=== PATIENT | male | born 1970 | race Caucasian/White ===

== ENCOUNTER 2021-02-24 13:05 | Outpatient (REF) | payer MEDICARE, MEDICAID, SELFPAY ==
[2021-02-24 13:28] LABS: COVID-19 Test Negative (Negative)
== END 2021-02-24 13:06 | disposition home or self-care (01) ==
LOC: HO.LAB 13:05
PROVIDERS: Visit Provider Internal Medicine
DX: Z20.822 Contact with and (suspected) exposure to COVID-19 (principal)
CPT/HCPCS: 87635; C9803

== ENCOUNTER 2021-07-05 03:03 | Emergency (ER) | payer MEDICARE, MEDICAID, SELFPAY ==
[2021-07-05 03:10] VITALS: BP 140/70; BP 151/71; PULSE 70; RESP 18; TEMP 36.4; O2SAT 99; BMI 52.5
[2021-07-05 03:14] LABS: Glucose, Whole Blood 72 mg/dL (60-115)
[2021-07-05 03:27] LABS: Basophils Percent Auto 0.4 % (0-2); Eosinophils Absolute Auto 0.1 X10*3/uL (0.0-0.4); Eosinophils Percent Auto 1.3 % (0-4); Hematocrit 52.2 % (42.0-52.0); Hemoglobin 15.7 g/dl (14.0-18.0); Imm Gran Abs Auto 0.03 X10*3/uL (0.00-0.03); Imm Gran Pct Auto 0.3 % (0.0-0.4); Lymphocytes Percent Auto 17.8 % (20-40); MANUAL DIFF FLAG NO; Mean Corpuscular HGB Conc 30.1 g/dl (31.0-36.0); Mean Corpuscular Hemoglobin 25.1 pg (27.0-33.0); Mean Corpuscular Volume 83.5 fL (80.0-98.0); Monocytes Absolute Auto 0.8 X10*3/uL (0.1-1.2); Neutrophils Absolute Auto 8.2 x10*3/uL (2.0-8.3); Neutrophils Percent Auto 73.2 % (45-73); Platelet Count 313 X10*3/uL (160-400); Red Blood Count 6.25 X10*6/uL (4.60-5.80); Red Cell Distribution Width 15.6 % (11.0-16.0); White Blood Count 11.2 X10*3/uL (4.8-10.8)
[2021-07-05 03:46] LABS: Anion Gap 16 (12-20); Blood Urea Nitrogen 34 mg/dL (9-16); Calcium 10.3 mg/dL (8.4-10.2); Carbon Dioxide 29 mmol/L (22-29); Chloride 102 mmol/L (96-108); Creatinine Clr Calc Pharmacy 67.4; Estimated Glomerular Filt Rate 38; Glucose Random 52 mg/dL (60-115); Potassium 4.7 mmol/L (3.3-5.1); Sodium 142 mmol/L (135-145)
--- NOTE | 2021-07-05 03:57 | ED.GENADULT ---
HPI - General Adult General Chief complaint: General Medical Stated complaint: Hypoglycemia Time Seen by Provider: 07/05/21 03:38 Source: patient and EMS Mode of arrival: EMS History of Present Illness HPI narrative: 50-year-old male with known history of diabetes and uses an insulin pump is brought in by EMS when his brother, who lives with him, called them because he noted that patient was unresponsive and very diaphoretic. Patient states that this is the 1st time that this has happened, he is usually ?very on top of his diabetes? but states lately he has had a change in his appetite so he does not eat is often. Patient feels he may have accidentally entered in the wrong amount for his insulin pump and otherwise feels much better at this time. On initial arrival EMT ease noted that point of care was 25. Related Data Allergies Allergy/AdvReac Type Severity Reaction Status Date / Time No Known Allergies Allergy Unverified 03/05/21 13:28 Review of Systems Review of Systems: Pertinent positives and negatives as stated in HPI 10 point review systems is otherwise negative. PMFSH Past Medical History Source: nursing notes reviewed Social History Social History Advance Directives: No Physical Exam ED Vital Signs: Vital Signs - 24 hr 07/05/21 03:10 07/05/21 04:25 Temperature 97.6 F Pulse Rate 70 65 Respiratory Rate 18 22 H Blood Pressure 151/71 H 113/56 L Pulse Oximetry 99 99 BMI result Body Mass Index 52.5 VITAL SIGNS: Reviewed. GENERAL: Well developed, well nourished, in no acute distress. HEAD: Normocephalic/atraumatic EYES: PERRLA, EOMI EARS: Ext canals without abnormality OROPHARYNX: no oral lesions noted, posterior pharynx clear LUNGS: Normal breath sounds. No adventitious sounds or accessory muscle use. SpO2<99> CARDIOVASCULAR: Regular rate and rhythm without noted murmurs, no JVD or lower extremity edema. ABDOMEN: Soft, non-tender, non-distended with bowel sounds. MUSCULOSKELETAL: No tenderness, deformities, or effusions noted on gross inspection. EXTREMITIES: No cyanosis, clubbing or edema. SKIN: Inspection of the skin reveals no rashes, mildly diaphoretic NEUROLOGIC: Alert and oriented x 4. Strength and sensation to light touch were grossly intact x 4, mouth movements consistent with use of antipsychotic medications Course Course Course Narrative: 50-year-old male with history and clinical presentation consistent with accidental overdose of insulin, on review of all investigations mild leukocytosis is likely reactive and followed blood sugars Q 30 minutes and they have remained stable. Patient was counseled regarding caution with eating and a minimum at the time that he administers his insulin. He acknowledges understanding and states that he is going to discuss it further with his primary care provider at the end of the month. Medical Decision Making Lab Data Result diagrams: 07/05/21 03:22 07/05/21 03:22 Labs: Lab Results 07/05/21 07/05/21 07/05/21 Range/Units 03:07 03:22 03:22 WBC 11.2 H (4.8-10.8) X10*3/uL RBC 6.25 H (4.60-5.80) X10*6/uL Hgb 15.7 (14.0-18.0) g/dl Hct 52.2 H (42.0-52.0) % MCV 83.5 (80.0-98.0) fL MCH 25.1 L (27.0-33.0) pg MCHC 30.1 L (31.0-36.0) g/dl RDW 15.6 (11.0-16.0) % Plt Count 313 (160-400) X10*3/uL MPV 11.0 (9.4-12.4) fL Immature Gran % (Auto) 0.3 (0.0-0.4) % Neut % (Auto) 73.2 H (45-73) % Lymph % (Auto) 17.8 L (20-40) % [place] % (Auto) 7.0 (2-11) % Eos % (Auto) 1.3 (0-4) % Baso % (Auto) 0.4 (0-2) % Lymph # (Auto) 2.0 (1.2-4.9) X10*3/uL [place] # (Auto) 0.8 (0.1-1.2) X10*3/uL Eos # (Auto) 0.1 (0.0-0.4) X10*3/uL Baso # (Auto) 0.0 (0.0-0.2) X10*3/uL Abs Immat Gran (auto) 0.03 (0.00-0.03) X10*3/uL Absolute Neuts (auto) 8.2 (2.0-8.3) x10*3/uL Absolute Nucleated RBC 0.000 (0.0-0.012) X10*3/uL Nucleated RBC % (auto) 0.0 (0.0-0.2) /100WBC Sodium 142 (135-145) mmol/L Potassium 4.7 (3.3-5.1) mmol/L Chloride 102 (96-108) mmol/L Carbon Dioxide 29 (22-29) mmol/L Anion Gap 16 (12-20) BUN 34 H (9-16) mg/dL Creatinine 1.90 H (0.5-1.4) mg/dL Estim Creat Clear Calc 67.4 Estimated GFR 38 POC Glucose 72 (60-115) mg/dL Random Glucose 52 L* (60-115) mg/dL Calcium 10.3 H (8.4-10.2) mg/dL Urine Color Urine Appearance Urine pH (5.0-8.0) Ur Specific [place] (1.005-1.025) Urine Protein (NEG-TRACE) MG/DL Urine Glucose (UA) (NEG) MG/DL Urine Ketones (NEG) MG/DL Urine Blood (NEG) Urine Nitrite (NEG) Ur Leukocyte Esterase (NEG) Ethyl Alcohol mg/dL COVID-19 (EFRA) (Negative) COVID-19 Clin Com 07/05/21 07/05/21 07/05/21 Range/Units 03:22 03:25 03:52 WBC (4.8-10.8) X10*3/uL RBC (4.60-5.80) X10*6/uL Hgb (14.0-18.0) g/dl Hct (42.0-52.0) % MCV (80.0-98.0) fL MCH (27.0-33.0) pg MCHC (31.0-36.0) g/dl RDW (11.0-16.0) % Plt Count (160-400) X10*3/uL MPV (9.4-12.4) fL Immature Gran % (Auto) (0.0-0.4) % Neut % (Auto) (45-73) % Lymph % (Auto) (20-40) % [place] % (Auto) (2-11) % Eos % (Auto) (0-4) % Baso % (Auto) (0-2) % Lymph # (Auto) (1.2-4.9) X10*3/uL [place] # (Auto) (0.1-1.2) X10*3/uL Eos # (Auto) (0.0-0.4) X10*3/uL Baso # (Auto) (0.0-0.2) X10*3/uL Abs Immat Gran (auto) (0.00-0.03) X10*3/uL Absolute Neuts (auto) (2.0-8.3) x10*3/uL Absolute Nucleated RBC (0.0-0.012) X10*3/uL Nucleated RBC % (auto) (0.0-0.2) /100WBC Sodium (135-145) mmol/L Potassium (3.3-5.1) mmol/L Chloride (96-108) mmol/L Carbon Dioxide (22-29) mmol/L Anion Gap (12-20) BUN (9-16) mg/dL Creatinine (0.5-1.4) mg/dL Estim Creat Clear Calc Estimated GFR POC Glucose 95 108 (60-115) mg/dL Random Glucose (60-115) mg/dL Calcium (8.4-10.2) mg/dL Urine Color Urine Appearance Urine pH (5.0-8.0) Ur Specific [place] (1.005-1.025) Urine Protein (NEG-TRACE) MG/DL Urine Glucose (UA) (NEG) MG/DL Urine Ketones (NEG) MG/DL Urine Blood (NEG) Urine Nitrite (NEG) Ur Leukocyte Esterase (NEG) Ethyl Alcohol < 10 mg/dL COVID-19 (EFRA) (Negative) COVID-19 Clin Com 07/05/21 07/05/21 07/05/21 Range/Units 04:25 04:34 05:10 WBC (4.8-10.8) X10*3/uL RBC (4.60-5.80) X10*6/uL Hgb (14.0-18.0) g/dl Hct (42.0-52.0) % MCV (80.0-98.0) fL MCH (27.0-33.0) pg MCHC (31.0-36.0) g/dl RDW (11.0-16.0) % Plt Count (160-400) X10*3/uL MPV (9.4-12.4) fL Immature Gran % (Auto) (0.0-0.4) % Neut % (Auto) (45-73) % Lymph % (Auto) (20-40) % [place] % (Auto) (2-11) % Eos % (Auto) (0-4) % Baso % (Auto) (0-2) % Lymph # (Auto) (1.2-4.9) X10*3/uL [place] # (Auto) (0.1-1.2) X10*3/uL Eos # (Auto) (0.0-0.4) X10*3/uL Baso # (Auto) (0.0-0.2) X10*3/uL Abs Immat Gran (auto) (0.00-0.03) X10*3/uL Absolute Neuts (auto) (2.0-8.3) x10*3/uL Absolute Nucleated RBC (0.0-0.012) X10*3/uL Nucleated RBC % (auto) (0.0-0.2) /100WBC Sodium (135-145) mmol/L Potassium (3.3-5.1) mmol/L Chloride (96-108) mmol/L Carbon Dioxide (22-29) mmol/L Anion Gap (12-20) BUN (9-16) mg/dL Creatinine (0.5-1.4) mg/dL Estim Creat Clear Calc Estimated GFR POC Glucose 120 H 149 H (60-115) mg/dL Random Glucose (60-115) mg/dL Calcium (8.4-10.2) mg/dL Urine Color Urine Appearance Urine pH (5.0-8.0) Ur Specific [place] (1.005-1.025) Urine Protein (NEG-TRACE) MG/DL Urine Glucose (UA) (NEG) MG/DL Urine Ketones (NEG) MG/DL Urine Blood (NEG) Urine Nitrite (NEG) Ur Leukocyte Esterase (NEG) Ethyl Alcohol mg/dL COVID-19 (EFRA) Negative (Negative) COVID-19 Clin Com See Note 07/05/21 07/05/21 07/05/21 Range/Units 05:36 05:42 06:07 WBC (4.8-10.8) X10*3/uL RBC (4.60-5.80) X10*6/uL Hgb (14.0-18.0) g/dl Hct (42.0-52.0) % MCV (80.0-98.0) fL MCH (27.0-33.0) pg MCHC (31.0-36.0) g/dl RDW (11.0-16.0) % Plt Count (160-400) X10*3/uL MPV (9.4-12.4) fL Immature Gran % (Auto) (0.0-0.4) % Neut % (Auto) (45-73) % Lymph % (Auto) (20-40) % [place] % (Auto) (2-11) % Eos % (Auto) (0-4) % Baso % (Auto) (0-2) % Lymph # (Auto) (1.2-4.9) X10*3/uL [place] # (Auto) (0.1-1.2) X10*3/uL Eos # (Auto) (0.0-0.4) X10*3/uL Baso # (Auto) (0.0-0.2) X10*3/uL Abs Immat Gran (auto) (0.00-0.03) X10*3/uL Absolute Neuts (auto) (2.0-8.3) x10*3/uL Absolute Nucleated RBC (0.0-0.012) X10*3/uL Nucleated RBC % (auto) (0.0-0.2) /100WBC Sodium (135-145) mmol/L Potassium (3.3-5.1) mmol/L Chloride (96-108) mmol/L Carbon Dioxide (22-29) mmol/L Anion Gap (12-20) BUN (9-16) mg/dL Creatinine (0.5-1.4) mg/dL Estim Creat Clear Calc Estimated GFR POC Glucose 101 166 H (60-115) mg/dL Random Glucose (60-115) mg/dL Calcium (8.4-10.2) mg/dL Urine Color YELLOW Urine Appearance CLEAR Urine pH 5.5 (5.0-8.0) Ur Specific [place] 1.020 (1.005-1.025) Urine Protein TRACE (NEG-TRACE) MG/DL Urine Glucose (UA) NEG (NEG) MG/DL Urine Ketones NEG (NEG) MG/DL Urine Blood NEG (NEG) Urine Nitrite NEG (NEG) Ur Leukocyte Esterase NEG (NEG) Ethyl Alcohol mg/dL COVID-19 (EFRA) (Negative) COVID-19 Clin Com Discharge Plan Discharge Clinical Impression: Hypoglycemia, Diabetes Patient Disposition: Home, Self-Care Instructions: Hypoglycemia in a Person with Diabetes (ED), Diabetes and Nutrition (ED) Additional Instructions: 1. Resume all home medications as prescribed. 2. Exercise extreme caution with administration of your insulin and keep your scheduled appointment with your primary care provider. Do not hesitate to return to the emergency room for any acute worsening of symptoms. Referrals: Damian Lai III, MD [Primary Care Provider] -
[2021-07-05 04:00] LABS: Ethanol < 10 mg/dL
[2021-07-05] MEDS: 0.9 % Sodium Chloride 1,000 ML 999 ML IV (04:02)
[2021-07-05 04:25] VITALS: BP 113/56; PULSE 65; RESP 22; O2SAT 99
[2021-07-05 04:46] LABS: COVID-19 Test Negative (Negative)
[2021-07-05 05:43] LABS: Appearance Urine CLEAR; Color Urine YELLOW; Glucose Urine UA NEG (NEG); Leukocyte Esterase Urine NEG (NEG); Nitrite Urine NEG (NEG); PH 5.5 (5.0-8.0); Urine Blood NEG (NEG); Urine Ketones NEG (NEG); Urine Protein TRACE MG/DL (NEG-TRACE)
[2021-07-05 05:48] LABS: Glucose, Whole Blood 95 mg/dL (60-115)
[2021-07-05 05:48] LABS: Glucose, Whole Blood 108 mg/dL (60-115)
[2021-07-05 05:48] LABS: Glucose, Whole Blood 101 mg/dL (60-115)
[2021-07-05 05:48] LABS: Glucose, Whole Blood 149 mg/dL (60-115)
[2021-07-05 05:48] LABS: Glucose, Whole Blood 120 mg/dL (60-115)
[2021-07-05 06:13] LABS: Glucose, Whole Blood 166 mg/dL (60-115)
[2021-07-05 06:35] LABS: Glucose, Whole Blood 159 mg/dL (60-115)
== END 2021-07-05 07:08 | disposition home or self-care (01) ==
PROVIDERS: Emergency Provider Student in an Organized Health Care Education/Training Program; PCP Internal Medicine
DX: E11.649 Type 2 diabetes mellitus with hypoglycemia without coma (principal); Z20.822 Contact with and (suspected) exposure to COVID-19; Z79.899 Other long term (current) drug therapy
CPT/HCPCS: 36415; 80048; 81003; 82077; 82947; 85025; 87635; 96360; 99284

== ENCOUNTER 2023-01-18 15:37 | Outpatient (AMB) | payer MEDICARE, MEDICAID, SELFPAY ==
--- NOTE | 2023-01-18 15:46 | HO.NEPHOV_ITS ---
HPI HPI Comments History of Present Illness Details I had the privilege of seeing Zac in follow-up of his chronic kidney disease on a backdrop of obesity, hypertension and uncontrolled diabetes. He has been having bi pedal edema. He has not come for follow-up for a long time. He bought a diuretics from the pharmacy without prescription and took it for a month with some improvement. His last serum creatinine had gone up about his baseline. His blood sugar control remains suboptimal. He has gained quite a bit of weight. He denies chest pain, shortness of breath, nausea, vomiting, diarrhea, urinary symptoms, orthostasis. He avoids nonsteroidal inflammatory medications. He claims to be compliant with his medications but is not as active as he should be. He is on angiotensin receptor nickolas. [facility] Medical History (Updated 01/19/23 @ 22:15 by Ruddy Mcconnell MD) Chronic kidney disease (CKD) Hypertension Diabetes Family History (Updated 01/18/23 @ 15:53 by Evelina Siegel MA) Mother Diabetes Father Diabetes Hypertension Social History (Updated 01/18/23 @ 15:53 by Evelina Siegel MA) Alcohol intake: never Patient Tobacco Use Status: Never used Tobacco Vital Signs 01/18/23 15:47 Height 5 ft 8 in Weight 328 lb 4 oz BMI 49.9 BP 164/80 H Blood Pressure Location Lt brachial Position Sitting Pulse 70 Pulse Source Pulse Oximeter Pulse Oximetry (%) 96 Oxygen Delivery Method Room Air Physical Exam Vital Signs: Last Vital Signs Pulse 70 01/18/23 15:47 BP 164/80 H 01/18/23 15:47 Pulse Ox 96 01/18/23 15:47 Oxygen Delivery Method Room Air 01/18/23 15:47 BMI result Body Mass Index 49.9 Const General: comfortable and no acute distress Orientation/consciousness: patient oriented x3 HEENT Head: Yes normocephalic Mouth: Normal oral and palatal mucosa present Eyes EOM: EOMs intact bilaterally Neck Neck: Yes supple Resp Auscultation: clear to auscultation bilaterally Cardio Jugular venous distension: no JVD Rate: regular rate GI Palpation (GI): Soft to palpation Auscultation: normal bowel sounds General: Yes no CVA tenderness Back/Spine/Pelvis Back: no CVA tenderness Skin General skin exam: no rashes or lesions noted Neuro General: patient oriented x3 and moves all extremities Extrem General: Yes edema Assessment & Plan Assessment & Plan (1) CKD stage 3 due to type 2 diabetes mellitus: Code(s): E11.22 - Type 2 diabetes mellitus with diabetic chronic kidney disease; N18.30 - Chronic kidney disease, stage 3 unspecified (2) Hypertension: Code(s): I10 - Essential (primary) hypertension Qualifiers: Hypertension type: primary hypertension Qualified Code(s): I10 - Essential (primary) hypertension Plan Zac has 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 He is on angiotensin receptor nickolas along with multiple antihypertensives to keep his blood pressure at goal. He should be on a low-sodium diet. He should maintain good hydration. I restarted him on thiazides. I ordered follow-up blood work and urine studies. I plan to start him on Jardiance or Farxiga at the next visit. He should not take any nonsteroidal anti-inflammatory medications. He needs to lose weight. If he is unsuccessful in losing weight he should be seen in weight management plays in [facility]. All his questions were answered. Time spent retrieving data, patient encounter and documentation 36 minutes. Follow-up given. Orders: Orders Electrolytes 01/18/23. - Type 2 diabetes mellitus with diabetic chronic kidney disease, I10 - Essential (primary) hypertension, N18.30 - Chronic kidney disease, stage 3 unspecified Blood Urea Nitrogen 01/18/23. - Type 2 diabetes mellitus with diabetic chronic kidney disease, I10 - Essential (primary) hypertension, N18.30 - Chronic kidney disease, stage 3 unspecified Creatinine 01/18/23. - Type 2 diabetes mellitus with diabetic chronic kidney disease, I10 - Essential (primary) hypertension, N18.30 - Chronic kidney disease, stage 3 unspecified Phosphorus 01/18/23. - Type 2 diabetes mellitus with diabetic chronic kidney disease, I10 - Essential (primary) hypertension, N18.30 - Chronic kidney disease, stage 3 unspecified Calcium 01/18/23. - Type 2 diabetes mellitus with diabetic chronic kidney disease, I10 - Essential (primary) hypertension, N18.30 - Chronic kidney disease, stage 3 unspecified Complete Blood Count Auto Diff 01/18/23. - Type 2 diabetes mellitus with diabetic chronic kidney disease, I10 - Essential (primary) hypertension, N18.30 - Chronic kidney disease, stage 3 unspecified Vitamin D 25-OH Total 01/18/23 E11.22 - Type 2 diabetes mellitus with diabetic chronic kidney disease, I10 - Essential (primary) hypertension, N18.30 - Chronic kidney disease, stage 3 unspecified Parathyroid Hormone Intact 01/18/23 E11. - Type 2 diabetes mellitus with diabetic chronic kidney disease, I10 - Essential (primary) hypertension, N18.30 - Chronic kidney disease, stage 3 unspecified Protein Creatinine Ratio, Ur 01/18/23 E11. - Type 2 diabetes mellitus with diabetic chronic kidney disease, I10 - Essential (primary) hypertension, N18.30 - Chronic kidney disease, stage 3 unspecified Medications: New bumetanide 1 mg PO BID 180 tabs 3RF 90 days Coding Level of Care Code Est Pt Level 4 (53416) Diagnoses CKD stage 3 due to type 2 diabetes mellitus ; N18.30 Primary hypertension I10 Hypertension type: primary hypertension Results Reviewed Nephrology Results: Hgb 15.7 g/dl (14.0-18.0) 07/05/21 WBC 11.2 X10*3/uL (4.8-10.8) H 07/05/21 Plt Count 313 X10*3/uL (160-400) 07/05/21 Sodium 142 mmol/L (135-145) 07/05/21 Potassium 4.7 mmol/L (3.3-5.1) 07/05/21 Chloride 102 mmol/L (96-108) 07/05/21 Carbon Dioxide 29 mmol/L (22-29) 07/05/21 BUN 34 mg/dL (9-16) H 07/05/21 Creatinine 1.90 mg/dL (0.5-1.4) H 07/05/21 Calcium 10.3 mg/dL (8.4-10.2) H 07/05/21 Urine Protein TRACE MG/DL (NEG-TRACE) 07/05/21
[2023-01-18 15:47] VITALS: BP 164/80; PULSE 70; O2SAT 96; BMI 49.9
== END 2023-01-18 16:14 | disposition home or self-care (01) ==
PROVIDERS: PCP Internal Medicine; Visit Provider Internal Medicine Nephrology
DX: E11.22 Type 2 diabetes mellitus with diabetic chronic kidney disease (principal); N18.30 Chronic kidney disease, stage 3 unspecified; I10 Essential (primary) hypertension
CPT/HCPCS: 99214

== ENCOUNTER → 2023-01-18 15:37 | Outpatient (BNVA) | payer MEDICARE, MEDICAID, SELFPAY | PROVIDERS: PCP Internal Medicine; Visit Provider Internal Medicine Nephrology | DX: E11.22 Type 2 diabetes mellitus with diabetic chronic kidney disease (principal); I12.9 Hypertensive chronic kidney disease with stage 1 through stage 4 chronic kidney disease, or unspecified chronic kidney disease; N18.30 Chronic kidney disease, stage 3 unspecified | CPT/HCPCS: 99212 ==

== ENCOUNTER 2023-03-06 15:17 | Outpatient (REF) | payer MEDICARE, MEDICAID, SELFPAY ==
[2023-03-06 15:31] LABS: MANUAL DIFF FLAG NO
[2023-03-06 16:13] LABS: Basophils Absolute Auto 0.1 X10*3/uL (0.0-0.2); Basophils Percent Auto 0.7 % (0-2); Eosinophils Absolute Auto 0.2 X10*3/uL (0.0-0.4); Eosinophils Percent Auto 2.3 % (0-4); Hematocrit 45.5 % (42.0-52.0); Hemoglobin 14.5 g/dl (14.0-18.0); Imm Gran Abs Auto 0.01 X10*3/uL (0.00-0.03); Imm Gran Pct Auto 0.1 % (0.0-0.4); Lymphocytes Absolute Auto 2.3 X10*3/uL (1.2-4.9); Lymphocytes Percent Auto 32.8 % (20-40); Mean Corpuscular HGB Conc 31.9 g/dl (31.0-36.0); Mean Corpuscular Hemoglobin 26.5 pg (27.0-33.0); Mean Platelet Volume 11.8 fL (9.4-12.4); Monocytes Absolute Auto 0.5 X10*3/uL (0.1-1.2); Monocytes Percent Auto 7.6 % (2-11); Neutrophils Absolute Auto 3.9 x10*3/uL (2.0-8.3); Neutrophils Percent Auto 56.5 % (45-73); Platelet Count 271 X10*3/uL (160-400); Red Blood Count 5.48 X10*6/uL (4.60-5.80); Red Cell Distribution Width 13.3 % (11.0-16.0); White Blood Count 6.9 X10*3/uL (4.8-10.8)
[2023-03-06 16:45] LABS: Anion Gap 12 (12-20); Blood Urea Nitrogen 18 mg/dL (9-16); Calcium 9.7 mg/dL (8.4-10.2); Carbon Dioxide 31 mmol/L (22-29); Chloride 104 mmol/L (96-108); Estimated Glomerular Filt Rate 57; Parathyroid Hormone Intact 121.8 pg/mL (8.7-77.1); Phosphorus 3.2 mg/dL (2.7-4.5); Sodium 143 mmol/L (135-145)
[2023-03-06 17:04] LABS: Vitamin D 25-OH Total 29.1 ng/mL (>30)
[2023-03-06 17:34] LABS: Creatinine Urine 101.06 mg/dL; Protein/Creatinine Ratio, Ur 1.96 (<0.2); Total Protein Urine Random 198 mg/dL (<12)
== END 2023-03-06 15:18 | disposition home or self-care (01) ==
LOC: HO.LAB 15:17
PROVIDERS: Visit Provider Internal Medicine Nephrology
DX: E11.22 Type 2 diabetes mellitus with diabetic chronic kidney disease (principal); I12.9 Hypertensive chronic kidney disease with stage 1 through stage 4 chronic kidney disease, or unspecified chronic kidney disease; N18.30 Chronic kidney disease, stage 3 unspecified
CPT/HCPCS: 36415; 80051; 82306; 82310; 82565; 82570; 83970; 84100; 84156; 84520; 85025

== ENCOUNTER 2023-03-08 15:04 | Outpatient (AMB) | payer MEDICARE, MEDICAID, SELFPAY ==
--- NOTE | 2023-03-08 15:06 | HO.NEPHOV_ITS ---
HPI HPI Comments History of Present Illness Details I had the privilege of seeing Zac in follow-up of his chronic kidney disease on a backdrop of obesity, hypertension and uncontrolled diabetes. He has no pedal edema. His last serum creatinine has improved compared to last visit. His blood sugar control remains suboptimal. He has gained quite a bit of weight. He denies chest pain, shortness of breath, nausea, vomiting, diarrhea, urinary symptoms, orthostasis. He avoids nonsteroidal inflammatory medications. He claims to be compliant with his medications but is not as active as he should be. He is on angiotensin receptor nickolas [facility] Medical History (Updated 03/08/23 @ 15:48 by Ruddy Mcconnell MD) Chronic kidney disease (CKD) Hypertension Diabetes Family History Mother Diabetes Father Diabetes Hypertension Social History Alcohol intake: never Patient Tobacco Use Status: Never used Tobacco Vital Signs 03/08/23 15:08 Height 5 ft 8 in Weight 315 lb 8 oz BMI 48.0 BP 130/70 Blood Pressure Location Lt brachial Position Sitting Pulse 67 Pulse Source Pulse Oximeter Pulse Oximetry (%) 97 Oxygen Delivery Method Room Air Physical Exam Vital Signs: Last Vital Signs Pulse 67 03/08/23 15:08 BP 130/70 03/08/23 15:08 Pulse Ox 97 03/08/23 15:08 Oxygen Delivery Method Room Air 03/08/23 15:08 BMI result Body Mass Index 48.0 Const General: comfortable and no acute distress Orientation/consciousness: patient oriented x3 HEENT Head: Yes normocephalic Mouth: Normal oral and palatal mucosa present Eyes EOM: EOMs intact bilaterally Neck Neck: Yes supple Resp Auscultation: clear to auscultation bilaterally Cardio Jugular venous distension: no JVD Rate: regular rate GI Palpation (GI): Soft to palpation Auscultation: normal bowel sounds General: Yes no CVA tenderness Back/Spine/Pelvis Back: no CVA tenderness Skin General skin exam: no rashes or lesions noted Neuro General: patient oriented x3 and moves all extremities Extrem General: Yes no pedal edema Assessment & Plan Assessment & Plan (1) Hypertension: Code(s): I10 - Essential (primary) hypertension Qualifiers: Hypertension type: primary hypertension Qualified Code(s): I10 - Essential (primary) hypertension (2) CKD stage 3 due to type 2 diabetes mellitus: Code(s): E11.22 - Type 2 diabetes mellitus with diabetic chronic kidney disease; N18.30 - Chronic kidney disease, stage 3 unspecified (3) Diabetic nephropathy: Code(s): E11.21 - Type 2 diabetes mellitus with diabetic nephropathy Qualifiers: Diabetes mellitus type: type 2 Qualified Code(s): E11.21 - Type 2 diabetes mellitus with diabetic nephropathy Meghann Frank has 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 He is on angiotensin receptor nickolas along with multiple antihypertensives to keep his blood pressure at goal. He should be on a low-sodium diet. He should maintain good hydration. His serum creatinine has improved compared to last visit. I ordered follow-up blood work . I discussed with him about starting him on J ardiance or Farxiga today but he wants to wait until next visit. He was worried about it lowering his blood sugar too much. He should not take any nonsteroidal anti-inflammatory medications. He needs to lose weight. If he is unsuccessful in losing weight he should be seen in weight management . All his questions were answered. Follow-up given Orders: Orders Blood Urea Nitrogen Today E11.22 - Type 2 diabetes mellitus with diabetic chronic kidney disease, I10 - Essential (primary) hypertension, N18.30 - Chronic kidney disease, stage 3 unspecified Calcium Today E11.22 - Type 2 diabetes mellitus with diabetic chronic kidney disease, I10 - Essential (primary) hypertension, N18.30 - Chronic kidney disease, stage 3 unspecified Creatinine Today E11.22 - Type 2 diabetes mellitus with diabetic chronic kidney disease, I10 - Essential (primary) hypertension, N18.30 - Chronic kidney disease, stage 3 unspecified Electrolytes Today E11.22 - Type 2 diabetes mellitus with diabetic chronic kidney disease, I10 - Essential (primary) hypertension, N18.30 - Chronic kidney disease, stage 3 unspecified Coding Level of Care Code Est Pt Level 4 (31335) Diagnoses Primary hypertension I10 Hypertension type: primary hypertension CKD stage 3 due to type 2 diabetes mellitus E11.22; N18.30 Diabetic nephropathy associated with type 2 diabetes mellitus E11.21 Diabetes mellitus type: type 2 Results Reviewed Nephrology Results: Hgb 14.5 g/dl (14.0-18.0) 03/06/23 WBC 6.9 X10*3/uL (4.8-10.8) 03/06/23 Plt Count 271 X10*3/uL (160-400) 03/06/23 Sodium 143 mmol/L (135-145) 03/06/23 Potassium 4.0 mmol/L (3.3-5.1) 03/06/23 Chloride 104 mmol/L (96-108) 03/06/23 Carbon Dioxide 31 mmol/L (22-29) H 03/06/23 BUN 18 mg/dL (9-16) H 03/06/23 Creatinine 1.31 mg/dL (0.5-1.4) 03/06/23 Calcium 9.7 mg/dL (8.4-10.2) 03/06/23 Phosphorus 3.2 mg/dL (2.7-4.5) 03/06/23 PTH Intact 121.8 pg/mL (8.7-77.1) H 03/06/23 Urine Protein TRACE MG/DL (NEG-TRACE) 07/05/21 Urine Creatinine 101.06 mg/dL 03/06/23 Protein/Creatinin Ratio 1.96 (<0.2) H 03/06/23
[2023-03-08 15:08] VITALS: BP 130/70; PULSE 67; O2SAT 97; BMI 48.0
== END 2023-03-08 15:38 | disposition home or self-care (01) ==
PROVIDERS: PCP Internal Medicine; Visit Provider Internal Medicine Nephrology
DX: I10 Essential (primary) hypertension (principal); E11.22 Type 2 diabetes mellitus with diabetic chronic kidney disease; N18.30 Chronic kidney disease, stage 3 unspecified; E11.21 Type 2 diabetes mellitus with diabetic nephropathy
CPT/HCPCS: 99214

== ENCOUNTER → 2023-03-08 15:04 | Outpatient (BNVA) | payer MEDICARE, MEDICAID, SELFPAY | PROVIDERS: PCP Internal Medicine; Visit Provider Internal Medicine Nephrology | DX: E11.22 Type 2 diabetes mellitus with diabetic chronic kidney disease (principal); I12.9 Hypertensive chronic kidney disease with stage 1 through stage 4 chronic kidney disease, or unspecified chronic kidney disease; N18.30 Chronic kidney disease, stage 3 unspecified; E11.21 Type 2 diabetes mellitus with diabetic nephropathy | CPT/HCPCS: 99212 ==

== ENCOUNTER 2023-06-03 07:10 | Outpatient (REF) | payer MEDICARE, MEDICAID, SELFPAY ==
[2023-06-03 12:18] LABS: Anion Gap 12 (12-20); Blood Urea Nitrogen 29 mg/dL (9-16); Calcium 9.4 mg/dL (8.4-10.2); Carbon Dioxide 29 mmol/L (22-29); Chloride 105 mmol/L (96-108); Estimated Glomerular Filt Rate 49; Potassium 4.1 mmol/L (3.3-5.1); Sodium 142 mmol/L (135-145)
== END 2023-06-03 07:11 | disposition home or self-care (01) ==
LOC: HO.HMGCLDS 07:10
PROVIDERS: PCP Internal Medicine; Visit Provider Internal Medicine Nephrology
DX: I12.9 Hypertensive chronic kidney disease with stage 1 through stage 4 chronic kidney disease, or unspecified chronic kidney disease (principal); E11.22 Type 2 diabetes mellitus with diabetic chronic kidney disease; N18.30 Chronic kidney disease, stage 3 unspecified
CPT/HCPCS: 36415; 80051; 82310; 82565; 84520

== ENCOUNTER 2023-06-07 15:38 | Outpatient (AMB) | payer MEDICARE, MEDICAID, SELFPAY ==
--- NOTE | 2023-06-07 15:46 | HO.NEPHOV ---
Vital Signs 06/07/23 15:48 Height 5 ft 8 in Weight 305 lb 8 oz BMI 46.4 BP 138/72 Blood Pressure Location Lt brachial Position Sitting Pulse 81 Pulse Source Pulse Oximeter Pulse Oximetry (%) 97 Oxygen Delivery Method Room Air Intake Visit Reasons: CKD 3 mo fu w/ labs/ Confirmed Plant Control Operator Required: No Accompanied by: Significant Other Allergies No Known Allergies Allergy (Verified 06/07/23 15:49) HPI Comments Details: I had the privilege of seeing Zac in follow-up of his chronic kidney disease on a backdrop of obesity, hypertension and uncontrolled diabetes. He has no pedal edema. His last serum creatinine has been close to baseline. His blood sugar control remains suboptimal. He has gained quite a bit of weight. He denies chest pain, shortness of breath, nausea, vomiting, diarrhea, urinary symptoms, orthostasis. He avoids nonsteroidal inflammatory medications. He claims to be compliant with his medications but is not as active as he should be. He is on angiotensin receptor nickolas [facility] Medical History (Updated 03/08/23 @ 15:48 by Ruddy Mcconnell MD) Chronic kidney disease (CKD) Hypertension Diabetes Family History Mother Diabetes Father Diabetes Hypertension Social History Alcohol intake: never Patient Tobacco Use Status: Never used Tobacco Physical Exam Vital Signs: Last Vital Signs Pulse 81 06/07/23 15:48 BP 138/72 06/07/23 15:48 Pulse Ox 97 06/07/23 15:48 Oxygen Delivery Method Room Air 06/07/23 15:48 BMI result Body Mass Index 46.4 Const General: comfortable and no acute distress Orientation/consciousness: patient oriented x3 HEENT Head: Yes normocephalic Mouth: Normal oral and palatal mucosa present Eyes EOM: EOMs intact bilaterally Neck Neck: Yes supple Resp Auscultation: clear to auscultation bilaterally Cardio Jugular venous distension: no JVD Rate: regular rate GI Palpation (GI): Soft to palpation Auscultation: normal bowel sounds General: Yes no CVA tenderness Back/Spine/Pelvis Back: no CVA tenderness Skin General skin exam: no rashes or lesions noted Neuro General: patient oriented x3 and moves all extremities Extrem General: Yes no pedal edema Results Reviewed Nephrology Results: Hgb 14.5 g/dl (14.0-18.0) 03/06/23 WBC 6.9 X10*3/uL (4.8-10.8) 03/06/23 Plt Count 271 X10*3/uL (160-400) 03/06/23 Sodium 142 mmol/L (135-145) 06/03/23 Potassium 4.1 mmol/L (3.3-5.1) 06/03/23 Chloride 105 mmol/L (96-108) 06/03/23 Carbon Dioxide 29 mmol/L (22-29) 06/03/23 BUN 29 mg/dL (9-16) H 06/03/23 Creatinine 1.49 mg/dL (0.5-1.4) H 06/03/23 Calcium 9.4 mg/dL (8.4-10.2) 06/03/23 Phosphorus 3.2 mg/dL (2.7-4.5) 03/06/23 PTH Intact 121.8 pg/mL (8.7-77.1) H 03/06/23 Urine Protein TRACE MG/DL (NEG-TRACE) 07/05/21 Urine Creatinine 101.06 mg/dL 03/06/23 Protein/Creatinin Ratio 1.96 (<0.2) H 03/06/23 Assessment & Plan Assessment & Plan (1) Hypertension: Code(s): I10 - Essential (primary) hypertension Category: Medical Qualifiers: Hypertension type: primary hypertension Qualified Code(s): I10 - Essential (primary) hypertension (2) CKD stage 3 due to type 2 diabetes mellitus: Code(s): E11.22 - Type 2 diabetes mellitus with diabetic chronic kidney disease; N18.30 - Chronic kidney disease, stage 3 unspecified Category: Medical (3) Diabetic nephropathy: Code(s): E11.21 - Type 2 diabetes mellitus with diabetic nephropathy Category: Medical Qualifiers: Diabetes mellitus type: type 2 Qualified Code(s): E11.21 - Type 2 diabetes mellitus with diabetic nephropathy Plan Zac has 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 He is on angiotensin receptor nickolas along with multiple antihypertensives to keep his blood pressure at goal. He should be on a low-sodium diet. He should maintain good hydration. His serum creatinine has improved compared to last visit. I ordered follow-up blood work . I discussed with him about starting him on Jardiance or Farxiga but unfortunately his insurance is not covering it. He should not take any nonsteroidal anti-inflammatory medications. I did not make any medication changes today. He needs to lose weight. If he is unsuccessful in losing weight he should be seen in weight management . All his questions were answered Orders: Orders Blood Urea Nitrogen Today E11.21 - Type 2 diabetes mellitus with diabetic nephropathy, E11.22 - Type 2 diabetes mellitus with diabetic chronic kidney disease, I10 - Essential (primary) hypertension, N18.30 - Chronic kidney disease, stage 3 unspecified Creatinine Today E11.21 - Type 2 diabetes mellitus with diabetic nephropathy, E11.22 - Type 2 diabetes mellitus with diabetic chronic kidney disease, I10 - Essential (primary) hypertension, N18.30 - Chronic kidney disease, stage 3 unspecified Electrolytes Today E11.21 - Type 2 diabetes mellitus with diabetic nephropathy, E11.22 - Type 2 diabetes mellitus with diabetic chronic kidney disease, I10 - Essential (primary) hypertension, N18.30 - Chronic kidney disease, stage 3 unspecified Coding Level of Care Code Est Pt Level 4 (66138) Diagnoses Primary hypertension I10 Hypertension type: primary hypertension CKD stage 3 due to type 2 diabetes mellitus E11.22; N18.30 Diabetic nephropathy associated with type 2 diabetes mellitus E11.21 Diabetes mellitus type: type 2
[2023-06-07 15:48] VITALS: BP 138/72; PULSE 81; O2SAT 97; BMI 46.4
== END 2023-06-07 16:02 | disposition home or self-care (01) ==
PROVIDERS: PCP Internal Medicine; Visit Provider Internal Medicine Nephrology
DX: I10 Essential (primary) hypertension (principal); E11.22 Type 2 diabetes mellitus with diabetic chronic kidney disease; N18.30 Chronic kidney disease, stage 3 unspecified; E11.21 Type 2 diabetes mellitus with diabetic nephropathy
CPT/HCPCS: 99214

== ENCOUNTER → 2023-06-07 15:38 | Outpatient (BNVA) | payer MEDICARE, MEDICAID, SELFPAY | PROVIDERS: PCP Internal Medicine; Visit Provider Internal Medicine Nephrology | DX: E11.22 Type 2 diabetes mellitus with diabetic chronic kidney disease (principal); E11.21 Type 2 diabetes mellitus with diabetic nephropathy; I12.9 Hypertensive chronic kidney disease with stage 1 through stage 4 chronic kidney disease, or unspecified chronic kidney disease; N18.30 Chronic kidney disease, stage 3 unspecified | CPT/HCPCS: 99212 ==

== ENCOUNTER 2023-09-02 08:18 | Outpatient (REF) | payer MEDICARE, MEDICAID, SELFPAY ==
[2023-09-02 11:37] LABS: Anion Gap 15 (12-20); Blood Urea Nitrogen 34 mg/dL (9-16); Carbon Dioxide 26 mmol/L (22-29); Chloride 104 mmol/L (96-108); Estimated Glomerular Filt Rate 40; Potassium 4.4 mmol/L (3.3-5.1); Sodium 141 mmol/L (135-145)
== END 2023-09-02 08:19 | disposition home or self-care (01) ==
LOC: HO.HMGCLDS 08:18
PROVIDERS: PCP Internal Medicine; Visit Provider Internal Medicine Nephrology
DX: E11.21 Type 2 diabetes mellitus with diabetic nephropathy (principal); I10 Essential (primary) hypertension; E11.22 Type 2 diabetes mellitus with diabetic chronic kidney disease; N18.30 Chronic kidney disease, stage 3 unspecified
CPT/HCPCS: 36415; 80051; 82565; 84520

== ENCOUNTER 2023-09-08 13:56 | Outpatient (AMB) | payer MEDICARE, MEDICAID, SELFPAY ==
[2023-09-08 13:58] VITALS: BP 116/66; PULSE 64; O2SAT 95; BMI 46.8
--- NOTE | 2023-09-08 13:58 | HO.NEPHOV ---
Vital Signs 09/08/23 13:58 Height 5 ft 8 in Weight 308 lb BMI 46.8 BP 116/66 Blood Pressure Location Lt brachial Position Sitting Pulse 64 Pulse Source Pulse Oximeter Pulse Oximetry (%) 95 Oxygen Delivery Method Room Air Intake Visit Reasons: CKD/ 3 MO FU Marketing Ambassador Required: No Accompanied by: Significant Other Allergies No Known Allergies Allergy (Verified 09/08/23 14:00) HPI Comments Details: I had the privilege of seeing Zac in follow-up of his chronic kidney disease on a backdrop of obesity, hypertension and uncontrolled diabetes. He has no pedal edema. His blood sugar control remains suboptimal. He has gained some weight. He denies chest pain, shortness of breath, nausea, vomiting, diarrhea, urinary symptoms, orthostasis. He avoids nonsteroidal inflammatory medications. He claims to be compliant with his medications but is not as active as he should be. He is on angiotensin receptor nickolas [facility] Medical History (Updated 03/08/23 @ 15:48 by Ruddy Mcconnell MD) Chronic kidney disease (CKD) Hypertension Diabetes Family History Mother Diabetes Father Diabetes Hypertension Social History Alcohol intake: never Patient Tobacco Use Status: Never used Tobacco Physical Exam Vital Signs: Last Vital Signs Pulse 64 09/08/23 13:58 BP 116/66 09/08/23 13:58 Pulse Ox 95 09/08/23 13:58 Oxygen Delivery Method Room Air 09/08/23 13:58 BMI result Body Mass Index 46.8 Const General: comfortable and no acute distress Orientation/consciousness: patient oriented x3 HEENT Head: Yes normocephalic Mouth: Normal oral and palatal mucosa present Eyes EOM: EOMs intact bilaterally Neck Neck: Yes supple Resp Auscultation: clear to auscultation bilaterally Cardio Jugular venous distension: no JVD Rate: regular rate GI Palpation (GI): Soft to palpation Auscultation: normal bowel sounds General: Yes no CVA tenderness Back/Spine/Pelvis Back: no CVA tenderness Skin General skin exam: no rashes or lesions noted Neuro General: patient oriented x3 and moves all extremities Extrem General: Yes no pedal edema Results Reviewed Nephrology Results: Hgb 14.5 g/dl (14.0-18.0) 01/29/24 WBC 6.9 X10*3/uL (4.8-10.8) 03/06/23 Plt Count 271 X10*3/uL (160-400) 03/06/23 Sodium 141 mmol/L (135-145) 09/02/23 Potassium 4.4 mmol/L (3.3-5.1) 09/02/23 Chloride 104 mmol/L (96-108) 09/02/23 Carbon Dioxide 26 mmol/L (22-29) 09/02/23 BUN 34 mg/dL (9-16) H 09/02/23 Creatinine 1.79 mg/dL (0.5-1.4) H 09/02/23 Calcium 9.4 mg/dL (8.4-10.2) 06/03/23 Phosphorus 3.2 mg/dL (2.7-4.5) 03/06/23 PTH Intact 121.8 pg/mL (8.7-77.1) H 03/06/23 Urine Protein TRACE MG/DL (NEG-TRACE) 07/05/21 Urine Creatinine 101.06 mg/dL 03/06/23 Protein/Creatinin Ratio 1.96 (<0.2) H 03/06/23 Assessment & Plan Assessment & Plan (1) Diabetic nephropathy: Code(s): E11.21 - Type 2 diabetes mellitus with diabetic nephropathy Category: Medical Qualifiers: Diabetes mellitus type: type 2 Qualified Code(s): E11.21 - Type 2 diabetes mellitus with diabetic nephropathy (2) Hypertension: Code(s): I10 - Essential (primary) hypertension Category: Medical Qualifiers: Hypertension type: primary hypertension Qualified Code(s): I10 - Essential (primary) hypertension (3) CKD stage 3 due to type 2 diabetes mellitus: Code(s): E11.22 - Type 2 diabetes mellitus with diabetic chronic kidney disease; N18.30 - Chronic kidney disease, stage 3 unspecified Category: Medical Plan Zac has 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 He is on angiotensin receptor nickolas along with multiple antihypertensives to keep his blood pressure at goal. He should be on a low-sodium diet. He should maintain good hydration. I reduced his Bumex to 2mg daily alternating with 1 mg every other day. ( He also had COVID recently). I ordered follow-up blood work . I discussed with him about starting him on Jardiance or Farxiga but unfortunately his insurance is not covering it. He should not take any nonsteroidal anti-inflammatory medications. I did not make any other medication changes today. He needs to lose weight. If he is unsuccessful in losing weight he should be seen in weight management . All his questions were answered Orders: Orders Creatinine Today E11.21 - Type 2 diabetes mellitus with diabetic nephropathy, E11.22 - Type 2 diabetes mellitus with diabetic chronic kidney disease, I10 - Essential (primary) hypertension, N18.30 - Chronic kidney disease, stage 3 unspecified Blood Urea Nitrogen Today E11.21 - Type 2 diabetes mellitus with diabetic nephropathy, E11.22 - Type 2 diabetes mellitus with diabetic chronic kidney disease, I10 - Essential (primary) hypertension, N18.30 - Chronic kidney disease, stage 3 unspecified Electrolytes Today E11.21 - Type 2 diabetes mellitus with diabetic nephropathy, E11.22 - Type 2 diabetes mellitus with diabetic chronic kidney disease, I10 - Essential (primary) hypertension, N18.30 - Chronic kidney disease, stage 3 unspecified Coding Level of Care Code Est Pt Level 4 (37881) Diagnoses Diabetic nephropathy associated with type 2 diabetes mellitus E11.21 Diabetes mellitus type: type 2 Primary hypertension I10 Hypertension type: primary hypertension CKD stage 3 due to type 2 diabetes mellitus E11.22; N18.30
== END 2023-09-08 14:16 | disposition home or self-care (01) ==
PROVIDERS: PCP Internal Medicine; Visit Provider Internal Medicine Nephrology
DX: E11.21 Type 2 diabetes mellitus with diabetic nephropathy (principal); I10 Essential (primary) hypertension; E11.22 Type 2 diabetes mellitus with diabetic chronic kidney disease; N18.30 Chronic kidney disease, stage 3 unspecified
CPT/HCPCS: 99214

== ENCOUNTER → 2023-09-08 13:56 | Outpatient (BNVA) | payer MEDICARE, MEDICAID, SELFPAY | PROVIDERS: PCP Internal Medicine; Visit Provider Internal Medicine Nephrology | DX: E11.22 Type 2 diabetes mellitus with diabetic chronic kidney disease (principal); I12.9 Hypertensive chronic kidney disease with stage 1 through stage 4 chronic kidney disease, or unspecified chronic kidney disease; E11.21 Type 2 diabetes mellitus with diabetic nephropathy; N18.30 Chronic kidney disease, stage 3 unspecified; E66.9 Obesity, unspecified; Z68.42 Body mass index [BMI] 45.0-49.9, adult; Z79.899 Other long term (current) drug therapy | CPT/HCPCS: 99212 ==

== ENCOUNTER 2023-11-18 08:38 | Outpatient (REF) | payer MEDICARE, MEDICAID, SELFPAY ==
[2023-11-18 11:29] LABS: Anion Gap 12 (12-20); Blood Urea Nitrogen 26 mg/dL (9-16); Carbon Dioxide 30 mmol/L (22-29); Chloride 102 mmol/L (96-108); Estimated Glomerular Filt Rate 43; Potassium 4.2 mmol/L (3.3-5.1); Sodium 140 mmol/L (135-145)
== END 2023-11-18 08:39 | disposition home or self-care (01) ==
LOC: HO.HMGCLDS 08:38
PROVIDERS: PCP Internal Medicine; Visit Provider Internal Medicine Nephrology
DX: E11.22 Type 2 diabetes mellitus with diabetic chronic kidney disease (principal); E11.21 Type 2 diabetes mellitus with diabetic nephropathy; I10 Essential (primary) hypertension; N18.30 Chronic kidney disease, stage 3 unspecified
CPT/HCPCS: 36415; 80051; 82565; 84520

== ENCOUNTER 2023-11-24 15:31 | Outpatient (AMB) | payer MEDICARE, MEDICAID, SELFPAY ==
--- NOTE | 2023-11-24 15:33 | HO.NEPHOV_ITS ---
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 He has no pedal edema. His blood sugar control remains sub optimal. He has gained some weight. He denies chest pain, shortness of breath, nausea, vomiting, diarrhea, urinary symptoms, orthostasis. He avoids nonsteroidal inflammatory medications. He claims to be compliant with his medications but is not as active as he should be. He is on angiotensin receptor nickolas. He has not started taking Jardiance yet. [facility] Medical History (Updated 03/08/23 @ 15:48 by Ruddy Mcconnell MD) Chronic kidney disease (CKD) Hypertension Diabetes Family History Mother Diabetes Father Diabetes Hypertension Social History Alcohol intake: never Patient Tobacco Use Status: Never used Tobacco Review of Systems Const All systems reviewed & are unremarkable except as noted in HPI and below Physical Exam Const General: comfortable and no acute distress Orientation/consciousness: patient oriented x3 HEENT Head: Yes normocephalic Mouth: Normal oral and palatal mucosa present Eyes EOM: EOMs intact bilaterally Neck Neck: Yes supple Resp Auscultation: clear to auscultation bilaterally Cardio Jugular venous distension: no JVD Rate: regular rate GI Palpation (GI): Soft to palpation Auscultation: normal bowel sounds General: Yes no CVA tenderness Back/Spine/Pelvis Back: no CVA tenderness Skin General skin exam: no rashes or lesions noted Neuro General: patient oriented x3 and moves all extremities Extrem General: Yes no pedal edema Results Reviewed Nephrology Results: Hgb 14.5 g/dl (14.0-18.0) 03/06/23 WBC 6.9 X10*3/uL (4.8-10.8) 03/06/23 Plt Count 271 X10*3/uL (160-400) 03/06/23 Sodium 140 mmol/L (135-145) 11/18/23 Potassium 4.2 mmol/L (3.3-5.1) 11/18/23 Chloride 102 mmol/L (96-108) 11/18/23 Carbon Dioxide 30 mmol/L (22-29) H 11/18/23 BUN 26 mg/dL (9-16) H 11/18/23 Creatinine 1.68 mg/dL (0.5-1.4) H 11/18/23 Calcium 9.4 mg/dL (8.4-10.2) 06/03/23 Phosphorus 3.2 mg/dL (2.7-4.5) 03/06/23 PTH Intact 121.8 pg/mL (8.7-77.1) H 03/06/23 Urine Protein TRACE MG/DL (NEG-TRACE) 07/05/21 Urine Creatinine 101.06 mg/dL 03/06/23 Protein/Creatinin Ratio 1.96 (<0.2) H 03/06/23 Assessment & Plan Assessment & Plan (1) CKD stage 3 due to type 2 diabetes mellitus: Code(s): E11.22 - Type 2 diabetes mellitus with diabetic chronic kidney disease; N18.30 - Chronic kidney disease, stage 3 unspecified Category: Medical (2) Hypertension: Code(s): I10 - Essential (primary) hypertension Category: Medical Qualifiers: Hypertension type: primary hypertension Qualified Code(s): I10 - Essential (primary) hypertension (3) Diabetic nephropathy: Code(s): E11.21 - Type 2 diabetes mellitus with diabetic nephropathy Category: Medical Qualifiers: Diabetes mellitus type: type 2 Qualified Code(s): E11.21 - Type 2 diabetes mellitus with diabetic nephropathy Plan Zac has 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 He is on angiotensin receptor nickolas along with multiple antihypertensives to keep his blood pressure at goal. He should be on a low-sodium diet. He should maintain good hydration. He can continue Bumex 2mg daily alternating with 1 mg every other day. He should take Jardiance 10 mg daily which I plan to increase to 25 mg daily with time. He should not take any nonsteroidal anti-inflammatory medications. I did not make any other medication changes today. He needs to lose weight. If he is unsuccessful in losing weight he should be seen in weight management . All his questions were answered Orders: Orders Creatinine 3 Months E11.21 - Type 2 diabetes mellitus with diabetic nephropathy, E11.22 - Type 2 diabetes mellitus with diabetic chronic kidney disease, I10 - Essential (primary) hypertension, N18.30 - Chronic kidney disease, stage 3 unspecified Blood Urea Nitrogen 3 Months E11.21 - Type 2 diabetes mellitus with diabetic nephropathy, E11.22 - Type 2 diabetes mellitus with diabetic chronic kidney disease, I10 - Essential (primary) hypertension, N18.30 - Chronic kidney disease, stage 3 unspecified Electrolytes 3 Months E11.21 - Type 2 diabetes mellitus with diabetic nephropathy, E11.22 - Type 2 diabetes mellitus with diabetic chronic kidney disease, I10 - Essential (primary) hypertension, N18.30 - Chronic kidney disease, stage 3 unspecified Coding Level of Care Code Est Pt Level 4 (51837) Diagnoses CKD stage 3 due to type 2 diabetes mellitus E11.22; N18.30 Primary hypertension I10 Hypertension type: primary hypertension Diabetic nephropathy associated with type 2 diabetes mellitus E11.21 Diabetes mellitus type: type 2
[2023-11-24 15:34] VITALS: BP 100/50; PULSE 69; O2SAT 97; BMI 46.6
== END 2023-11-24 15:59 | disposition home or self-care (01) ==
PROVIDERS: PCP Internal Medicine; Visit Provider Internal Medicine Nephrology
DX: I12.9 Hypertensive chronic kidney disease with stage 1 through stage 4 chronic kidney disease, or unspecified chronic kidney disease (principal); E11.22 Type 2 diabetes mellitus with diabetic chronic kidney disease; N18.30 Chronic kidney disease, stage 3 unspecified; E11.21 Type 2 diabetes mellitus with diabetic nephropathy
CPT/HCPCS: 99214

== ENCOUNTER → 2023-11-24 15:31 | Outpatient (BNVA) | payer MEDICARE, MEDICAID, SELFPAY | PROVIDERS: PCP Internal Medicine; Visit Provider Internal Medicine Nephrology | DX: E11.22 Type 2 diabetes mellitus with diabetic chronic kidney disease (principal); I12.9 Hypertensive chronic kidney disease with stage 1 through stage 4 chronic kidney disease, or unspecified chronic kidney disease; N18.30 Chronic kidney disease, stage 3 unspecified; E11.21 Type 2 diabetes mellitus with diabetic nephropathy | CPT/HCPCS: 99212 ==

== ENCOUNTER 2024-03-09 10:47 | Outpatient (REF) | payer MEDICARE, MEDICAID, SELFPAY ==
--- OUTSIDE RECORDS SUMMARY | 2024-03-09 10:50 | XMS_ITS | Encounter Summary ---
Author Organization [employer] Address [address] [place] [address] Care Team Providers Care It Sales Consultant Name Role Phone Damian Lai MD Primary Care Provider [phone] Encounter Details Date Type Department Care Team (Late st Contact Info) Description 02/08/2024 Telephone Orthopedics - [place] [address] [place] [address] Tayo Holloway PA [address] [place] [address] Social History Tobacco Use Types Packs/Day Years Used Date Smoking Tobacco: Former Cigarettes Q uit: 05/12/2020 Smokeless Tobacco: Current Alcohol Use Standard Drinks/Week Comments Yes 0 (1 standard drink = 0.6 oz pur e alcohol) Sex and Gender Information Value Date Recorded Sex Assigned at Not on file Gender Identity Not on file Sexual Orientation Not on file Job Start Date Occupation Industry Not on file Not on file Not on file documented as of this encounter Progress Notes * Talita Ryan MA - 02/13/2024 3:54 PM EST Patient scheduled for F/up. vf * SUMANTH Lara - 02/08/2024 12:53 PM EST Please schedule follow-up for MRI results documented in this encounter Plan of Treatment Upcoming Encounters Date Type Department Care Team (Late st Contact Info) Description 04/23/2024 9:40 AM EDT Office Visit [address] [phone] Lindy Gutierrez PA [address] [place] [address] 06/04/2024 1:00 PM EDT Office Visit Adult Medicine [address] [phone] Damian Lai MD [address] [place] [address] documented as of this encounter Visit Diagnoses Not on filedocumented in this encounter Care Teams It Sales Consultant Relationship Specialty Start Date End Date Damian Lai MD [address] [place] [address] PCP - General Internal Medicine 01/16/24 documented as of this encounter
--- OUTSIDE RECORDS SUMMARY | 2024-03-09 10:50 | XMS_ITS | Encounter Summary ---
Author Organization [email or web address] Address [address] [place] [address] Care Team Providers Care Human Resources File Clerk Name Role Phone Damian Lai MD Primary Care Provider [phone] Reason for Visit * Reason Onset Date Comments request for office notes 02/05/2024 Billy perez Encounter Details Date Type Department Care Team ([facility] st Contact Info) Description 02/05/2024 Telephone [facility] [address] [place] [address] Lindy Gutierrez PA [address] [place] [address] request for office notes (Ihsan) Social History Tobacco Use Types Packs/Day Years [...] as of this encounter Progress Notes * Tiera Gaviria RN - 02/09/2024 9:21 AM EST Notes faxed to Serena to number below * Carri Horowitz - 02/05/2024 1:43 PM EST Ihsan is requesting most recent office notes for patient to get CGM and supplies. Fax to [phone] documented in this encounter Plan of Treatment Upcoming Encounters Date Type Department Care Team (Late st Contact Info) Description 04/23/2024 9:40 AM EDT Office Visit Endocrinology - [address] [phone] Lindy Gutierrez PA [address] [place] [address] 06/04/2024 1:00 PM EDT Office Visit Adult Medicine [place] - [address] [phone] Damian Lai MD [address] [place] [address] documented as of this encounter Visit Diagnoses Not on filedocumented in this encounter Care Teams Human Resources File Clerk Relationship Specialty Start Date End Date Damian Lai MD [address] [place] [address] PCP - General Internal Medicine 01/16/24 documented as of this encounter
--- OUTSIDE RECORDS SUMMARY | 2024-03-09 10:50 | XMS_ITS | Clinical Summary ---
Author Organization [facility] Address [address] [place] [address] Phone Care Team Providers Care Erp Analyst Name Role Phone Damian Lai MD Primary Care Provider [phone] Allergies No known active allergies Medications Multiple Vitamin (MULTIVITAMIN ADULT PO) Take 1 capsule by mouth 1 (one) time each day Active allopurinol (ZYLOPRIM) 100 MG tablet Take 1 tablet by mouth 1 (one) time each day Active amLODIPine (NORVASC) 10 MG tablet Take 1 tablet by mouth 1 (one) time each day Active ARIPiprazole (Abilify) 15 MG tablet Take 1 tablet by mouth 1 (one) time each day Active ascorbic acid (VITAMIN C) 1000 MG tablet Take 1 tablet by mouth 1 (one) time each day Active aspirin (ST JERE) 81 MG EC tablet Take 1 tablet by mouth 1 (one) time each day Active carvedilol (COREG) 25 MG tablet Take 1 tablet by mouth 2 (two) times a day 9 Active cholecalciferol (VITAMIN D-3) 25 MCG (1000 UT) capsule Take 1 capsule by mouth 1 (one) time each day Active cyanocobalamin (VITAMIN B-12) 1000 MCG tablet Take 1 tablet by mouth 1 (one) time each day Active Dulaglutide (Trulicity) 0.75 MG/0.5ML solution pen-injector Inject 1 pre-filled pen syringe under the skin 1 (one) time per week Active DULoxetine (Cymbalta) [address] capsule Take 2 capsules by mouth 1 (one) time each day Active hydrOXYzine (ATARAX) 50 MG tablet Take 2 tablets by mouth 1 (one) time each day Active insulin regular (HumuLIN R) 500 UNIT/ML CONCENTRATED injection Inject under the skin Active losartan (COZAAR) 100 MG tablet Take 1 tablet by mouth 1 (one) time each day 0 Active melatonin 3 MG tablet Take 1 tablet by mouth at bed time Active metFORMIN (FORTAMET) 500 MG 24 hr tablet Take 1 tablet by mouth 2 (two) times a day Active omeprazole OTC (PriLOSEC OTC) 20 MG EC tablet Take 1 tablet by mouth 1 (one) time each day Active simvastatin (ZOCOR) 40 MG tablet Take 1 tablet by mouth 1 (one) time each day Active bumetanide (BUMEX) 1 MG tablet TAKE 1 TABLET BY MOUTH TWICE DAILY 180 tablet 3 2 Active Active Problems Problem Noted Date Diagnosed Date Acute nontraumatic kidney injury 06/22/2020 Hypertensive renal disease 06/22/2020 Proteinuria 06/22/2020 Hypertension 07/16/2019 Stage 3a chronic kidney disease 07/24/2014 Resolved Problems Problem Noted Date Diagnosed Date Resolved Date Arthritis 06/22/2020 06/22/2020 Overview (11/07/2023): Replacing diagnoses that were inactivated after the 11/07/23 Regulatory Import Depressive disorder 06/22/2020 06/23/19 21 Gout 06/22/2020 06/22/2020 Adhesive capsulitis of right shoulder 10/17/2019 06/22/2020 Capsulitis 10/17/2019 06/22/2020 Osteoarthritis of right acro mioclavicular joint 10/17/2019 06/22/2020 Other shoulder lesion of right shoulder 10/17/2019 06/22/2020 Allergic conjunctivitis of bilateral eyes 07/31/2019 06/22/2020 Moderate alcohol dependence 07/16/2019 06/22/2020 Neuropathy 07/16/2019 06/22/2020 Severe recurrent major depre ssion without psychotic features 07/16/2019 06/22/2020 Type 2 diabetes mellitus 07/16/2019 Chronic rhinitis 07/27/2017 06/22/2020 Recurrent sinusitis 07/27/2017 06/23/19 H/O: fracture 02/25/2017 06/22/2020 Overview (06/22/2020): Jan 2017 s/p fall Gastroesophageal reflux disease 07/03/2015 06/22/2020 Body mass index 40+ - severely obese 07/24/2014 06/22/2020 Hyperlipidemia 07/24/2014 06/22/2020 Disorder of nervous system d ue to type 2 diabetes mellitus 07/24/2014 06/22/2020 Obstructive sleep apnea syndrome 07/24/2014 06/22/2020 Overview (06/22/2020): [facility] Polysomnogram: Date 03/19/2013; BMI 53; AHI 31, REM AHI 64, Central apneas 2; Obstructive apneas 35; hypopneas 18; average oxygen saturation 93% (lowest 44%); PLMs 0. CPAP trialed and lowest AHI on therapy of 6 was 9.3. [facility] Polysomnogram: Date 03/19/2013; BMI 53; AHI 31, REM AHI 64, Central apneas 2; Obstructive apneas 35; hypopneas 18; average oxygen saturation 93% (lowest 44%); PLMs 0. CPAP trialed and lowest AHI on therapy of 6 was 9.3. Immunizations Name Administration Dates Next Due Influenza, MDCK, PF, Quadrivalent 01/10/2020 Influenza, MDCK, Quadrivalent, with preservative 10/21/2016 Influenza, Unspecified 12/17/2018 Pneumococcal Conjugate 13-Valent 09/16/2016 Tdap 09/16/2016 Family History Medical History Relation Comments Diabetes Father Hypertension Father Stroke Father Diabetes Mother Relation Status Comments Father Mother Social History Tobacco Use Types Packs/Day Years Used Date Smoking Tobacco: Never Smokeless Tobacco: Never Alcohol Use Standard Drinks/Week Comments Yes 0 (1 standard drink = 0.6 oz pure alcohol) Alcoholic Drinks/day: Occasional social drink Sex and Gender Information Value Date Recorded Sex Assigned at Not on file Legal Sex Male 5:01 PM EST Gender Identity Not on file Sexual Orientation Not on file Last Filed Vital Signs Vital Sign Reading Time Taken Comments Blood Pressure 130/70 06/23/2020 2:48 PM EDT Pulse 70 06/23/2020 2:48 PM EDT Temperature - - Respiratory Rate - - Oxygen Saturation 97% 06/23/2020 2:48 PM EDT Inhaled Oxygen Concentration - - Weight 155 kg (341 lb 12.8 oz) 06/23/2020 2:48 P M EDT Height 180.3 cm (5' 11 ) 07/23/2019 12:00 PM EDT Body Mass Index 47.67 07/23/2019 12:00 PM EDT Plan of Treatment Health Maintenance Due Date Last Done Comments Hepatitis B Vaccine (1 of 3 - 19+ 3-dose series) 1988 Pneumococcal Vaccine: Pediat rics (0 to 5 Years) and At-Risk Patients (6 to 64 Years) (2 of 2 - PPSV23 or PCV20) 11/11/2016 09/16/2016 Colorectal Cancer Screening: Annual FOBT 2018 Colorectal Cancer Screening: Colonoscopy 2018 Colorectal Cancer Screening: Sigmoidoscopy 2018 Diabetes: Ophthalmology Exam 03/06/2020 Diabetes: Pedal Pulse Checked 03/06/2020 Diabetes: Sensory Foot Exam 03/06/2020 Diabetes: Visual Foot Exam 03/06/2020 Diabetes: Hemoglobin A1C 04/09/2020 020, 07/30/2019, 07/18/2019 Influenza Vaccine (#1) 2023 0, 01/10/2020, 12/17/2018, Additional history exists Procedures Procedure Name Priority Date/Time Associated Diagnosis Comments BLOOD PANEL (HC) Routine 07/30/2019 12:0 0 AM EDT from Last 3 Months or Most Recently Relevant to Health Maintenance Results * (ABNORMAL) Blood Panel (07/30/2019 12:00 AM EDT) Hemoglobin A1C 10.6(H) <5 % PVNMA 07/30/2019 us Rtama Conversion LAB [id number] LICITED RESULTS Final Result PVNMA from Last 3 Months or Most Recently Relevant to Health Maintenance Insurance [place]IC[place] Care Teams Erp Analyst Relationship Specialty Start Date End Date Damian Lai MD PCP - General 02/17/20
--- OUTSIDE RECORDS SUMMARY | 2024-03-09 10:50 | XMS_ITS | Data Portability ---
Author Organization SUMANTH JeanExprudi s, [address] Address [address] [place] [address] Assessment No assessment recorded. Plan of Treatment Reminders Order Date Submit Date Provider Last Modified By Organization Details Last Modified Time Details Appointments None recorded. Lab rapid strep group A, throat 2023 024 [email or web address] [facility] [address], [address] [place], [address], 4 11:07:23 SARS CoV 2 (COVID-19) Ag, QL, IA, upper respiratory specimen 2023 024 [email or web address] [facility] [address] [place], [address], 4 11:07:24 rapid flu (A+B) 2023 024 [email or web address] [facility] [address] [place], [address], 4 11:07:25 SARS CoV 2 (COVID-19) Ag, QL, IA, upper respiratory specimen 2023 024 [email or web address] [facility] [address] [place], [address], 4 15:09:10 Referral None recorded. Procedures None recorded. Surgeries None recorded. Imaging None recorded. Medication Orders Paxlovid 300 mg (150 mg x 2)-100 mg tablets in a dose pack 2023 024 [id number], [address] [place], [place], [phone], 14:44:08 acetaminoph en 325 mg tablet 2023 024 [email or web address] Not available 11:19:32 benzonatate 200 mg capsule 2023 024 [id number], [address] [place], [place], [phone], 15:09:17 Patient TargetsNo targets recorded. Patient Instructions Encounter Date Encounter Id Patient Instructions Last Modified By Organization Details Last Modified Time 08/12/2023 [id number] cough: care instructions [email or web address] Not available 08/12/2023 15:09:09 Reason for Referral None Reported. Results Created Date Observation Date Name Description Value Unit Range Abnormal Flag Note LastModifiedBy Organization Detail LastModifiedTime 08/01/1908/01/2023 SARS CoV 2 (COVI D-19) Ag, QL, IA, upper respi rator y speci men Unknown Analyte positi ve Not Available [address] [place], [address], 08/01/2023 10:32:04 08/01/19 24 08/01/2023 SARS CoV 2 (COVI D-19) Ag, QL, IA, upper respi rator y speci men Unknown Analyte yes Not Available [address] [place], [address], 08/01/2023 10:32:04 08/01/19 24 08/01/2023 rapid flu (A+B) Unknown Analyte negati ve Not Available [address] [place], [address], 08/01/2023 10:32:17 08/01/19 24 08/01/2023 rapid flu (A+B) Unknown Analyte negati ve Not Available [address] [place], [address], 08/01/2023 10:32:17 08/01/19 24 08/01/2023 rapid flu (A+B) Unknown Analyte yes Not Available [id number] [place] [address] [address] [place], [address], 08/01/2023 10:32:17 08/01/19 24 08/01/2023 rapid strep group A, throa t Unknown Analyte negati ve Not Available [address] [place] [address], [phone], 08/01/2023 10:31:57 08/01/19 24 08/01/2023 rapid strep group A, throa t Unknown Analyte yes Not Available [address] [place] [address] [address] [place], [address], 08/01/2023 10:31:57 08/12/19 24 08/12/2023 SARS CoV 2 (COVI D-19) Ag, QL, IA, upper respi rator y speci men Unknown Analyte negati ve Not Available [address] [place] [address], [phone], 08/12/2023 14:52:00 08/12/19 24 08/12/2023 SARS CoV 2 (COVI D-19) Ag, QL, IA, upper respi rator y speci men Unknown Analyte yes Not Available [address] [place] [address] [address] [place], [address], 08/12/2023 14:52:00 Result Notes None recorded. Problems Name Problem SNOMED Code Status Onset Date Resolution Date Notes Provider Name and Address Organization Details Recorded Time Diabetes mellitus 00784892 Active SUMANTH Nelson - [facility] 4 10:24:58 Hypertensive disorder 77465576 Active Agustina SUMANTH Wood [facility] 4 10:25:06 Hypercholestero lemia 88147328 Active Agustina SUMANTH Wood [facility] 4 10:25:15 Problem Notes None recorded. Medical Equipment None Reported. Allergies No known drug allergies Medications Name Sig Start Date Stop Date Status Note LastModified by Organization Details LastModified Time atorvastati n 40 mg tablet Take 1 tablet every day by oral route. active Not Available Not Available No t Available carvedilol 25 mg tablet TAKE 1 TABLET BY MOUTH TWICE DAILY WITH MEALS active Not Available Not Available No t Available acetaminoph en 325 mg tablet 3 tablets at once in clinic 2023 active Not Available Not Available Not Avai lable ammonium lactate 12 % lotion APPLY TO SOLES OF FEET DAILY. AT NIGHT WEAR SOCKS TO BEDTIME active Not Available Not Available No t Available benzonatate 200 mg capsule TAKE 1 CAPSULE BY MOUTH THREE TIMES DAILY FOR 5 DAYS active Not Available Not Available No t Available hydroxyzine HCl 50 mg tablet TAKE 1 TABLET BY MOUTH TWICE DAILY active Not Available Not Available No t Available amlodipine 5 mg tablet TAKE 1 TABLET BY MOUTH DAILY active Not Available Not Available No t Available allopurinol 100 mg tablet TAKE 1 TABLET BY MOUTH DAILY active Not Available Not Available No t Available trazodone 150 mg tablet TAKE 1 TABLET BY MOUTH AT BEDTIME active Not Available Not Available No t Available omeprazole 20 mg capsule,del ayed release TAKE 1 CAPSULE BY MOUTH DAILY active Not Available Not Available No t Available bumetanide 1 mg tablet TAKE 1 TABLET BY MOUTH TWICE DAILY active Not Available Not Available No t Available losartan 100 mg tablet TAKE 1 TABLET BY MOUTH AT BEDTIME active Not Available Not Available No t Available metformin ER 500 mg tablet,exte nded release 24 hr TAKE 1 TABLET BY MOUTH TWICE DAILY active Not Available Not Available No t Available Ventolin HFA 90 mcg/actuati on aerosol inhaler INHALE 2 PUFFS INTO THE LUNGS EVERY 4 HOURS NEEDED FOR COUGH OR WHEEZING active Not Available Not Available No t Available aripiprazol e 20 mg tablet TAKE 1 TABLET BY MOUTH DAILY active Not Available Not Available No t Available duloxetine 60 mg capsule,del ayed release TAKE 2 CAPSULES BY MOUTH DAILY active Not Available Not Available No t Available BD Ultra-Fine Short Pen Needle 31 gauge x 5/16 USE WITH INSULIN PEN 4 TIMES A DAY active Not Available Not Available No t Available Lantus Solostar U-100 Insulin 100 unit/mL (3 mL) subcutaneou s pen active Not Available Not Available Not Available Humalog KwikPen (U-100) Insulin 100 unit/mL subcutaneou s USE UP TO 3 TIMES PER DAY PRIOR TO EACH MEAL PER SLIDING SCALE active Not Available Not Available No t Available diclofenac 1 % topical gel APPLY 4 GRAMS TOPICALLY TO THE AFFECTED AREA TWICE DAILY active Not Available Not Available No t Available melatonin 5 mg tablet TAKE 1 TABLET BY MOUTH AT BEDTIME active Not Available Not Available No t Available cholecalcif julianna (vitamin D3) 50 mcg (2,000 unit) capsule TAKE 1 CAPSULE BY MOUTH EVERY DAY active Not Available Not Available No t Available Contour Next Test Strips USE TO CHECK BLOOD SUGAR THREE TIMES DAILY active Not Available Not Available No t Available Trulicity 3 mg/0.5 mL subcutaneou s pen injector ADMINISTE R 3 MG UNDER THE SKIN 1 TIME A WEEK active Not Available Not Available No t Available Paxlovid 300 mg (150 mg x 2)-100 mg tablets in a dose pack TAKE 3 TABLETS BY MOUTH TWICE A DAY 08/11 completed Not Available Not Available Not Available Vitals Date Recorded Body height Provider Name an d Address Organization Details Last Updated DateTime 08/01/2023 170.18 cm Agustina Davis [facility] 08/01/2023 10:24:34 Date Recorded Body mass index (BMI) Body weight Provider Name and Address Organization Details Last Updated DateTime 08/01/2023 36 kg/m2 110823.25 g Agustina Davis [facility] 08/01/2023 10:24:40 Date Recorded Oxygen saturation Oxygen saturation in Arterial blood by Pulse oximetry Provider Name and Address Organization Details Last Updated DateTime 08/01/2023 98 % 98 % Agustina Davis [facility] 08/01/2023 10:31:02 Date Recorded Heart rate Provider Name an d Address Organization Details Last Updated DateTime 08/01/2023 68 /min Agustina Romano PA [facility] 08/01/2023 10:31:06 Date Recorded Respiratory rate Provider Name a nd Address Organization Details Last Updated DateTime 08/01/2023 18 /min Agustina Romano PA - [facility] 08/01/2023 10:31:07 Date Recorded Body temperature Provider Name a nd Address Organization Details Last Updated DateTime 08/01/2023 98.9 [degF] Agustina Romano PA - [facility] 08/01/2023 10:31:43 Date Recorded Body height Provider Name an d Address Organization Details Last Updated DateTime 08/12/2023 170.18 cm Johana Yorkana PA - [facility] 0 08/12/2023 14:43:04 Date Recorded Body mass index (BMI) Body weight Provider Name and Address Organization Details Last Updated DateTime 08/12/2023 36 kg/m2 502605.25 g Johana Yorkana PA - [facility] 08/12/2023 14:43:11 Date Recorded Body temperature Provider Name a nd Address Organization Details Last Updated DateTime 08/12/2023 98.1 [degF] Johana Yorkana PA - [facility] 08/12/2023 14:45:33 Date Recorded Oxygen saturation Oxygen saturation in Arterial blood by Pulse oximetry Provider Name and Address Organization Details Last Updated DateTime 08/12/2023 98 % 98 % Johana Yorkana PA - [facility] 08/12/2023 14:45:35 Date Recorded Heart rate Provider Name an d Address Organization Details Last Updated DateTime 08/12/2023 68 /min Johana Yorkana PA - [facility] 0 08/12/2023 14:45:38 Date Recorded Respiratory rate Provider Name a nd Address Organization Details Last Updated DateTime 08/12/2023 16 /min Johana Yorkana PA - [facility] 0 08/12/2023 14:45:45 Date Recorded Systolic blood pressure Diastolic blood pressure Provider Name and Address Organization Details Last Updated DateTime 08/01/2023 134 mm[Hg] 69 mm[Hg] Agustina Romano PA - [facility] 08/01/2023 10:30:41 Date Recorded Systolic blood pressure Diastolic blood pressure Provider Name and Address Organization Details Last Updated DateTime 08/12/2023 122 mm[Hg] 71 mm[Hg] Johana Yorkana PA - [facility] 08/12/2023 14:45:11 Social History Question Answer Notes LastModified by Organizat ion Details LastModified Time Tobacco Smoking Status Never Smoker Agustina Juan Antonio dale PA - [facility] 08/01/2023 10:28:53 What Is Your Level Of Alcohol Consumption? None [email or web address] Information not available 08/01/2023 Have You Had A Flu Shot This Season? Yes [email or web address] Information not available 08/01/2023 Have You Had Direct Contact, Or Contact During Intimacy, With Monkeypox Rash, Scabs, Or Body Fluids From A Person With Monkeypox? No [email or web address] Information not available 08/01/2023 What Was The Date Of Your Most Recent Tobacco Screening? 08/01/2023 [email or web address] Information not available 08/01/2023 Do You Use Any Illicit Or Recreational Drugs? No [email or web address] Information not available 08/01/2023 Have You Recently Traveled Abroad? No [email or web address] Information not available 08/01/2023 Do You Or Have You Ever Used Any Other Forms Of Tobacco Or Nicotine? No [email or web address] Information not available 08/01/2023 Sex: Unknown Functional Status None recorded. Mental Status None recorded. Family History Nothing Reported. Medical History No medical history recorded. Past Encounters Encounter ID Performer Location Encounter Start Date Encounter Closed Date Diagnosis/Indication Diagnosis SNOMED-CT Code Diagnosis ICD10 Code Diagnosis Note [id number] [address] [place] [address] 01/07/2018 10:55:38 01/07/2018 11:36:11 [id number] [address] [place] [address] 08/10/2019 16:47:36 08/10/2019 17:47:05 [id number] [address] [place] [address] 02/18/2019 17:09:35 02/18/2019 19:11:01 [id number] [address] [place] [address] 11/28/2018 14:20:44 11/28/2018 15:39:06 [id number] SUMANTH Brewer [address] [facility] [address] [facility] [place] [address] 08/01/2023 10:21:19 08/01/2023 11:00:52 COVID-19 [id number] U07.1 You have been Diagnosed with COVID - your Rapid COVID test was positive. I recommend the following to help with your symptoms of this viral infection: 1. Take Ibuprofen or Tylenol if you do not have any allergies to these medication s. If you take a blood thinner you should not take NSAIDS like Ibuprofen. These medication will help with the inflammati on in your respirator y tract which should help the cough.2. I suggest taking a Antihistam ine (loratadin e or cetirizine or Latanya or benadryl) - to help with the congestion . I would advise this over a decongesta nt.3. Saline Nasal Spray4. Salt Water Gargles. I would be seen again immediatel y in the Emergency Room if you develop:1. Shortness of Breath2. Chest Pain3. Fever > 101.04. Lethargy or Confusion. You should notify you PCP that you have been diagnosed with this infection. Below is the current CDC guidelines . Updated CDC Guidelines for Quarantine and Testing- 02/13/2021 If You Test Positive for COVID-19 (Isolate)E veryone, regardless of vaccinatio n status. 1. Stay home for 5 days.2. If you have no symptoms or your symptoms are resolving after 5 days, you can leave your house.3. Continue to wear a mask around others for 5 additional days. If you have a fever or feel worse, continue to stay home until your fever resolves._ If You Were Exposed to Someone with COVID-19 (Quarantin e)If you:Have been boosted ORComplete d the primary series of Pfizer or Moderna vaccine within the last 6 months.ORC ompleted the primary series of J&J vaccine within the last 2 months 1. Wear a mask around others for 10 days.2. Test on day 5, if possible.3 . If you develop symptoms get a test and stay home. If you: Completed the primary series of Pfizer or Moderna vaccine over 6 months ago and are not boostedORC ompleted the primary series of J&J over 2 months ago and are not boostedORA re un-vaccina ju 1. Stay home for 5 days. After that continue to wear a mask around others for 5 additional days.2. Test on day 5, if possible. If you develop symptoms get a test and stay home Quarantine Calculatio n:Day 0: is the first day of symptoms or a positive viral test.Day 1: is the first full day after your symptoms developed or when your test specimen was collected. Exposure:D ay 1: is the first full day after your last known contact with a person that tested positive for COVID 19. [facility] Thank you for visiting [facility] today, please feel free to call our office you have any questions or concerns. [id number] SUMANTH Brewer [address] [facility] [address] [place] [address] 08/12/2023 14:20:09 08/12/2023 15:09:56 Cough 66999668 R05.9 You are being treated for a cough that is most like related to a viral infection. Currently your exam does not suggest anything worrisome like pneumonia or a bacterial infection. The following are my recommenda tions to help you with your symptoms and recovery.1 . Take Ibuprofen or Tylenol if you do not have any allergies to these medication s. If you take a blood thinner you should not take NSAIDS like Ibuprofen. These medication will help with the inflammati on in your respirator y tract which should help the cough.2. Do not take any decongesta nts at this time because this will dry out that tract too much. If you have a lot of nasal congestion you can try nasal decongesta nts, but I would not take them more than 5 days.3. Use a humidifier or add a cup of water by your bed. Sometimes if our sleeping environmen t is too dry this can lead to cough4. Salt Water Gargles5. Saline nasal spray is helpful. I would be seen again if you develop any of the following. 1. Cough last longer than 3 weeks - and has not worsened2. You develop a thick productive cough3. Develop shortness of breath or wheezing4. Develop achy feel or discomfort in a specific chest location5. Fever > 100.5 I would go immediatel y to the Emergency Room if you develop:1. Chest Pain2. Severe Shortness of breath3. Coughing up Blood. Most coughs will resolve on their own without any interventi on in 3 weeks. If they last longer we need to evaluate and rule out some other condition like Acid Reflux, or lung pathology. Thank you for using [facility] today - please don't hesitate to contact up or return to see if you have any questions or concerns. Health Concerns Section Related Observation LastModified by Organization Detai ls LastModified Time None Recorded Concern Status LastModified by Organization Details LastModified Time None Recorded Advance Directives Directive None Recorded Payers Encounter Date Sequence Insurance Name Policy Number Policy Araiza Covered Member ID Araiza Member ID Guarantor Name 11/28/2018 1 [place] [employer] Zac E Ahmadi [id number] Zac E Ahmadi 11/28/2018 2 [place] Zac E Ahmadi [id number] Zac E Ahmadi 02/18/2019 1 [place] Zac E Ahmadi [id number] Zac E Ahmadi 02/18/2019 2 [place] Zac E Ahmadi [id number] Zac E Ahmadi 08/10/2019 1 [place] Zac E Ahmadi [id number] Zac E Ahmadi 08/10/2019 2 [place] Zac E Ahmadi [id number] Zac E Ahmadi 08/01/2023 1 [place] Zac E Ahmadi [id number] Zac E Ahmadi 08/01/2023 2 [place] Zac E Ahmadi [id number] Zac E Ahmadi 08/12/2023 1 [place] Zac E Ahmadi [id number] Zac E Ahmadi 08/12/2023 2 [place] Zac E Ahmadi [id number] Zac E Ahmadi Notes Date Note Type Note Provider Name and Address Organization Details Recorded Time 08/01/2023 text/html 53 y/o male with 3 days of fever, cough, sore throat [place], [address], PA - [facility] 08/01/2023 11:14:08 08/12/2023 text/html 53 y/o male diagnosed with COVID 11 days ago here for retest. Still coughing a lot, finished full course of Paxlovid. [place], [address], PA - [facility] 08/12/2023 15:09:27
--- OUTSIDE RECORDS SUMMARY | 2024-03-09 10:50 | XMS_ITS | Encounter Summary ---
Author Organization [facility] Address [address] [place] [address] Care Team Providers Care [employer] Machine Operator Name Role Phone Damian Lai MD Primary Care Provider [phone] Reason for Referral * Consultation (Routine) - Authorized Specialty Diagnoses / Procedures Referred By Nigel bennett Referred To Contact Orthopaedics Diagnoses Exostosis of left tibia Tayo Holloway PA [address] [place] [address] Referral ID Status Reason Start Date Expiration Date Visits Requested Visits Authorized [id number] Authorized Specialty Services Required 02/22/2024 02/21/2025 1 1 Reason for Visit * Reason Comments Pain MRI Results Follow-up MRI Results Encounter Details Date Type Department Care Team ([facility] Contact Info) Description 02/22/2024 2:30 PM EST Office Visit Orthopedics - [address] [address] Tayo Holloway PA [address] [place] [id number] Exostosis of left tibia (Primary Dx) Social History Tobacco Use Types Packs/Day Years Used Date Smoking Tobacco: Former Cigarettes Q uit: 05/12/2020 Smokeless Tobacco: Current Tobacco Cessation:Ready to Q uit: Not Asked; Counseling Given: Not Answered Alcohol Use Standard Drinks/Week Comments Yes 0 (1 standard drink = 0.6 oz pur e alcohol) Sex and Gender Information Value Date Recorded Sex Assigned at Not on file Gender Identity Not on file Sexual Orientation Not on file Job Start Date Occupation Industry Not on file Not on file Not on file documented as of this encounter Last Filed Vital Signs Vital Sign Reading Time Taken Comments Blood Pressure - - Pulse - - Temperature - - Respiratory Rate 16 02/22/2024 2:02 PM EST Oxygen Saturation - - Inhaled Oxygen Concentration - - Weight 131 kg (288 lb) 02/22/2024 2:02 PM EST Height 170.2 cm (5' 7 ) 02/22/2024 2:02 PM EST Body Mass Index 45.11 02/22/2024 2:02 PM EST documented in this encounter Plan of Treatment Upcoming Encounters Date Type Department Care Team (Late st Contact Info) Description 04/23/2024 9:40 AM EDT Office Visit [address] [phone] Lindy Gutierrez PA [address] [place] [address] 06/04/2024 1:00 PM EDT Office Visit Adult Medicine [address] [phone] Damian Lai MD [address] [place] [phone] Scheduled Referrals Name Type Priority Associated Diagnoses Order Schedule Ambulatory referral to Orthopedic Surgery Outpatient Referral Routine Exostosis of left tibia 1 Occurrences starting 02/22/2024 until 02/21/2025 documented as of this encounter Visit Diagnoses Diagnosis Exostosis of left tibia- Primary documented in this encounter Historical Medications * This list may reflect changes made after this encounter. Medication Sig Dispensed Refills Start Date End Date busPIRone (BUSPAR) 5 mg tablet Take 1 tablet (5 mg total) by mouth 2 (two) times a day if needed. 02/12/2024 added in this encounter Care Teams [employer] Machine Operator Relationship Specialty Start Date End Date Damian Lai MD [address] [place] [address] PCP - General Internal Medicine 01/16/24 documented as of this encounter
--- OUTSIDE RECORDS SUMMARY | 2024-03-09 10:50 | XMS_ITS | Clinical Summary ---
Author Organization Patient Business Ser [facility] Address [address] [place] [address] Care Team Providers Care Strategic Sourcing Manager Name Role Phone Damian Lai MD Primary Care Provider [phone] Allergies No known active allergies Medications Medication Sig Dispensed Refills Start Date End Date Status losartan (COZAAR) 100 mg tablet TAKE 1 TABLET BY MOUTH AT BEDTIME 90 tablet 1 12/13/19 24 Active losartan (COZAAR) 100 mg tablet Take 1 tablet (100 mg total) by mouth at bedtime. at bedtime. Active ASPIRIN ORAL Take 81 mg by mouth 1 (one) time each day. Active blood-glucose meter,continuous (Dexcom G6 Transcriptionist) [facility] [place] 05/27/19 23 Active blood-glucose sensor (DEXCOM G7 SENSOR [facility] [place]) 1 Each by Does not apply route See Admin Instructions. USE 1 SENSOR EVERY 10 DAYS. 06/09/19 23 Active blood-glucose transmitter (DEXCOM G6 TRANSMITTER [facility] [place]) To use with Dexcom sensor, 1 transmitter every 90 days 05/27/19 23 Active syr,ndl,ins,safe 0.5mL,disp un (INSULIN SYRINGE-NEEDLE,DIS POS. MISC) To use with insulin pen 4 times a day 06/09/19 23 Active melatonin 5 mg tablet Take 1 tablet (5 mg total) by mouth at bedtime. 05/16/19 22 Active albuterol HFA (Ventolin HFA) 90 mcg/actuation inhaler Inhale 2 puffs by mouth every 4 (four) hours if needed (Cough or Wheezing). 08/14/19 24 Active amLODIPine (NORVASC) 5 mg tablet Take 1 tablet (5 mg total) by mouth 1 (one) time each day. 07/11/19 24 Active ammonium lactate (LAC-HYDRIN) 12 % lotion Apply to soles of feet daily. At night wear socks to bed 01/06/20 23 Active ARIPiprazole (ABILIFY) 20 mg tablet Take 1 tablet (20 mg total) by mouth 1 (one) time each day. 08/08/19 22 Active atorvastatin (LIPITOR) 40 mg tablet Take 1 tablet (40 mg total) by mouth 1 (one) time each day. 07/17/19 24 Active bumetanide (BUMEX) 1 mg tablet Take 1 tablet (1 mg total) by mouth 1 (one) time each day. 08/15/19 19 Active diclofenac (VOLTAREN) 1 % topical gel Apply 4 g topically 2 (two) times a day. 01/06/20 23 Active DULoxetine (CYMBALTA) [address] capsule Take 1 capsule (60 mg total) by mouth 1 (one) time each day. Active hydrOXYzine HCL (ATARAX) 50 mg tablet Take 1 tablet (50 mg total) by mouth 2 (two) times a day. 05/18/19 24 Active omeprazole (PriLOSEC) [address] capsule Take 1 capsule (20 mg total) by mouth 1 (one) time each day. 11/17/19 24 Active traZODone (DESYREL) 150 mg tablet Take 1 tablet (150 mg total) by mouth at bedtime. 06/16/19 22 Active allopurinoL (ZYLOPRIM) 100 mg tablet TAKE 1 TABLET BY MOUTH DAILY 90 tablet 1 01/10/20 24 Active cholecalciferol (VITAMIN D-3) 50 mcg (2,000 unit) capsule TAKE 1 CAPSULE BY MOUTH EVERY DAY 90 capsule 1 01/18/20 24 Active blood sugar diagnostic (Contour Next Test Strips) test strip Use as instructedTo check sugars 4 times a day 300 each 3 01/18/20 24 Active dulaglutide (Trulicity) 3 mg/0.5 mL pen injector injectionIndicatio ns:Diabetes mellitus type 2 with neurological manifestations (CMS/HCC) Use 3mg once weekly 2 mL 3 01/18/20 24 Active insulin lispro (HumaLOG KwikPen Insulin) 100 unit/mL injection pen Use before each meal, up to 3 times a day, sliding scale 100-149: 6 units 150-199: 8 units 200-249: 12 units 250-299: 16 units 300-349: 20 units 350-400:24 units Greater than 400, call me. 45 mL 2 01/18/20 24 Active insulin glargine (Lantus Solostar U-100 Insulin) 100 unit/mL (3 mL) injection pen Inject 56-60 Units under the skin at bedtime. 60 mL 2 01/18/20 24 Active metFORMIN XR (GLUCOPHAGE-XR) 500 mg 24 hr tablet Take 1 tablet (500 mg total) by mouth 2 (two) times a day. 180 tablet 2 01/18/20 24 Active busPIRone (BUSPAR) 5 mg tablet Take 1 tablet (5 mg total) by mouth 2 (two) times a day if needed. 02/11/19 25 Active empagliflozin (Jardiance) 10 mg tablet Take 1 tablet (10 mg total) by mouth 1 (one) time each day. 90 tablet 1 02/21/19 25 Active carvediloL (COREG) 25 mg tablet TAKE 1 TABLET BY MOUTH TWICE DAILY WITH MEALS 180 tablet 1 03/04/19 25 Active carvediloL (COREG) 25 mg tablet Take 1 tablet (25 mg total) by mouth 2 (two) times a day with meals. 08/22/19 24 025 Discontinued empagliflozin (Jardiance) 10 mg tablet Take 1 tablet (10 mg total) by mouth 1 (one) time each day. 10/12/19 24 025 Discontinued(Re order) Active Problems Problem Noted Date Diagnosed Date Condition not found 12/14/2023 Overview (12/14/2023): DM (diabetes mellitus), type 2, uncontrolled, with renal complications (HCC) Depression 12/14/2023 Gout 12/14/2023 Hypertension 12/14/2023 Neuropathy 12/14/2023 Overview (12/14/2023): Follows neurology. Shoulder arthritis 12/14/2023 Morbid obesity with BMI of 45.0-49.9, adult 08/2023 COVID-19 12/03/2021 Adhesive capsulitis of ankle, right 10/17/2019 Adhesive capsulitis of right shoulder 10/17/2019 Osteoarthritis of right AC (acromioclavicular) j oint 10/17/2019 Tendinitis of right rotator cuff 10/17/2019 Allergic conjunctivitis of both eyes 07/31/2019 MDD (major depressive disord er), recurrent severe, without psychosis 07/16/2019 Chronic rhinitis 07/27/2017 Recurrent sinus infections 07/27/2017 GERD (gastroesophageal reflux disease) 6 CKD (chronic kidney disease) stage 3, GFR 30-59 ml/min 07/24/2014 Diabetes mellitus type 2 with neurological manif estations 07/24/2014 Hyperlipidemia 07/24/2014 ARUNA (obstructive sleep apnea) 07/24/2014 [place] (12/14/2023[place] [facility] [place] [facility] [place] Polysomnogram: Date 03/19/2013; BMI 53; AHI 31, REM AHI 64, Central apneas 2; Obstructive apneas 35; hypopneas 18; average oxygen saturation 93% (lowest 44%); PLMs 0. CPAP trialed and lowest AHI on therapy of 6 was 9.3. Encounters Date Type Department Care Team Description 02/22/2024 2:30 PM EST Office Visit Orthopedics - [address] [phone] Tayo Holloway PA Exostosis of left tibia (Primary Dx) 02/08/2024 Telephone Orthopedics - [address] [phone] Tayo Holloway PA 02/05/2024 Telephone Endocrinology - [address] [phone] Lindy Gutierrez PA request for office notes ([facility]) 02/02/2024 2:51 PM EST - 02/02/2024 11:59 PM EST Hospital Encounter Radiology Department - [address] [phone] Bone lesion Discharge Disposition: Home or Self Care 01/25/2024 10:00 AM EST Consult Orthopedics - [address] [phone] Tayo Holloway PA Primary osteoarthritis of left knee (Primary Dx); Bone lesion 01/18/2024 9:40 AM EST [place] [facility] [place] [address] [place] [phone] Lindy Gutierrez PA Diabetes mellitus type 2 with neurological manifestations ([facility]) (Primary Dx); Morbid obesity with BMI of 45.0-49.9, adult ([facility]); Stage 3b chronic kidney disease ([facility]); Primary hypertension; Hyperlipidemia, unspecified hyperlipidemia type from Last 3 Months Immunizations Name Administration Dates Next Due Influenza Quadravalent, MDCK , 0.5ml, preservative free (Flucelvax) 6mo and older 01/10/2020 Influenza Quadravalent, MDCK , 0.5ml, with preservative (Flucelvax) 6mo and older 10/21/2016 Influenza, Unspecified 12/17/2018 Pneumococcal conjugate 13 va lent (Prevnar 13, PCV13) 2mo and older 09/16/2016 Tdap Tetanus diptheria acell ular pertussis (Boostrix; Adacel) 7yo and older 09/16/2016 Surgical History Surgery Date Site/Laterality Comments ESOPHAGOGASTRODUODENOSCOPY 07/24/15 PROCEDURE: GA EGD TRANSORAL BIOPSY SINGLE/MULTIPLE; COMMENT: normal; normal gastric biopsies without H. pylori Medical History Medical History Date Comments Type II or unspecified type diabetes mellitus without mention of complication, uncontrolled DX:Type II or unspecified t ype diabetes mellitus without mention of complication, uncontrolled Shoulder arthritis DX:Shoulder a rthritis Gout DX:Gout Depression DX:Depression Hypertension DX:Hypertension Neuropathy DX:Neuropathy Morbid obesity ([facility]) 07/24/2014 DX:Morb id obesity ([facility]) ARUNA (obstructive sleep apnea) 07/24/2014 DX :ARUNA (obstructive sleep apnea); COMMENT: severe CKD (chronic kidney disease) stage 3, GFR 30-59 ml/min ([facility]) 07/24/2014 DX:CKD (chronic kidney dise ase) stage 3, GFR 30-59 ml/min ([facility]) Hyperlipidemia 07/24/2014 DX:Hyperlipidemi a Family History Medical History Relation Name Comments Allergies Neg Hx Asthma Neg Hx Social History Tobacco Use Types Packs/Day Years [...] file Not on file Not on file Obstetrics History Last Filed Vital Signs Vital Sign Reading Time Taken Comments Blood Pressure 96/54 01/18/2024 9:25 AM EST Pulse 68 01/18/2024 9:25 AM EST Temperature 36.4 ??C (97.5 ??F) 01/18/2024 9:25 AM ES T Respiratory Rate 16 02/22/2024 2:02 PM EST Oxygen Saturation - - Inhaled Oxygen Concentration - - Weight 131 kg (288 lb) 02/22/2024 2:02 PM EST Height 170.2 cm (5' 7 ) 02/22/2024 2:02 PM EST Body Mass Index 45.11 02/22/2024 2:02 PM EST Plan of Treatment Upcoming Encounters Date Type Department Care Team (Late st Contact Info) Description 04/23/2024 9:40 AM EDT Office Visit [address] [phone] Lindy Gutierrez PA [address] [place] [address] 06/04/2024 1:00 PM EDT Office Visit Adult Medicine [address] [phone] Damian Lai MD [address] [place] [id number] Health Maintenance Due Date Last Done Comments COVID-19 Vaccine (#1) 1974 Diabetes: Annual Foot Exam 07/20/1979 Diabetes: Annual Retina Eye Exam 07/20/1979 Hepatitis B Vaccines (1 of 3 - 19+ 3-dose series) 1988 Pneumococcal Vaccine: Pediatrics (0 to 5 Years) and At-Risk Patients (6 to 64 Years) (2 of 2 - PPSV23 or PCV20) 11/11/2016 09/16/2016 Zoster Vaccines (1 of 2) 07/20/2019 Depression Screening 08/19/2019 HIV Screening 08/19/2019 Medicare Annual Wellness Visit 08/19/2019 Social Influencers of Health Screening 08/19/2019 Influenza Vaccine (#1) 2023 , 12/17/2018, 10/21/2016 Diabetes: Blood Sugar Control Test (HGBA1C) 07/11/2024 01/11/2024, 10/11/2023, 10/11/2023, Additional history exists Diabetes: Annual Urine Albumin-Creatinine Ratio (uACR) 01/10/2025 01/11/2024, 05/04/2023 Diabetes: Annual GFR (Glomerular Filtration Rate) 01/10/2025 01/11/2024, 10/11/2023, 10/11/2023, Additional history exists Hypertension/CHF/CAD Annual BMP Blood Test 01/10/2025 01/11/2024, 10/11/2023, 10/11/2023, Additional history exists DTaP,Tdap,and Td Vaccines (2 - Td or Tdap) 09/16/2026 09/16/2016 Cholesterol Screening (Lipid Panel) 01/10/2029 01/11/2024, 05/04/2023, 07/18/2019, Additional history exists Colorectal Cancer Screening: Colonoscopy 01/21/2030 01/22/2020 Hepatitis C Screening Completed 07/29/2022 HIB Vaccines Aged Out No longer eligi ble based on patient's age to complete this topic HPV Vaccines Aged Out No longer eligi ble based on patient's age to complete this topic Hepatitis A Vaccines Aged Out No long er eligible based on patient's age to complete this topic IPV Vaccines Aged Out No longer eligi ble based on patient's age to complete this topic MMR Vaccines Aged Out No longer eligi ble based on patient's age to complete this topic Meningococcal ACWY Vaccine Aged Out N o longer eligible based on patient's age to complete this topic RSV Immunization Patients Under 20 months Aged Out No longer eligible based on patient's age to complete this topic Varicella Vaccines Aged Out No longer eligible based on patient's age to complete this topic Procedures Procedure Name Priority Date/Time Associated Diagnosis Comments MR KNEE WO AND W CONTRAST LEFT Routine 02/02/2024 3:43 PM EST Bone lesion LARGE JOINT ARTHROCENTESIS Routine 01/25/2024 10:00 AM EST Primary osteoarthritis of left knee LIPID PANEL WITH REFLEX TO DIRECT LDL Routine 01/11/2024 9:16 AM EST CKD (chronic kidney disease) stage 3, GFR 30-59 ml/min (CMS/HCC) Diabetes mellitus type 2 with neurological manifestations (CMS/HCC) Morbid obesity with BMI of 45.0-49.9, adult (CMS/HCC) HEMOGLOBIN A1C Routine 01/11/2024 9:16 AM EST CKD (chronic kidney disease) stage 3, GFR 30-59 ml/min (CMS/HCC) Diabetes mellitus type 2 with neurological manifestations (CMS/HCC) Morbid obesity with BMI of 45.0-49.9, adult (CMS/HCC) MICROALBUMIN CREATININE URINE RATIO Routine 01/11/2024 9:16 AM EST CKD (chronic kidney disease) stage 3, GFR 30-59 ml/min (CMS/HCC) Diabetes mellitus type 2 with neurological manifestations (CMS/HCC) Morbid obesity with BMI of 45.0-49.9, adult (CMS/HCC) COMPREHENSIVE METABOLIC PANEL Routine 01/11/2024 9:16 AM EST CKD (chronic kidney disease) stage 3, GFR 30-59 ml/min (CMS/HCC) Diabetes mellitus type 2 with neurological manifestations (CMS/HCC) Morbid obesity with BMI of 45.0-49.9, adult (CMS/HCC) HEPATITIS C SCREENING Routine 07/29/2022 COLONOSCOPY Routine 01/22/2020 from Last 3 Months or Most Recently Relevant to Health Maintenance Results * MR Knee wo and w Contrast Left (02/02/2024 3:43 PM EST) Anatomical Region Laterality Modality Lower Extremities, Knee Left Magnetic Resonance 02/02/2024 3:46 PM EST Impressions 02/02/2024 4:09 PM EST Small medial distal femoral exostosis. ??Degenerative changes most advanced in the patellofemoral compartment. ??Joint effusion. -------- FINAL REPORT -------- Dictated By: Richmond Glasgow Dictated Date: 02/02/2024 15:46 ET Assigned Physician: Richmond Glasgow Reviewed and Electronically Signed By: Richmond Glasgow Signed Date: 02/02/2024 16:09 ET Workstation ID: [id number] Transcribed By: Self Edit Transcribed Date: 02/02/2024 15:46 ET Narrative 02/02/2024 4:09 PM EST History: Prominent bony lesion on physical examination and x-ray. MRI of the knee without and with gadolinium enhancement: A departmental standard pre and postcontrast gadolinium-enhanced extremity protocol was used. ??20 mL of Dotarem were given for IV contrast. FINDINGS: There is a small exostosis arising from the posterior aspect of the medial femoral condyle. ??It measures 14 x 13 mm at the base and extends 11 mm posterior laterally as measured on the axial view. ??There is probably a subtle minimally enhancing fibrous capsule. ??There is no evidence of cartilaginous cap or malignant degeneration. ??There is a focus of high T1 signal intensity on precontrast T1 fat saturation images at the posterior medial aspect of the proximal tibia. ??The signal characteristics would be most compatible with blood vessels. ??There is no identifiable exostosis of the tibia if more sensitive evaluation of the cortex of the tibia specifically is needed for clinical management CT could be of value. There is a moderately large joint effusion. ??There is evidence of synovial proliferation. ??There are moderate degenerative change at the central aspect of the patellofemoral compartment. ??There is mild medial compartment degeneration. ??The lateral compartment is intact. The menisci, anterior cruciate ligament, posterior cruciate ligament and collateral ligaments are intact. Procedure Note Richmond Glasgow MD - 02/02/2024 History: Prominent bony lesion on physical examination and x-ray. MRI of the knee without and with gadolinium enhancement: A departmentalstandard pre and postcontrast gadolinium-enhanced extremity protocol wasused. 20 mL of Dotarem were given for IV contrast. FINDINGS: There is a small exostosis arising from the posterior aspect ofthe medial femoral condyle. It measures 14 x 13 mm at the base andextends 11 mm posterior laterally as measured on the axial view. There isprobably a subtle minimally enhancing fibrous capsule. There is noevidence of cartilaginous cap or malignant degeneration. There is a focusof high T1 signal intensity on precontrast T1 fat saturation images at theposterior medial aspect of the proximal tibia. The signal characteristicswould be most compatible with blood vessels. There is no identifiableexostosis of the tibia if more sensitive evaluation of the cortex of thetibia specifically is needed for clinical management CT could be ofvalue. There is a moderately large joint effusion. There is evidence of synovialproliferation. There are moderate degenerative change at the centralaspect of the patellofemoral compartment. There is mild medialcompartment degeneration. The lateral compartment is intact. The menisci, anterior cruciate ligament, posterior cruciate ligament andcollateral ligaments are intact. IMPRESSION: Small medial distal femoral exostosis. Degenerative changes most advancedin the patellofemoral compartment. Joint effusion. -------- FINAL REPORT -------- Dictated By: Richmond Glasgow Dictated Date: 02/02/2024 15:46 ET Assigned Physician: Richmond Glasgow Reviewed and Electronically Signed By: Richmond Glasgow Signed Date: 02/02/2024 16:09 ET Workstation ID: [id number] Transcribed By: Self Edit Transcribed Date: 02/02/2024 15:46 ET [place] [facility] [place] * (ABNORMAL) Lipid panel with reflex to direct LDL (01/11/2024 9:16 AM EST) Cholesterol 170 0 - 200 mg/dL LAB CHEMISTRY METHOD 01/11/2024 12:16 PM EST [facility] Triglycerides 416(H) 0 - 150 mg/dL LAB CHEMISTRY METHOD 01/11/2024 12:16 PM EST [facility] Comment:Results verified by repeat testing HDL 34(L) >=40 mg/dL LAB CHEMISTRY METHOD 01/11/2024 12:16 PM [facility] LDL Calculated 53 0 - 100 mg/dL LAB CHEMISTRY METHOD 01/11/2024 12:16 PM [facility] Comment:Unable to calculate when triglycerides >400 mg/dL. VLDL Cholesterol Marc 83.2 mg/dL LAB CHEMISTRY METHOD 01/11/2024 12:16 PM [facility] Comment:Unable to calculate when triglycerides >400 mg/dL. Non HDL Chol. (LDL+VLDL) 136 <145 mg/dL LAB CHEMISTRY METHOD 01/11/2024 12:16 PM [facility] Comment:Unable to calculate when triglycerides >400 mg/dL. Chol/HDL Ratio 5.0(H) 0.0 - 4.4 LAB CHEMISTRY METHOD 01/11/2024 12:16 PM [facility] Blood Venous blood specimen / Unknown Venipuncture / Unknown 01/11/2024 9:16 AM EST 01/11/2024 9:16 AM EST Damian Lai MD LAB BLOOD ORDERABLES [facility] [address] [place] [address], * (ABNORMAL) Microalbumin creatinine urine ratio (01/11/2024 9:16 AM EST) Creatinine, Urine 83.0 mg/dL LAB CHEMISTRY METHOD 01/11/2024 10:30 AM [facility] Microalb, Ur 84.6(H) 0.0 - 29.0 mg/L LAB CHEMISTRY METHOD 01/11/2024 10:30 AM [facility] Microalb/Crea t Ratio 102(H) <30 mg/g creat LAB CHEMISTRY METHOD 01/11/2024 10:30 AM [facility] Urine Urine specimen obtained by clean catch procedure / Unknown Non-blood Collection / Unknown 01/11/2024 9:16 AM EST 01/11/2024 9:16 AM EST Damian Lai MD LAB URINE ORDERABLES [facility] [address] [place] [address], [place] [phone] * (ABNORMAL) Hemoglobin A1c (01/11/2024 9:16 AM EST) Pathologist [facility] [place] Hemoglobin A1C 7.6(H) <6.5 % LAB CHEMISTRY METHOD 01/11/2024 11:40 AM EST [facility] Mean Bld Glu Estim. 171 mg/dL LAB CHEMISTRY METHOD 01/11/2024 11:40 AM [facility] Blood Venous blood specimen / Unknown Venipuncture / Unknown 01/11/2024 9:16 AM EST 01/11/2024 9:16 AM EST Lindy JULIO LAB BLOOD ORDERABLES [facility] [address] [place] [address], [place] [phone] * (ABNORMAL) Comprehensive metabolic panel (01/11/2024 9:16 AM EST) Pathologist [facility] [place] Sodium 138 133 - 145 mmol/L LAB CHEMISTRY METHOD 01/11/2024 12:02 PM [facility] Potassium 4.1 3.5 - 5.5 mmol/L LAB CHEMISTRY METHOD 01/11/2024 12:02 PM [facility] Chloride 103 96 - 110 mmol/L LAB CHEMISTRY METHOD 01/11/2024 12:02 PM [facility] CO2 28 21 - 32 mmol/L LAB CHEMISTRY METHOD 01/11/2024 12:02 PM [facility] Anion Gap 7 3 - 11 LAB CHEMISTRY METHOD 01/11/2024 12:02 PM [facility] Glucose 114(H) 70 - 100 mg/dL LAB CHEMISTRY METHOD 01/11/2024 12:02 PM [facility] BUN 30(H) 5 - 25 mg/dL LAB CHEMISTRY METHOD 01/11/2024 12:02 PM [facility] Creatinine 1.85(H) 0.70 - 1.30 mg/dL LAB CHEMISTRY METHOD 01/11/2024 12:02 PM [facility] eGFR 43(L) >=60 mL/min/1. 73m2 LAB CHEMISTRY METHOD 01/11/2024 12:02 PM [facility] Comment:Calculation based on the??Chronic Kidney Disease Epidemiology Collaboration (CKD-EPI) equation refit??without adjustment for race. BUN/Creatinine Ratio 16.2 LAB CHEMISTRY METHOD 01/11/2024 12:02 PM [facility] Calcium 9.7 8.5 - 10.5 mg/dL LAB CHEMISTRY METHOD 01/11/2024 12:02 PM [facility] AST (SGOT) 21 10 - 42 unit/L LAB CHEMISTRY METHOD 01/11/2024 12:02 PM [facility] ALT (SGPT) 53 10 - 60 unit/L LAB CHEMISTRY METHOD 01/11/2024 12:02 PM [facility] Alkaline Phosphatase 158(H) 42 - 121 unit/L LAB CHEMISTRY METHOD 01/11/2024 12:02 PM [facility] Total Protein 7.4 6.0 - 8.0 g/dL LAB CHEMISTRY METHOD 01/11/2024 12:02 PM [facility] Albumin 3.6 3.2 - 5.0 g/dL LAB CHEMISTRY METHOD 01/11/2024 12:02 PM [facility] Total Bilirubin 0.7 0.0 - 1.4 mg/dL LAB CHEMISTRY METHOD 01/11/2024 12:02 PM [facility] Blood Venous blood specimen / Unknown Venipuncture / Unknown 01/11/2024 9:16 AM EST 01/11/2024 9:16 AM EST Damian Lai MD LAB BLOOD ORDERABLES [facility] [address] [place] [address], * Hepatitis C Screening (07/29/2022) Hepatitis C Screening Abstracted Historical Provider MD BLANCHARD MAINRADHA E * Colonoscopy (01/22/2020) Colonoscopy No interpretatio n, abstraced Anatomical Region Laterality Modality Other Historical Provider MD BLANCHARD MAINRADHA Callejas from Last 3 Months or Most Recently Relevant to Health Maintenance Advance Directives Documents on File Type Date Recorded Patient Ob Gyn Expl anation Health Care Decision (hx) 07/30/2018 AD SAMUELS DIRECTIVE Health Care Decision (hx) 07/30/2018 AD SAMUELS DIRECTIVE Health Care Decision (hx) 07/30/2018 AD SAMUELS DIRECTIVE Health Care Decision (hx) 07/30/2018 AD SAMUELS DIRECTIVE Health Care Decision (hx) 07/30/2018 AD SAMUELS DIRECTIVE Health Care Decision (hx) 07/30/2018 AD SAMUELS DIRECTIVE Health Care Decision (hx) 07/30/2018 AD SAMUELS DIRECTIVE Health Care Decision (hx) 07/30/2018 AD SAMUELS DIRECTIVE Health Care Decision (hx) 07/30/2018 AD SAMUELS DIRECTIVE Care Teams Strategic Sourcing Manager Relationship Specialty Start Date End Date Damian Lai MD [address] [place] [address] PCP - General Internal Medicine 01/16/24
[2024-03-09 13:12] LABS: Anion Gap 18 (12-20); Blood Urea Nitrogen 26 mg/dL (9-16); Carbon Dioxide 24 mmol/L (22-29); Chloride 101 mmol/L (96-108); Estimated Glomerular Filt Rate 40; Potassium 4.4 mmol/L (3.3-5.1); Sodium 139 mmol/L (135-145)
== END 2024-03-09 10:48 | disposition home or self-care (01) ==
LOC: HO.HMGCLDS 10:47
PROVIDERS: PCP Internal Medicine; Visit Provider Internal Medicine Nephrology
DX: E11.21 Type 2 diabetes mellitus with diabetic nephropathy (principal); E11.22 Type 2 diabetes mellitus with diabetic chronic kidney disease; N18.30 Chronic kidney disease, stage 3 unspecified; I10 Essential (primary) hypertension
CPT/HCPCS: 36415; 80051; 82565; 84520

== ENCOUNTER 2024-03-13 15:42 | Outpatient (AMB) | payer MEDICARE, MEDICAID, SELFPAY ==
--- NOTE | 2024-03-13 15:49 | HO.NEPHOV_ITS ---
Vital Signs 03/13/24 15:54 Height 5 ft 8 in Weight 299 lb BMI 45.5 BP 120/70 Blood Pressure Location Rt brachial Position Sitting Pulse 88 Pulse Source Pulse Oximeter Pulse Oximetry (%) 98 Oxygen Delivery Method Room Air Intake Visit Reasons: 3mon follow up-[facility] Head Charger Required: No Accompanied by: Life Partner Allergies No Known Allergies Allergy (Verified 03/13/24 15:50) HPI Comments Details: Zac was seen in follow-up of his chronic kidney disease on a backdrop of obesity, hypertension and uncontrolled diabetes. He has no pedal edema. His blood sugar control remains sub optimal. He denies chest pain, shortness of breath, nausea, vomiting, diarrhea, urinary symptoms, orthostasis. He avoids nonsteroidal inflammatory medications. He claims to be compliant with his medications but is not as active as he should be. He is on angiotensin receptor nickolas. [facility] Medical History (Updated 03/08/23 @ 15:48 by Ruddy Mcconnell MD) Chronic kidney disease (CKD) Hypertension Diabetes Family History Mother Diabetes Father Diabetes Hypertension Social History Alcohol intake: never Patient Tobacco Use Status: Never used Tobacco Review of Systems Const All systems reviewed & are unremarkable except as noted in HPI and below Physical Exam Const General: comfortable and no acute distress Orientation/consciousness: patient oriented x3 HEENT Head: Yes normocephalic Mouth: Normal oral and palatal mucosa present Eyes EOM: EOMs intact bilaterally Neck Neck: Yes supple Resp Auscultation: clear to auscultation bilaterally Cardio Jugular venous distension: no JVD Rate: regular rate GI Palpation (GI): Soft to palpation Auscultation: normal bowel sounds General: Yes no CVA tenderness Back/Spine/Pelvis Back: no CVA tenderness Skin General skin exam: no rashes or lesions noted Neuro General: patient oriented x3 and moves all extremities Extrem General: Yes no pedal edema Results Reviewed Nephrology Results: Hgb 14.5 g/dl (14.0-18.0) 03/06/23 WBC 6.9 X10*3/uL (4.8-10.8) 03/06/23 Plt Count 271 X10*3/uL (160-400) 03/06/23 Sodium 139 mmol/L (135-145) 03/09/24 Potassium 4.4 mmol/L (3.3-5.1) 03/09/24 Chloride 101 mmol/L (96-108) 03/09/24 Carbon Dioxide 24 mmol/L (22-29) 03/09/24 BUN 26 mg/dL (9-16) H 03/09/24 Creatinine 1.79 mg/dL (0.5-1.4) H 03/09/24 Assessment & Plan Assessment & Plan (1) CKD stage 3 due to type 2 diabetes mellitus: Code(s): E11.22 - Type 2 diabetes mellitus with diabetic chronic kidney disease; N18.30 - Chronic kidney disease, stage 3 unspecified Category: Medical (2) Hypertension: Code(s): I10 - Essential (primary) hypertension Category: Medical Qualifiers: Hypertension type: primary hypertension Qualified Code(s): I10 - Essential (primary) hypertension (3) Diabetic nephropathy: Code(s): E11.21 - Type 2 diabetes mellitus with diabetic nephropathy Category: Medical Qualifiers: Diabetes mellitus type: type 2 Qualified Code(s): E11.21 - Type 2 diabetes mellitus with diabetic nephropathy Plan Zac has 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 He is on angiotensin receptor nickolas along with multiple antihypertensives to keep his blood pressure at goal. He should be on a low-sodium diet. He should maintain good hydration. He can continue Bumex 2mg daily alternating with 1 mg every other day. He should take Jardiance 10 mg daily which I plan to increase to 25 mg daily with time. He should not take any nonsteroidal anti-inflammatory medications. I did not make any other medication changes today. He needs to lose weight. If he is unsuccessful in losing weight he should be seen in weight management . All his questions were answered Orders: Orders Protein Creatinine Ratio, Ur 3 Months E11.21 - Type 2 diabetes mellitus with diabetic nephropathy, E11.22 - Type 2 diabetes mellitus with diabetic chronic kidney disease, I10 - Essential (primary) hypertension, N18.30 - Chronic kidney disease, stage 3 unspecified Blood Urea Nitrogen 3 Months E11.21 - Type 2 diabetes mellitus with diabetic nephropathy, E11.22 - Type 2 diabetes mellitus with diabetic chronic kidney disease, I10 - Essential (primary) hypertension, N18.30 - Chronic kidney disease, stage 3 unspecified Creatinine 3 Months E11.21 - Type 2 diabetes mellitus with diabetic nephropathy, E11.22 - Type 2 diabetes mellitus with diabetic chronic kidney disease, I10 - Essential (primary) hypertension, N18.30 - Chronic kidney disease, stage 3 unspecified Electrolytes 3 Months E11.21 - Type 2 diabetes mellitus with diabetic nephropathy, E11.22 - Type 2 diabetes mellitus with diabetic chronic kidney disease, I10 - Essential (primary) hypertension, N18.30 - Chronic kidney disease, stage 3 unspecified Coding Level of Care Code Est Pt Level 4 (04327) Diagnoses CKD stage 3 due to type 2 diabetes mellitus E11.22; N18.30 Primary hypertension I10 Hypertension type: primary hypertension Diabetic nephropathy associated with type 2 diabetes mellitus E11. Diabetes mellitus type: type 2
[2024-03-13 15:54] VITALS: BP 120/70; PULSE 88; O2SAT 98; BMI 45.5
--- OUTSIDE RECORDS SUMMARY | 2024-03-13 16:25 | XMS_ITS | Clinical Summary ---
Author Organization [facility] Address [address] [facility] [address] [place] [address] Phone Care Team Providers Care Hairspring Fabrication Supervisor Name Role Phone Damian Lai MD Primary Care Provider [phone] Allergies No known active allergies Medications Multiple [...] sleep apnea syndrome 07/24/2014 06/22/2020 Overview (06/22/2020): [facility] Polysomnogram: Date 03/19/2013; BMI 53; AHI 31, REM AHI 64, Central apneas 2; Obstructive apneas 35; hypopneas 18; average oxygen saturation 93% (lowest 44%); PLMs 0. CPAP trialed and lowest AHI on therapy of 6 was 9.3. [facility] Polysomnogram: Date [...] % PVNMA 07/30/2019 us [facility] [id number] LICITED RESULTS Final Result PVNMA from Last 3 Months or Most Recently Relevant to Health Maintenance Insurance [place] Care Teams Hairspring Fabrication Supervisor Relationship Specialty Start Date End Date Damian Lai MD PCP - General 02/17/20
--- OUTSIDE RECORDS SUMMARY | 2024-03-13 16:25 | XMS_ITS | Encounter Summary ---
Author Organization [employer] Address [address] [place] [address] Care Team Providers Care Toe Trimmer Name Role Phone Damian Lai MD Primary Care Provider [phone] Encounter Details Date Type Department Care Team (Late st Contact Info) Description 02/08/2024 Telephone Orthopedics - [place] [address] [place] [address] Tayo Holloway PA [address] [place] [address] Social History Tobacco Use Types Packs/Day Years [...] Description 04/23/2024 9:40 AM EDT Office Visit [address] [phone] Lindy Gutierrez PA [address] [place] [address] 06/04/2024 1:00 PM EDT Office Visit Adult Medicine [address] [phone] Damian Lai MD [address] [place] [address] documented as of this encounter Visit Diagnoses Not on filedocumented in this encounter Care Teams Toe Trimmer Relationship Specialty Start Date End Date Damian Lai MD [address] [place] [address] PCP - General Internal Medicine 01/16/24 documented as of this encounter
--- OUTSIDE RECORDS SUMMARY | 2024-03-13 16:25 | XMS_ITS | Clinical Summary ---
Author Organization [facility] Address [address] [place] [address] Care Team Providers Care Cook Frozen Dessert Name Role Phone Damian Lai MD Primary Care Provider [phone] Allergies No known active allergies Medications Medication [...] each day. Active blood-glucose meter,continuous (Dexcom G6 Roller Skate Repairer) [facility] [place] 05/27/19 23 Active blood-glucose sensor (DEXCOM G7 SENSOR [facility] 1 Each by Does not apply route See Admin Instructions. USE 1 SENSOR EVERY 10 DAYS. 06/09/19 23 Active blood-glucose transmitter (DEXCOM G6 TRANSMITTER [facility]) To use with Dexcom sensor, 1 transmitter [...] 2 (two) times a day with meals. 180 tablet 1 03/12/19 25 Active carvediloL (COREG) 25 mg tablet Take 1 tablet (25 mg total) by mouth 2 (two) times a day with meals. 08/22/19 24 025 Discontinued empagliflozin (Jardiance) 10 mg tablet Take 1 tablet (10 mg total) by mouth 1 (one) time each day. 10/12/19 24 025 Discontinued(Re order) carvediloL (COREG) 25 mg tablet TAKE 1 TABLET BY MOUTH TWICE DAILY WITH MEALS 180 tablet 1 03/04/19 25 025 Discontinued(Re order) Active Problems Problem Noted Date Diagnosed Date Condition not found 12/14/2023 Overview (12/14/2023): DM (diabetes mellitus), type 2, uncontrolled, with renal complications (HCC) Depression 12/14/2023 Gout 12/14/2023 Hypertension 12/14/2023 Neuropathy 12/14/2023 Overview (12/14/2023): Follows neurology. Shoulder arthritis 12/14/2023 Morbid obesity with BMI of 45.0-49.9, adult 11/0 08/2023 COVID-19 12/03/2021 Adhesive capsulitis of ankle, [...] ARUNA (obstructive sleep apnea) 07/24/2014 Overview (12/14/2023): [facility] Diagnostic and Treatment Polysomnogram: Date 03/19/2013; BMI 53; AHI 31, REM AHI 64, Central apneas 2; Obstructive apneas 35; hypopneas 18; average oxygen saturation 93% (lowest 44%); PLMs 0. CPAP trialed and lowest AHI on therapy of 6 was 9.3. Encounters Date Type Department Care Team Description 02/22/2024 2:30 PM EST Office Visit Orthopedics - [address] [phone] Tayo Holloway PA Exostosis of left tibia (Primary Dx) 02/08/2024 Telephone Orthopedics - [address] [phone] Tayo Holloway PA 02/05/2024 Telephone Endocrinology - [address] [phone] Lindy Gutierrez PA request for office notes ([place]) 02/02/2024 2:51 PM EST - 02/02/2024 11:59 PM EST Hospital Encounter Radiology Department - [address] [phone] Bone lesion Discharge Disposition: Home or Self Care 01/25/2024 10:00 AM EST Consult Orthopedics - [address] [phone] Tayo Holloway PA Primary osteoarthritis of left knee (Primary Dx); Bone lesion 01/18/2024 9:40 AM EST Office Visit Endocrinology - [address] [phone] Lindy Gutierrez PA Diabetes mellitus type 2 with neurological manifestations ([facility]) (Primary Dx); Morbid obesity with BMI of 45.0-49.9, adult ([facility]); Stage 3b chronic kidney disease ([facility]); Primary hypertension; Hyperlipidemia, unspecified hyperlipidemia type from [...] Surgery Date Site/Laterality Comments ESOPHAGOGASTRODUODENOSCOPY 07/24/15 PROCEDURE: [place] EGD TRANSORAL BIOPSY SINGLE/MULTIPLE; COMMENT: normal; normal gastric biopsies without H. pylori Medical History Medical History Date Comments Type II or unspecified type diabetes mellitus without mention of complication, uncontrolled DX:Type II or unspecified t ype diabetes mellitus without mention of complication, uncontrolled Shoulder arthritis DX:Shoulder a rthritis Gout DX:Gout Depression DX:Depression Hypertension DX:Hypertension Neuropathy DX:Neuropathy Morbid obesity ([facility]) 07/24/2014 DX:Morb id obesity ([facility]) ARUNA (obstructive sleep apnea) 07/24/2014 DX :ARUNA (obstructive sleep apnea); COMMENT: severe CKD (chronic kidney disease) stage 3, GFR 30-59 ml/min ([facility]) 07/24/2014 DX:CKD (chronic kidney dise ase) stage 3, GFR 30-59 ml/min ([facility]) Hyperlipidemia 07/24/2014 DX:Hyperlipidemi a Family History Medical [...] Description 04/23/2024 9:40 AM EDT Office Visit [address] [phone] Lindy Gutierrez PA [address] [place] [address] 06/04/2024 1:00 PM EDT Office Visit Adult Medicine [address] [phone] Damian Lai MD [address] [place] [address] Health Maintenance Due Date Last Done Comments [...] Signed Date: 02/02/2024 16:09 ET Workstation ID: [id number] Transcribed By: Self Edit Transcribed Date: 02/02/2024 [...] Signed Date: 02/02/2024 16:09 ET Workstation ID: [id number] Transcribed By: Self Edit Transcribed Date: 02/02/2024 15:46 ET Tayo JULIO [facility] [place] PROCEDURES * (ABNORMAL) Lipid panel with reflex to direct LDL (01/11/2024 9:16 AM EST) Cholesterol 170 0 - 200 mg/dL LAB CHEMISTRY METHOD 01/11/2024 12:[address] [facility] Triglycerides 416(H) 0 - 150 mg/dL LAB CHEMISTRY METHOD 01/11/2024 12:16 PM [facility] Comment:Results verified by repeat testing HDL 34(L) >=40 mg/dL LAB CHEMISTRY METHOD 01/11/2024 12:16 PM [facility] LDL Calculated 53 0 - 100 mg/dL LAB CHEMISTRY METHOD 01/11/2024 12:16 PM [facility] Comment:Unable to calculate when triglycerides >400 mg/dL. VLDL Cholesterol Marc 83.2 mg/dL LAB CHEMISTRY METHOD 01/11/2024 12:16 PM [facility] Comment:Unable to calculate when triglycerides >400 mg/dL. Non HDL Chol. (LDL+VLDL) 136 <145 mg/dL LAB CHEMISTRY METHOD 01/11/2024 12:16 PM [facility] Comment:Unable to calculate when triglycerides >400 mg/dL. Chol/HDL Ratio 5.0(H) 0.0 - 4.4 LAB CHEMISTRY METHOD 01/11/2024 12:16 PM [facility] Blood Venous blood specimen / Unknown Venipuncture / Unknown 01/11/2024 9:16 AM EST 01/11/2024 9:16 AM EST Damian Lai MD LAB BLOOD ORDERABLES [facility] [address] [place] [address], * (ABNORMAL) Microalbumin creatinine urine ratio (01/11/2024 9:16 AM EST) Creatinine, Urine 83.0 mg/dL LAB CHEMISTRY METHOD 01/11/2024 10:30 AM [facility] Microalb, Ur 84.6(H) 0.0 - 29.0 mg/L LAB CHEMISTRY METHOD 01/11/2024 10:30 AM [facility] Microalb/Crea t Ratio 102(H) <30 mg/g creat LAB CHEMISTRY METHOD 01/11/2024 10:[address] [facility] Urine Urine specimen obtained by clean catch procedure / Unknown Non-blood Collection / Unknown 01/11/2024 9:16 AM EST 01/11/2024 9:16 AM EST Damian Lai MD LAB URINE ORDERABLES Performing Organization Address City/[facility]/ZIP Co de Phone Number [facility] [address] [place] [address], [place] [phone] * (ABNORMAL) Hemoglobin A1c (01/11/2024 9:16 AM EST) Hemoglobin A1C 7.6(H) <6.5 % LAB CHEMISTRY METHOD 01/11/2024 11:[address] [facility] Mean Bld Glu Estim. 171 mg/dL LAB CHEMISTRY METHOD 01/11/2024 11:40 AM [facility] Blood Venous blood specimen / Unknown Venipuncture / Unknown 01/11/2024 9:16 AM EST 01/11/2024 9:16 AM EST Lindy JULIO LAB BLOOD ORDERABLES Performing Organization Address [facility]/ZIP Co de Phone Number [facility] [address] [place] [address], [place] [phone] * (ABNORMAL) Comprehensive metabolic panel (01/11/2024 9:16 AM EST) Sodium 138 133 - 145 mmol/L LAB CHEMISTRY METHOD 01/11/2024 12:02 PM [facility] Potassium 4.1 3.5 - 5.5 mmol/L LAB CHEMISTRY METHOD 01/11/2024 12:02 PM [facility] Chloride 103 96 - 110 mmol/L LAB CHEMISTRY METHOD 01/11/2024 12:02 PM [facility] CO2 28 21 - 32 mmol/L LAB CHEMISTRY METHOD 01/11/2024 12:02 PM [facility] Anion Gap 7 3 - 11 LAB CHEMISTRY METHOD 01/11/2024 12:02 PM [facility] Glucose 114(H) 70 - 100 mg/dL LAB CHEMISTRY METHOD 01/11/2024 12:02 PM [facility] BUN 30(H) 5 - 25 mg/dL LAB CHEMISTRY METHOD 01/11/2024 12:02 PM [facility] Creatinine 1.85(H) 0.70 - 1.30 mg/dL LAB CHEMISTRY METHOD 01/11/2024 12:02 PM [facility] eGFR 43(L) >=60 mL/min/1. 73m2 LAB CHEMISTRY METHOD 01/11/2024 12:02 PM [facility] Comment:Calculation based on the??Chronic Kidney Disease Epidemiology Collaboration (CKD-EPI) equation refit??without adjustment for race. BUN/Creatinine Ratio 16.2 LAB CHEMISTRY METHOD 01/11/2024 12:02 PM [facility] Calcium 9.7 8.5 - 10.5 mg/dL LAB CHEMISTRY METHOD 01/11/2024 12:02 [facility] AST (SGOT) 21 10 - 42 unit/L LAB CHEMISTRY METHOD 01/11/2024 12:02 [facility] ALT (SGPT) 53 10 - 60 unit/L LAB CHEMISTRY METHOD 01/11/2024 12:02 PM [facility] Alkaline Phosphatase 158(H) 42 - 121 unit/L LAB CHEMISTRY METHOD 01/11/2024 12:02 PM [facility] Total Protein 7.4 6.0 - 8.0 g/dL LAB CHEMISTRY METHOD 01/11/2024 12:02 PM [facility] Albumin 3.6 3.2 - 5.0 g/dL LAB CHEMISTRY METHOD 01/11/2024 12:02 PM EST [facility] Total Bilirubin 0.7 0.0 - 1.4 mg/dL LAB CHEMISTRY METHOD 01/11/2024 12:[address] [facility] Blood Venous blood specimen / Unknown Venipuncture / Unknown 01/11/2024 9:16 AM EST 01/11/2024 9:16 AM EST Damian Lai MD LAB BLOOD ORDERABLES [facility] [address] [place] [address], * Hepatitis C Screening (07/29/2022) Hepatitis C Screening Abstracted Historical Provider MD LO Callejas * Colonoscopy (01/22/2020) Colonoscopy No interpretatio n, abstraced Anatomical Region Laterality Modality Other Historical Provider MD LO Callejas from Last 3 Months or Most Recently Relevant to Health Maintenance Advance Directives Documents on File Type Date Recorded Patient Energy Project Manager Expl anation Health Care Decision (hx) 07/30/2018 [...] (hx) 07/30/2018 AD SAMUELS DIRECTIVE Care Teams Cook Frozen Dessert Relationship Specialty Start Date End Date Damian Lai MD [address] [place] [address] PCP - General Internal Medicine 01/16/24
--- OUTSIDE RECORDS SUMMARY | 2024-03-13 16:25 | XMS_ITS | Encounter Summary ---
Author Organization [employer] Address [address] [place] [address] Care Team Providers Care Log Check Scaler Name Role Phone Damian Lai MD Primary Care Provider [phone] Reason for Referral * Consultation (Routine) - Authorized Specialty Diagnoses / Procedures Referred By Nigel bennett Referred To Contact Orthopaedics Diagnoses Exostosis of left tibia Tayo Holloway PA [address] [place], [place] Referral ID Status Reason Start Date Expiration Date Visits Requested Visits Authorized [id number] Authorized Specialty Services Required 02/22/2024 02/21/2025 1 1 Reason for Visit * Reason Comments Pain MRI Results Follow-up MRI Results Encounter Details Date Type Department Care Team ([facility] Contact Info) Description 02/22/2024 2:30 PM EST Office Visit Orthopedics - [address] [phone] Tayo Holloway PA [address] [place] [address] Exostosis of left tibia (Primary Dx) Social [...] 04/23/2024 9:40 AM EDT Office Visit [address] [phone] Lindy Gutierrez PA [address] [place] [address] 06/04/2024 1:00 PM EDT Office Visit Adult Medicine [address] [phone] Damina Lai MD [address] [place] [address] Scheduled Referrals Name Type Priority Associated Diagnoses [...] 02/12/2024 added in this encounter Care Teams Log Check Scaler Relationship Specialty Start Date End Date Damian Lai MD [address] [place] [address] PCP - General Internal Medicine 01/16/24 documented as of this encounter
--- OUTSIDE RECORDS SUMMARY | 2024-03-13 16:25 | XMS_ITS | Encounter Summary ---
Author Organization [employer] Address [address] [place] [address] Care Team Providers Care Typing Checker Name Role Phone Damian Lai MD Primary Care Provider [phone] Reason for Visit * Reason Onset Date Comments request for office notes 02/05/2024 Billy perez Encounter Details Date Type Department Care Team ([facility] st Contact Info) Description 02/05/2024 Telephone [facility] [address] [place] [address] Lindy Gutierrez PA [address] [place] [address] request for office notes (Ihsan) Social History [...] to get CGM and supplies. Fax to [phone] documented in this encounter Plan of Treatment Upcoming Encounters Date Type Department Care Team (Late st Contact Info) Description 04/23/2024 9:40 AM EDT Office Visit Endocrinology - [address] [phone] Lindy Gutierrez PA [address] [place] [address] 06/04/2024 1:00 PM EDT Office Visit Adult Medicine South - [address] [phone] Damian Lai MD [address] [place] [address] documented as of this encounter Visit Diagnoses Not on filedocumented in this encounter Care Teams Typing Checker Relationship Specialty Start Date End Date Damian Lai MD [address] [place] [address] PCP - General Internal Medicine 01/16/24 documented as of this encounter
== END 2024-03-13 16:12 | disposition home or self-care (01) ==
PROVIDERS: PCP Internal Medicine; Visit Provider Internal Medicine Nephrology
DX: E11.22 Type 2 diabetes mellitus with diabetic chronic kidney disease (principal); N18.30 Chronic kidney disease, stage 3 unspecified; I10 Essential (primary) hypertension; E11.21 Type 2 diabetes mellitus with diabetic nephropathy
CPT/HCPCS: 99214

== ENCOUNTER → 2024-03-13 15:42 | Outpatient (BNVA) | payer MEDICARE, MEDICAID, SELFPAY | PROVIDERS: PCP Internal Medicine; Visit Provider Internal Medicine Nephrology | DX: I12.9 Hypertensive chronic kidney disease with stage 1 through stage 4 chronic kidney disease, or unspecified chronic kidney disease (principal); E11.22 Type 2 diabetes mellitus with diabetic chronic kidney disease; E11.21 Type 2 diabetes mellitus with diabetic nephropathy; N18.30 Chronic kidney disease, stage 3 unspecified; E66.9 Obesity, unspecified; Z68.42 Body mass index [BMI] 45.0-49.9, adult; Z79.899 Other long term (current) drug therapy | CPT/HCPCS: 99212 ==

== ENCOUNTER 2024-06-22 08:00 | Outpatient (REF) | payer MEDICARE, MEDICAID, SELFPAY ==
--- OUTSIDE RECORDS SUMMARY | 2024-06-22 08:02 | XMS_ITS | Encounter Summary ---
Author Organization [facility] Address [address] [place] [address] Care Team Providers Care Technical Document Writer Name Role Phone Damian Lai MD Primary Care Provider [phone] Encounter Details Date Type Department Care Team Description 08/02/2018 Information Services Manager Report Medical Records [address] [place] [address] Ruddy Mcconnell MD Social History Tobacco Use Types Packs/Day Years Used Date Smoking Tobacco: Never Smokeless Tobacco: Never Alcohol Use Standard Drinks/Week Comments Yes 0 (1 standard drink = 0.6 oz pur e alcohol) less then 5 per year Sex Assigned at Date Recorded Male 03/01/2021 4:[address] Job Start Date Occupation Industry Not on file Not on file Not on file documented as of this encounter Plan of Treatment Not on file documented as of this encounter Visit Diagnoses Not on filedocumented in this encounter Care Teams Technical Document Writer Relationship Specialty Start Date End Date Damian Lai MD [address] [place], [place] [id number] PCP - General Internal Medicine 04/01/14 documented as of this encounter
--- OUTSIDE RECORDS SUMMARY | 2024-06-22 08:02 | XMS_ITS | Encounter Summary ---
Author Organization [facility] Address [address] [place] [address] Care Team Providers Care Placement Manager Name Role Phone Damian Lai MD Primary Care Provider [phone] Reason for Visit * Reason Comments E-prescribe Rx Request Encounter Details Date Type Department Care Team Description 11/21/2023 Refill Endocrinology - [place] [address] [place] [id number] Lindy Gutierrez PA-C [address] [place] [address] [phone] E-prescribe Rx Request Social History Tobacco Use Types Packs/Day Years Used Date Smoking Tobacco: Former Vapor Q uit: 05/12/2020 Passive Smoke Exposure: Never Smokeless Tobacco: Current Alcohol Use Standard Drinks/Week [...] as of this encounter Visit Diagnoses Diagnosis Type II or unspecified type diabetes mellitus with renal manifestations, uncontrolled(250.42) (HCC) Type II or unspecified type diabetes mellitus with renal manifestations, uncontrolled documented in this encounter Care Teams Placement Manager Relationship Specialty Start Date End Date Damian Lai MD [address] [place] [id number] PCP - General Internal Medicine 04/01/14 documented as of this encounter
--- OUTSIDE RECORDS SUMMARY | 2024-06-22 08:02 | XMS_ITS | Encounter Summary ---
Author Organization [facility] Address [address] [place] [address] Care Team Providers Care Hot Roll Inspector Name Role Phone Damian Lai MD Primary Care Provider [phone] Encounter Details Date Type Department Care Team Description 10/23/2016 Deputy Sheriff/Investigator Report Medical Records [address] [place] [address] Abstract, Provider Social History Tobacco Use Types Packs/Day Years [...] on filedocumented in this encounter Care Teams Hot Roll Inspector Relationship Specialty Start Date End Date Damian Lai MD [address] [place], [place] [phone] PCP - General Internal Medicine 04/01/14 documented as of this encounter
--- OUTSIDE RECORDS SUMMARY | 2024-06-22 08:02 | XMS_ITS | Encounter Summary ---
Author Organization [facility] Address [address] [place] [address] Care Team Providers Care Mohs Surgeon/General Dermatologist Name Role Phone Damian Lai MD Primary Care Provider [phone] Encounter Details Date Type Department Care Team Description 10/16/2023 Refill Endocrinology - [place] [address] [place] [address] Lindy Gutierrez PA-C [address] [place] [address] Social History Tobacco Use Types Packs/Day Years [...] on file documented as of this encounter Miscellaneous Notes * Telephone Encounter - Halie Alexander M.A. - 10/17/2023 9:40 AM EDT Steven 10/12/23 Nov,no upcoming appointment scheduled L[facility] 05/09/23 Lab Results Component Value Date HGBA1C 8.8 10/11/2023 MALBUR 530.0 05/04/2023 MALBCR 530.0 05/04/2023 CHOL 202 05/04/2023 LDL 97 05/04/2023 HDL 39 05/04/2023 TRIG 331 05/04/2023 GLU 254 10/11/2023 CREAT 1.73 10/11/2023 Please review, thanks documented in this encounter Plan of Treatment Not on file documented as of this encounter Visit Diagnoses Not on filedocumented in this encounter Care Teams Mohs Surgeon/General Dermatologist Relationship Specialty Start Date End Date Damian Lai MD [address] [place] [address] PCP - General Internal Medicine 04/01/14 documented as of this encounter
--- OUTSIDE RECORDS SUMMARY | 2024-06-22 08:02 | XMS_ITS | Encounter Summary ---
Author Organization [facility] Address [address] [place] [address] Care Team Providers Care Business Risk Consultant Name Role Phone Damian Lai MD Primary Care Provider [phone] Encounter Details Date Type Department Care Team Description 08/15/2018 Pelota Maker Report Medical Records [address] [place] [address] Daniel Mckeon Social History Tobacco Use Types Packs/Day Years [...] on filedocumented in this encounter Care Teams Business Risk Consultant Relationship Specialty Start Date End Date Damian Lai MD [address] [place], [place] [phone] PCP - General Internal Medicine 04/01/14 documented as of this encounter
--- OUTSIDE RECORDS SUMMARY | 2024-06-22 08:02 | XMS_ITS | Encounter Summary ---
Author Organization [facility] Address [address] [place] [address] Care Team Providers Care Checker In Name Role Phone Damian Lai MD Primary Care Provider [phone] Encounter Details Date Type Department Care Team Description 11/06/2019 Commercial Correspondent Report Medical Records [address] [place] [address] Rehab., F[facility] Social History Tobacco Use Types Packs/Day Years Used Date Smoking Tobacco: Some Days Vapor Smokeless Tobacco: Current Alcohol Use Standard Drinks/Week Comments Yes 0 (1 standard drink = 0.6 oz pur e alcohol) less then 5 per year Sex Assigned at Date Recorded Male 03/01/2021 4:[address] Job Start Date Occupation Industry Not on file Not on file Not on file COVID-19 Exposure Response Date Recorded In the last month, have you been in contact with someone who was confirmed or suspected to have Coronavirus / COVID-19? No / Unsure 11/06/2019 1:48 PM EDT documented as of this encounter Plan of Treatment Not on file documented as of this encounter Visit Diagnoses Not on filedocumented in this encounter Care Teams Checker In Relationship Specialty Start Date End Date Damian Lai MD [address] [place] [address] [phone] PCP - General Internal Medicine 04/01/14 documented as of this encounter
--- OUTSIDE RECORDS SUMMARY | 2024-06-22 08:02 | XMS_ITS | Encounter Summary ---
Author Organization [facility] Address [address] [place] [address] Care Team Providers Care Advisor Consultant Name Role Phone Damian Lai MD Primary Care Provider [phone] Encounter Details Date Type Department Care Team Description 07/28/2018 Hospital Medical Records [address] [place] [address] Vita Matias MD [address] [facility] [address] [place] [address] Social History Tobacco Use Types Packs/Day Years [...] on filedocumented in this encounter Care Teams Advisor Consultant Relationship Specialty Start Date End Date Damian Lai MD [address] [place] [address] PCP - General Internal Medicine 04/01/14 documented as of this encounter
--- OUTSIDE RECORDS SUMMARY | 2024-06-22 08:02 | XMS_ITS | Encounter Summary ---
Author Organization [facility] Address [address] [place] [address] Care Team Providers Care Director Maternal Child Name Role Phone Damian Lai MD Primary Care Provider [phone] Encounter Details Date Type Department Care Team Description 09/25/2019 Business Doc Medical Records [address] [place] [address] Abstract, Provider Social History Tobacco Use Types [...] on filedocumented in this encounter Care Teams Director Maternal Child Relationship Specialty Start Date End Date Damian Lai MD [address] [place] [address] [phone] PCP - General Internal Medicine 04/01/14 documented as of this encounter
--- OUTSIDE RECORDS SUMMARY | 2024-06-22 08:02 | XMS_ITS | Encounter Summary ---
Author Organization [facility] Address [address] [place] [address] Care Team Providers Care Post Graduate Intern Name Role Phone Damian Lai MD Primary Care Provider [phone] Encounter Details Date Type Department Care Team Description 08/02/2018 Milk House Worker Report Medical Records 4 [place] [address] Elsa Jackson II Social History Tobacco Use Types Packs/Day Years [...] on filedocumented in this encounter Care Teams Post Graduate Intern Relationship Specialty Start Date End Date Damian Lai MD [address] [place], [place] [phone] PCP - General Internal Medicine 04/01/14 documented as of this encounter
--- OUTSIDE RECORDS SUMMARY | 2024-06-22 08:02 | XMS_ITS | Encounter Summary ---
Author Organization [facility] Address [address] [place] [address] Care Team Providers Care Cad Engineer Name Role Phone Damian Lai MD Primary Care Provider Encounter Details Date Type Department Care Team Description 03/01/2018 Imaging Science Professor Report Medical Records [address] [place] [address] [address] [place] [address] Social History Tobacco Use Types Packs/Day Years [...] on filedocumented in this encounter Care Teams Cad Engineer Relationship Specialty Start Date End Date Damian Lai MD [address] [place] [address] PCP - General Internal Medicine 04/01/14 documented as of this encounter
--- OUTSIDE RECORDS SUMMARY | 2024-06-22 08:02 | XMS_ITS | Encounter Summary ---
Author Organization [facility] Address [address] [place] [address] Care Team Providers Care Dandy Operator Name Role Phone Damian Lai MD Primary Care Provider Encounter Details Date Type Department Care Team Description 03/17/2018 Hog Scalder Report Medical Records 4 [place] [address] Gerson Betts Social History Tobacco Use Types Packs/Day Years [...] on filedocumented in this encounter Care Teams Dandy Operator Relationship Specialty Start Date End Date Damian Lai MD [address] [place] [address] PCP - General Internal Medicine 04/01/14 documented as of this encounter
--- OUTSIDE RECORDS SUMMARY | 2024-06-22 08:02 | XMS_ITS | Encounter Summary ---
Author Organization [facility] Address [address] [place] [address] Care Team Providers Care Economics Teacher Name Role Phone Damian Lai MD Primary Care Provider [phone] Encounter Details Date Type Department Care Team Description 01/24/2020 Orders Only Medical Records [address] [place] [address] Yady Low MD [address] [place] [address] Social History Tobacco Use Types Packs/Day Years [...] have Coronavirus / COVID-19? No / Unsure 01/10/2020 12:29 PM EST documented as of this encounter Progress Notes * Javed Low MD - 01/31/2020 2:35 PM EST Dear Mr. Ahmadi, The polyp(s) that were removed during your colonoscopy were precancerous, but benign. Fortunately, we removed them and therefore, they will not cause any more problems in the future. Based on the number, the size, and the features of the polyp(s) removed, I recommend a follow-up colonoscopy in 3 years. Before, the 3 years are due, we will send you a reminder in the mail asking you to contact our office to have the colonoscopy scheduled. The random biopsies of the colon are within normal limits. Please follow up in order to discuss these findings with the referring physician at [facility] gastroenterology clinic. I would like to personally thank you for allowing us to take care of you. Please don't hesitate to call us for any questions or concerns. Regards, Ben Low MD Board Certified Gastroenterology and Internal Medicine Transplant Hepatology [facility] documented in this encounter Plan of Treatment Not on file documented as of this encounter Procedures Procedure Name Priority Date/Time Associated Diagnosis Comments OUTSIDE PATHOLOGY Routine 01/22/2020 documented in this encounter Results * OUTSIDE PATHOLOGY (01/22/2020) Yady Low MD OUTSIDE LAB documented in this encounter Visit Diagnoses Not on filedocumented in this encounter Care Teams Economics Teacher Relationship Specialty Start Date End Date Damian Lai MD [address] [place] [address] PCP - General Internal Medicine 04/01/14 documented as of this encounter
--- OUTSIDE RECORDS SUMMARY | 2024-06-22 08:02 | XMS_ITS | Encounter Summary ---
Author Organization [facility] Address [address] [place] [address] Care Team Providers Care Waistline Joiner Lockstitch Name Role Phone Damian Lai MD Primary Care Provider [phone] Encounter Details Date Type Department Care Team Description 02/06/2022 Refill Adult Medicine [facility] [address] [place], [place] [phone] Damian Lai MD [address] [place] [address] [phone] Social History Tobacco Use Types Packs/Day Years Used Date Smoking Tobacco: Former Vapor Q uit: 05/12/2020 Smokeless Tobacco: Current Alcohol Use Standard Drinks/Week Comments Yes 0 (1 standard drink = 0.6 oz pur e alcohol) less then 5 per year Sex Assigned at Date Recorded Male 03/01/2021 4:[address] Job Start Date Occupation Industry Not on file Not on file Not on file documented as of this encounter Miscellaneous Notes * Telephone Encounter - Nina Rosario - 02/08/2022 8:51 AM EST Lab Results Component Value Date NA 142 06/10/2021 K 4.2 06/10/2021 CO2 32 06/10/2021 CL 104 06/10/2021 BUN 18 06/10/2021 CREAT 1.37 06/10/2021 GLU 145 06/10/2021 CA 9.5 06/10/2021 GFR 55 06/10/2021 documented in this encounter Plan of Treatment Not on file documented as of this encounter Visit Diagnoses Not on filedocumented in this encounter Care Teams Waistline Joiner Lockstitch Relationship Specialty Start Date End Date Damian Lai MD [address] [place] [address] PCP - General Internal Medicine 04/01/14 documented as of this encounter
--- OUTSIDE RECORDS SUMMARY | 2024-06-22 08:02 | XMS_ITS | Encounter Summary ---
Author Organization [facility] Address [address] [place] [address] Care Team Providers Care Carpet Yarn Winder Operator Name Role Phone Damian Lai MD Primary Care Provider [phone] Encounter Details Date Type Department Care Team Description 03/03/2022 Pt. Non Urgent Medical Question Adult Medicine [facility] [address] [place] [address] [phone] Damian Lai MD [address] [place] [address] Social History Tobacco Use Types Packs/Day Years [...] * Telephone Encounter - Nina Rosario - 03/03/2022 12:53 PM ESTFrom: Zac Ahmadi To: Mauri Lai Sent: 03/03/2022 11:55 AM EST Subject: PT1 form Good Morning Dr. Lai. My is Zac Ahmadi. I have a appointment on March 30, at 9: 45. I need you to fill out a PT1 form so I can Transportation to the appointment. documented in this encounter Plan of Treatment Not on file documented as of this encounter Visit Diagnoses Not on filedocumented in this encounter Care Teams Carpet Yarn Winder Operator Relationship Specialty Start Date End Date Damian Lai MD [address] [place] [address] PCP - General Internal Medicine 04/01/14 documented as of this encounter
--- OUTSIDE RECORDS SUMMARY | 2024-06-22 08:02 | XMS_ITS | Encounter Summary ---
Author Organization [facility] Address [address] [place] [address] Care Team Providers Care Merchandising Specialist Name Role Phone Damian Lai MD Primary Care Provider [phone] Encounter Details Date Type Department Care Team Description 10/07/2016 Stamping Mill Tender Report Medical Records 4 [place] [address] Dixon Boone MD Social History Tobacco Use Types Packs/Day [...] on filedocumented in this encounter Care Teams Merchandising Specialist Relationship Specialty Start Date End Date Damian Lai MD [address] [place] [address] PCP - General Internal Medicine 04/01/14 documented as of this encounter
--- OUTSIDE RECORDS SUMMARY | 2024-06-22 08:02 | XMS_ITS | Encounter Summary ---
Author Organization [facility] Address [address] [place] [address] Care Team Providers Care Pick Up Man Name Role Phone Damian Lai MD Primary Care Provider [phone] Encounter Details Date Type Department Care Team Description 04/18/2018 Smart Energy Specialist Report Medical Records [address] [place] [address] Jason Chang Social History Tobacco Use Types Packs/Day Years [...] on filedocumented in this encounter Care Teams Pick Up Man Relationship Specialty Start Date End Date Damian Lai MD [address] [place] [address] PCP - General Internal Medicine 04/01/14 documented as of this encounter
--- OUTSIDE RECORDS SUMMARY | 2024-06-22 08:02 | XMS_ITS | Encounter Summary ---
Author Organization [facility] Address [address] [place] [address] Care Team Providers Care Music Cataloguer Name Role Phone Damian Lai MD Primary Care Provider Reason for Visit * Reason Comments E-prescribe Rx Request Encounter Details Date Type Department Care Team Description 08/26/2021 Refill Adult Medicine [address] [address] Priya Walker PA E-prescribe Rx Request Social History Tobacco Use [...] encounter Miscellaneous Notes * Telephone Encounter - Meg Moeller M.A. - 08/27/2021 3:45 PM EDT Lab Results Component Value Date NA 142 06/10/2021 K 4.2 06/10/2021 CO2 32 06/10/2021 CL 104 06/10/2021 BUN 18 06/10/2021 CREAT 1.37 06/10/2021 GLU 145 06/10/2021 CA 9.5 06/10/2021 GFR 55 06/10/2021 JULIO C 03/29/2021 w/Priya BUNCH w/PCP 01/2020 Next OV 09/17/2021 w/Aliya Robertson * Telephone Encounter - Alexa Daniel - 08/27/2021 8:53 AM EDT Patient would like script to be: E-PRESCRIBED/FAXED TO PHARMACY WHEN WAS THE PATIENT'S LAST APPOINTMENT IN ADULT MEDICINE? 03/29/21 WHEN WAS THE LAST TIME THE PATIENT SAW THEIR PCP? 01/09/21 Does patient have an upcoming appointment? Yes 09/17/21 (THE MEDICATION REQUESTED IS ON THE MED LIST ABOVE) All of the medications requested were on the CURRENT MEDS list Did you check the Pharmacy information above?: YES Patient wants: 90 -day supply Is this a mail order prescription request ? NO If the refill is from a FAXED refill request what is the RX # listed on the fax? N/A Patients current insurance carrier is: [place] / [place] / Product Type: MEDICARE [id number] documented in this encounter Plan of Treatment Not on file documented as of this encounter Visit Diagnoses Not on filedocumented in this encounter Care Teams Music Cataloguer Relationship Specialty Start Date End Date Damian Lai MD [address] [place] [address] PCP - General Internal Medicine 04/01/14 documented as of this encounter
--- OUTSIDE RECORDS SUMMARY | 2024-06-22 08:02 | XMS_ITS | Encounter Summary ---
Author Organization [facility] Address [address] [place] [address] Care Team Providers Care Laundry Housekeeping Aide Name Role Phone Damian Lai MD Primary Care Provider [phone] Encounter Details Date Type Department Care Team Description 04/06/2020 Pt. Non Urgent Medical Question General Surgery - [place] [facility] [address] [place] [phone] Martell Mckee DPM [address] [facility] [address] [place] [address] Social History Tobacco Use Types Packs/Day Years [...] on filedocumented in this encounter Care Teams Laundry Housekeeping Aide Relationship Specialty Start Date End Date Damian Lai MD [address] [place] [address] [phone] PCP - General Internal Medicine 04/01/14 documented as of this encounter
--- OUTSIDE RECORDS SUMMARY | 2024-06-22 08:02 | XMS_ITS | Encounter Summary ---
Author Organization [facility] Address [address] [place] [address] Care Team Providers Care Area Captain Name Role Phone Damian Lai MD Primary Care Provider [phone] Encounter Details Date Type Department Care Team Description 08/08/2018 Industrial Psychology Professor Report Medical Records 4 [place] [address] Daniel Mckeon Social History Tobacco Use Types [...] on filedocumented in this encounter Care Teams Area Captain Relationship Specialty Start Date End Date Damian Lai MD [address] [place], [place] [phone] PCP - General Internal Medicine 04/01/14 documented as of this encounter
--- OUTSIDE RECORDS SUMMARY | 2024-06-22 08:02 | XMS_ITS | Encounter Summary ---
Author Organization [facility] Address [address] [place] [address] Care Team Providers Care Screedman Name Role Phone Damian Lai MD Primary Care Provider [phone] Encounter Details Date Type Department Care Team Description 07/31/2018 Auto Air Conditioning Mechanic Report Medical Records [address] [place] [address] Daniel Mckeon Social History Tobacco Use Types [...] on filedocumented in this encounter Care Teams Screedman Relationship Specialty Start Date End Date Damian Lai MD [address] [place], [place] [phone] PCP - General Internal Medicine 04/01/14 documented as of this encounter
--- OUTSIDE RECORDS SUMMARY | 2024-06-22 08:02 | XMS_ITS | Encounter Summary ---
Author Organization [facility] Address [address] [place] [address] Care Team Providers Care Test Man Name Role Phone Damian Lai MD Primary Care Provider [phone] Encounter Details Date Type Department Care Team Description 07/31/2018 Banjo Repairer Report Medical Records [address] [place] [address] Daniel Mckeon Social History Tobacco Use Types [...] on filedocumented in this encounter Care Teams Test Man Relationship Specialty Start Date End Date Damian Lai MD [address] [place], [place] [phone] PCP - General Internal Medicine 04/01/14 documented as of this encounter
--- OUTSIDE RECORDS SUMMARY | 2024-06-22 08:02 | XMS_ITS | Encounter Summary ---
Author Organization [facility] Address [address] [place] [address] Care Team Providers Care Real Estate Internship Name Role Phone Damian Lai MD Primary Care Provider [phone] Encounter Details Date Type Department Care Team Description 01/13/2020 Refill Gastroenterology - [address] [place] [phone] Yady Low MD [address] [place] [address] Social History Tobacco Use Types Packs/Day Years [...] PM EST documented as of this encounter Plan of Treatment Not on file documented as of this encounter Visit Diagnoses Not on filedocumented in this encounter Care Teams Real Estate Internship Relationship Specialty Start Date End Date Damian Lai MD [address] [place] [address] PCP - General Internal Medicine 04/01/14 documented as of this encounter
--- OUTSIDE RECORDS SUMMARY | 2024-06-22 08:02 | XMS_ITS | Encounter Summary ---
Author Organization [facility] Address [address] [place] [address] Care Team Providers Care Freight Breaker Name Role Phone Damian Lai MD Primary Care Provider [phone] Encounter Details Date Type Department Care Team Description 04/14/2020 Animal Control Officer Report Medical Records [address] [place] [address] Emily Arriaga MD Social History Tobacco Use Types Packs/Day [...] on filedocumented in this encounter Care Teams Freight Breaker Relationship Specialty Start Date End Date Damian Lai MD [address] [place], [place] [phone] PCP - General Internal Medicine 04/01/14 documented as of this encounter
--- OUTSIDE RECORDS SUMMARY | 2024-06-22 08:02 | XMS_ITS | Encounter Summary ---
Author Organization [facility] Address [address] [place] [address] Care Team Providers Care Welding Systems And Equipment Repairer Name Role Phone Damian Lai MD Primary Care Provider [phone] Encounter Details Date Type Department Care Team Description 11/24/2023 Vascular Nurse Report Medical Records [address] [place] [address] Ruddy Mcconnell MD Social History Tobacco Use [...] on filedocumented in this encounter Care Teams Welding Systems And Equipment Repairer Relationship Specialty Start Date End Date Damian Lai MD [address] [place] [address] PCP - General Internal Medicine 04/01/14 documented as of this encounter
--- OUTSIDE RECORDS SUMMARY | 2024-06-22 08:02 | XMS_ITS | Encounter Summary ---
Author Organization [facility] Address [address] [place] [address] Care Team Providers Care Auto Air Conditioning Apprentice Name Role Phone Damian Lai MD Primary Care Provider [phone] Encounter Details Date Type Department Care Team Description 04/05/2018 Hospital Medical Records [address] [place] [address] [address] [place] [address] Social History Tobacco Use Types Packs/Day Years [...] on filedocumented in this encounter Care Teams Auto Air Conditioning Apprentice Relationship Specialty Start Date End Date Damian Lai MD [address] [place] [address] [id number] PCP - General Internal Medicine 04/01/14 documented as of this encounter
--- OUTSIDE RECORDS SUMMARY | 2024-06-22 08:03 | XMS_ITS | Encounter Summary ---
Author Organization [facility] Address [address] [place] [address] Care Team Providers Care Commercial Insurance Underwriter Name Role Phone Damian Lai MD Primary Care Provider [phone] Encounter Details Date Type Department Care Team Description 12/06/2018 Diamond Wheel Molder Report Medical Records [address] [place] [address] Abstract, Provider Social History Tobacco Use Types [...] on filedocumented in this encounter Care Teams Commercial Insurance Underwriter Relationship Specialty Start Date End Date Damian Lai MD [address] [place], [place] [phone] PCP - General Internal Medicine 04/01/14 documented as of this encounter
--- OUTSIDE RECORDS SUMMARY | 2024-06-22 08:03 | XMS_ITS | Encounter Summary ---
Author Organization [facility] Address [address] [place] [address] Care Team Providers Care Application Analyst Name Role Phone Damian Lai MD Primary Care Provider [phone] Encounter Details Date Type Department Care Team Description 09/24/2018 Benzene Still Utility Operator Report Medical Records [address] [place] [address] Ruddy Mcconnell MD Social History Tobacco Use [...] on filedocumented in this encounter Care Teams Application Analyst Relationship Specialty Start Date End Date Damian Lai MD [address] [place], [place] [phone] PCP - General Internal Medicine 04/01/14 documented as of this encounter
--- OUTSIDE RECORDS SUMMARY | 2024-06-22 08:03 | XMS_ITS | Encounter Summary ---
Author Organization [facility] Address [address] [place] [address] Care Team Providers Care Shake Packer Name Role Phone Damian Lai MD Primary Care Provider [phone] Reason for Visit * Reason Onset Date Comments Transitional Care Management (Tcm) 11/15/2017 TCM post d/c [facility] 11/13/17 Encounter Details Date Type Department Care Team Description 11/15/2017 Telephone Adult Medicine [facility] [address] [place], [place] [phone] Damian Lai MD [address] [place] [address] [phone] Transitional Care Management (Tcm) (TCM post d/c [facility] 11/13/17) Social History Tobacco Use Types Packs/Day Years [...] encounter Miscellaneous Notes * Telephone Encounter - Jackelyn Perkins R.N. - 11/15/2017 11:46 AM EDT Patient with Pmhx that includes: T2DM ( on insulin pump), HTN, HLD, CKD stage 3, hx daibetic foot ulcer was admitted to [facility] on 11/09/17 with right diabetic foot infection and abcess near right first MTP joint and likely involving the MTP joint On 10/18/17 patient underwent debridement and wound swab grew E faecalis and MSSA. Treatment was for2 weeks of Naficillin, Patient reported continuation of pain and erythema. He denied fever, chills or rigors. F/U with PCP and Podiatry and patient referred to [facility] for eval and IV antibiodic therapy. On admission MRI showed abnormal persistentright great toe infectious inflammatory process and soft tissue ulceration without interval developing enhancing bone marrow edema by contrast MRI when compared to 10/18/17 ID consulted and ultimately patient placed on po Augmentin prior to discharge. Patient discharged to home on 11/13/17 with [facility]na services ordered Quality Outreach: Hospital Discharge Admission Date: 11/09/17 Discharge Date: 11/13/17 Hospital: [facility] Problem or condition that sent patient to the hospital: See above Discharge Diagnosis: See above Patient statement of condition at time of outreach (how are they feeling)? I'm feeling pretty good. Pain is much less and I'm getting back to normal Medications: Were prescriptions issued at time of discharge? Yes, new prescriptions were issued. Augmentin 875 mg tab, three times daily x 2 weeks Were prescriptions filled at pharmacy? Yes, prescriptions were filled at the pharmacy. Medication reconciliation: Medication reconcilliation completed. Assessment of patients understanding of new medication: The patient understands how to take new medications. Is the patient on Warfarin? NO If yes, Anticoagulation Clinic notified of hospitalization. Follow-up test or procedures: Other diagnostic/tests or procedures ordered post discharge: no Post discharge appointment scheduled: Date of appointment: 11/24/17 @ 1:30 pm Is the patient able to keep that appointment? Yes Does the patient have transportation to the appointment? Yes Home Care Services: Have home care services been requested? Yes, home care services have been ordered. Agency: [facility] Changes in condition since discharge: Patients statement of any changes in condition since discharge? none Assistance at home: Is there anyone at home to assist the patient? Yes , family Any issues that need to be addressed prior to follow-up appointment? none Patient reminders: Patient reminded of follow-up appointment date and time: yes Patient reminded to bring discharge instructions and medication list to follow- up appointment. Patient reminded of [facility] office telephone numbers. Instructed to call office or return to ER if symptoms return or worsen. Plan for care management: No care management needed at this time. documented in this encounter Plan of Treatment Not on file documented as of this encounter Visit Diagnoses Not on filedocumented in this encounter Care Teams Shake Packer Relationship Specialty Start Date End Date Damian Lai MD [address] [place] [phone] PCP - General Internal Medicine 04/01/14 documented as of this encounter
--- OUTSIDE RECORDS SUMMARY | 2024-06-22 08:03 | XMS_ITS | Encounter Summary ---
Author Organization [facility] Address [address] [place] [address] Care Team Providers Care Take Down Inspector Name Role Phone Damian Lai MD Primary Care Provider Encounter Details Date Type Department Care Team Description 10/14/2014 Attendant Honor Bar Report Medical Records [address] [place] [address] Ruddy Mcconnell MD Social History Tobacco Use Types Packs/Day Years Used Date Smoking Tobacco: Never Alcohol Use Standard Drinks/Week Comments Not Asked 0 (1 standard drink = 0.6 oz pur e alcohol) Sex Assigned at Date Recorded Male 03/01/2021 4:[address] Job Start Date Occupation Industry Not on file Not on file Not on file documented as of this encounter Plan of Treatment Not on file documented as of this encounter Visit Diagnoses Not on filedocumented in this encounter Care Teams Take Down Inspector Relationship Specialty Start Date End Date Damian Lai MD [address] [place], [place] [phone] PCP - General Internal Medicine 04/01/14 documented as of this encounter
--- OUTSIDE RECORDS SUMMARY | 2024-06-22 08:03 | XMS_ITS | Encounter Summary ---
Author Organization [facility] Address [address] [place] [address] Care Team Providers Care Line Assembler Aircraft Name Role Phone Damian Lai MD Primary Care Provider [phone] Encounter Details Date Type Department Care Team Description 12/16/2022 Pt. Non Urgent Medical Question Endocrinology - [address] [address] Lindy Gutierrez PA-C [address] [place] [address] Type II or unspecified type diabetes mellitus with renal manifestations, uncontrolled(250.42 ) ([facility]) Social History Tobacco Use Types Packs/Day Years [...] encounter Miscellaneous Notes * Telephone Encounter - Cheko Vasques M.A. - 12/16/2022 11:34 AM ESTFrom: Zac Ahmadi To: Gume Gutierrez Sent: 12/16/2022 11:20 AM EST Subject: Humalog I need my Humalog Kwikpen refilled at [facility] in [place]. I am almost out of insulin in my last pen. This is Zac Galdino call me if you need any information. Thank you. documented in this encounter Plan of Treatment Not on file documented as of this encounter Visit Diagnoses Diagnosis Type II or unspecified type diabetes mellitus with renal manifestations, uncontrolled(250.42) (HCC) Type II or unspecified type diabetes mellitus with renal manifestations, uncontrolled documented in this encounter Care Teams Line Assembler Aircraft Relationship Specialty Start Date End Date Damian Lai MD [address] [place] [phone] PCP - General Internal Medicine 04/01/14 documented as of this encounter
--- OUTSIDE RECORDS SUMMARY | 2024-06-22 08:03 | XMS_ITS | Encounter Summary ---
Author Organization [facility] Address [address] [place] [address] Care Team Providers Care Food Mobile Driver Name Role Phone Damian Lai MD Primary Care Provider [phone] Encounter Details Date Type Department Care Team Description 11/29/2018 Night Triage Doc Medical Records [address] [place] [address] Abstract, Provider Social History Tobacco Use Types [...] on filedocumented in this encounter Care Teams Food Mobile Driver Relationship Specialty Start Date End Date Damian Lai MD [address] [place], [place] [phone] PCP - General Internal Medicine 04/01/14 documented as of this encounter
--- OUTSIDE RECORDS SUMMARY | 2024-06-22 08:03 | XMS_ITS | Clinical Summary ---
Author Organization [facility] Address [address] [place] [address] Care Team Providers Care Psychology Lecturer Name Role Phone Damian Lai MD Primary Care Provider [phone] Allergies No known active allergies Medications losartan (COZAAR) 100 mg tablet Take 1 tablet (100 mg total) by mouth at bedtime. at bedtime. Active ASPIRIN ORAL Take 81 mg by mouth 1 (one) time each day. Active blood-glucose meter,continuous (Dexcom G6 Motor Equipment Lieutenant) [facility] [place] continuous glucose monitoring 05/27/19 23 Active blood-glucose sensor (DEXCOM G7 SENSOR [facility] 1 Each by Does not apply route See Admin Instructions. USE 1 SENSOR EVERY 10 DAYS. 06/09/19 23 Active blood-glucose transmitter (DEXCOM G6 TRANSMITTER [facility] To use with Dexcom sensor, 1 transmitter [...] needed (Cough or Wheezing). 08/14/19 24 Active ammonium lactate (LAC-HYDRIN) 12 % lotion Apply to soles of feet daily. At night wear socks to bed 01/06/20 23 Active ARIPiprazole (ABILIFY) 20 mg tablet Take 1 tablet (20 mg total) by mouth 1 (one) time each day. 08/08/19 22 Active bumetanide (BUMEX) 1 mg tablet Take 1 tablet (1 mg total) by mouth 1 (one) time each day. 08/15/19 19 Active DULoxetine (CYMBALTA) [address] capsule [...] DAY 90 capsule 1 01/18/20 24 Active dulaglutide (Trulicity) 3 mg/0.5 mL pen injector injectionIndicatio ns:Diabetes mellitus type 2 with neurological manifestations ([facility] V24, [facility] V28) Use 3mg once weekly 2 mL 3 [...] meals. 180 tablet 1 03/12/19 25 Active diclofenac (VOLTAREN) 1 % topical gel Apply 4 g topically 2 (two) times a day. 200 g 2 03/22/19 25 Active blood sugar diagnostic (Contour Next Test Strips) test stripIndications:D iabetes mellitus type 2 with neurological manifestations (CMS/HCC V24, CMS/HCC V28) Use to check sugars 4 times a day 300 each 3 04/24/19 25 Active atorvastatin (LIPITOR) 40 mg tablet Take 1 tablet (40 mg total) by mouth 1 (one) time each day. 90 each 1 05/03/19 25 Active amLODIPine (NORVASC) 5 mg tablet Take 1 tablet (5 mg total) by mouth 1 (one) time each day. 90 tablet 2 06/05/19 25 Active losartan (COZAAR) 100 mg tablet Take 1 tablet (100 mg total) by mouth at bedtime. 90 tablet 1 06/13/19 25 Active losartan (COZAAR) 100 mg tablet TAKE 1 TABLET BY MOUTH AT BEDTIME 90 tablet 1 12/13/19 24 025 Discontin ued(Reord er) amLODIPine (NORVASC) 5 mg tablet Take 1 tablet (5 mg total) by mouth 1 (one) time each day. 07/11/19 24 025 Discontin ued(Reord er) Active Problems Problem Noted Date Diagnosed Date Condition not found 12/14/2023 Overview (12/14/2023): DM (diabetes mellitus), type 2, uncontrolled, with renal complications (HCC) Depression 12/14/2023 Gout 12/14/2023 Hypertension 12/14/2023 Neuropathy 12/14/2023 Overview (12/14/2023): Follows neurology. 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 10/17/2019 Tendinitis of right rotator cuff 10/17/2019 Allergic conjunctivitis of both eyes 07/31/2019 MDD (major depressive disord er), recurrent severe, without psychosis ([facility] V24, [facility] V28) 07/16/2019 Chronic rhinitis 07/27/2017 Recurrent sinus infections 07/27/2017 GERD (gastroesophageal reflux disease) 6 CKD (chronic kidney disease) stage 3, GFR 30-59 ml/min ([facility] V24, [facility] V28) 07/24/2014 Diabetes mellitus type 2 wit h neurological manifestations ([facility] V24, [facility] V28) 07/24/2014 Hyperlipidemia 07/24/2014 ARUNA (obstructive sleep apnea) 07/24/2014 Overview (12/14/2023): [facility] Split Night Diagnostic and Treatment Polysomnogram: Date 03/19/2013; BMI 53; AHI 31, REM AHI 64, Central apneas 2; Obstructive apneas 35; hypopneas 18; average oxygen saturation 93% (lowest 44%); PLMs 0. CPAP trialed and lowest AHI on therapy of 6 was 9.3. Encounters Date Type Department Care Team Description 06/04/2024 1:00 PM EDT Office Visit Adult Medicine [address] [phone] Damian Lai MD Diabetes mellitus due to underlying condition with stage 2 chronic kidney disease, with long-term current use of insulin ([facility] V24, [facility] V28) (Primary Dx); Pure hypercholesterolemia; Encounter for long-term (current) use of medications; Stage 3a chronic kidney disease ([facility] V24, [facility] V28); Primary hypertension; Microalbuminuria 04/23/2024 9:40 AM EDT Office Visit Endocrinology [address] [phone] Lindy Gutierrez PA Diabetes mellitus type 2 with neurological manifestations ([facility] V24, [facility] V28) (Primary Dx); Morbid obesity with BMI of 45.0-49.9, adult ([facility] V24, [facility] V28); Stage 3b chronic kidney disease ([facility] V24, [facility] V28) from Last 3 Months Immunizations Name Administration [...] Surgery Date Site/Laterality Comments ESOPHAGOGASTRODUODENOSCOPY 07/24/15 PROCEDURE: VT EGD TRANSORAL BIOPSY SINGLE/MULTIPLE; COMMENT: normal; normal gastric biopsies without H. pylori Medical History Medical History Date Comments Type II or unspecified type diabetes mellitus without mention of complication, uncontrolled DX:Type II or unspecified t ype diabetes mellitus without mention of complication, uncontrolled Shoulder arthritis DX:Shoulder a rthritis Gout DX:Gout Depression DX:Depression Hypertension DX:Hypertension Neuropathy DX:Neuropathy Morbid obesity ([facility] V24, [facility] V28) 07/24/2014 DX:Morbid obesity ([facility]) ARUNA (obstructive sleep apnea) 07/24/2014 DX :ARUNA (obstructive sleep apnea); COMMENT: severe CKD (chronic kidney disease) stage 3, GFR 30-59 ml/min ([facility] V24, [facility] V28) 07/24/2014 DX:CKD (chronic kidney disea se) stage 3, GFR 30-59 ml/min ([facility]) Hyperlipidemia 07/24/2014 DX:Hyperlipidemi a Family History [...] at Not on file Legal Sex Male 4:43 PM EDT Gender Identity Not on file Sexual Orientation Not on file Obstetrics History Last Filed Vital Signs Vital Sign Reading Time Taken Comments Blood Pressure 100/64 06/04/2024 1:13 PM EDT Pulse 67 06/04/2024 1:13 PM EDT Temperature 35.9 ??C (96.6 ??F) 06/04/2024 1:13 PM ED T Respiratory Rate 15 06/04/2024 1:13 PM EDT Oxygen Saturation 98% 06/04/2024 1:13 PM EDT Inhaled Oxygen Concentration - - Weight 136 kg (300 lb) 06/04/2024 1:13 PM EDT Height 170.2 cm (5' 7.01 ) 06/04/2024 1:13 PM ED T Body Mass Index 46.98 06/04/2024 1:13 PM EDT Plan of Treatment Upcoming Encounters Date Type Department Care Team (Late st Contact Info) Description 11/28/2024 9:40 AM EDT Office Visit [address] [phone] Lindy Gutierrez PA [address] [place] [address] 12/17/2024 1:00 PM EST Office Visit Adult Medicine [address] [phone] Damian Lai MD [address] [place] [address] Health Maintenance Due Date Last Done Comments COVID-19 Vaccine (#1) 1974 Diabetes: Annual Foot Exam 07/20/1979 Diabetes: Annual Retina Eye Exam 07/20/1979 Hepatitis A Vaccines (1 of 2 - Risk 2-dose series) 1988 Hepatitis B Vaccines (1 of 3 - 19+ 3-dose series) 1988 Pneumococcal Vaccine: 50+ Years (2 of 2 - PPSV23) 11/11/2016 09/16/2016 Pneumococcal Vaccine: Pediatrics (0 to 5 Years) and At-Risk Patients (6 to 64 Years) (2 of 2 - PPSV23) 11/11/2016 09/16/2016 Zoster Vaccines (1 of 2) 07/20/2019 Depression Screening 08/19/2019 HIV Screening 08/19/2019 Medicare Annual Wellness Visit 08/19/2019 Social Influencers of Health Screening 08/19/2019 Influenza Vaccine (Season Ended) 2024 01/10/2020, 12/17/2018, 10/21/2016 Diabetes: Blood Sugar Control Test (HGBA1C) 10/24/2024 04/23/2024, 01/11/2024, 10/11/2023, Additional history exists Diabetes: Annual Urine Albumin-Creatinine Ratio (uACR) 01/10/2025 01/11/2024, 05/04/2023 Diabetes: Annual GFR (Glomerular Filtration Rate) 01/10/2025 01/11/2024, 10/11/2023, 10/11/2023, Additional history exists Hypertension/CHF/CAD Annual BMP Blood Test 01/10/2025 01/11/2024, 10/11/2023, 10/11/2023, Additional history exists DTaP,Tdap,and Td Vaccines (2 - Td or Tdap) 09/16/2026 09/16/2016 Cholesterol Screening (Lipid Panel) 01/10/2029 01/11/2024, 05/04/2023, 07/18/2019 Colorectal Cancer Screening: Colonoscopy 01/21/2030 01/22/2020 Hepatitis [...] patient's age to complete this topic Meningococcal B Vaccine Aged Out No l onger eligible based on patient's age to complete this topic RSV Immunization Patients Under 20 months Aged Out No longer eligible based on patient's age to complete this topic Varicella Vaccines Aged Out No longer eligible based on patient's age to complete this topic Procedures Procedure Name Priority Date/Time Associated Diagnosis Comments HEMOGLOBIN A1C Routine 04/23/2024 9:28 AM EDT Diabetes mellitus type 2 with neurological manifestations ([facility]/HCC V24, CMS/HCC V28) MICROALBUMIN CREATININE URINE RATIO Routine 01/11/2024 9:16 AM EST CKD (chronic kidney disease) stage 3, GFR 30-59 ml/min (CMS/HCC V24, CMS/HCC V28) Diabetes mellitus type 2 with neurological manifestations (CMS/HCC V24, CMS/HCC V28) Morbid obesity with BMI of 45.0-49.9, adult (CMS/HCC V24, CMS/HCC V28) COMPREHENSIVE METABOLIC PANEL Routine 01/11/2024 9:16 AM EST CKD (chronic kidney disease) stage 3, GFR 30-59 ml/min (CMS/HCC V24, CMS/HCC V28) Diabetes mellitus type 2 with neurological manifestations (CMS/HCC V24, CMS/HCC V28) Morbid obesity with BMI of 45.0-49.9, adult (CMS/HCC V24, CMS/HCC V28) LIPID PANEL WITH REFLEX TO DIRECT LDL Routine 01/11/2024 9:16 AM EST CKD (chronic kidney disease) stage 3, GFR 30-59 ml/min (CMS/HCC V24, CMS/HCC V28) Diabetes mellitus type 2 with neurological manifestations (CMS/HCC V24, CMS/HCC V28) Morbid obesity with BMI of 45.0-49.9, adult (CMS/HCC V24, CMS/HCC V28) HEPATITIS C SCREENING Routine 07/29/2022 COLONOSCOPY Routine 01/22/2020 from Last 3 Months or Most Recently Relevant to Health Maintenance Results * (ABNORMAL) Hemoglobin A1c (04/23/2024 9:28 AM EDT) Hemoglobin A1C 8.3(H) <6.5 % LAB CHEMISTRY METHOD 04/23/2024 11:31 AM EDT [facility] Mean Bld Glu Estim. 192 mg/dL LAB CHEMISTRY METHOD 04/23/2024 11:31 AM EDT [facility] Blood Venous blood specimen / Unknown Venipuncture / Unknown 04/23/2024 9:28 AM EDT 04/23/2024 9:28 AM EDT us Lindy JULIO LAB BLOOD ORDERABLES Final Resul t [facility] [address] [place] [address], [place] [phone] * (ABNORMAL) Lipid panel with reflex to direct LDL (01/11/2024 9:16 AM EST) Cholesterol 170 0 - 200 mg/dL LAB CHEMISTRY METHOD 01/11/2024 12:16 PM EST [facility] Triglycerides 416(H) 0 - 150 mg/dL LAB CHEMISTRY METHOD 01/11/2024 12:16 PM [facility] Comment:Results verified by repeat testing HDL 34(L) >=40 mg/dL LAB CHEMISTRY METHOD 01/11/2024 12:16 PM EST [facility] LDL Calculated 53 0 - 100 mg/dL LAB CHEMISTRY METHOD 01/11/2024 12:16 PM EST [facility] Comment:Unable to calculate when triglycerides >400 mg/dL. VLDL Cholesterol Marc 83.2 mg/dL LAB CHEMISTRY METHOD 01/11/2024 12:16 PM EST [facility] Comment:Unable to calculate when triglycerides >400 mg/dL. Non HDL Chol. (LDL+VLDL) 136 <145 mg/dL LAB CHEMISTRY METHOD 01/11/2024 12:16 PM EST [facility] Comment:Unable to calculate when triglycerides >400 mg/dL. Chol/HDL Ratio 5.0(H) 0.0 - 4.4 LAB CHEMISTRY METHOD 01/11/2024 12:16 PM EST [facility] Blood Venous blood specimen / Unknown Venipuncture / Unknown 01/11/2024 9:16 AM EST 01/11/2024 9:16 AM EST us Damian Lai MD LAB BLOOD ORDERABLES Final Resu lt Performing Organization Address City/[facility]/ZIP Co de Phone Number [facility] [address] [place] [address], [place] [phone] * (ABNORMAL) Microalbumin creatinine urine ratio (01/11/2024 9:16 AM EST) Creatinine, Urine 83.0 mg/dL LAB CHEMISTRY METHOD 01/11/2024 10:30 AM EST [facility] Microalb, Ur 84.6(H) 0.0 - 29.0 mg/L LAB CHEMISTRY METHOD 01/11/2024 10:30 AM [facility] Microalb/Crea t Ratio 102(H) <30 mg/g creat LAB CHEMISTRY METHOD 01/11/2024 10:30 AM [facility] Urine Urine specimen obtained by clean catch procedure / Unknown Non-blood Collection / Unknown 01/11/2024 9:16 AM EST 01/11/2024 9:16 AM EST us Damian Lai MD LAB URINE ORDERABLES Final Resu lt [facility] [address] [place] [address], [place] [phone] * (ABNORMAL) Comprehensive metabolic panel (01/11/2024 9:16 AM EST) Sodium 138 133 - 145 mmol/L LAB CHEMISTRY METHOD 01/11/2024 12:02 PM [facility] Potassium 4.1 3.5 - 5.5 mmol/L LAB CHEMISTRY METHOD 01/11/2024 12:02 PM [facility] Chloride 103 96 - 110 mmol/L LAB CHEMISTRY METHOD 01/11/2024 12:02 PM [facility] CO2 28 21 - 32 mmol/L LAB CHEMISTRY METHOD 01/11/2024 12:02 PM [facility] Anion Gap 7 3 - 11 LAB CHEMISTRY METHOD 01/11/2024 12:02 PM [facility] Glucose 114(H) 70 - 100 mg/dL LAB CHEMISTRY METHOD 01/11/2024 12:02 PM [facility] BUN 30(H) 5 - 25 mg/dL LAB CHEMISTRY METHOD 01/11/2024 12:02 PM [facility] Creatinine 1.85(H) 0.70 - 1.30 mg/dL LAB CHEMISTRY METHOD 01/11/2024 12:02 PM [facility] eGFR 43(L) >=60 mL/min/1. 73m2 LAB CHEMISTRY METHOD 01/11/2024 12:02 PM [facility] Comment:Calculation based on the??Chronic Kidney Disease Epidemiology Collaboration (CKD-EPI) equation refit??without adjustment for race. BUN/Creatinine Ratio 16.2 LAB CHEMISTRY METHOD 01/11/2024 12:02 PM [facility] Calcium 9.7 8.5 - 10.5 mg/dL LAB CHEMISTRY METHOD 01/11/2024 12:02 PM [facility] AST (SGOT) 21 10 - 42 unit/L LAB CHEMISTRY METHOD 01/11/2024 12:02 PM [facility] ALT (SGPT) 53 10 - 60 unit/L LAB CHEMISTRY METHOD 01/11/2024 12:02 PM [facility] Alkaline Phosphatase 158(H) 42 - 121 unit/L LAB CHEMISTRY METHOD 01/11/2024 12:02 PM EST [facility] Total Protein 7.4 6.0 - 8.0 g/dL LAB CHEMISTRY METHOD 01/11/2024 12:02 PM EST [facility] Albumin 3.6 3.2 - 5.0 g/dL LAB CHEMISTRY METHOD 01/11/2024 12:02 PM [facility] Total Bilirubin 0.7 0.0 - 1.4 mg/dL LAB CHEMISTRY METHOD 01/11/2024 12:02 PM EST [facility] Blood Venous blood specimen / Unknown Venipuncture / Unknown 01/11/2024 9:16 AM EST 01/11/2024 9:16 AM EST Damian Lai MD LAB BLOOD ORDERABLES Final Resu lt [facility] [address] [place] [address], * Hepatitis C Screening (07/29/2022) Hepatitis C Screening Abstracted Historical Provider HEALTH MAINTENANCE Final Result * Colonoscopy (01/22/2020) Colonoscopy No interpretatio n, abstraced Anatomical Region Laterality Modality Other Historical Richelle RODRIGUEZ HEALTH MAINTENANCE Final Result from Last 3 Months or Most Recently Relevant to Health Maintenance Insurance [place]ICARE [place]ID [place] Advance Directives Documents on File Type Date Recorded Patient Scroll Machine Operator Expl anation Health Care Decision (hx) 07/30/2018 [...] (hx) 07/30/2018 AD SAMUELS DIRECTIVE Care Teams Psychology Lecturer Relationship Specialty Start Date End Date Damian Lai MD [address] [place] [phone] PCP - General Internal Medicine 01/16/24
--- OUTSIDE RECORDS SUMMARY | 2024-06-22 08:03 | XMS_ITS | Encounter Summary ---
Author Organization [facility] Address [address] [place] [address] Care Team Providers Care Reference Archivist Name Role Phone Damian Lai MD Primary Care Provider [phone] Reason for Visit * Reason Onset Date Comments PT-1 02/22/2018 Encounter Details Date Type Department Care Team Description 02/22/2018 Telephone Adult Medicine [facility] [address] [place], [place] [phone] Damian Lai MD [address] [place] [address] PT-1 Social History Tobacco Use Types Packs/Day Years [...] encounter Miscellaneous Notes * Telephone Encounter - Lonnie Medina M.A. - 03/03/2018 12:55 PM EST Tracking #[id number] * Telephone Encounter - Abby Zarate - 02/22/2018 2:45 PM EST 06/13/17 [facility] patients will now be included in this workflow: Verify and document patients [place] Health insurance ID # (NOT [facility] ID): [id number] [place] / [place] / Product Type: MEDICARE [id number] Patient mailing address: [address] [place] [address] Pt. demographics verified? YES If not accurate, update registration. Is this a NEW request or a RENEWAL? NEW Name of treating facility: [facility] Name (first & last) of treating provider? required : Dr. To Evans What is the medical reason why the patient is seeing the above provider? Foot injury, diabetic ulcer Address/Zip code for treating provider: [address] [place] [address] Phone # for treating provider: [phone] Is the provider in the [facility] network (do they accept [place] Health insurance)? YES What specialty is this provider? Wound care When is the visit scheduled for? 03/01/18 How often you will be seeing this particular provider? 2-4 times a week, for the next 12 months Do you have friends or family who can transport you to this visit? NO If yes, do not complete request. Is there anything stopping you from using public transportation? If yes, explain. : YES Is there a medical reason (diagnosis) why you are unable to use public transportation? If yes, explain: yes - no family at the moment in the area, also he has a foot injury and can't walk. Cellulitisof the foot. Do you need a wheelchair van? NO Do you need an escort to accompany you? If yes, explain why. NO Will you have an alternative pick-up address? YES, [address] [place] [address] Do you have a service animal? NO PT DOES NOT NEED RELEASE OF INFORMATION SIGNED documented in this encounter Plan of Treatment Not on file documented as of this encounter Visit Diagnoses Not on filedocumented in this encounter Care Teams Reference Archivist Relationship Specialty Start Date End Date Damian Lai MD [address] [place] [address] PCP - General Internal Medicine 04/01/14 documented as of this encounter
--- OUTSIDE RECORDS SUMMARY | 2024-06-22 08:03 | XMS_ITS | Encounter Summary ---
Author Organization [facility] Address [address] [place] [address] Care Team Providers Care Tie Tape Machine Operator Name Role Phone Damian Lai MD Primary Care Provider [phone] Encounter Details Date Type Department Care Team Description 12/06/2019 Refill Adult Medicine [facility] [address] [place] [address] [phone] Damian Lai MD [address] [place] [address] [phone] Social History Tobacco Use Types Packs/Day Years [...] on filedocumented in this encounter Care Teams Tie Tape Machine Operator Relationship Specialty Start Date End Date Damian Lai MD [address] [place] [address] PCP - General Internal Medicine 04/01/14 documented as of this encounter
--- OUTSIDE RECORDS SUMMARY | 2024-06-22 08:03 | XMS_ITS | Encounter Summary ---
Author Organization [facility] Address [address] [place] [address] Care Team Providers Care Lighting Equipment Operator Name Role Phone Damian Lai MD Primary Care Provider [phone] Reason for Visit * Reason Onset Date Comments Advice 10/01/2020 Encounter Details Date Type Department Care Team Description 10/01/2020 Telephone General Surgery - [address] [place] [address] Yamile Norton, ,NIKI,LDN Advice Social History Tobacco Use Types Packs/Day Years [...] have Coronavirus / COVID-19? No / Unsure 09/10/2020 9:04 AM EDT documented as of this encounter Miscellaneous Notes * Telephone Encounter - Yamile Norton MS, RDN,EMMIEN - 10/01/2020 3:21 PM EDT I called patient back and answered his question regarding support group credit. * Telephone Encounter - Dayanna Tobin - 10/01/2020 12:03 PM EDT Pt would like to speak with Yamile and did not go into detail. documented in this encounter Plan of Treatment Not on file documented as of this encounter Visit Diagnoses Not on filedocumented in this encounter Care Teams Lighting Equipment Operator Relationship Specialty Start Date End Date Damian Lai MD [address] [place] [address] PCP - General Internal Medicine 04/01/14 documented as of this encounter
--- OUTSIDE RECORDS SUMMARY | 2024-06-22 08:03 | XMS_ITS | Encounter Summary ---
Author Organization [facility] Address [address] [place] [address] Care Team Providers Care Emblem Drawer In Name Role Phone Damian Lai MD Primary Care Provider [phone] Encounter Details Date Type Department Care Team Description 09/08/2023 Tire Fabric Impregnating Range Tender Report Medical Records [address] [place] [address] Ruddy Mcconnell MD Social History Tobacco Use [...] on filedocumented in this encounter Care Teams Emblem Drawer In Relationship Specialty Start Date End Date Damian Lai MD [address] [place] [address] PCP - General Internal Medicine 04/01/14 documented as of this encounter
--- OUTSIDE RECORDS SUMMARY | 2024-06-22 08:03 | XMS_ITS | Encounter Summary ---
Author Organization [facility] Address [address] [place] [address] Care Team Providers Care Microsoft Net Developer Name Role Phone Damian Lai MD Primary Care Provider [phone] Encounter Details Date Type Department Care Team Description 12/07/2018 Telephone Adult Medicine [facility] [address] [place] [address] [phone] Damian Lai MD [address] [place] [address] [phone] Social History Tobacco Use Types Packs/Day Years [...] on filedocumented in this encounter Care Teams Microsoft Net Developer Relationship Specialty Start Date End Date Damian Lai MD [address] [place] [address] PCP - General Internal Medicine 04/01/14 documented as of this encounter
--- OUTSIDE RECORDS SUMMARY | 2024-06-22 08:03 | XMS_ITS | Encounter Summary ---
Author Organization [facility] Address [address] [place] [address] Care Team Providers Care General Office Clerk Name Role Phone Damian Lai MD Primary Care Provider [phone] Encounter Details Date Type Department Care Team Description 01/26/2017 Orders Only Adult Medicine [facility] [address] [place] [address] Aliya Robertson PA-C [address] [place], [place] [phone] Social History Tobacco Use Types Packs/Day Years [...] on filedocumented in this encounter Care Teams General Office Clerk Relationship Specialty Start Date End Date Damian Lai MD [address] [place] [address] [phone] PCP - General Internal Medicine 04/01/14 documented as of this encounter
--- OUTSIDE RECORDS SUMMARY | 2024-06-22 08:03 | XMS_ITS | Encounter Summary ---
Author Organization [facility] Address [address] [place] [address] Care Team Providers Care Litharge Mill Operator Name Role Phone Damian Lai MD Primary Care Provider Encounter Details Date Type Department Care Team Description 10/16/2014 Issuing Operator Report Medical Records [address] [place] [address] Angela Dumont Social History Tobacco Use Types Packs/Day Years [...] on filedocumented in this encounter Care Teams Litharge Mill Operator Relationship Specialty Start Date End Date Damian Lai MD [address] [place], [place] [phone] PCP - General Internal Medicine 04/01/14 documented as of this encounter
--- OUTSIDE RECORDS SUMMARY | 2024-06-22 08:03 | XMS_ITS | Encounter Summary ---
Author Organization [facility] Address [address] [place] [address] Care Team Providers Care Property Adjuster Name Role Phone Damian Lai MD Primary Care Provider [phone] Encounter Details Date Type Department Care Team Description 11/04/2020 Tv News Director Report Medical Records [address] [place] [address] Emily Arriaga MD Social History Tobacco Use [...] or suspected to have Coronavirus / COVID-19? Unable to assess 10/13/2020 7:52 AM EDT documented as of this encounter Plan of Treatment Not on file documented as of this encounter Visit Diagnoses Not on filedocumented in this encounter Care Teams Property Adjuster Relationship Specialty Start Date End Date Damian Lai MD [address] [place] [address] PCP - General Internal Medicine 04/01/14 documented as of this encounter
--- OUTSIDE RECORDS SUMMARY | 2024-06-22 08:03 | XMS_ITS | Encounter Summary ---
Author Organization [facility] Address [address] [place] [address] Care Team Providers Care Health Sciences Program Coordinator Name Role Phone Damian Lai MD Primary Care Provider [phone] Encounter Details Date Type Department Care Team Description 12/08/2014 Pt. Non Urgent Medical Question Adult Medicine [facility] [address] [place] [address] [phone] Damian Lai MD [address] [place] [address] Social History Tobacco Use Types Packs/Day Years Used Date Smoking Tobacco: Never Alcohol Use Standard Drinks/Week Comments Not Asked 0 (1 standard drink = 0.6 oz pur e alcohol) Sex Assigned at Date Recorded Male 03/01/2021 4:[address] Job Start Date Occupation Industry Not on file Not on file Not on file documented as of this encounter Progress Notes * Sylvia Ramesh M.A. - 12/09/2014 8:43 AM ESTFrom: Zac Ahmadi To: Damian Lai MD Sent: 12/08/2014 5:59 PM EST Subject: Need Medication I need my Amlodipine 10mg tablet refilled at [facility] [place]. I take one tablet by mouth daily. Thank you. documented in this encounter Plan of Treatment Not on file documented as of this encounter Visit Diagnoses Not on filedocumented in this encounter Care Teams Health Sciences Program Coordinator Relationship Specialty Start Date End Date Damian Lai MD [address] [place] [address] [phone] PCP - General Internal Medicine 04/01/14 documented as of this encounter
--- OUTSIDE RECORDS SUMMARY | 2024-06-22 08:03 | XMS_ITS | Encounter Summary ---
Author Organization [facility] Address [address] [place] [address] Care Team Providers Care Division Sales Manager Name Role Phone Damian Lai MD Primary Care Provider [phone] Encounter Details Date Type Department Care Team Description 12/28/2016 Application Development Director Report Medical Records [address] [place] [address] Emily Arriaga MD Social History Tobacco Use [...] on filedocumented in this encounter Care Teams Division Sales Manager Relationship Specialty Start Date End Date Damian Lai MD [address] [place], [place] [phone] PCP - General Internal Medicine 04/01/14 documented as of this encounter
--- OUTSIDE RECORDS SUMMARY | 2024-06-22 08:03 | XMS_ITS | Encounter Summary ---
Author Organization [facility] Address [address] [place] [address] Care Team Providers Care Bearing Press Machine Operator Name Role Phone Damian Lai MD Primary Care Provider [phone] Encounter Details Date Type Department Care Team Description 02/17/2015 Wellness Visit Medical Records [address] [place] [address] Damian Lai MD [address] [place] [address] Social History Tobacco Use Types Packs/Day [...] on filedocumented in this encounter Care Teams Bearing Press Machine Operator Relationship Specialty Start Date End Date Damian Lai MD [address] [place] [address] PCP - General Internal Medicine 04/01/14 documented as of this encounter
--- OUTSIDE RECORDS SUMMARY | 2024-06-22 08:03 | XMS_ITS | Encounter Summary ---
Author Organization [facility] Address [address] [place] [address] Care Team Providers Care Analytical Manager Name Role Phone Damian Lai MD Primary Care Provider Encounter Details Date Type Department Care Team Description 07/11/2014 Release of Information Medical Records [address] [place] [address] Abstract, Provider Social History Tobacco Use Types [...] on filedocumented in this encounter Care Teams Analytical Manager Relationship Specialty Start Date End Date Damian Lai MD [address] [place] [address] [phone] PCP - General Internal Medicine 04/01/14 documented as of this encounter
--- OUTSIDE RECORDS SUMMARY | 2024-06-22 08:03 | XMS_ITS | Encounter Summary ---
Author Organization [facility] Address [address] [place] [address] Care Team Providers Care Auricular Therapist Name Role Phone Damian Lai MD Primary Care Provider [phone] Encounter Details Date Type Department Care Team Description 07/24/2015 Hospital Medical Records [address] [place] [address] Elio Sanford MD Social History Tobacco Use Types Packs/Day [...] on filedocumented in this encounter Care Teams Auricular Therapist Relationship Specialty Start Date End Date Damian Lai MD [address] [place], [place] [phone] PCP - General Internal Medicine 04/01/14 documented as of this encounter
--- OUTSIDE RECORDS SUMMARY | 2024-06-22 08:03 | XMS_ITS | Encounter Summary ---
Author Organization [facility] Address [address] [place] [address] Care Team Providers Care Import Export Manager Name Role Phone Damian Lai MD Primary Care Provider [phone] Encounter Details Date Type Department Care Team Description 01/24/2018 Orders Only Medical Records [address] [place] [address] Abstract, Provider Social History Tobacco Use Types [...] Name Priority Date/Time Associated Diagnosis Comments OUTSIDE PLAIN FILM Routine 01/23/2018 documented in this encounter Results * OUTSIDE PLAIN FILM (01/23/2018) Provider Abstract RADIOLOGY documented in this encounter Visit Diagnoses Not on filedocumented in this encounter Care Teams Import Export Manager Relationship Specialty Start Date End Date Damian Lai MD [address] [place] [address] PCP - General Internal Medicine 04/01/14 documented as of this encounter
--- OUTSIDE RECORDS SUMMARY | 2024-06-22 08:03 | XMS_ITS | Encounter Summary ---
Author Organization [facility] Address [address] [place] [address] Care Team Providers Care Churn Operator Margarine Name Role Phone Damian Lai MD Primary Care Provider [phone] Encounter Details Date Type Department Care Team Description 05/05/2021 Orders Only Adult Medicine [address] [phone] Damian Lai MD [address] [place] [address] Social History Tobacco Use Types Packs/Day [...] on filedocumented in this encounter Care Teams Churn Operator Margarine Relationship Specialty Start Date End Date Damian Lai MD [address] [place] [address] PCP - General Internal Medicine 04/01/14 documented as of this encounter
--- OUTSIDE RECORDS SUMMARY | 2024-06-22 08:03 | XMS_ITS | Encounter Summary ---
Author Organization [facility] Address [address] [place] [address] Care Team Providers Care Oil House Attendant Name Role Phone Damian Lai MD Primary Care Provider [phone] Reason for Visit * Reason Comments E-prescribe Rx Request Encounter Details Date Type Department Care Team Description 01/11/2023 Refill Endocrinology - [address] [address] Lindy Gutierrez PA-C [address] [place] [address] E-prescribe Rx Request Social History Tobacco Use [...] encounter Miscellaneous Notes * Telephone Encounter - Katharine Guillory - 01/11/2023 12:46 PM EST Steven 11/02/22 Ov 02/01/23 Lab Results Component Value Date HGBA1C 8.1 11/02/2022 MALBUR 187.0 03/30/2022 MALBCR 434.8 03/30/2022 CHOL 196 03/30/2022 LDL TNP 03/30/2022 HDL 31 03/30/2022 TRIG 594 03/30/2022 GLU 149 11/02/2022 CREAT 1.53 11/02/2022 documented in this encounter Plan of Treatment Not on file documented as of this encounter Visit Diagnoses Diagnosis Type II or unspecified type diabetes mellitus with renal manifestations, 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
--- OUTSIDE RECORDS SUMMARY | 2024-06-22 08:03 | XMS_ITS | Clinical Summary ---
Author Organization [facility] Address [address] [facility] [address] [place] [address] Phone Care Team Providers Care Digital Engineer Name Role Phone Damian Lai MD Primary Care Provider [phone] Allergies No known active allergies Medications Multiple [...] sleep apnea syndrome 07/24/2014 06/22/2020 Overview (06/22/2020): [facility] Night Diagnostic and Treatment Polysomnogram: Date 03/19/2013; BMI 53; AHI 31, REM AHI 64, Central apneas 2; Obstructive apneas 35; hypopneas 18; average oxygen saturation 93% (lowest 44%); PLMs 0. CPAP trialed and lowest AHI on therapy of 6 was 9.3. [facility] Split Night Diagnostic and Treatment Polysomnogram: Date 03/19/2013; BMI 53; AHI 31, REM AHI 64, Central apneas 2; Obstructive apneas 35; hypopneas 18; average oxygen saturation 93% (lowest 44%); PLMs 0. CPAP trialed and lowest AHI on therapy of 6 was 9.3. Immunizations Immunization Administration Dates Next Due Influenza, MDCK, PF, [...] 19+ 3-dose series) 1988 Pneumococcal Vaccine: 50+ Ye ars (2 of 2 - PPSV23) 11/11/2016 09/16/2016 Colorectal Cancer Screening: Annual FOBT 2018 Colorectal Cancer Screening: Colonoscopy 2018 Colorectal Cancer Screening: Sigmoidoscopy 2018 Diabetes: Ophthalmology Exam 03/06/2020 Diabetes: Pedal Pulse Checked 03/06/2020 Diabetes: Sensory Foot Exam 03/06/2020 Diabetes: Visual Foot Exam 03/06/2020 Diabetes: Hemoglobin A1C 04/09/2020 020, 07/30/2019, 07/18/2019 Influenza Vaccine (Season Ended) 2024 01/10/2020, 01/10/2020, 12/17/2018, Additional history exists Pneumococcal Vaccine: Peds ( 0 to 5 Years) and At-Risk Patients (6 to 49 Years) Discontinued 09/16/2016 Procedures Procedure Name Priority Date/Time Associated Diagnosis Comments BLOOD PANEL (HC) Routine 07/30/2019 12:0 0 AM EDT from Last 3 Months or Most Recently Relevant to Health Maintenance Results * (ABNORMAL) Blood Panel (07/30/2019 12:00 AM EDT) Hemoglobin A1C 10.6(H) <5 % PVNMA 07/30/2019 us [facility] [id number] LICITED RESULTS Final Result PVNMA from Last 3 Months or Most Recently Relevant to Health Maintenance Insurance Medicare Medicaid [place] Medicare Medicaid [place] Care Teams Digital Engineer Relationship Specialty Start Date End Date Damian Lai MD PCP - General 02/17/20
--- OUTSIDE RECORDS SUMMARY | 2024-06-22 08:03 | XMS_ITS | Encounter Summary ---
Author Organization [facility] Address [address] [place] [address] Care Team Providers Care Director Of Ancillary Services Name Role Phone Damian Lai MD Primary Care Provider [phone] Reason for Visit * Reason Comments E-prescribe Rx Request Encounter Details Date Type Department Care Team Description 08/20/2021 Refill Adult Medicine [facility] [address] [place], [place] [phone] Damian Lai MD [address] [place] [address] [phone] E-prescribe Rx Request Social History Tobacco Use [...] encounter Miscellaneous Notes * Telephone Encounter - Zac Ewing C.M.A. - 08/20/2021 1:44 PM EDT JULIO C 03/29/2021 F/U appt 09/17/2021 Lab Results Component Value Date NA 142 06/10/2021 K 4.2 06/10/2021 CO2 32 06/10/2021 CL 104 06/10/2021 BUN 18 06/10/2021 CREAT 1.37 06/10/2021 GLU 145 06/10/2021 CA 9.5 06/10/2021 GFR 55 06/10/2021 * Telephone Encounter - Alexagenesis Coffeyirez - 08/20/2021 1:20 PM EDT Patient would like script to be: E-PRESCRIBED/FAXED TO PHARMACY ?? WHEN WAS THE PATIENT'S LAST APPOINTMENT IN ADULT MEDICINE? 03/29/21 ?? WHEN WAS THE LAST TIME THE PATIENT SAW THEIR PCP? 01/10/20 ?? Does patient have an upcoming appointment? Yes 09/17/21 ?? (THE MEDICATION REQUESTED IS ON THE MED LIST ABOVE) All of the medications requested were on the CURRENT MEDS list ?? Did you check the Pharmacy information above?: YES ?? Patient wants: 90 -day supply ?? Is this a mail order prescription request ? NO ?? If the refill is from a FAXED refill request what is the RX # listed on the fax? N/A ?? Patients current insurance carrier is: [place] / [place] / Product Type: [place]ARE [id number] ?? documented in this encounter Plan of Treatment Not on file documented as of this encounter Visit Diagnoses Not on filedocumented in this encounter Care Teams Director Of Ancillary Services Relationship Specialty Start Date End Date Damian Lai MD [address] [place] [address] PCP - General Internal Medicine 04/01/14 documented as of this encounter
--- OUTSIDE RECORDS SUMMARY | 2024-06-22 08:03 | XMS_ITS | Encounter Summary ---
Author Organization [facility] Address [address] [place] [address] Care Team Providers Care Line Service Person Name Role Phone Damian Lai MD Primary Care Provider [phone] Encounter Details Date Type Department Care Team Description 01/07/2015 Regasification Plant Operator Report Medical Records [address] [place] [address] Angela Dumont Social History Tobacco Use Types [...] on filedocumented in this encounter Care Teams Line Service Person Relationship Specialty Start Date End Date Damian Lai MD [address] [place], [place] [phone] PCP - General Internal Medicine 04/01/14 documented as of this encounter
--- OUTSIDE RECORDS SUMMARY | 2024-06-22 08:03 | XMS_ITS | Encounter Summary ---
Author Organization [facility] Address [address] [place] [address] Care Team Providers Care Pig Farmer Name Role Phone Damian Lai MD Primary Care Provider [phone] Reason for Visit * Reason Onset Date Comments Prior Authorization 05/18/2023 Encounter Details Date Type Department Care Team Description 05/18/2023 Telephone Endocrinology - [address] [address] Lindy Gutierrez PA-C [address] [place] [address] Prior Authorization Social History Tobacco Use Types Packs/Day Years [...] encounter Miscellaneous Notes * Telephone Encounter - Kianna Salazar M.A. - 05/19/2023 4:46 PM EDT Auth approved Exp 02/06/24 Kianna Salazar Prior Auth Dep Ext [id number] * Telephone Encounter - Kianna Salazar M.A. - 05/19/2023 10:51 AM EDT Auth sent with [facility] [id number] Kianna Salazar Prior Auth Dep Ext [id number] * Telephone Encounter - Cherie Starkey - 05/18/2023 10:02 AM EDT Prior Authorization for Medication-do not complete and send this encounter unless you have the fax from the pharmacy. Is this a Cover My Meds request: [place] of Medication Jardiance Dose of Medication 10 MG What is the RX # from the faxed refill? [id number] How does patient take this med? Take 1 tablet by mouth daily What Pharmacy did the fax come from: [facility] fax #: [phone] documented in this encounter Plan of Treatment Not on file documented as of this encounter Visit Diagnoses Not on filedocumented in this encounter Care Teams Pig Farmer Relationship Specialty Start Date End Date Damian Lai MD [address] [place] [address] PCP - General Internal Medicine 04/01/14 documented as of this encounter
--- OUTSIDE RECORDS SUMMARY | 2024-06-22 08:03 | XMS_ITS | Encounter Summary ---
Author Organization [facility] Address [address] [place] [address] Care Team Providers Care Auto Adjudication Specialist Name Role Phone Damian Lai MD Primary Care Provider [phone] Encounter Details Date Type Department Care Team Description 06/22/2015 Special Collections Librarian Report Medical Records [address] [place] [address] Ruddy Mcconnell MD Social History Tobacco Use [...] filedocumented in this encounter Care Teams Auto Adjudication Specialist Relationship Specialty Start Date End Date Damian Lai MD [address] [place], [place] [phone] PCP - General Internal Medicine 04/01/14 documented as of this encounter
--- OUTSIDE RECORDS SUMMARY | 2024-06-22 08:03 | XMS_ITS | Encounter Summary ---
Author Organization [facility] Address [address] [place] [address] Care Team Providers Care Bpo Specialist Name Role Phone Damian Lai MD Primary Care Provider [phone] Encounter Details Date Type Department Care Team Description 01/19/2023 CGM Report Medical Records [address] [place] [address] Abstract, Provider Social History Tobacco Use Types [...] on filedocumented in this encounter Care Teams Bpo Specialist Relationship Specialty Start Date End Date Damian Lai MD [address] [place], [place] [id number] PCP - General Internal Medicine 04/01/14 documented as of this encounter
--- OUTSIDE RECORDS SUMMARY | 2024-06-22 08:03 | XMS_ITS | Encounter Summary ---
Author Organization [facility] Address [address] [place] [address] Care Team Providers Care Supervisor Power Reactor Name Role Phone Damian Lai MD Primary Care Provider [phone] Encounter Details Date Type Department Care Team Description 02/21/2018 Hospital Medical Records [address] [place] [address] Jackie Sotomayor Social History Tobacco Use Types Packs/Day Years [...] on filedocumented in this encounter Care Teams Supervisor Power Reactor Relationship Specialty Start Date End Date Damian Lai MD [address] [place] [address] PCP - General Internal Medicine 04/01/14 documented as of this encounter
--- OUTSIDE RECORDS SUMMARY | 2024-06-22 08:03 | XMS_ITS | Encounter Summary ---
Author Organization [facility] Address [address] [place] [address] Care Team Providers Care Viscosity Worker Name Role Phone Damian Lai MD Primary Care Provider [phone] Encounter Details Date Type Department Care Team Description 02/21/2019 Hospital Medical Records [address] [place] [address] Vito Davis MD Social History Tobacco Use Types Packs/Day [...] on filedocumented in this encounter Care Teams Viscosity Worker Relationship Specialty Start Date End Date Damian Lai MD [address] [place] [address] PCP - General Internal Medicine 04/01/14 documented as of this encounter
--- OUTSIDE RECORDS SUMMARY | 2024-06-22 08:03 | XMS_ITS | Encounter Summary ---
Author Organization [facility] Address [address] [place] [address] Care Team Providers Care Brigadier Name Role Phone Damian Lai MD Primary Care Provider [phone] Encounter Details Date Type Department Care Team Description 07/11/2016 Wellness Visit Medical Records [address] [place] [address] Damian Lai MD [address] [place] [address] Social History Tobacco Use Types Packs/Day [...] on filedocumented in this encounter Care Teams Brigadier Relationship Specialty Start Date End Date Damian Lai MD [address] [place] [address] PCP - General Internal Medicine 04/01/14 documented as of this encounter
--- OUTSIDE RECORDS SUMMARY | 2024-06-22 08:03 | XMS_ITS | Encounter Summary ---
Author Organization [facility] Address [address] [place] [address] Care Team Providers Care Conveyor Tender Concrete Mixing Plant Name Role Phone Damian Lai MD Primary Care Provider [phone] Encounter Details Date Type Department Care Team Description 04/19/2017 Refill Podiatry - [address] [address] Chad Siegel, DPJose Social History Tobacco Use Types Packs/Day Years [...] on filedocumented in this encounter Care Teams Conveyor Tender Concrete Mixing Plant Relationship Specialty Start Date End Date Damian Lai MD [address] [place] [address] PCP - General Internal Medicine 04/01/14 documented as of this encounter
--- OUTSIDE RECORDS SUMMARY | 2024-06-22 08:03 | XMS_ITS | Encounter Summary ---
Author Organization [facility] Address [address] [place] [address] Care Team Providers Care Joy Loading Machine Operator Name Role Phone Damian Lai MD Primary Care Provider [phone] Encounter Details Date Type Department Care Team Description 06/28/2016 Night Triage Doc Medical Records 4 [place] [address] Abstract, Provider Social History Tobacco Use Types [...] on filedocumented in this encounter Care Teams Joy Loading Machine Operator Relationship Specialty Start Date End Date Damian Lai MD [address] [place], [place] [phone] PCP - General Internal Medicine 04/01/14 documented as of this encounter
--- OUTSIDE RECORDS SUMMARY | 2024-06-22 08:03 | XMS_ITS | Encounter Summary ---
Author Organization [facility] Address [address] [place] [address] Care Team Providers Care Chick Sexer Name Role Phone Damian Lai MD Primary Care Provider [phone] Encounter Details Date Type Department Care Team Description 02/16/2017 Rigger Report Medical Records [address] [place] [address] Ruddy Mcconnell MD Social History Tobacco Use [...] on filedocumented in this encounter Care Teams Chick Sexer Relationship Specialty Start Date End Date Damian Lai MD [address] [place], [place] [phone] PCP - General Internal Medicine 04/01/14 documented as of this encounter
--- OUTSIDE RECORDS SUMMARY | 2024-06-22 08:03 | XMS_ITS | Encounter Summary ---
Author Organization [facility] Address [address] [place] [address] Care Team Providers Care Digital Forensics Investigator Name Role Phone Damian Lai MD Primary Care Provider Encounter Details Date Type Department Care Team Description 03/08/2023 Oil Gas And Pipe Tester Report Medical Records [address] [place] [address] Ruddy Mcconnell MD Social History Tobacco Use [...] on filedocumented in this encounter Care Teams Digital Forensics Investigator Relationship Specialty Start Date End Date Damian Lai MD [address] [place] [address] PCP - General Internal Medicine 04/01/14 documented as of this encounter
--- OUTSIDE RECORDS SUMMARY | 2024-06-22 08:03 | XMS_ITS | Encounter Summary ---
Author Organization [facility] Address [address] [place] [address] Care Team Providers Care Compliance Officer Name Role Phone Damian Lai MD Primary Care Provider [phone] Encounter Details Date Type Department Care Team Description 04/16/2019 Statistical Methods Teacher Report Medical Records [address] [place] [address] Ruddy Mcconnell MD Social History Tobacco Use [...] on filedocumented in this encounter Care Teams Compliance Officer Relationship Specialty Start Date End Date Damian Lai MD [address] [place], [place] [phone] PCP - General Internal Medicine 04/01/14 documented as of this encounter
--- OUTSIDE RECORDS SUMMARY | 2024-06-22 08:03 | XMS_ITS | Encounter Summary ---
Author Organization [facility] Address [address] [place] [address] Care Team Providers Care Real Estate Manager Name Role Phone Damian Lai MD Primary Care Provider [phone] Encounter Details Date Type Department Care Team Description 02/15/2018 Dental Services Director Report Medical Records [address] [place] [address] Ruddy Mcconnell MD Social History Tobacco Use [...] in this encounter Care Teams Real Estate Manager Relationship Specialty Start Date End Date Damian Lai MD [address] [place], [place] [phone] PCP - General Internal Medicine 04/01/14 documented as of this encounter
--- OUTSIDE RECORDS SUMMARY | 2024-06-22 08:03 | XMS_ITS | Encounter Summary ---
Author Organization [facility] Address [address] [place] [address] Care Team Providers Care Level Glass Forming Machine Operator Name Role Phone Damian Lai MD Primary Care Provider [phone] Reason for Referral * EXTERNAL (Routine) - No Auth Required Specialty Diagnoses / Procedures Referred By Contdayana t Referred To Contact Nephrology Diagnoses Proteinuria, unspecified type Procedures REFERRAL TO NEPHROLOGY Damian Lai MD [address] [place] [address] External Nephrology Referral ID Status Reason Start Date Expiration Date V isits Requested Visits Authorized [id number] No Auth Required 11/20/2018 11/20/2019 1 1 Encounter Details Date Type Department Care Team Description 11/20/2018 Orders Only Adult Medicine [address] [address] Damian Lai MD [address] [place] [address] Anemia, unspecified type (Primary Dx); Proteinuria, unspecified type Social History Tobacco Use Types Packs/Day Years [...] on file documented as of this encounter Results * FERRITIN ASSAY (04/06/2019 4:21 PM EST) Pathologist [facility] FERRITIN 162 26 - 388 ng/mL 04/06/2019 6:52 PM EST [facility] 04/06/2019 4:21 PM EST 04/06/2019 4:22 PM EST Damian Lai MD LAB Performing Organization Address City/[facility]/ZIP Co de Phone Number [facility] [id number] * (ABNORMAL) IRON/TIBC (04/06/2019 4:21 PM EST) Pathologist [facility] TOTAL IRON BINDING CAPACITY 338 250 - 450 ug/dL 04/06/2019 6:52 PM EST [facility] IRON (FE) 63 50 - 160 ug/dL 04/06/2019 6:52 PM EST [facility] % FE SATURATION 19(L) 20 - 50 % 0 6:52 PM EST [facility] 04/06/2019 4:21 PM EST 04/06/2019 4:22 PM EST Damian Lai MD LAB Performing Organization Address [facility] Co de Phone Number [employer] * (ABNORMAL) CBC (AUTO DIFF PLATELET) (04/06/2019 4:21 PM EST) Pathologist [facility] WHITE BLOOD COUNT 7.7 4.8 - 10.8 x10-3/uL 04/06/2019 6:22 PM EST [facility] RED BLOOD COUNT 4.6 4.5 - 5.5 x10-6/uL 04/06/2019 6:22 PM EST [facility] Hemoglobin 11.9(L) 13.5 - 17.5 g/dL 04/06/2019 6:22 PM EST [facility] Hematocrit 38.8(L) 42 - 54 % 04/06/2019 6:22 PM EST [facility] MEAN CORPUSCULAR VOLUME 84.0 79 - 98 fL 04/06/2019 6:22 PM EST [facility] MEAN CORPUSCULAR HEMOGLOBIN 25.8(L) 27 - 32 pg 04/06/2019 6:22 PM EST [facility] MEAN CORPUSCULAR HGB CONC 30.7(L) 32 - 37 g/dL 04/06/2019 6:22 PM EST [facility] RED CELL DISTRIBUTION WIDTH 14.2 11 - 15 % 04/06/2019 6:22 PM EST [facility] PLT COUNT 287 130 - 400 x10-3/uL 04/06/2019 6:22 PM EST [facility] MEAN PLATELET VOLUME 11.3(H) 7 - 11 fL 04/06/2019 6:22 PM EST [facility] NRBC % AUTO 0.0 <1 % 04/06/2019 6:22 PM EST [facility] NEUTROPHILS % 55.7 % 04/06/2019 6:22 PM EST [facility] LYMPH % 32.7 % 04/06/2019 6:22 PM EST [facility] MONO % 8.4 % 04/06/2019 6:22 PM EST [facility] EOS % 2.2 % 04/06/2019 6:22 PM EST [facility] BASO % 0.7 % 04/06/2019 6:22 PM EST [facility] IMMATURE GRANULOCYTES % 0.3 % 04/06/2019 6:22 PM EST [facility] NRBC # AUTO 0.00 <0.1 x10-3/uL 04/06/2019 6:22 PM EST [facility] NEUT # 4.27 1.5 - 7.0 x10-3/uL 04/06/2019 6:22 PM EST [facility] LYMPH # 2.50 1 - 5.0 x10-3/uL 04/06/2019 6:22 PM EST [facility] MONO # 0.64 0.2 - 1.0 x10-3/uL 04/06/2019 6:22 PM EST [facility] EOS # 0.17 0 - 0.5 x10-3/uL 04/06/2019 6:22 PM EST [facility] BASO # 0.05 0 - 0.2 x10-3/uL 04/06/2019 6:22 PM EST [facility] IMMATURE GRANULOCYTES # 0.02 0 - 0.03 x10-3/uL 04/06/2019 6:22 PM EST [facility] 04/06/2019 4:21 PM EST 04/06/2019 4:22 PM EST Damian Lai MD LAB [facility] [id number] documented in this encounter Visit Diagnoses Diagnosis Anemia, unspecified type- Primary Proteinuria, unspecified type documented in this encounter Care Teams Level Glass Forming Machine Operator Relationship Specialty Start Date End Date Damian Lai MD [address] [place] [address] PCP - General Internal Medicine 04/01/14 documented as of this encounter
--- OUTSIDE RECORDS SUMMARY | 2024-06-22 08:03 | XMS_ITS | Encounter Summary ---
Author Organization [facility] Address [address] [place] [address] Care Team Providers Care Mobile Therapist Name Role Phone Damian Lai MD Primary Care Provider [phone] Encounter Details Date Type Department Care Team Description 02/22/2018 Skid Adzer Report Medical Records [address] [place] [address] [address] [place] [address] Social History Tobacco Use Types Packs/Day Years [...] on filedocumented in this encounter Care Teams Mobile Therapist Relationship Specialty Start Date End Date Damian Lai MD [address] [place] [address] PCP - General Internal Medicine 04/01/14 documented as of this encounter
--- OUTSIDE RECORDS SUMMARY | 2024-06-22 08:03 | XMS_ITS | Encounter Summary ---
Author Organization [facility] Address [address] [place] [address] Care Team Providers Care Mica Layer Name Role Phone Damian Lai MD Primary Care Provider [phone] Encounter Details Date Type Department Care Team Description 01/18/2023 Optical Fabricator Report Medical Records [address] [place] [address] Ruddy Mcconnell MD Social History Tobacco Use [...] on filedocumented in this encounter Care Teams Mica Layer Relationship Specialty Start Date End Date Damian Lai MD [address] [place] [address] PCP - General Internal Medicine 04/01/14 documented as of this encounter
--- OUTSIDE RECORDS SUMMARY | 2024-06-22 08:03 | XMS_ITS | Encounter Summary ---
Author Organization [facility] Address [address] [place] [address] Care Team Providers Care Aircraft Rigging And Controls Mechanic Name Role Phone Damian Lai MD Primary Care Provider [phone] Encounter Details Date Type Department Care Team Description 11/13/2017 Hospital Medical Records [address] [place] [address] Sunshine Wan MD Social History Tobacco Use Types Packs/Day [...] on filedocumented in this encounter Care Teams Aircraft Rigging And Controls Mechanic Relationship Specialty Start Date End Date Damian Lai MD [address] [place] [address] PCP - General Internal Medicine 04/01/14 documented as of this encounter
--- OUTSIDE RECORDS SUMMARY | 2024-06-22 08:03 | XMS_ITS | Encounter Summary ---
Author Organization [facility] Address [address] [place] [address] Care Team Providers Care Interline Clerk Name Role Phone Damian Lai MD Primary Care Provider [phone] Encounter Details Date Type Department Care Team Description 05/20/2020 Orders Only Internal Medicine - [address], [address] [place] [address] Giovanni Chatman PA-C Superficial bruising of toe Social History Tobacco Use Types Packs/Day Years [...] have Coronavirus / COVID-19? No / Unsure 05/20/2020 11:33 AM EDT documented as of this encounter Plan of Treatment Not on file documented as of this encounter Procedures Procedure Name Priority Date/Time Associated Diagnosis Comments CHG RADEX TOE MINIMUM 2 VIEWS Routine 05/20/2020 Superficial bruising of toe documented in this encounter Results * X-RAY EXAM OF TOE(S), 2+ VIEWS (05/20/2020) Giovanni Chatman PA-C RADIOLOGY documented in this encounter Visit Diagnoses Diagnosis Superficial bruising of toe Contusion of toe documented in this encounter Care Teams Interline Clerk Relationship Specialty Start Date End Date Damian Lai MD [address] [place] [address] PCP - General Internal Medicine 04/01/14 documented as of this encounter
--- OUTSIDE RECORDS SUMMARY | 2024-06-22 08:03 | XMS_ITS | Encounter Summary ---
Author Organization [facility] Address [address] [place] [address] Care Team Providers Care Dish Room Worker Name Role Phone Damian Lai MD Primary Care Provider [phone] Encounter Details Date Type Department Care Team Description 06/07/2021 Draw Bench Operator Helper Report Medical Records [address] [place] [address] Dannie Herrera MD Social History Tobacco Use Types Packs/Day [...] Exposure Response Date Recorded In the last 10 days, have yo u been in contact with someone who was confirmed or suspected to have Coronavirus/COVID-19? No / Unsure 06/10/2021 8:35 AM EDT documented as of this encounter Plan of Treatment Not on file documented as of this encounter Visit Diagnoses Not on filedocumented in this encounter Care Teams Dish Room Worker Relationship Specialty Start Date End Date Damian Lai MD [address] [place] [address] PCP - General Internal Medicine 04/01/14 documented as of this encounter
--- OUTSIDE RECORDS SUMMARY | 2024-06-22 08:03 | XMS_ITS | Encounter Summary ---
Author Organization [facility] Address [address] [place] [address] Care Team Providers Care Director Of Religious Activities Name Role Phone Damian Lai MD Primary Care Provider [phone] Reason for Visit * Reason Onset Date Comments medication problems 05/20/2020 Encounter Details Date Type Department Care Team Description 05/20/2020 Telephone Internal Medicine - [address], [address] [place] [address] Giovanni Chatman PA-C medication problems Social History Tobacco Use Types Packs/Day Years [...] encounter Miscellaneous Notes * Telephone Encounter - Jesus Sanford M.A. - 05/20/2020 12:15 PM EDT Please review and clarify thank you * Telephone Encounter - Sherron Fletcher - 05/20/2020 12:10 PM EDT Who is calling? A pharmacist: Pharmacy: [facility] Pharmacist Name: N/A Pharmacy Name of the medication cephALEXin (Keflex) 500 MG capsule What is the specific problem or interaction? Pharmacy needs clarification on frequency, only 14 capsules dispensed. If the patient is having a problem with taking the med - how long has the problem been going on? N/A documented in this encounter Plan of Treatment Not on file documented as of this encounter Visit Diagnoses Not on filedocumented in this encounter Care Teams Director Of Religious Activities Relationship Specialty Start Date End Date Damian Lai MD [address] [place] [address] PCP - General Internal Medicine 04/01/14 documented as of this encounter
--- OUTSIDE RECORDS SUMMARY | 2024-06-22 08:03 | XMS_ITS | Encounter Summary ---
Author Organization [facility] Address [address] [place] [address] Care Team Providers Care Electric Shaver Mechanic Name Role Phone Damian Lai MD Primary Care Provider [phone] Encounter Details Date Type Department Care Team Description 01/23/2015 Business Doc Medical Records [address] [place] [address] Abstract, Provider Social History Tobacco Use Types [...] on filedocumented in this encounter Care Teams Electric Shaver Mechanic Relationship Specialty Start Date End Date Damian Lai MD [address] [place], [place] [phone] PCP - General Internal Medicine 04/01/14 documented as of this encounter
--- OUTSIDE RECORDS SUMMARY | 2024-06-22 08:03 | XMS_ITS | Encounter Summary ---
Author Organization [facility] Address [address] [place] [address] Care Team Providers Care Research Associate Quality Control Qc Name Role Phone Damian Lai MD Primary Care Provider [phone] Encounter Details Date Type Department Care Team Description 02/26/2019 Oceanography Teacher Report Medical Records [address] [place] [address] Vito Davis MD Social History Tobacco Use [...] on filedocumented in this encounter Care Teams Research Associate Quality Control Qc Relationship Specialty Start Date End Date Damian Lai MD [address] [place], [place] [phone] PCP - General Internal Medicine 04/01/14 documented as of this encounter
--- OUTSIDE RECORDS SUMMARY | 2024-06-22 08:03 | XMS_ITS | Encounter Summary ---
Author Organization [facility] Address [address] [place] [address] Care Team Providers Care Regional Sales Consultant Name Role Phone Damian Lai MD Primary Care Provider [phone] Encounter Details Date Type Department Care Team Description 04/27/2020 Business Doc Medical Records [address] [place] [address] Abstract, Provider Social History Tobacco Use Types [...] have Coronavirus / COVID-19? No / Unsure 04/20/2020 8:58 AM EDT documented as of this encounter Plan of Treatment Not on file documented as of this encounter Visit Diagnoses Not on filedocumented in this encounter Care Teams Regional Sales Consultant Relationship Specialty Start Date End Date Damian Lai MD [address] [place], [place] [phone] PCP - General Internal Medicine 04/01/14 documented as of this encounter
--- OUTSIDE RECORDS SUMMARY | 2024-06-22 08:03 | XMS_ITS | Encounter Summary ---
Author Organization [facility] Address [address] [place] [address] Care Team Providers Care Head Men'S Tennis Coach Name Role Phone Damian Lai MD Primary Care Provider [phone] Encounter Details Date Type Department Care Team Description 08/01/2022 Tap Grinder Report Medical Records [address] [place] [address] Kirti Clarke NP Social History Tobacco Use Types Packs/Day Years [...] suspected to have Coronavirus/COVID-19? No / Unsure 07/29/2022 2:43 PM EDT documented as of this encounter Plan of Treatment Not on file documented as of this encounter Visit Diagnoses Not on filedocumented in this encounter Care Teams Head Men'S Tennis Coach Relationship Specialty Start Date End Date Damian Lai MD [address] [place] [address] PCP - General Internal Medicine 04/01/14 documented as of this encounter
--- OUTSIDE RECORDS SUMMARY | 2024-06-22 08:03 | XMS_ITS | Encounter Summary ---
Author Organization [facility] Address [address] [place] [address] Care Team Providers Care Director Equipment Name Role Phone Damian Lai MD Primary Care Provider [phone] Encounter Details Date Type Department Care Team Description 01/24/2019 Modeling And Simulation Analyst Report Medical Records [address] [place] [address] Abstract, Provider Social History Tobacco Use Types [...] filedocumented in this encounter Care Teams Director Equipment Relationship Specialty Start Date End Date Damian Lai MD [address] [place], [place] [phone] PCP - General Internal Medicine 04/01/14 documented as of this encounter
--- OUTSIDE RECORDS SUMMARY | 2024-06-22 08:04 | XMS_ITS | Encounter Summary ---
Author Organization [facility] Address [address] [place] [address] Care Team Providers Care Clamper Name Role Phone Damian Lai MD Primary Care Provider [phone] Encounter Details Date Type Department Care Team Description 11/07/2017 Home Health Certification Medical Records [address] [place] [address] Home, [facility] [address] [facility] [address] [place] [address] Social History Tobacco Use Types Packs/Day Years [...] on filedocumented in this encounter Care Teams Clamper Relationship Specialty Start Date End Date Damian Lai MD [address] [place], [place] [phone] PCP - General Internal Medicine 04/01/14 documented as of this encounter
--- OUTSIDE RECORDS SUMMARY | 2024-06-22 08:04 | XMS_ITS | Encounter Summary ---
Author Organization [facility] Address [address] [place] [address] Care Team Providers Care Accounting/Finance Tutor Name Role Phone Damian Lai MD Primary Care Provider [phone] Reason for Visit * Reason Onset Date Comments hospital follow up 05/11/2017 Encounter Details Date Type Department Care Team Description 05/11/2017 Telephone Adult Medicine [facility] [address] [place], [place] [phone] Damian Lai MD [address] [place] [address] hospital follow up Social History Tobacco Use Types Packs/Day Years [...] encounter Miscellaneous Notes * Telephone Encounter - Amparo Alcantara - 05/11/2017 1:05 PM EDT ER follow-up appointment booked YES 4.25.18 If ER follow up, can be booked with mid-level or MD. If hospital admission follow up MUST be booked with a physician Appointment time: 1:00 PM Provider visit is scheduled with: [facility] patient [facility] Date of visit: 05.10.17 Was this only an ER visit or was the patient admitted to the hospital? ER visit onlyER visit only If patient was admitted what was the date of discharge? N/A Reason/diagnosis for visit or stay: Sinus Infection Was visit or stay related to an injury? NO If yes, what was the date of injury (DOI)? N/A If yes, was the injury due to N/A Tests performed: Lab: YES X-ray: YES EKG: YES Other tests. If yes, what?; N/A documented in this encounter Plan of Treatment Not on file documented as of this encounter Visit Diagnoses Not on filedocumented in this encounter Care Teams Accounting/Finance Tutor Relationship Specialty Start Date End Date Damian Lai MD [address] [place] [address] PCP - General Internal Medicine 04/01/14 documented as of this encounter
--- OUTSIDE RECORDS SUMMARY | 2024-06-22 08:04 | XMS_ITS | Encounter Summary ---
Author Organization [facility] Address [address] [place] [address] Care Team Providers Care Wood Molder Name Role Phone Damian Lai MD Primary Care Provider [phone] Encounter Details Date Type Department Care Team Description 11/30/2015 Hospital Medical Records [address] [place] [address] Kirti Fink MD [address] [place] [address] Social History Tobacco Use Types Packs/Day Years [...] on filedocumented in this encounter Care Teams Wood Molder Relationship Specialty Start Date End Date Damian Lai MD [address] [place] [phone] PCP - General Internal Medicine 04/01/14 documented as of this encounter
--- OUTSIDE RECORDS SUMMARY | 2024-06-22 08:04 | XMS_ITS | Encounter Summary ---
Author Organization [facility] Address [address] [place] [address] Care Team Providers Care Astronomy Teacher Name Role Phone Damian Lai MD Primary Care Provider [phone] Encounter Details Date Type Department Care Team Description 02/29/2016 Rn Ante Partum Report Medical Records [address] [place] [address] Rehab., Fidel Social History Tobacco Use Types [...] on filedocumented in this encounter Care Teams Astronomy Teacher Relationship Specialty Start Date End Date Damian Lai MD [address] [place], [place] [phone] PCP - General Internal Medicine 04/01/14 documented as of this encounter
--- OUTSIDE RECORDS SUMMARY | 2024-06-22 08:04 | XMS_ITS | Encounter Summary ---
Author Organization [facility] Address [address] [place] [address] Care Team Providers Care Reclamation Furnace Operator Name Role Phone Damian Lai MD Primary Care Provider [phone] Encounter Details Date Type Department Care Team Description 10/17/2017 Hospital Medical Records [address] [place] [address] Chavo Mantilla Social History Tobacco Use Types Packs/Day Years [...] on filedocumented in this encounter Care Teams Reclamation Furnace Operator Relationship Specialty Start Date End Date Damian Lai MD [address] [place], [place] [phone] PCP - General Internal Medicine 04/01/14 documented as of this encounter
--- OUTSIDE RECORDS SUMMARY | 2024-06-22 08:04 | XMS_ITS | Encounter Summary ---
Author Organization [facility] Address [address] [place] [address] Care Team Providers Care Improvement Nurse Name Role Phone Damian Lai MD Primary Care Provider [phone] Encounter Details Date Type Department Care Team Description 05/11/2016 Hair Weaver Report Medical Records [address] [place] [address] Emily Arriaga MD Social History Tobacco Use [...] on filedocumented in this encounter Care Teams Improvement Nurse Relationship Specialty Start Date End Date Damian Lai MD [address] [place], [place] [phone] PCP - General Internal Medicine 04/01/14 documented as of this encounter
--- OUTSIDE RECORDS SUMMARY | 2024-06-22 08:04 | XMS_ITS | Encounter Summary ---
Author Organization [facility] Address [address] [place] [address] Care Team Providers Care Mexican Food Maker Hand Name Role Phone Damian Lai MD Primary Care Provider [phone] Encounter Details Date Type Department Care Team Description 10/02/2015 Psychiatric Aides Teacher Report Medical Records [address] [place] [address] Ruddy Mcconnell MD Social History Tobacco Use [...] on filedocumented in this encounter Care Teams Mexican Food Maker Hand Relationship Specialty Start Date End Date Damian Lai MD [address] [place], [place] [phone] PCP - General Internal Medicine 04/01/14 documented as of this encounter
--- OUTSIDE RECORDS SUMMARY | 2024-06-22 08:04 | XMS_ITS | Encounter Summary ---
Author Organization [facility] Address [address] [place] [address] Care Team Providers Care Side Stitcher Name Role Phone Damian Lai MD Primary Care Provider [phone] Encounter Details Date Type Department Care Team Description 10/27/2015 Sand Mill Grinder Report Medical Records [address] [place] [address] Emily Arriaga MD Social History Tobacco Use [...] on filedocumented in this encounter Care Teams Side Stitcher Relationship Specialty Start Date End Date Damian Lai MD [address] [place], [place] [phone] PCP - General Internal Medicine 04/01/14 documented as of this encounter
--- OUTSIDE RECORDS SUMMARY | 2024-06-22 08:04 | XMS_ITS | Data Portability ---
Author Organization [facility] [address] Address [address] [place] [address] Assessment No assessment recorded. Plan of Treatment Reminders Order Date Submit Date Provider Last Modified By Organization Details Last Modified Time Details Appointments None recorded. Lab SARS CoV 2 (COVID-19) Ag, QL, IA, upper respiratory specimen 2023 024 [email or web address] [address], [address] [place], [address], 4 15:09:10 rapid strep group A, throat 2023 024 [email or web address] [address] [address], [address] [place], [address], 4 11:07:23 SARS CoV 2 (COVID-19) Ag, QL, IA, upper respiratory specimen 2023 024 [email or web address] [address], [address] [place], [address], 4 11:07:24 rapid flu (A+B) 2023 024 [email or web address] [address], [address] [place], [address], 4 11:07:25 Referral None recorded. Procedures None recorded. Surgeries None recorded. Imaging None recorded. Medication Orders benzonatate 200 mg capsule 2023 024 [facility] #[id number], [address] [place], [place], [id number], 4 15:09:17 Paxlovid 300 mg (150 mg x 2)-100 mg tablets in a dose pack 2023 024 [facility] #[id number], [address], [place], [id number], 14:44:08 acetaminoph en 325 mg tablet 2023 024 [email or web address] Not available 11:19:32 Patient TargetsNo targets recorded. Patient Instructions Encounter Date Encounter Id Patient Instructions Last Modified By Organization Details Last Modified Time 08/12/2023 [id number] cough: care instructions [email or web address] Not available 08/12/2023 15:09:09 Reason for Referral None Reported. Results Created Date Observation Date Name Description Value Unit Range Abnormal Flag Note LastModifiedBy Organization Detail LastModifiedTime 08/01/19 24 08/01/2023 SARS CoV 2 (COVI D-19) Ag, QL, IA, upper respi rator y speci men Unknown Analyte positi ve Not Available [address] [place], [address], 08/01/2023 10:32:04 08/01/19 24 08/01/2023 SARS CoV 2 (COVI D-19) Ag, QL, IA, upper respi rator y speci men Unknown Analyte yes Not Available [address] [place], [address], 08/01/2023 10:32:04 08/01/19 24 08/01/2023 rapid flu (A+B) Unknown Analyte negati ve Not Available [address] [place], [address], 08/01/2023 10:32:17 08/01/19 24 08/01/2023 rapid flu (A+B) Unknown Analyte negati ve Not Available [address] [place], [address], 08/01/2023 10:32:17 08/01/19 24 08/01/2023 rapid flu (A+B) Unknown Analyte yes Not Available [id number] [place] [address] [address] [place], [address], 08/01/2023 10:32:17 08/01/19 24 08/01/2023 rapid strep group A, throa t Unknown Analyte negati ve Not Available [address] [place] [address], [address], 08/01/2023 10:31:57 08/01/19 24 08/01/2023 rapid strep group A, throa t Unknown Analyte yes Not Available [id number] [place] [address] [address] [place], [address], 08/01/2023 10:31:57 08/12/19 24 08/12/2023 SARS CoV 2 (COVI D-19) Ag, QL, IA, upper respi rator y speci men Unknown Analyte negati ve Not Available [address] [place] [address], [address], 08/12/2023 14:52:00 08/12/19 24 08/12/2023 SARS CoV 2 (COVI D-19) Ag, QL, IA, upper respi rator y speci men Unknown Analyte yes Not Available [id number] [place] [address] [address] [place], [address], 08/12/2023 14:52:00 Result Notes None recorded. Problems Name Problem SNOMED Code Status Onset Date Resolution Date Notes Provider Name and Address Organization Details Recorded Time Diabetes mellitus 13413349 Active SUMANTH Nelson - [facility] 4 10:24:58 Hypertensive disorder 87675755 Active Agustina [facility] Wood [facility] 4 10:25:06 Hypercholestero lemia 09517757 Active Agustina SUMANTH Wood [facility] 4 [...] Not Available Vitals Date Recorded Body height Body mass index (BMI) Body weight Oxygen saturation Oxygen saturation in Arterial blood by Pulse oximetry Heart rate Respiratory rate Body temperature Systolic blood pressure Diastolic blood pressure Provider Name and Address Organization Details Last Updated DateTime 4 170.18 cm 36 kg/m2 437047. 25 g 98 % 98 % 68 /min 18 /min 98.9 [degF] 134 mm[Hg] 69 mm[Hg] Agustina JULIO - [facility] 4 10:30:41 Date Recorded Body height Body mass index (BMI) Body weight Body temperature Oxygen saturation Oxygen saturation in Arterial blood by Pulse oximetry Heart rate Respiratory rate Systolic blood pressure Diastolic blood pressure Provider Name and Address Organization Details Last Updated DateTime 4 170.18 cm 36 kg/m2 575864. 25 g 98.1 [degF] 98 % 98 % 68 /min 16 /min 122 mm[Hg] 71 mm[Hg] Johana JULIO - [facility] 14:45:11 Social History Question Answer Notes LastModified by Organizat ion Details LastModified Time Tobacco Smoking Status Never Smoker Agustina Meyersgunner dale [place] - [facility] 08/01/2023 10:28:53 Have You Had A Flu Shot This Season? Yes Information not available 08/01/2023 Have You Had Direct Contact, Or Contact During Intimacy, With Monkeypox Rash, Scabs, Or Body Fluids From A Person With Monkeypox? No [email or web address] Information not available 08/01/2023 What Was The Date Of Your Most Recent Tobacco Screening? 08/01/2023 [email or web address] Information not available 08/01/2023 Have You Recently Traveled Abroad? No [email or web address] Information not available 08/01/2023 Sex: Unknown Functional Status Question Answer Note LastModified by Organizat ion Details LastModified Time Do you use any illicit or recreational drugs? No [email or web address] Information not available 08/01/2023 Do you or have you ever used any other forms of tobacco or nicotine? No Information not available 08/01/2023 What is your level of alcohol consumption? None [email or web address] Information not available 08/01/2023 Mental Status None recorded. Family History Nothing Reported. Medical History No medical history recorded. Past Encounters Encounter ID Performer Location Encounter Start Date Encounter Closed Date Diagnosis/Indication Diagnosis SNOMED-CT Code Diagnosis ICD10 Code Diagnosis Note [id number] [address] [place] [address] 01/07/2018 10:55:38 01/07/2018 11:36:11 [id number] [address] [place] [address] 08/10/2019 16:47:36 08/10/2019 17:47:05 [id number] [address] [place] [address] 02/18/2019 17:09:35 02/18/2019 19:11:01 [id number] [address] [facility] [place] [address] 11/28/2018 14:20:44 11/28/2018 15:39:06 [id number] [facility]IERREZ [address] [place] [address] 08/01/2023 10:21:19 08/01/2023 11:00:52 COVID-19 764152266 U07.1 You have been Diagnosed with COVID [...] AND HUMAN SERVICES Thank you for visiting [facility] today, please feel free to call our office you have any questions or concerns. [id number] SUMAN[facility] GUTIERREZ [address] [facility] [address] [place] [address] 08/12/2023 14:20:09 08/12/2023 15:09:56 Cough 17353313 R05.9 You are being treated for a [...] or lung pathology. Thank you for using [facility] today - please don't hesitate to contact up or return to see if you have any questions or concerns. Health Concerns Section Related Observation LastModified by Organization Detai ls LastModified Time None Recorded Concern Status LastModified by Organization Details LastModified Time None Recorded Advance Directives Directive None Recorded Payers Insurance Date Sequence Insurance Name Policy Number Policy Araiza Covered Member ID Araiza Member ID Guarantor Name 08/12/2023 1 [place] [employer] Zac Ahmadi [id number] Zca Ahmadi 10/31/2023 2 [place] [facility] Zac Ahmadi [id number] Zac Ahmadi Notes Date Note Type Note Provider Name and Address Organization Details Recorded Time 08/01/2023 text/html 53 y/o male with 3 days of fever, cough, sore throat SUMANTH Brewer [address] [place], [address], [place] - [facility] 08/01/2023 11:14:08 08/12/2023 text/html 53 y/o male diagnosed with COVID 11 days ago here for retest. Still coughing a lot, finished full course of Paxlovid. SUMANTH Brewer [address] [place], [address], [place] - [facility] 08/12/2023 15:09:27
--- OUTSIDE RECORDS SUMMARY | 2024-06-22 08:04 | XMS_ITS | Encounter Summary ---
Author Organization [facility] Address [address] [place] [address] Care Team Providers Care Parker Name Role Phone Damian Lai MD Primary Care Provider Encounter Details Date Type Department Care Team Description 08/17/2017 Domestic Housekeeper Report Medical Records [address] [place] [address] Ruddy Mcconnell MD Social History Tobacco Use [...] on filedocumented in this encounter Care Teams Parker Relationship Specialty Start Date End Date Damian Lai MD [address] [place], [place] [phone] PCP - General Internal Medicine 04/01/14 documented as of this encounter
--- OUTSIDE RECORDS SUMMARY | 2024-06-22 08:04 | XMS_ITS | Encounter Summary ---
Author Organization [facility] Address [address] [place] [address] Care Team Providers Care Broadband Engineer Name Role Phone Damian Lai MD Primary Care Provider [phone] Encounter Details Date Type Department Care Team Description 05/29/2017 Risk Developer Report Medical Records [address] Social History Tobacco Use Types Packs/Day Years [...] on filedocumented in this encounter Care Teams Broadband Engineer Relationship Specialty Start Date End Date Damian Lai MD [address] [place], [place] [phone] PCP - General Internal Medicine 04/01/14 documented as of this encounter
--- OUTSIDE RECORDS SUMMARY | 2024-06-22 08:04 | XMS_ITS | Encounter Summary ---
Author Organization [facility] Address [address] [place] [address] Care Team Providers Care Technical Customer Support Specialist Name Role Phone Damian Lai MD Primary Care Provider [phone] Encounter Details Date Type Department Care Team Description 05/20/2016 Occupational Therapy Assist Report Medical Records [address] [place] [address] Ruddy Mcconnell MD Social History Tobacco Use [...] filedocumented in this encounter Care Teams Technical Customer Support Specialist Relationship Specialty Start Date End Date Damian Lai MD [address] [place], [place] [phone] PCP - General Internal Medicine 04/01/14 documented as of this encounter
--- OUTSIDE RECORDS SUMMARY | 2024-06-22 08:04 | XMS_ITS | Encounter Summary ---
Author Organization [facility] Address [address] [place] [address] Care Team Providers Care Radiologic Technology Instructor Name Role Phone Damian Lai MD Primary Care Provider [phone] Encounter Details Date Type Department Care Team Description 03/15/2016 Telephone Rheumatology - [address] [address] Laurita Farrell MD Social History Tobacco Use Types Packs/Day [...] encounter Miscellaneous Notes * Telephone Encounter - Tracey Christian L.P.NKassie - 03/15/2016 3:38 PM EST MRI is scheduled for 04/21/16... Will try the tylenol * Telephone Encounter - Laurita Farrell MD - 03/15/2016 3:31 PM EST Rama please call patient the xray of the shoulder shows very mild arthritis so not sure why he couldn't continue with the physical therapy and why he has so much pain . We are awaiting the MRI to be done until then he can try OTC ES tylenol 500 mg every 6 hours. BH * Telephone Encounter - Tracey Christian L.P.N. - 03/15/2016 3:28 PM EST He is calling because he says he has a lot of pain in his shoulder and he is not sleeping at night.He is looking for something for pain... He is limited because he says he has kidney issues..... Please help.. documented in this encounter Plan of Treatment Not on file documented as of this encounter Visit Diagnoses Not on filedocumented in this encounter Care Teams Radiologic Technology Instructor Relationship Specialty Start Date End Date Damian Lai MD [address] [place] [address] PCP - General Internal Medicine 04/01/14 documented as of this encounter
--- OUTSIDE RECORDS SUMMARY | 2024-06-22 08:04 | XMS_ITS | Encounter Summary ---
Author Organization [facility] Address [address] [place] [address] Care Team Providers Care Circus Hand Name Role Phone Damian Lai MD Primary Care Provider [phone] Encounter Details Date Type Department Care Team Description 10/13/2017 Government Affairs Director Report Medical Records [address] [place] [address] Abstract, Provider Social History Tobacco Use Types [...] on filedocumented in this encounter Care Teams Circus Hand Relationship Specialty Start Date End Date Damian Lai MD [address] [place], [place] [address] PCP - General Internal Medicine 04/01/14 documented as of this encounter
--- OUTSIDE RECORDS SUMMARY | 2024-06-22 08:04 | XMS_ITS | Encounter Summary ---
Author Organization [facility] Address [address] [place] [address] Care Team Providers Care Card Filer Name Role Phone Damian Lai MD Primary Care Provider [phone] Encounter Details Date Type Department Care Team Description 10/20/2017 Hospital Medical Records [address] [place] [address] Giovana Perkins MD Social History Tobacco Use Types Packs/Day [...] on filedocumented in this encounter Care Teams Card Filer Relationship Specialty Start Date End Date Damian Lia MD [address] [place] [address] PCP - General Internal Medicine 04/01/14 documented as of this encounter
--- OUTSIDE RECORDS SUMMARY | 2024-06-22 08:04 | XMS_ITS | Encounter Summary ---
Author Organization [facility] Address [address] [place] [address] Care Team Providers Care Moisture Meter Reader Name Role Phone Damian Lai MD Primary Care Provider [phone] Encounter Details Date Type Department Care Team Description 10/18/2017 Hospital Medical Records [address] [place] [address] Chad Siegel, DPM Social History Tobacco Use Types Packs/Day Years [...] on filedocumented in this encounter Care Teams Moisture Meter Reader Relationship Specialty Start Date End Date Damian Lai MD [address] [place], [place] [phone] PCP - General Internal Medicine 04/01/14 documented as of this encounter
--- OUTSIDE RECORDS SUMMARY | 2024-06-22 08:04 | XMS_ITS | Encounter Summary ---
Author Organization [facility] Address [address] [place] [address] Care Team Providers Care Conveyor Line Battery Charger Name Role Phone Damian Lai MD Primary Care Provider [phone] Encounter Details Date Type Department Care Team Description 10/23/2017 Hospital Medical Records [address] [place] [address] Abstract, Provider Social History Tobacco Use Types [...] filedocumented in this encounter Care Teams Conveyor Line Battery Charger Relationship Specialty Start Date End Date Damian Lai MD [address] [place], [place] [phone] PCP - General Internal Medicine 04/01/14 documented as of this encounter
--- OUTSIDE RECORDS SUMMARY | 2024-06-22 08:04 | XMS_ITS | Encounter Summary ---
Author Organization [facility] Address [address] [place] [address] Care Team Providers Care Assistant Case Manager Name Role Phone Damian Lai MD Primary Care Provider [phone] Encounter Details Date Type Department Care Team Description 11/30/2015 Hospital Medical Records [address] [place] [address] Kirti Fink MD [address] [place] [address] Social History Tobacco Use Types Packs/Day Years [...] on filedocumented in this encounter Care Teams Assistant Case Manager Relationship Specialty Start Date End Date Damian Lai MD [address] [place] [id number] PCP - General Internal Medicine 04/01/14 documented as of this encounter
--- OUTSIDE RECORDS SUMMARY | 2024-06-22 08:04 | XMS_ITS | Encounter Summary ---
Author Organization [facility] Address [address] [place] [address] Care Team Providers Care Emergency Department Aide Name Role Phone Damian Lai MD Primary Care Provider [phone] Encounter Details Date Type Department Care Team Description 10/09/2017 Night Triage Doc Medical Records [address] [place] [address] Abstract, Provider Social History Tobacco Use Types [...] on filedocumented in this encounter Care Teams Emergency Department Aide Relationship Specialty Start Date End Date Damian Lai MD [address] [place], [place] [phone] PCP - General Internal Medicine 04/01/14 documented as of this encounter
--- OUTSIDE RECORDS SUMMARY | 2024-06-22 08:04 | XMS_ITS | Encounter Summary ---
Author Organization [facility] Address [address] [place] [address] Care Team Providers Care Material Processor Name Role Phone Damian Lai MD Primary Care Provider [phone] Encounter Details Date Type Department Care Team Description 11/02/2017 Orders Only Adult Medicine [address] [id number] Damian Lai MD [address] [place] [id number] Social History Tobacco Use Types Packs/Day Years [...] on filedocumented in this encounter Care Teams Material Processor Relationship Specialty Start Date End Date Damian Lai MD [address] [place] [address] PCP - General Internal Medicine 04/01/14 documented as of this encounter
--- OUTSIDE RECORDS SUMMARY | 2024-06-22 08:04 | XMS_ITS | Encounter Summary ---
Author Organization [facility] Address [address] [place] [address] Care Team Providers Care Bottle Line Worker Name Role Phone Damian Lai MD Primary Care Provider [phone] Encounter Details Date Type Department Care Team Description 10/18/2017 Hospital Medical Records [address] [place] [address] Chad Siegel, DPM Social History Tobacco Use [...] on filedocumented in this encounter Care Teams Bottle Line Worker Relationship Specialty Start Date End Date Damian Lai MD [address] [place], [place] [phone] PCP - General Internal Medicine 04/01/14 documented as of this encounter
[2024-06-22 11:35] LABS: Anion Gap 17 (12-20); Blood Urea Nitrogen 29 mg/dL (9-16); Carbon Dioxide 27 mmol/L (22-29); Chloride 102 mmol/L (96-108); Estimated Glomerular Filt Rate 49; Potassium 3.7 mmol/L (3.3-5.1); Sodium 142 mmol/L (135-145)
[2024-06-22 11:55] LABS: Creatinine Urine 74.66 mg/dL; Total Protein Urine Random < 7 mg/dL (<12)
== END 2024-06-22 08:01 | disposition home or self-care (01) ==
LOC: HO.HMGCLDS 08:00
PROVIDERS: PCP Internal Medicine; Visit Provider Internal Medicine Nephrology
DX: I12.9 Hypertensive chronic kidney disease with stage 1 through stage 4 chronic kidney disease, or unspecified chronic kidney disease (principal); E11.21 Type 2 diabetes mellitus with diabetic nephropathy; N18.30 Chronic kidney disease, stage 3 unspecified; E11.22 Type 2 diabetes mellitus with diabetic chronic kidney disease
CPT/HCPCS: 36415; 80051; 82565; 82570; 84156; 84520

== ENCOUNTER 2024-06-26 15:38 | Outpatient (AMB) | payer MEDICARE, MEDICAID, SELFPAY ==
--- OUTSIDE RECORDS SUMMARY | 2024-06-26 15:41 | XMS_ITS | Encounter Summary ---
Author Organization [facility]ly [facility] Address [address] [place] [address] Care Team Providers Care Therapist Radiation Name Role Phone Damian Lai MD Primary Care Provider [phone] Reason for Visit * Reason Onset Date Comments Drug Interaction 08/29/2019 trazodone (DESY REL) 100 MG tablet Encounter Details Date Type Department Care Team Description 08/29/2019 Telephone Adult Medicine [address] [address] Damian Lai MD [address] [place] [address] Drug Interaction (trazodone (DESYREL) 100 MG tablet) Social History Tobacco Use Types Packs/Day Years [...] encounter Miscellaneous Notes * Telephone Encounter - Quynh Vail M.A. - 08/30/2019 12:48 PM EDT Please Review and advise * Telephone Encounter - Shruti Matthew - 08/29/2019 2:03 PM EDT Who is calling? A pharmacist: Pharmacy: [facility]ist Name: [facility] Name of the medication trazodone (DESYREL) 100 MG tablet What is the specific problem or interaction? Per pharmacy this medication is drug interaction with duloxetine 80mg If the patient is having a problem with taking the med - how long has the problem been going on? N/A documented in this encounter Plan of Treatment Not on file documented as of this encounter Visit Diagnoses Not on filedocumented in this encounter Care Teams Therapist Radiation Relationship Specialty Start Date End Date Damian Lai MD [address] [place] [address] PCP - General Internal Medicine 04/01/14 documented as of this encounter
--- OUTSIDE RECORDS SUMMARY | 2024-06-26 15:41 | XMS_ITS | Encounter Summary ---
Author Organization [facility] Address [address] [place] [address] Care Team Providers Care Community Health Worker Name Role Phone Damian Lai MD Primary Care Provider [phone] Encounter Details Date Type Department Care Team Description 07/31/2018 Hospital Medical Records [address] [place] [address] Shruti Abernathy NP Social History Tobacco Use Types Packs/Day [...] on filedocumented in this encounter Care Teams Community Health Worker Relationship Specialty Start Date End Date Damian Lai MD [address] [place] [address] PCP - General Internal Medicine 04/01/14 documented as of this encounter
--- OUTSIDE RECORDS SUMMARY | 2024-06-26 15:41 | XMS_ITS | Encounter Summary ---
Author Organization [facility] Address [address] [place] [address] Care Team Providers Care Furniture Cleaner Name Role Phone Damian Lai MD Primary Care Provider [phone] Encounter Details Date Type Department Care Team Description 11/20/2023 Orders Only Medical Records [address] [place] [address] Ruddy Mcconnell MD Social History Tobacco Use [...] Name Priority Date/Time Associated Diagnosis Comments OUTSIDE LAB Routine 11/18/2023 documented in this encounter Results * OUTSIDE LAB (11/18/2023) Ruddy Mcconnell MD LAB documented in this encounter Visit Diagnoses Not on filedocumented in this encounter Care Teams Furniture Cleaner Relationship Specialty Start Date End Date Damian Lai MD [address] [place] [address] PCP - General Internal Medicine 04/01/14 documented as of this encounter
--- OUTSIDE RECORDS SUMMARY | 2024-06-26 15:41 | XMS_ITS | Encounter Summary ---
Author Organization [facility] Address [address] [place] [address] Care Team Providers Care Multiple Games Dealer Name Role Phone Damian Lai MD Primary Care Provider [phone] Encounter Details Date Type Department Care Team Description 07/31/2018 Whizzer Report Medical Records [address] [place] [address] Daniel Mckeon Social History Tobacco Use Types [...] on filedocumented in this encounter Care Teams Multiple Games Dealer Relationship Specialty Start Date End Date Damian Lai MD [address] [place], [place] [phone] PCP - General Internal Medicine 04/01/14 documented as of this encounter
--- OUTSIDE RECORDS SUMMARY | 2024-06-26 15:41 | XMS_ITS | Encounter Summary ---
Author Organization [facility] Address [address] [place] [address] Care Team Providers Care Terrazzo Finisher Helper Name Role Phone Damian Lai MD Primary Care Provider [phone] Encounter Details Date Type Department Care Team Description 07/23/2018 Photo Finish Photographer Report Medical Records [address] [place] [address] Abstract, Provider Social History Tobacco Use Types [...] on filedocumented in this encounter Care Teams Terrazzo Finisher Helper Relationship Specialty Start Date End Date Damian Lai MD [address] [place], [place] [phone] PCP - General Internal Medicine 04/01/14 documented as of this encounter
--- OUTSIDE RECORDS SUMMARY | 2024-06-26 15:41 | XMS_ITS | Encounter Summary ---
Author Organization [facility] Address [address] [place] [address] Care Team Providers Care Automotive Machinist Apprentice Name Role Phone Damian Lai MD Primary Care Provider [phone] Encounter Details Date Type Department Care Team Description 10/23/2016 Release of Information Medical Records [address] [place] [address] Abstract, Provider Social History Tobacco Use Types [...] on filedocumented in this encounter Care Teams Automotive Machinist Apprentice Relationship Specialty Start Date End Date Damian Lai MD [address] [place], [place] [phone] PCP - General Internal Medicine 04/01/14 documented as of this encounter
--- OUTSIDE RECORDS SUMMARY | 2024-06-26 15:41 | XMS_ITS | Encounter Summary ---
Author Organization [facility] Address [address] [place] [address] Care Team Providers Care Car Dealer Name Role Phone Damian Lai MD Primary Care Provider [phone] Encounter Details Date Type Department Care Team Description 08/02/2018 Debone Processing Supervisor Report Medical Records [address] [place] [address] Elsa [place] II Social History Tobacco Use [...] on filedocumented in this encounter Care Teams Car Dealer Relationship Specialty Start Date End Date Damian Lai MD [address] [place], [place] [phone] PCP - General Internal Medicine 04/01/14 documented as of this encounter
--- OUTSIDE RECORDS SUMMARY | 2024-06-26 15:41 | XMS_ITS | Encounter Summary ---
Author Organization [facility] Address [address] [place] [address] Care Team Providers Care Network Services Project Manager Name Role Phone Damian Lai MD Primary Care Provider [phone] Encounter Details Date Type Department Care Team Description 03/17/2018 Desulfurizer Operator Report Medical Records [address] [place] [address] Gerson Betts Social History Tobacco Use Types [...] on filedocumented in this encounter Care Teams Network Services Project Manager Relationship Specialty Start Date End Date Damian Lai MD [address] [place] [address] PCP - General Internal Medicine 04/01/14 documented as of this encounter
--- OUTSIDE RECORDS SUMMARY | 2024-06-26 15:41 | XMS_ITS | Encounter Summary ---
Author Organization [facility] Address [address] [place] [address] Care Team Providers Care Bingo Clerk Name Role Phone Damian Lai MD Primary Care Provider Encounter Details Date Type Department Care Team Description 07/06/2018 Systems Operator Report Medical Records [address] [place] [address] Abstract, Provider Social History Tobacco Use Types [...] on filedocumented in this encounter Care Teams Bingo Clerk Relationship Specialty Start Date End Date Damian Lai MD [address] [place], [place] [phone] PCP - General Internal Medicine 04/01/14 documented as of this encounter
--- OUTSIDE RECORDS SUMMARY | 2024-06-26 15:41 | XMS_ITS | Encounter Summary ---
Author Organization [facility] Address [address] [place] [address] Care Team Providers Care School Age Program Teacher Name Role Phone Damian Lai MD Primary Care Provider [phone] Reason for Visit * Reason Onset Date Comments hospital follow up 08/06/2018 lyle ferrer (discharged on 07-31-18) Encounter Details Date Type Department Care Team Description 08/06/2018 Telephone Adult Medicine [facility] [address] [place], [place] [phone] Damian Lai MD [address] [place], [place] [phone] hospital follow up (lyle barber request (discharged on 07-31-18)) Social History Tobacco Use Types Packs/Day Years [...] encounter Miscellaneous Notes * Telephone Encounter - Jill Pickens - 08/06/2018 3:01 PM EDT ER follow-up appointment booked TBA If ER or UC follow up, can be booked with APC or MD. If hospital admission follow up MUST be booked with a physician Appointment time: TBA Provider visit is scheduled with: TBA Hospital/ center patient was treated at: [facility] Date of visit: 07-27-18 Was this only an ER/UC visit or was the patient admitted to the hospital? Admitted to hospital If patient was admitted what was the date of discharge? 07-31-18 Reason/diagnosis for visit or stay: right big toe infected Was visit or stay related to an injury? NO If yes, what was the date of injury (DOI)? N/A If yes, was the injury due to N/A Tests performed: Lab: YES X-ray: YES EKG: NO Other tests. If yes, what?; MRI documented in this encounter Plan of Treatment Not on file documented as of this encounter Visit Diagnoses Not on filedocumented in this encounter Care Teams School Age Program Teacher Relationship Specialty Start Date End Date Damian Lai MD [address] [place] [address] PCP - General Internal Medicine 04/01/14 documented as of this encounter
--- OUTSIDE RECORDS SUMMARY | 2024-06-26 15:41 | XMS_ITS | Encounter Summary ---
Author Organization [facility] Address [address] [place] [address] Care Team Providers Care Deputy Juvenile Officer Name Role Phone Damian Lai MD Primary Care Provider [phone] Encounter Details Date Type Department Care Team Description 11/14/2023 Refill Adult Medicine [facility] [address] [place] [address] Minerva Giron, INDUSTRIAL DIAMOND POLISHER [address] [place] [address] Social History Tobacco Use Types Packs/Day Years [...] encounter Miscellaneous Notes * Telephone Encounter - Emely Gutierrez - 11/20/2023 11:12 AM EDT Faxed to pharmacy * Telephone Encounter - Maricruz Sommers M.A. - 11/17/2023 3:52 PM EDT Lab Results Component Value Date NA 138 10/11/2023 K 4.5 10/11/2023 CO2 24 10/11/2023 CL 105 10/11/2023 BUN 35 10/11/2023 CREAT 1.73 10/11/2023 GLU 254 10/11/2023 CA 9.6 10/11/2023 GFR 46 10/11/2023 Pending appt 11/23/23 Last appt 05/18/23 * Telephone Encounter - Ivon Sanchez - 11/17/2023 2:27 PM EDT Patient would like script to be: E-PRESCRIBED/FAXED TO PHARMACY WHEN WAS THE PATIENT'S LAST APPOINTMENT IN ADULT MEDICINE? 05/18/23 WHEN WAS THE LAST TIME THE PATIENT SAW THEIR PCP? 09/10/19 Does patient have an upcoming appointment? Yes 11/23/23 (THE MEDICATION REQUESTED IS ON THE MED [...] / Plan: [place] / Product Type: MEDICARE [id number] documented in this encounter Plan of Treatment Not on file documented as of this encounter Visit Diagnoses Not on filedocumented in this encounter Care Teams Deputy Juvenile Officer Relationship Specialty Start Date End Date Damian Lai MD [address] [place] [address] PCP - General Internal Medicine 04/01/14 documented as of this encounter
--- OUTSIDE RECORDS SUMMARY | 2024-06-26 15:41 | XMS_ITS | Encounter Summary ---
Author Organization [facility] Address [address] [place] [address] Care Team Providers Care Otr Owner Operator Name Role Phone Damian Lai MD Primary Care Provider [phone] Encounter Details Date Type Department Care Team Description 03/01/2018 Hospital Medical Records [address] [place] [address] [address] [place] [address] Social History Tobacco Use Types Packs/Day Years [...] on filedocumented in this encounter Care Teams Otr Owner Operator Relationship Specialty Start Date End Date Damian Lai MD [address] [place] [phone] PCP - General Internal Medicine 04/01/14 documented as of this encounter
--- OUTSIDE RECORDS SUMMARY | 2024-06-26 15:41 | XMS_ITS | Encounter Summary ---
Author Organization [facility] Address [address] [place] [address] Care Team Providers Care Supervising Fire Marshal Name Role Phone Damian Lai MD Primary Care Provider [phone] Encounter Details Date Type Department Care Team Description 09/22/2016 Post Doctoral Researcher Report Medical Records [address] [place] [address] Ruddy Mcconnell MD Social History Tobacco Use [...] on filedocumented in this encounter Care Teams Supervising Fire Marshal Relationship Specialty Start Date End Date Damian Lai MD [address] [place], [place] [phone] PCP - General Internal Medicine 04/01/14 documented as of this encounter
--- OUTSIDE RECORDS SUMMARY | 2024-06-26 15:41 | XMS_ITS | Encounter Summary ---
Author Organization [facility] Address [address] [place] [address] Care Team Providers Care Director Of Logistics Name Role Phone Damian Lai MD Primary Care Provider [phone] Encounter Details Date Type Department Care Team Description 07/28/2018 Hospital Medical Records [address] [place] [address] Vita Matias MD [address] [facility] [address] [place] [address] Social History Tobacco Use Types [...] in this encounter Care Teams Director Of Logistics Relationship Specialty Start Date End Date Damian Lai MD [address] [place] [address] PCP - General Internal Medicine 04/01/14 documented as of this encounter
--- OUTSIDE RECORDS SUMMARY | 2024-06-26 15:41 | XMS_ITS | Encounter Summary ---
Author Organization [facility] Address [address] [place] [address] Care Team Providers Care Flush Tester Name Role Phone Damian Lai MD Primary Care Provider [phone] Encounter Details Date Type Department Care Team Description 04/14/2020 Pc Analyst Report Medical Records [address] [place] [address] Emily Arriaga MD Social History Tobacco Use [...] on filedocumented in this encounter Care Teams Flush Tester Relationship Specialty Start Date End Date Damian Lai MD [address] [place], [place] [phone] PCP - General Internal Medicine 04/01/14 documented as of this encounter
--- OUTSIDE RECORDS SUMMARY | 2024-06-26 15:41 | XMS_ITS | Encounter Summary ---
Author Organization [facility] Address [address] [place] [address] Care Team Providers Care Emt/Dispatcher Name Role Phone Damian Lai MD Primary Care Provider [phone] Encounter Details Date Type Department Care Team Description 10/23/2016 Bran Mixer Report Medical Records [address] [place] [address] Abstract, Provider Social History Tobacco Use Types [...] on filedocumented in this encounter Care Teams Emt/Dispatcher Relationship Specialty Start Date End Date Damian Lai MD [address] [place], [place] [phone] PCP - General Internal Medicine 04/01/14 documented as of this encounter
--- OUTSIDE RECORDS SUMMARY | 2024-06-26 15:41 | XMS_ITS | Encounter Summary ---
Author Organization [facility] Address [address] [place] [address] Care Team Providers Care Gasoline Attendant Name Role Phone Damian Lai MD Primary Care Provider [phone] Encounter Details Date Type Department Care Team Description 02/06/2022 Refill Adult Medicine [facility] [address] [place], [place] [phone] Damian Lai MD [address] [place] [phone] Social History Tobacco Use Types Packs/Day Years [...] on filedocumented in this encounter Care Teams Gasoline Attendant Relationship Specialty Start Date End Date Damian Lai MD [address] [place] [address] PCP - General Internal Medicine 04/01/14 documented as of this encounter
--- OUTSIDE RECORDS SUMMARY | 2024-06-26 15:41 | XMS_ITS | Encounter Summary ---
Author Organization [facility] Address [address] [place] [address] Care Team Providers Care Facility Maintenance Manager Name Role Phone Damian Lai MD Primary Care Provider [phone] Encounter Details Date Type Department Care Team Description 01/13/2020 Refill Gastroenterology - [address] [place] [phone] Yady Low MD [address] [place] [address] Social History Tobacco Use Types Packs/Day [...] on filedocumented in this encounter Care Teams Facility Maintenance Manager Relationship Specialty Start Date End Date Damian Lai MD [address] [place] [address] PCP - General Internal Medicine 04/01/14 documented as of this encounter
--- OUTSIDE RECORDS SUMMARY | 2024-06-26 15:41 | XMS_ITS | Encounter Summary ---
Author Organization [facility] Address [address] [place] [address] Care Team Providers Care Frickertron Checker Name Role Phone Damian Lai MD Primary Care Provider [phone] Encounter Details Date Type Department Care Team Description 11/24/2023 Education Specialist Report Medical Records [address] [place] [address] Ruddy Mcconnell MD Social History Tobacco Use [...] on filedocumented in this encounter Care Teams Frickertron Checker Relationship Specialty Start Date End Date Damian Lai MD [address] [place] [address] PCP - General Internal Medicine 04/01/14 documented as of this encounter
--- OUTSIDE RECORDS SUMMARY | 2024-06-26 15:41 | XMS_ITS | Encounter Summary ---
Author Organization [facility] Address [address] [place] [address] Care Team Providers Care Invoice Classification Clerk Name Role Phone Damian Lai MD Primary Care Provider [phone] Encounter Details Date Type Department Care Team Description 11/21/2023 Pt. 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 [facility]. Thank you. 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
--- OUTSIDE RECORDS SUMMARY | 2024-06-26 15:41 | XMS_ITS | Encounter Summary ---
Author Organization [facility] Address [address] [place] [address] Care Team Providers Care Curbstone Setter Name Role Phone Damian Lai MD Primary Care Provider [phone] Encounter Details Date Type Department Care Team Description 08/08/2018 Networking Engineer Report Medical Records [address] [place] [address] Daniel Mckeon Social History Tobacco Use Types [...] on filedocumented in this encounter Care Teams Curbstone Setter Relationship Specialty Start Date End Date Damian Lai MD [address] [place], [place] [phone] PCP - General Internal Medicine 04/01/14 documented as of this encounter
--- OUTSIDE RECORDS SUMMARY | 2024-06-26 15:41 | XMS_ITS | Encounter Summary ---
Author Organization [facility] Address [address] [place] [address] Care Team Providers Care Kersey Department Supervisor Name Role Phone Damian Lai MD Primary Care Provider [phone] Encounter Details Date Type Department Care Team Description 01/13/2020 Refill Gastroenterology - [address] [place] [phone] Yady Low MD [address] [place] [address] Social History Tobacco Use Types Packs/Day [...] on filedocumented in this encounter Care Teams Kersey Department Supervisor Relationship Specialty Start Date End Date Damian Lai MD [address] [place] [address] PCP - General Internal Medicine 04/01/14 documented as of this encounter
--- OUTSIDE RECORDS SUMMARY | 2024-06-26 15:41 | XMS_ITS | Encounter Summary ---
Author Organization [facility] Address [address] [place] [address] Care Team Providers Care Director Content Marketing Name Role Phone Damian Lai MD Primary Care Provider [phone] Encounter Details Date Type Department Care Team Description 03/03/2022 Pt. Non Urgent Medical Question Adult Medicine [facility] [address] [place] [phone] Damian Lai MD [address] [place] [address] [phone] Social History Tobacco Use Types Packs/Day Years [...] filedocumented in this encounter Care Teams Director Content Marketing Relationship Specialty Start Date End Date Damian Lai MD [address] [place] [address] PCP - General Internal Medicine 04/01/14 documented as of this encounter
--- OUTSIDE RECORDS SUMMARY | 2024-06-26 15:41 | XMS_ITS | Encounter Summary ---
Author Organization [facility] Address [address] [place] [address] Care Team Providers Care Airport Sales Agent Name Role Phone Damian Lai MD Primary Care Provider [phone] Encounter Details Date Type Department Care Team Description 08/30/2018 Orders Only Medical Records [address] [place] [address] Priya Flanagan PA-C Social History Tobacco Use Types Packs/Day Years [...] Date/Time Associated Diagnosis Comments OUTSIDE PATHOLOGY Routine 08/24/2018 documented in this encounter Results * OUTSIDE PATHOLOGY (08/24/2018) Priya Flanagan PA-C OUTSIDE LAB documented in this encounter Visit Diagnoses Not on filedocumented in this encounter Care Teams Airport Sales Agent Relationship Specialty Start Date End Date Damian Lai MD [address] [place] [address] PCP - General Internal Medicine 04/01/14 documented as of this encounter
--- OUTSIDE RECORDS SUMMARY | 2024-06-26 15:41 | XMS_ITS | Encounter Summary ---
Author Organization [facility] [place] Address [address] [place] [address] Care Team Providers Care Home Health Specialist Name Role Phone Damian Lai MD Primary Care Provider [phone] Encounter Details Date Type Department Care Team Description 09/20/2016 Business Doc Medical Records [address] [place] [address] Abstract, Provider Social History Tobacco Use Types [...] on filedocumented in this encounter Care Teams Home Health Specialist Relationship Specialty Start Date End Date Damian Lai MD [address] [place] [address] PCP - General Internal Medicine 04/01/14 documented as of this encounter
--- OUTSIDE RECORDS SUMMARY | 2024-06-26 15:42 | XMS_ITS | Encounter Summary ---
Author Organization [facility] Address [address] [place] [address] Care Team Providers Care Motorboat Mechanic Inboard Name Role Phone Damian Lai MD Primary Care Provider [phone] Reason for Visit * Reason Comments E-prescribe Rx Request Encounter Details Date Type Department Care Team Description 12/16/2022 Refill Endocrinology - [address] [address] Lindy Gutierrez PA-C [address] [place] [phone] E-prescribe Rx Request Social History Tobacco Use [...] uncontrolled documented in this encounter Care Teams Motorboat Mechanic Inboard Relationship Specialty Start Date End Date Damian Lai MD [address] [place] [phone] PCP - General Internal Medicine 04/01/14 documented as of this encounter
--- OUTSIDE RECORDS SUMMARY | 2024-06-26 15:42 | XMS_ITS | Encounter Summary ---
Author Organization [facility] Address [address] [place] [address] Care Team Providers Care Biofuels Technology Manager Name Role Phone Damian Lai MD Primary Care Provider [phone] Encounter Details Date Type Department Care Team Description 06/15/2022 CGM Report Medical Records [address] [place] [address] Abstract, Provider Social History Tobacco Use Types [...] suspected to have Coronavirus/COVID-19? No / Unsure 06/15/2022 1:43 PM EDT documented as of this encounter Plan of Treatment Not on file documented as of this encounter Visit Diagnoses Not on filedocumented in this encounter Care Teams Biofuels Technology Manager Relationship Specialty Start Date End Date Damian Lai MD [address] [place] [address] PCP - General Internal Medicine 04/01/14 documented as of this encounter
--- OUTSIDE RECORDS SUMMARY | 2024-06-26 15:42 | XMS_ITS | Encounter Summary ---
Author Organization [facility] Address [address] [place] [address] Care Team Providers Care Chemical Laboratory Scientist Name Role Phone Damian Lai MD Primary Care Provider [phone] Reason for Visit * Reason Comments E-prescribe Rx Request Encounter Details Date Type Department Care Team Description 02/05/2023 Refill [place] [address] Linyd Gutierrez PA-C [address] [place] [address] E-prescribe Rx Request Social History Tobacco Use [...] encounter Miscellaneous Notes * Telephone Encounter - Lindy Gutierrez PA-C - 02/07/2023 3:26 PM EST Patient is no longer using the syringe. * Telephone Encounter - Talita Ryan C.M.A. 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
--- OUTSIDE RECORDS SUMMARY | 2024-06-26 15:42 | XMS_ITS | Encounter Summary ---
Author Organization [facility] Address [address] [place] [address] Care Team Providers Care Proof Coin Collector Name Role Phone Damian Lai MD Primary Care Provider [phone] Encounter Details Date Type Department Care Team Description 05/20/2020 Orders Only Internal Medicine - [address], [address] [place] [address] Giovanni Chatman PA-C Superficial bruising of toe [...] toe documented in this encounter Care Teams Proof Coin Collector Relationship Specialty Start Date End Date Damian Lai MD [address] [place] [id number] PCP - General Internal Medicine 04/01/14 documented as of this encounter
--- OUTSIDE RECORDS SUMMARY | 2024-06-26 15:42 | XMS_ITS | Encounter Summary ---
Author Organization [facility] Address [address] [place] [address] Care Team Providers Care Tape Coater Name Role Phone Damian Lai MD Primary Care Provider [phone] Encounter Details Date Type Department Care Team Description 09/24/2018 Slicing Machine Operator/Tender Report Medical Records [address] [place] [address] Ruddy Mcconnell MD Social History Tobacco Use [...] on filedocumented in this encounter Care Teams Tape Coater Relationship Specialty Start Date End Date Damian Lai MD [address] [place], [place] [phone] PCP - General Internal Medicine 04/01/14 documented as of this encounter
--- OUTSIDE RECORDS SUMMARY | 2024-06-26 15:42 | XMS_ITS | Encounter Summary ---
Author Organization [facility] Address [address] [place] [address] Care Team Providers Care Microfilm Equipment Inspector Name Role Phone Damian Lai MD Primary Care Provider [phone] Encounter Details Date Type Department Care Team Description 11/29/2018 Night Triage Doc Medical Records [address] [place] [address] Abstract, Provider Social History Tobacco Use Types [...] on filedocumented in this encounter Care Teams Microfilm Equipment Inspector Relationship Specialty Start Date End Date Damian Lai MD [address] [place], [place] [phone] PCP - General Internal Medicine 04/01/14 documented as of this encounter
--- OUTSIDE RECORDS SUMMARY | 2024-06-26 15:42 | XMS_ITS | Encounter Summary ---
Author Organization [facility] Address [address] [place] [address] Care Team Providers Care Sales Development Executive Name Role Phone Damian Lai MD Primary Care Provider [phone] Encounter Details Date Type Department Care Team Description 02/22/2018 Manager Category Report Medical Records [address] [place] [address] [address] [place] [address] Social History Tobacco Use Types Packs/Day Years [...] on filedocumented in this encounter Care Teams Sales Development Executive Relationship Specialty Start Date End Date Damian Lai MD [address] [place] [address] PCP - General Internal Medicine 04/01/14 documented as of this encounter
--- OUTSIDE RECORDS SUMMARY | 2024-06-26 15:42 | XMS_ITS | Encounter Summary ---
Author Organization [facility] Address [address] [place] [address] Care Team Providers Care Drum Dyeing Machine Operator Name Role Phone Damian Lai MD Primary Care Provider [phone] Encounter Details Date Type Department Care Team Description 02/21/2019 Hospital Medical Records [address] [place] [address] Vito Davis MD Social History Tobacco Use [...] on filedocumented in this encounter Care Teams Drum Dyeing Machine Operator Relationship Specialty Start Date End Date Damian Lai MD [address] [place] [address] PCP - General Internal Medicine 04/01/14 documented as of this encounter
--- OUTSIDE RECORDS SUMMARY | 2024-06-26 15:42 | XMS_ITS | Encounter Summary ---
Author Organization [facility] Address [address] [place] [address] Care Team Providers Care Construction Craft Laborer Name Role Phone Damian Lai MD Primary Care Provider [phone] Reason for Visit * Reason Onset Date Comments Advice 11/30/2020 Encounter Details Date Type Department Care Team Description 11/30/2020 Telephone General Surgery - [address] [place] [address] Yamile Norton, ,RDN,LDN Advice Social History Tobacco Use Types Packs/Day [...] have Coronavirus / COVID-19? No / Unsure 11/25/2020 7:37 AM EDT documented as of this encounter Miscellaneous Notes * Telephone Encounter - Yamile Norton MS,RDN,LDN - 11/30/2020 3:27 PM EDT Called pt back and informed him I did not see his psych eval on file. Otherwise he is all set, so Itold him to schedule a RTS appt when he is ready. * Telephone Encounter - Anuja Carmen - 11/30/2020 1:36 PM EDT Patient is requesting a call from Yamile at [phone] he is wondering if his psych evaluation was received and what's the next step. documented in this encounter Plan of Treatment Not on file documented as of this encounter Visit Diagnoses Not on filedocumented in this encounter Care Teams Construction Craft Laborer Relationship Specialty Start Date End Date Damian Lai MD [address] [place] [address] PCP - General Internal Medicine 04/01/14 documented as of this encounter
--- OUTSIDE RECORDS SUMMARY | 2024-06-26 15:42 | XMS_ITS | Encounter Summary ---
Author Organization [facility] Address [address] [place] [address] Care Team Providers Care Sheet Metal Erector Name Role Phone Damian Lai MD Primary Care Provider Encounter Details Date Type Department Care Team Description 12/16/2022 Pt. Non Urgent Medical Question Endocrinology - [address] [address] Lindy Gutierrez PA-C [address] [place] [address] Type II or unspecified type diabetes mellitus [...] I need my Humalog Kwikpen refilled at [facility] in [place]. I am almost out of insulin in [...] uncontrolled documented in this encounter Care Teams Sheet Metal Erector Relationship Specialty Start Date End Date Damian Lai MD [address] [place] [address] PCP - General Internal Medicine 04/01/14 documented as of this encounter
--- OUTSIDE RECORDS SUMMARY | 2024-06-26 15:42 | XMS_ITS | Encounter Summary ---
Author Organization [facility] Address [address] [place] [address] Care Team Providers Care Ornamental Metal Erector Name Role Phone Damian Lai MD Primary Care Provider [phone] Reason for Visit * Reason Comments E-prescribe Rx Request Encounter Details Date Type Department Care Team Description 01/11/2023 Refill Endocrinology - [address] [address] Lindy Gutierrez PA-C [address] [place] [address] E-prescribe Rx Request Social History Tobacco Use [...] uncontrolled documented in this encounter Care Teams Ornamental Metal Erector Relationship Specialty Start Date End Date Damian Lai MD [address] [place] [address] PCP - General Internal Medicine 04/01/14 documented as of this encounter
--- OUTSIDE RECORDS SUMMARY | 2024-06-26 15:42 | XMS_ITS | Encounter Summary ---
Author Organization [facility] Address [address] [place] [address] Care Team Providers Care Photographic Reproduction Technician Name Role Phone Damian Lai MD Primary Care Provider [phone] Reason for Visit * Reason Onset Date Comments Transitional Care Management (Tcm) 02/08/2018 TCM , post d/c [facility] 02/07/18 Encounter Details Date Type Department Care Team Description 02/08/2018 Telephone Adult Medicine [facility] [address] [place] [phone] Damian Lai MD [address] [place] [phone] Transitional Care Management (Tcm) (TCM , post d/c [facility] 02/07/18) Social History Tobacco Use Types Packs/Day Years [...] Telephone Encounter - Jackelyn Perkins R.N. - 02/09/2018 1:35 PM EST Second call palced to patient for f/u to recent admission to [facility] for worsening foot ulcer. Left message to please call MD office @ [phone] to schedule a PCP f/u appt * Telephone Encounter - Jackelyn Perkins R.N. - 02/08/2018 2:49 PM EST Patient with pmhx that includes; KENY, T2DM, ARUNA, HTN, and diabetic foot ulcers, was readmitted to [facility] on 02/05/18 due to worsening wound in right MTP area. Ulcer began in 10/24/17 after stepping on piece of glass. Patient treated at last admission with Levaquin however he was taking med with magnesium which decreases bioavailability On this admission , patient treated with renally dosed Vancomycin . Patient consulted by Vascular and steward/stewardess chief cargo vessel and further treatment consisted of painting would with betadine and wrapping withKerlix Augmentin was added to Levaquin on d/c for complete coverage Patient discharged on 02/07/18 to home VNA services offered and declined as patient's partner will do dressing changes' Discharge medications include: Augmentin 1 tab twice daily Levaquin 750 mg daily Betadine wash for wound care No answer to call at home. Left message to please return my call to [phone] at his convenience Plan; Will call patient tomorrow, 02/09/18 if no return call received documented in this encounter Plan of Treatment Not on file documented as of this encounter Visit Diagnoses Not on filedocumented in this encounter Care Teams Photographic Reproduction Technician Relationship Specialty Start Date End Date Damian Lai MD [address] [place] [address] PCP - General Internal Medicine 04/01/14 documented as of this encounter
--- OUTSIDE RECORDS SUMMARY | 2024-06-26 15:42 | XMS_ITS | Clinical Summary ---
Author Organization [facility] Address [address] [place] [address] Care Team Providers Care Assessment Services Manager Name Role Phone Damian Lai MD Primary Care Provider [phone] Allergies No known active allergies Medications losartan (COZAAR) 100 mg tablet Take 1 tablet (100 mg total) by mouth at bedtime. at bedtime. Active ASPIRIN ORAL Take 81 mg by mouth 1 (one) time each day. Active blood-glucose meter,continuous (Dexcom G6 Machine Adjuster Leader) [facility] For continuous glucose monitoring 05/27/19 23 Active blood-glucose sensor (DEXCOM G7 SENSOR [facility]) 1 Each by Does not apply route See Admin Instructions. USE 1 SENSOR EVERY 10 DAYS. 06/09/19 23 Active blood-glucose transmitter (DEXCOM G6 TRANSMITTER [facility]) To use with Dexcom sensor, 1 transmitter [...] ns:Diabetes mellitus type 2 with neurological manifestations ([facility] V24, [facility] V28) Use 3mg once weekly 2 mL [...] obesity with BMI of 4 5.0-49.9, adult ([facility], [facility] V28) 12/14/2023 COVID-19 12/03/2021 Adhesive capsulitis of ankle, right 10/17/2019 Adhesive capsulitis of right shoulder 10/17/2019 Osteoarthritis of right AC (acromioclavicular) j oint 10/17/2019 Tendinitis of right rotator cuff 10/17/2019 Allergic conjunctivitis of both eyes 07/31/2019 MDD (major depressive disord er), recurrent severe, without psychosis ([facility] [place], [facility] V28) 07/16/2019 Chronic rhinitis 07/27/2017 Recurrent sinus infections 07/27/2017 GERD (gastroesophageal reflux disease) 6 CKD (chronic kidney disease) stage 3, GFR 30-59 ml/min ([facility], [facility] V28) 07/24/2014 Diabetes mellitus type 2 wit h neurological manifestations ([facility], [facility] V28) 07/24/2014 Hyperlipidemia 07/24/2014 ARUNA (obstructive sleep apnea) 07/24/2014 [place] (12/14/2023[place] [facility] [place] Polysomnogram: Date 03/19/2013; BMI 53; AHI 31, REM AHI 64, Central apneas 2; Obstructive apneas 35; hypopneas 18; average oxygen saturation 93% (lowest 44%); PLMs 0. CPAP trialed and lowest AHI on therapy of 6 was 9.3. Encounters Date Type Department Care Team Description 06/04/2024 1:00 PM EDT Office Visit Adult Medicine [address] [phone] Damian Lai MD Diabetes mellitus due to underlying condition with stage 2 chronic kidney disease, with long-term current use of insulin ([facility] V[facility], [facility] V28) (Primary Dx); Pure hypercholesterolemia; Encounter for long-term (current) use of medications; Stage 3a chronic kidney disease ([facility], [facility] V28); Primary hypertension; Microalbuminuria 04/23/2024 9:40 AM EDT Office Visit Endocrinology [address] [phone] Lindy Gutierrez PA Diabetes mellitus type 2 with neurological manifestations ([facility] V[facility], [facility] V28) (Primary Dx); Morbid obesity with BMI of 45.0-49.9, adult ([facility], [facility] V28); Stage 3b chronic kidney disease ([facility], [facility] V28) from Last 3 Months Immunizations Name [...] Surgery Date Site/Laterality Comments ESOPHAGOGASTRODUODENOSCOPY 07/24/15 PROCEDURE: CA EGD TRANSORAL BIOPSY SINGLE/MULTIPLE; COMMENT: normal; normal gastric biopsies without H. pylori Medical History Medical History Date Comments Type II or unspecified type diabetes mellitus without mention of complication, uncontrolled DX:Type II or unspecified t ype diabetes mellitus without mention of complication, uncontrolled Shoulder arthritis DX:Shoulder a rthritis Gout DX:Gout Depression DX:Depression Hypertension DX:Hypertension Neuropathy DX:Neuropathy Morbid obesity ([facility], [facility] V28) 07/24/2014 DX:Morbid obesity ([facility]) ARUNA (obstructive sleep apnea) 07/24/2014 DX :ARUNA (obstructive sleep apnea); COMMENT: severe CKD (chronic kidney disease) stage 3, GFR 30-59 ml/min ([facility], [facility] V28) 07/24/2014 DX:CKD (chronic kidney disea se) stage 3, GFR 30-59 ml/min ([facility]) Hyperlipidemia 07/24/2014 DX:Hyperlipidemi a Family History Medical [...] Description 11/28/2024 9:40 AM EDT Office Visit [address] [phone] Lindy Gutierrez PA [address] [place] [address] 12/17/2024 1:00 PM EST Office Visit Adult Medicine [address] [phone] Damian Lai MD [address] [place] [address] Health Maintenance Due Date Last Done Comments [...] Diabetes mellitus type 2 with neurological manifestations ([facility]/HCC V24, [facility]/HCC V28) MICROALBUMIN CREATININE [...] LAB CHEMISTRY METHOD 04/23/2024 11:31 AM EDT [facility] Mean Bld Glu Estim. 192 mg/dL LAB CHEMISTRY METHOD 04/23/2024 11:31 AM EDT [facility] Blood Venous blood specimen / Unknown Venipuncture / Unknown 04/23/2024 9:28 AM EDT 04/23/2024 9:28 AM EDT us Lindy JULIO LAB BLOOD ORDERABLES Final Resul t [facility] [address] [place] [address], [place] [phone] * (ABNORMAL) Lipid panel with reflex to direct LDL (01/11/2024 9:16 AM EST) Cholesterol 170 0 - 200 mg/dL LAB CHEMISTRY METHOD 01/11/2024 12:16 PM EST [facility] Triglycerides 416(H) 0 - 150 mg/dL LAB CHEMISTRY METHOD 01/11/2024 12:16 PM [facility] Comment:Results verified by repeat testing HDL 34(L) >=40 mg/dL LAB CHEMISTRY METHOD 01/11/2024 12:16 PM EST [facility] LDL Calculated 53 0 - 100 mg/dL LAB CHEMISTRY METHOD 01/11/2024 12:16 PM EST [facility] Comment:Unable to calculate when triglycerides >400 mg/dL. VLDL Cholesterol Marc 83.2 mg/dL LAB CHEMISTRY METHOD 01/11/2024 12:16 PM EST [facility] Comment:Unable to calculate when triglycerides >400 mg/dL. Non HDL Chol. (LDL+VLDL) 136 <145 mg/dL LAB CHEMISTRY METHOD 01/11/2024 12:16 PM EST [facility] Comment:Unable to calculate when triglycerides >400 mg/dL. Chol/HDL Ratio 5.0(H) 0.0 - 4.4 LAB CHEMISTRY METHOD 01/11/2024 12:16 PM EST [facility] Blood Venous blood specimen / Unknown Venipuncture / Unknown 01/11/2024 9:16 AM EST 01/11/2024 9:16 AM EST us Damian Lai MD LAB BLOOD ORDERABLES Final Resu lt Performing Organization Address City/[facility]/ZIP Co de Phone Number [facility] [address] [place] [address], [place] [phone] * (ABNORMAL) Microalbumin creatinine urine ratio (01/11/2024 9:16 AM EST) Creatinine, Urine 83.0 mg/dL LAB CHEMISTRY METHOD 01/11/2024 10:30 AM EST [facility] Microalb, Ur 84.6(H) 0.0 - 29.0 mg/L LAB CHEMISTRY METHOD 01/11/2024 10:30 AM [facility] Microalb/Crea t Ratio 102(H) <30 mg/g creat LAB CHEMISTRY METHOD 01/11/2024 10:30 AM [facility] Urine Urine specimen obtained by clean catch procedure / Unknown Non-blood Collection / Unknown 01/11/2024 9:16 AM EST 01/11/2024 9:16 AM EST us Damian Lai MD LAB URINE ORDERABLES Final Resu lt [facility] [address] [place] [address], [place] [phone] * (ABNORMAL) Comprehensive metabolic panel (01/11/2024 9:16 AM EST) Sodium 138 133 - 145 mmol/L LAB CHEMISTRY METHOD 01/11/2024 12:02 PM [facility] Potassium 4.1 3.5 - 5.5 mmol/L LAB CHEMISTRY METHOD 01/11/2024 12:02 PM [facility] Chloride 103 96 - 110 mmol/L LAB CHEMISTRY METHOD 01/11/2024 12:02 PM [facility] CO2 28 21 - 32 mmol/L LAB CHEMISTRY METHOD 01/11/2024 12:02 PM [facility] Anion Gap 7 3 - 11 LAB CHEMISTRY METHOD 01/11/2024 12:02 PM [facility] Glucose 114(H) 70 - 100 mg/dL LAB CHEMISTRY METHOD 01/11/2024 12:02 PM [facility] BUN 30(H) 5 - 25 mg/dL LAB CHEMISTRY METHOD 01/11/2024 12:02 PM [facility] Creatinine 1.85(H) 0.70 - 1.30 mg/dL LAB CHEMISTRY METHOD 01/11/2024 12:02 PM [facility] eGFR 43(L) >=60 mL/min/1. 73m2 LAB CHEMISTRY METHOD 01/11/2024 12:02 PM [facility] Comment:Calculation based on the??Chronic Kidney Disease Epidemiology Collaboration (CKD-EPI) equation refit??without adjustment for race. BUN/Creatinine Ratio 16.2 LAB CHEMISTRY METHOD 01/11/2024 12:02 PM [facility] Calcium 9.7 8.5 - 10.5 mg/dL LAB CHEMISTRY METHOD 01/11/2024 12:02 PM [facility] AST (SGOT) 21 10 - 42 unit/L LAB CHEMISTRY METHOD 01/11/2024 12:02 PM [facility] ALT (SGPT) 53 10 - 60 unit/L LAB CHEMISTRY METHOD 01/11/2024 12:02 PM [facility] Alkaline Phosphatase 158(H) 42 - 121 unit/L LAB CHEMISTRY METHOD 01/11/2024 12:02 PM EST [facility] Total Protein 7.4 6.0 - 8.0 g/dL LAB CHEMISTRY METHOD 01/11/2024 12:02 PM EST [facility] Albumin 3.6 3.2 - 5.0 g/dL LAB CHEMISTRY METHOD 01/11/2024 12:02 PM [facility] Total Bilirubin 0.7 0.0 - 1.4 mg/dL LAB CHEMISTRY METHOD 01/11/2024 12:02 PM EST [facility] Blood Venous blood specimen / Unknown Venipuncture / Unknown 01/11/2024 9:16 AM EST 01/11/2024 9:16 AM EST Damian Lai MD LAB BLOOD ORDERABLES Final Resu lt [facility] [address] [place] [address], * Hepatitis C Screening (07/29/2022) Hepatitis C Screening Abstracted Historical Provider HEALTH MAINTENANCE Final Result * Colonoscopy (01/22/2020) Colonoscopy No interpretatio n, abstraced Anatomical Region Laterality Modality Other Historical Richelle RODRIGUEZ HEALTH MAINTENANCE Final Result from Last 3 Months or Most Recently Relevant to Health Maintenance Insurance MEDICARE [place]ICAID [place] Advance Directives Documents on File Type Date Recorded Patient Building Performance Specialist Expl anation Health Care Decision (hx) 07/30/2018 [...] (hx) 07/30/2018 AD SAMUELS DIRECTIVE Care Teams Assessment Services Manager Relationship Specialty Start Date End Date Damian Lai MD [address] [place] [address] PCP - General Internal Medicine 01/16/24
--- OUTSIDE RECORDS SUMMARY | 2024-06-26 15:42 | XMS_ITS | Clinical Summary ---
Author Organization [facility] Address [address] [facility] [address] [place] [address] Phone Care Team Providers Care Art Supervisor Name Role Phone Damian Lai MD Primary Care Provider [phone] Allergies No known active allergies Medications Multiple [...] apnea syndrome 07/24/2014 06/22/2020 Overview (06/22/2020): [facility] [place] Night Diagnostic and Treatment Polysomnogram: Date 03/19/2013; BMI 53; AHI 31, REM AHI 64, Central apneas 2; Obstructive apneas 35; hypopneas 18; average oxygen saturation 93% (lowest 44%); PLMs 0. CPAP trialed and lowest AHI on therapy of 6 was 9.3. [facility] [place] Split Night Diagnostic and [...] 50+ Ye ars (2 of 2 - PPSV23, PCV20, or PCV21) 11/11/2016 09/16/2016 Colorectal Cancer Screening: Annual FOBT [...] % PVNMA 07/30/2019 us [facility] [id number] LICITED RESULTS Final Result PVNMA from Last 3 Months or Most Recently Relevant to Health Maintenance Insurance Medicare Medicaid [place] Care Teams Art Supervisor Relationship Specialty Start Date End Date Damian Lai MD PCP - General 02/17/20
--- OUTSIDE RECORDS SUMMARY | 2024-06-26 15:42 | XMS_ITS | Encounter Summary ---
Author Organization [facility] Address [address] [place] [address] Care Team Providers Care Manager Content Name Role Phone Damian Lai MD Primary Care Provider [phone] Encounter Details Date Type Department Care Team Description 11/10/2017 Hospital Medical Records [address] [place] [address] Giovana Perkins MD Social History Tobacco Use [...] on filedocumented in this encounter Care Teams Manager Content Relationship Specialty Start Date End Date Damian Lai MD [address] [place] [address] PCP - General Internal Medicine 04/01/14 documented as of this encounter
--- OUTSIDE RECORDS SUMMARY | 2024-06-26 15:42 | XMS_ITS | Encounter Summary ---
Author Organization [facility] Address [address] [place] [address] Care Team Providers Care Airways Operations Specialist Name Role Phone Damian Lai MD Primary Care Provider [phone] Encounter Details Date Type Department Care Team Description 06/28/2016 Night Triage Doc Medical Records [address] [place] [address] Abstract, Provider Social History Tobacco Use Types [...] on filedocumented in this encounter Care Teams Airways Operations Specialist Relationship Specialty Start Date End Date Damian Lai MD [address] [place], [place] [phone] PCP - General Internal Medicine 04/01/14 documented as of this encounter
--- OUTSIDE RECORDS SUMMARY | 2024-06-26 15:42 | XMS_ITS | Encounter Summary ---
Author Organization [facility] Address [address] [place] [address] Care Team Providers Care Compounding Pharmacy Technician Name Role Phone Damian Lai MD Primary Care Provider [phone] Encounter Details Date Type Department Care Team Description 12/06/2018 Field Crop Harvest Contractor Report Medical Records [address] [place] [address] Abstract, Provider Social History Tobacco Use Types [...] on filedocumented in this encounter Care Teams Compounding Pharmacy Technician Relationship Specialty Start Date End Date Damian Lai MD [address] [place], [place] [phone] PCP - General Internal Medicine 04/01/14 documented as of this encounter
--- OUTSIDE RECORDS SUMMARY | 2024-06-26 15:42 | XMS_ITS | Encounter Summary ---
Author Organization [facility] Address [address] [place] [address] Care Team Providers Care Gas Pipe Layer Name Role Phone Damian Lai MD Primary Care Provider [phone] Encounter Details Date Type Department Care Team Description 04/16/2019 Bolt Maker Report Medical Records 4 [place] [address] Ruddy Mcconnell MD Social History Tobacco Use [...] on filedocumented in this encounter Care Teams Gas Pipe Layer Relationship Specialty Start Date End Date Damian Lai MD [address] [place], [place] [phone] PCP - General Internal Medicine 04/01/14 documented as of this encounter
--- OUTSIDE RECORDS SUMMARY | 2024-06-26 15:42 | XMS_ITS | Encounter Summary ---
Author Organization [facility] Address [address] [place] [address] Care Team Providers Care Hand Loom Weaver Name Role Phone Damian Lai MD Primary Care Provider Encounter Details Date Type Department Care Team Description 01/07/2015 Collections Technician Report Medical Records [address] [place] [address] Angela Dumont Social History Tobacco Use Types [...] on filedocumented in this encounter Care Teams Hand Loom Weaver Relationship Specialty Start Date End Date Damian Lai MD [address] [place], [place] [phone] PCP - General Internal Medicine 04/01/14 documented as of this encounter
--- OUTSIDE RECORDS SUMMARY | 2024-06-26 15:42 | XMS_ITS | Encounter Summary ---
Author Organization [facility] Address [address] [place] [address] Care Team Providers Care Bar Machine Operator Production Name Role Phone Damian Lai MD Primary Care Provider Encounter Details Date Type Department Care Team Description 01/23/2015 Business Doc Medical Records [address] [place] [address] Abstract, Provider Social History Tobacco Use Types [...] on filedocumented in this encounter Care Teams Bar Machine Operator Production Relationship Specialty Start Date End Date Damian Lai MD [address] [place], [place] [phone] PCP - General Internal Medicine 04/01/14 documented as of this encounter
--- OUTSIDE RECORDS SUMMARY | 2024-06-26 15:42 | XMS_ITS | Encounter Summary ---
Author Organization [facility] Address [address] [place] [address] Care Team Providers Care Chha Name Role Phone Damian Lai MD Primary Care Provider [phone] Reason for Visit * Reason Comments E-prescribe Rx Request Encounter Details Date Type Department Care Team Description 11/04/2022 Refill Endocrinology - [address] [address] Lindy Gutierrez PA-C [address] [place] [address] E-prescribe Rx Request Social History Tobacco Use [...] suspected to have Coronavirus/COVID-19? No / Unsure 11/02/2022 9:50 AM EDT documented as of this encounter Miscellaneous Notes * Telephone Encounter - Katharine Guillory - 11/04/2022 1:41 PM EDT Steven 9/27/23 Ov 02/01/23 Lab Results Component Value Date HGBA1C 8.1 11/02/2022 MALBUR 187.0 03/30/2022 MALBCR 434.8 03/30/2022 CHOL 196 03/30/2022 LDL TNP 03/30/2022 HDL 31 03/30/2022 TRIG 594 03/30/2022 GLU 149 11/02/2022 CREAT 1.53 11/02/2022 documented in this encounter Plan of Treatment Not on file documented as of this encounter Visit Diagnoses Not on filedocumented in this encounter Care Teams Chha Relationship Specialty Start Date End Date Damian Lai MD [address] [place] [address] PCP - General Internal Medicine 04/01/14 documented as of this encounter
--- OUTSIDE RECORDS SUMMARY | 2024-06-26 15:42 | XMS_ITS | Encounter Summary ---
Author Organization [facility] Address [address] [place] [address] Care Team Providers Care Compact Assembler Name Role Phone Damian Lai MD Primary Care Provider [phone] Encounter Details Date Type Department Care Team Description 03/30/2015 Software Installer Report Medical Records [address] [place] [address] Emily Arriaga MD Social History Tobacco Use [...] on filedocumented in this encounter Care Teams Compact Assembler Relationship Specialty Start Date End Date Damian Lai MD [address] [place] [address] PCP - General Internal Medicine 04/01/14 documented as of this encounter
--- OUTSIDE RECORDS SUMMARY | 2024-06-26 15:42 | XMS_ITS | Encounter Summary ---
Author Organization [facility] Address [address] [place] [address] Care Team Providers Care Investigator Claims Name Role Phone Damian Lai MD Primary Care Provider [phone] Encounter Details Date Type Department Care Team Description 02/20/2019 Hospital Medical Records [address] [place] [address] Thiago Faria MD Social History Tobacco Use Types Packs/Day [...] on filedocumented in this encounter Care Teams Investigator Claims Relationship Specialty Start Date End Date Damian Lai MD [address] [place] [address] PCP - General Internal Medicine 04/01/14 documented as of this encounter
--- OUTSIDE RECORDS SUMMARY | 2024-06-26 15:42 | XMS_ITS | Encounter Summary ---
Author Organization [facility] Address [address] [place] [address] Care Team Providers Care Deli Manager Name Role Phone Damian Lai MD Primary Care Provider [phone] Encounter Details Date Type Department Care Team Description 10/14/2018 Sash Sticker Report Medical Records [address] [place] [address] Abstract, Provider Social History Tobacco Use Types [...] on filedocumented in this encounter Care Teams Deli Manager Relationship Specialty Start Date End Date Damian Lai MD [address] [place], [place] [phone] PCP - General Internal Medicine 04/01/14 documented as of this encounter
--- OUTSIDE RECORDS SUMMARY | 2024-06-26 15:42 | XMS_ITS | Encounter Summary ---
Author Organization [facility] Address [address] [place] [address] Care Team Providers Care Senior Portfolio Analyst Name Role Phone Damian Lai MD Primary Care Provider [phone] Encounter Details Date Type Department Care Team Description 12/13/2018 Hospital Medical Records [address] [place] [address] Social History Tobacco Use Types Packs/Day Years [...] on filedocumented in this encounter Care Teams Senior Portfolio Analyst Relationship Specialty Start Date End Date Damian Lai MD [address] [place], [place] [phone] PCP - General Internal Medicine 04/01/14 documented as of this encounter
--- OUTSIDE RECORDS SUMMARY | 2024-06-26 15:42 | XMS_ITS | Encounter Summary ---
Author Organization [facility] Address [address] [place] [address] Care Team Providers Care Cowlman Name Role Phone Damian Lai MD Primary Care Provider [phone] Encounter Details Date Type Department Care Team Description 02/15/2018 Production Sorter Report Medical Records [address] [place] [address] Ruddy Mcconnell MD Social History Tobacco Use [...] on filedocumented in this encounter Care Teams Cowlman Relationship Specialty Start Date End Date Damian Lai MD [address] [place], [place] [phone] PCP - General Internal Medicine 04/01/14 documented as of this encounter
--- OUTSIDE RECORDS SUMMARY | 2024-06-26 15:42 | XMS_ITS | Encounter Summary ---
Author Organization [facility] Address [address] [place] [address] Care Team Providers Care Car Repairer Pullman Name Role Phone Damian Lai MD Primary Care Provider [phone] Encounter Details Date Type Department Care Team Description 04/15/2019 Institution Librarian Report Medical Records [address] [place] [address] Emily Arriaga MD Social History Tobacco Use [...] filedocumented in this encounter Care Teams Car Repairer Pullman Relationship Specialty Start Date End Date Damian Lai MD [address] [place], [place] [phone] PCP - General Internal Medicine 04/01/14 documented as of this encounter
--- OUTSIDE RECORDS SUMMARY | 2024-06-26 15:42 | XMS_ITS | Encounter Summary ---
Author Organization [facility] Address [address] [place] [address] Care Team Providers Care Tree Killer Name Role Phone Damian Lai MD Primary Care Provider [phone] Reason for Visit * Reason Onset Date Comments Advice 10/01/2020 Encounter Details Date Type Department Care Team Description 10/01/2020 Telephone General Surgery - [address] [place] [address] Yamlie Norton, ,NIKI,LDN Advice Social History Tobacco Use [...] on filedocumented in this encounter Care Teams Tree Killer Relationship Specialty Start Date End Date Damian Lai MD [address] [place] [address] PCP - General Internal Medicine 04/01/14 documented as of this encounter
--- OUTSIDE RECORDS SUMMARY | 2024-06-26 15:42 | XMS_ITS | Encounter Summary ---
Author Organization [facility] Address [address] [place] [address] Care Team Providers Care Press Operator Automatic Name Role Phone Damian Lai MD Primary Care Provider [phone] Encounter Details Date Type Department Care Team Description 11/11/2014 Orders Only Adult Medicine [address] [address] Meir Phillips PA-C Routine general medical examination at a health care facility (Primary Dx) Social History Tobacco Use Types [...] documented as of this encounter Results * BASIC METABOLIC PANEL (11/19/2014 2:48 PM EDT) GLUCOSE 98 70 - 100 mg/dL 11/19/2014 4:10 PM EDT [facility] Comment: Reference range applicable to fasting specimens only Based on recommendations from the ADA and AACE, the fasting glucose reference range has been changed to 70-100 mg/dL. ??This change is effective June 22, 2009 BUN 17 5 - 25 mg/dL 11/19/2014 4:10 PM EDT [facility] CREAT 1.2 0.7 - 1.5 mg/dL 11/19/2014 4:10 PM EDT [facility] GFR > 60 >60 11/19/2014 4:10 PM EDT [facility] Comment: If patient is -Citizen Of The [place], multiply result by 1.21 Chronic Kidney Disease: < 60 ml/min/1.73 square meters Kidney Failure: < 15 ml/min/1.73 square meters Sodium 142 133 - 145 mEq/L 11/19/2014 4:10 PM EDT [facility] Potassium 4.6 3.5 - 5.5 mEq/L 11/19/2014 4:10 PM EDT [facility] Chloride 102 96 - 108 mEq/L 11/19/2014 4:10 PM EDT [facility] CO2 28.3 21.0 - 32.0 mEq/L 11/19/2014 4:10 PM EDT [facility] CALCIUM 9.6 8.5 - 10.5 mg/dL 11/19/2014 4:10 PM EDT [facility] 11/19/2014 2:48 PM EDT 11/19/2014 2:48 PM EDT Meir Phillips PA-C [facility] 4 [facility] documented in this encounter Visit Diagnoses Diagnosis Routine general medical examination at a health care facility- Primary documented in this encounter Care Teams Press Operator Automatic Relationship Specialty Start Date End Date Damian Lai MD [address] [place] [address] PCP - General Internal Medicine 04/01/14 documented as of this encounter
--- OUTSIDE RECORDS SUMMARY | 2024-06-26 15:42 | XMS_ITS | Encounter Summary ---
Author Organization [facility] Address [address] [place] [address] Care Team Providers Care Shopper'S Aide Name Role Phone Damian Lai MD Primary Care Provider [phone] Encounter Details Date Type Department Care Team Description 01/24/2018 Orders Only Medical Records [address] [place] [address] Abstract, Provider Social History Tobacco Use Types [...] on filedocumented in this encounter Care Teams Shopper'S Aide Relationship Specialty Start Date End Date Damian Lai MD [address] [place] [address] PCP - General Internal Medicine 04/01/14 documented as of this encounter
--- OUTSIDE RECORDS SUMMARY | 2024-06-26 15:42 | XMS_ITS | Encounter Summary ---
Author Organization [facility] Address [address] [place] [address] Care Team Providers Care Machine Heddle Cleaner Name Role Phone Damian Lai MD Primary Care Provider [phone] Encounter Details Date Type Department Care Team Description 11/09/2017 Hospital Medical Records 4 [place] [address] Genny Dumont PA Social History Tobacco Use Types Packs/Day Years [...] on filedocumented in this encounter Care Teams Machine Heddle Cleaner Relationship Specialty Start Date End Date Damian Lai MD 4 [place] [address] PCP - General Internal Medicine 04/01/14 documented as of this encounter
--- OUTSIDE RECORDS SUMMARY | 2024-06-26 15:42 | XMS_ITS | Encounter Summary ---
Author Organization [facility] Address [address] [place] [address] Care Team Providers Care Kaiako Kura Kaupapa Maori Name Role Phone Damian Lai MD Primary Care Provider [phone] Encounter Details Date Type Department Care Team Description 06/03/2022 Pt. Non Urgent Medical Question Endocrinology - [address] [address] Lindy Gutierrez PA-C [address] [place] [address] Social History Tobacco Use Types Packs/Day Years [...] suspected to have Coronavirus/COVID-19? No / Unsure 06/01/2022 1:55 PM EDT documented as of this encounter Miscellaneous Notes * Telephone Encounter - Sara Gibson M.A. - 06/03/2022 12:49 PM EDTFrom: Zac Ahmadi To: Gume Gutierrez Sent: 06/03/2022 12:15 PM EDT Subject: Blood Sugar Good Afternoon This is Zac Ahmadi. I see you again on MondayJune 08. I just took my blood sugar and it was 595before lunchtime. I am taking the 20 units of the U-500 in the morning. Can someone call me back tosee if I need to take more U-500 today. documented in this encounter Plan of Treatment Not on file documented as of this encounter Visit Diagnoses Not on filedocumented in this encounter Care Teams Kaiako Kura Ka[place] Maori Relationship Specialty Start Date End Date Damian Lai MD [address] [place] [address] PCP - General Internal Medicine 04/01/14 documented as of this encounter
--- OUTSIDE RECORDS SUMMARY | 2024-06-26 15:42 | XMS_ITS | Encounter Summary ---
Author Organization [facility] Address [address] [place] [address] Care Team Providers Care Surgical Instrument Mechanic Name Role Phone Damian Lai MD Primary Care Provider [phone] Reason for Visit * Reason Onset Date Comments medication problems 05/20/2020 Encounter Details Date Type Department Care Team Description 05/20/2020 Telephone Internal Medicine - [address], [address] [place] [address] Giovanni Chatman PA-C medication problems Social History [...] on filedocumented in this encounter Care Teams Surgical Instrument Mechanic Relationship Specialty Start Date End Date Damian Lai MD [address] [place] [address] PCP - General Internal Medicine 04/01/14 documented as of this encounter
--- OUTSIDE RECORDS SUMMARY | 2024-06-26 15:42 | XMS_ITS | Encounter Summary ---
Author Organization [facility] Address [address] [place] [address] Care Team Providers Care Information Technology Security Manager Name Role Phone Damian Lai MD Primary Care Provider [phone] Encounter Details Date Type Department Care Team Description 10/14/2014 Bank Appraiser Report Medical Records [address] [place] [address] Ruddy Mcconnell MD Social History Tobacco Use [...] on filedocumented in this encounter Care Teams Information Technology Security Manager Relationship Specialty Start Date End Date Damian Lai MD [address] [place], [place] [phone] PCP - General Internal Medicine 04/01/14 documented as of this encounter
--- OUTSIDE RECORDS SUMMARY | 2024-06-26 15:42 | XMS_ITS | Encounter Summary ---
Author Organization [facility] Address [address] [place] [address] Care Team Providers Care Research Physiologist Name Role Phone Damian Lai MD Primary Care Provider [phone] Encounter Details Date Type Department Care Team Description 11/04/2020 Gambling Broker Report Medical Records [address] [place] [address] Emily Arriaga MD Social History Tobacco Use [...] filedocumented in this encounter Care Teams Research Physiologist Relationship Specialty Start Date End Date Damian Lai MD [address] [place] [address] PCP - General Internal Medicine 04/01/14 documented as of this encounter
--- OUTSIDE RECORDS SUMMARY | 2024-06-26 15:42 | XMS_ITS | Encounter Summary ---
Author Organization [facility] Address [address] [place] [address] Care Team Providers Care Plastics Fabricator Or Welder Name Role Phone Damian Lai MD Primary Care Provider [phone] Reason for Visit * Reason Onset Date Comments Transitional Care Management (Tcm) 11/15/2017 TCM post d/c [facility] 11/13/17 Encounter Details Date Type Department Care Team Description 11/15/2017 Telephone Adult Medicine [facility] [address] [place], [place] [address] Damian Lai MD [address] [place] [phone] Transitional Care Management (Tcm) (TCM post d/c [facility] 11/13/17) Social History Tobacco Use Types Packs/Day [...] hx daibetic foot ulcer was admitted to [facility] on 11/09/17 with right diabetic foot infection and abcess near right first MTP joint and likely involving the MTP joint On 10/18/17 patient underwent debridement and wound swab grew E faecalis and MSSA. Treatment was for2 weeks of Naficillin, Patient reported continuation of pain and erythema. He denied fever, chills or rigors. F/U with PCP and Podiatry and patient referred to [facility] for eval and IV antibiodic therapy. On admission MRI showed abnormal persistentright great toe infectious inflammatory process and soft tissue ulceration without interval developing enhancing bone marrow edema by contrast MRI when compared to 10/18/17 ID consulted and ultimately patient placed on po Augmentin prior to discharge. Patient discharged to home on 11/13/17 with [facility] Vna services ordered Quality Outreach: Hospital Discharge Admission Date: 11/09/17 Discharge Date: 11/13/17 Hospital: [facility] Problem or condition that sent patient [...] home care services have been ordered. Agency: [facility] Changes in condition since discharge: Patients statement [...] to follow- up appointment. [facility] reminded [facility]. Instructed to call office or return to ER if symptoms return or worsen. Plan for care management: No care management needed at this time. documented in this encounter Plan of Treatment Not on file documented as of this encounter Visit Diagnoses Not on filedocumented in this encounter Care Teams Plastics Fabricator Or Welder Relationship Specialty Start Date End Date Damian Lai MD [address] [place] [address] PCP - General Internal Medicine 04/01/14 documented as of this encounter
--- OUTSIDE RECORDS SUMMARY | 2024-06-26 15:42 | XMS_ITS | Encounter Summary ---
Author Organization [facility] Address [address] [place] [address] Care Team Providers Care Inserting Machine Operator Name Role Phone Damian Lai MD Primary Care Provider [phone] Encounter Details Date Type Department Care Team Description 07/23/2019 Maternal Fetal Physician Report Medical Records [address] [place] [address] Ruddy Mcconnell MD Social History Tobacco Use [...] on filedocumented in this encounter Care Teams Inserting Machine Operator Relationship Specialty Start Date End Date Damian Lai MD [address] [place], [place] [phone] PCP - General Internal Medicine 04/01/14 documented as of this encounter
--- OUTSIDE RECORDS SUMMARY | 2024-06-26 15:42 | XMS_ITS | Encounter Summary ---
Author Organization [facility] Address [address] [place] [address] Care Team Providers Care Machine Shop Repair Technician Name Role Phone Damian Lai MD Primary Care Provider [phone] Encounter Details Date Type Department Care Team Description 07/11/2014 Release of Information Medical Records [address] [place] [address] Abstract, Provider Social History Tobacco Use Types [...] filedocumented in this encounter Care Teams Machine Shop Repair Technician Relationship Specialty Start Date End Date Damian Lai MD [address] [place] [phone] PCP - General Internal Medicine 04/01/14 documented as of this encounter
--- OUTSIDE RECORDS SUMMARY | 2024-06-26 15:42 | XMS_ITS | Encounter Summary ---
Author Organization [facility] Address [address] [place] [address] Care Team Providers Care Motor Vehicle Technician Name Role Phone Damian Lai MD Primary Care Provider [phone] Encounter Details Date Type Department Care Team Description 06/23/2020 Mechanical Product Design Engineer Report Medical Records [address] [place] [address] Ruddy Mcconnell MD Social History Tobacco Use [...] have Coronavirus / COVID-19? No / Unsure 06/23/2020 8:37 AM EDT documented as of this encounter Plan of Treatment Not on file documented as of this encounter Visit Diagnoses Not on filedocumented in this encounter Care Teams Motor Vehicle Technician Relationship Specialty Start Date End Date Damian Lai MD [address] [place] [address] PCP - General Internal Medicine 04/01/14 documented as of this encounter
--- OUTSIDE RECORDS SUMMARY | 2024-06-26 15:43 | XMS_ITS | Encounter Summary ---
Author Organization [facility] Address [address] [place] [address] Care Team Providers Care Nuclear Process Engineer Name Role Phone Damian Lai MD Primary Care Provider [phone] Encounter Details Date Type Department Care Team Description 03/11/2021 Rigging Foreman Report Medical Records [address] [place] [address] Thiago Faria MD Social History Tobacco Use [...] on filedocumented in this encounter Care Teams Nuclear Process Engineer Relationship Specialty Start Date End Date Damian Lai MD [address] [place], [place] [phone] PCP - General Internal Medicine 04/01/14 documented as of this encounter
--- OUTSIDE RECORDS SUMMARY | 2024-06-26 15:43 | XMS_ITS | Encounter Summary ---
Author Organization [facility] Address [address] [place] [address] Care Team Providers Care Taxonomy Teacher Name Role Phone Damian Lai MD Primary Care Provider Encounter Details Date Type Department Care Team Description 10/17/2017 Hospital Medical Records [address] [place] [address] Chavo Mantilla Social History Tobacco Use Types [...] on filedocumented in this encounter Care Teams Taxonomy Teacher Relationship Specialty Start Date End Date Damian Lai MD [address] [place], [place] [phone] PCP - General Internal Medicine 04/01/14 documented as of this encounter
--- OUTSIDE RECORDS SUMMARY | 2024-06-26 15:43 | XMS_ITS | Encounter Summary ---
Author Organization [facility] Address [address] [place] [address] Care Team Providers Care Tow Motor Driver Name Role Phone Damian Lai MD Primary Care Provider [phone] Reason for Visit * Reason Onset Date Comments Rectal Bleeding 10/08/2017 Encounter Details Date Type Department Care Team Description 10/08/2017 Pt. Non Urgent Medical Question Adult Medicine [address] [phone] Damian Lai MD [address] [place] [address] [phone] Social History Tobacco Use Types Packs/Day Years [...] as of this encounter Progress Notes * Maricruz Sommers M.A. - 10/10/2017 8:19 AM EDTFrom: Zac Ahmadi To: Damian Lai MD Sent: 10/08/2017 11:30 PM EDT Subject: Bleeding Hello This is Zac Ahamdi. My date of is 07/19/17. I am having an issue. I am bleeding somewhere very close near or on my butt. Looking to see if I can see someone BETTY. documented in this encounter Plan of Treatment Not on file documented as of this encounter Visit Diagnoses Not on filedocumented in this encounter Care Teams Tow Motor Driver Relationship Specialty Start Date End Date Damian Lai MD [address] [place] [address] PCP - General Internal Medicine 04/01/14 documented as of this encounter
--- OUTSIDE RECORDS SUMMARY | 2024-06-26 15:43 | XMS_ITS | Encounter Summary ---
Author Organization [facility] Address [address] [place] [address] Care Team Providers Care Manager Of Medical Name Role Phone Damian Lai MD Primary Care Provider Encounter Details Date Type Department Care Team Description 05/11/2016 Commercial Announcer Report Medical Records [address] [place] [address] Emily Arriaga MD Social History Tobacco Use [...] filedocumented in this encounter Care Teams Manager Of Medical Relationship Specialty Start Date End Date Damian Lai MD [address] [place], [place] [phone] PCP - General Internal Medicine 04/01/14 documented as of this encounter
--- OUTSIDE RECORDS SUMMARY | 2024-06-26 15:43 | XMS_ITS | Encounter Summary ---
Author Organization [facility] Address [address] [place] [address] Care Team Providers Care Business Objects Name Role Phone Damian Lai MD Primary Care Provider [phone] Encounter Details Date Type Department Care Team Description 04/12/2016 Ladle Filler Report Medical Records [address] [place] [address] Emily Arriaga MD Social History Tobacco Use [...] filedocumented in this encounter Care Teams Business Objects Relationship Specialty Start Date End Date Damian Lai MD [address] [place], [place] [phone] PCP - General Internal Medicine 04/01/14 documented as of this encounter
--- OUTSIDE RECORDS SUMMARY | 2024-06-26 15:43 | XMS_ITS | Encounter Summary ---
Author Organization [facility] Address [address] [place] [address] Care Team Providers Care Maintenance Mechanic Engine Name Role Phone Damian Lai MD Primary Care Provider [phone] Encounter Details Date Type Department Care Team Description 08/17/2017 Communications Media Professor Report Medical Records [address] [place] [address] Ruddy Mcconnell MD Social History Tobacco Use [...] on filedocumented in this encounter Care Teams Maintenance Mechanic Engine Relationship Specialty Start Date End Date Damian Lai MD [address] [place], [place] [phone] PCP - General Internal Medicine 04/01/14 documented as of this encounter
--- OUTSIDE RECORDS SUMMARY | 2024-06-26 15:43 | XMS_ITS | Encounter Summary ---
Author Organization [facility] Address [address] [place] [address] Care Team Providers Care Air Cargo Agent Name Role Phone Damian Lai MD Primary Care Provider [phone] Encounter Details Date Type Department Care Team Description 10/23/2017 Hospital Medical Records [address] [place] [address] Abstract, Provider Social History Tobacco Use Types [...] on filedocumented in this encounter Care Teams Air Cargo Agent Relationship Specialty Start Date End Date Damian Lai MD [address] [place], [place] [phone] PCP - General Internal Medicine 04/01/14 documented as of this encounter
--- OUTSIDE RECORDS SUMMARY | 2024-06-26 15:43 | XMS_ITS | Encounter Summary ---
Author Organization [facility] Address [address] [place] [address] Care Team Providers Care Radiology Scheduler Name Role Phone Damian Lai MD Primary Care Provider [phone] Encounter Details Date Type Department Care Team Description 07/04/2023 Refill Endocrinology - [place] [address] [place] [address] Lindy Gutierrez PA-C [address] [place] [address] Social History Tobacco Use Types Packs/Day Years [...] encounter Miscellaneous Notes * Telephone Encounter - Sammie Sterling C.M.A. 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
--- OUTSIDE RECORDS SUMMARY | 2024-06-26 15:43 | XMS_ITS | Encounter Summary ---
Author Organization [facility] Address [address] [place] [address] Care Team Providers Care Biomedical Instrument Technician Name Role Phone Damian Lai MD Primary Care Provider [phone] Encounter Details Date Type Department Care Team Description 02/19/2016 Bacteriologist Fishery Report Medical Records [address] [place] [address] Ruddy Mcconnell MD Social History Tobacco Use [...] on filedocumented in this encounter Care Teams Biomedical Instrument Technician Relationship Specialty Start Date End Date Damian Lai MD [address] [place], [place] [phone] PCP - General Internal Medicine 04/01/14 documented as of this encounter
--- OUTSIDE RECORDS SUMMARY | 2024-06-26 15:43 | XMS_ITS | Encounter Summary ---
Author Organization [facility] Address [address] [place] [address] Care Team Providers Care Front Office Help Name Role Phone Damian Lai MD Primary Care Provider [phone] Reason for Visit * Reason Comments E-prescribe Rx Request losartan (COZAAR) 100 MG tablet Encounter Details Date Type Department Care Team Description 03/31/2023 Refill Adult Medicine [facility] [address] [place] [address] [phone] Damian Lai MD [address] [place] [address] [phone] E-prescribe Rx Request (losartan (COZAAR) 100 MG tablet) Social History Tobacco Use [...] encounter Miscellaneous Notes * Telephone Encounter - Gayla Israel M.A. - 03/31/2023 3:48 PM EST JULIO C 11/09/2022 F/U appt 05/18/2023 30 day supply pending fasting labs Lab Results Component Value Date NA 143 11/02/2022 K 4.1 11/02/2022 CO2 30 11/02/2022 CL 106 11/02/2022 BUN 19 11/02/2022 CREAT 1.53 11/02/2022 GLU 163 02/01/2023 CA 8.8 11/02/2022 GFR 54 11/02/2022 * Telephone Encounter - Eduin Oswald - 03/31/2023 8:58 AM EST Patient would like script to be: E-PRESCRIBED/FAXED TO PHARMACY WHEN WAS THE PATIENT'S LAST APPOINTMENT IN ADULT MEDICINE? 11/09/2022 WHEN WAS THE LAST TIME THE PATIENT SAW THEIR PCP? Never seen PCP, future appointment with PCP booked Does patient have an upcoming appointment? Yes 05/18/2023 (THE MEDICATION REQUESTED IS ON THE MED [...] / Plan: [place] / Product Type: MEDICARE [id number] documented in this encounter Plan of Treatment Not on file documented as of this encounter Visit Diagnoses Not on filedocumented in this encounter Care Teams Front Office Help Relationship Specialty Start Date End Date Damian Lai MD [address] [place] [address] PCP - General Internal Medicine 04/01/14 documented as of this encounter
--- OUTSIDE RECORDS SUMMARY | 2024-06-26 15:43 | XMS_ITS | Encounter Summary ---
Author Organization [facility] Address [address] [place] [address] Care Team Providers Care Integrity Specialist Name Role Phone Damian Lai MD Primary Care Provider [phone] Encounter Details Date Type Department Care Team Description 10/17/2017 Hospital Medical Records [address] [place] [address] Chad Siegel, DPM Social History Tobacco Use [...] on filedocumented in this encounter Care Teams Integrity Specialist Relationship Specialty Start Date End Date Damian Lai MD [address] [place], [place] [phone] PCP - General Internal Medicine 04/01/14 documented as of this encounter
--- OUTSIDE RECORDS SUMMARY | 2024-06-26 15:43 | XMS_ITS | Encounter Summary ---
Author Organization [facility] Address [address] [place] [address] Care Team Providers Care Drop Hammer Set Up Operator Name Role Phone Damian Lai MD Primary Care Provider [phone] Encounter Details Date Type Department Care Team Description 11/30/2015 Hospital Medical Records [address] [place] [address] Kirti Fink MD [address] [place] [address] Social History Tobacco Use Types Packs/Day Years [...] on filedocumented in this encounter Care Teams Drop Hammer Set Up Operator Relationship Specialty Start Date End Date Damian Lai MD [address] [place] [address] PCP - General Internal Medicine 04/01/14 documented as of this encounter
--- OUTSIDE RECORDS SUMMARY | 2024-06-26 15:43 | XMS_ITS | Encounter Summary ---
Author Organization [facility] Address [address] [place] [address] Care Team Providers Care It Consulting Director Name Role Phone Damian Lai MD Primary Care Provider [phone] Encounter Details Date Type Department Care Team Description 12/28/2016 Canvass Manager Report Medical Records [address] [place] [address] Emily Arriaga MD Social History Tobacco Use [...] filedocumented in this encounter Care Teams It Consulting Director Relationship Specialty Start Date End Date Damian Lai MD [address] [place], [place] [phone] PCP - General Internal Medicine 04/01/14 documented as of this encounter
--- OUTSIDE RECORDS SUMMARY | 2024-06-26 15:43 | XMS_ITS | Encounter Summary ---
Author Organization [facility] Address [address] [place] [address] Care Team Providers Care Cdl B Driver Name Role Phone Damian Lai MD Primary Care Provider [phone] Reason for Visit * Reason Onset Date Comments Faxed Order 06/23/2015 Encounter Details Date Type Department Care Team Description 06/23/2015 Telephone Adult Medicine [facility] [address] [place] [address] Damian Lai MD [address] [place] [address] Faxed Order Social History Tobacco Use Types Packs/Day Years [...] encounter Miscellaneous Notes * Telephone Encounter - Sarah Tamez - 06/23/2015 1:39 PM EDT Sign confirmation order for cpap supplies. Please fax to health system at [phone] documented in this encounter Plan of Treatment Not on file documented as of this encounter Visit Diagnoses Not on filedocumented in this encounter Care Teams Cdl B Driver Relationship Specialty Start Date End Date Damian Lai MD [address] [place] [address] PCP - General Internal Medicine 04/01/14 documented as of this encounter
--- OUTSIDE RECORDS SUMMARY | 2024-06-26 15:43 | XMS_ITS | Encounter Summary ---
Author Organization [facility] Address [address] [place] [address] Care Team Providers Care Heel Sander Rubber Name Role Phone Damian Lai MD Primary Care Provider [phone] Encounter Details Date Type Department Care Team Description 09/28/2017 Business Doc Medical Records [address] [place] [address] Abstract, Provider Social History Tobacco Use Types [...] on filedocumented in this encounter Care Teams Heel Sander Rubber Relationship Specialty Start Date End Date Damian Lai MD [address] [place], [place] [phone] PCP - General Internal Medicine 04/01/14 documented as of this encounter
--- OUTSIDE RECORDS SUMMARY | 2024-06-26 15:43 | XMS_ITS | Data Portability ---
Author Organization [facility] [address] Address [address] [place] [address] Assessment No assessment recorded. Plan of Treatment Reminders Order Date Submit Date Provider Last Modified By Organization Details Last Modified Time Details Appointments None recorded. Lab SARS CoV 2 (COVID-19) Ag, QL, IA, upper respiratory specimen 2023 024 [email or web address] [place], [address], 4 15:09:10 rapid strep group A, throat 2023 024 [email or web address] [address], [address] [place], [address], 4 11:07:23 SARS CoV 2 (COVID-19) Ag, QL, IA, upper respiratory specimen 2023 024 [email or web address] [address], [address] [place], [address], 4 11:07:24 rapid flu (A+B) 2023 024 [email or web address] [address], [address] [place], [address], 4 11:07:25 Referral None recorded. Procedures None recorded. Surgeries None recorded. Imaging None recorded. Medication Orders benzonatate 200 mg capsule 2023 024 [id number], [address] [place], [place], [phone], 4 15:09:17 Paxlovid 300 mg (150 mg x 2)-100 mg tablets in a dose pack 2023 024 [facility] #[id number], [address] [place], [place], [phone], 14:44:08 acetaminoph en 325 mg tablet 2023 024 [email or web address] Not available 11:19:32 Patient TargetsNo targets recorded. Patient Instructions Encounter Date Encounter Id Patient Instructions Last Modified By Organization Details Last Modified Time 08/12/2023 [id number] cough: care instructions [email or web address] Not available 08/12/2023 15:09:09 Reason for Referral None Reported. Results Created Date Observation Date Name Description Value Unit Range Abnormal Flag Note LastModifiedBy Organization Detail LastModifiedTime 08/01/19 24 08/01/2023 SARS CoV 2 (COVI D-19) Ag, QL, IA, upper respi rator y speci men Unknown Analyte positi ve Not Available [address] [place], [address], 08/01/2023 10:32:04 08/01/19 24 08/01/2023 SARS CoV 2 (COVI D-19) Ag, QL, IA, upper respi rator y speci men Unknown Analyte yes Not Available [address] [place], [address], 08/01/2023 10:32:04 08/01/19 24 08/01/2023 rapid flu (A+B) Unknown Analyte negati ve Not Available [address] [place], [address], 08/01/2023 10:32:17 08/01/19 24 08/01/2023 rapid flu (A+B) Unknown Analyte negati ve Not Available [address] [place], [address], 08/01/2023 10:32:17 08/01/19 24 08/01/2023 rapid flu (A+B) Unknown Analyte yes Not Available [address] [place] [address] [address] [place], [address], 08/01/2023 10:32:17 08/01/19 24 08/01/2023 rapid strep group A, throa t Unknown Analyte negati ve Not Available [address] [place] [address], [address], 08/01/2023 10:31:57 08/01/19 24 08/01/2023 rapid strep group A, throa t Unknown Analyte yes Not Available [address] [place] [address] [address] [place], [address], 08/01/2023 10:31:57 08/12/19 24 08/12/2023 SARS CoV 2 (COVI D-19) Ag, QL, IA, upper respi rator y speci men Unknown Analyte negati ve Not Available [address] [place] [address], [address], 08/12/2023 14:52:00 08/12/19 24 08/12/2023 SARS CoV 2 (COVI D-19) Ag, QL, IA, upper respi rator y speci men Unknown Analyte yes Not Available [address] [place] [address] [address] [place], [address], 08/12/2023 14:52:00 Result Notes None recorded. Problems Name Problem SNOMED Code Status Onset Date Resolution Date Notes Provider Name and Address Organization Details Recorded Time Diabetes mellitus 07768865 Active SUMANTH Nelson - [facility] 4 10:24:58 Hypertensive disorder 82626925 Active Agustina [facility] Wood [facility] 4 10:25:06 Hypercholestero lemia 60239597 Active Agustina SUMAN[facility] Wood [facility] 4 [...] Updated DateTime 4 170.18 cm 36 kg/m2 137047. 25 g 98 % 98 % 68 [...] Updated DateTime 4 170.18 cm 36 kg/m2 907226. 25 g 98.1 [degF] 98 % 98 % 68 /min 16 /min 122 mm[Hg] 71 mm[Hg] Johana JULIO - [facility] 14:45:11 Social History Question Answer Notes LastModified by Organizat ion Details LastModified Time Tobacco Smoking Status Never Smoker Agustina Meyersgunner dale [place] - [facility] 08/01/2023 10:28:53 Have You Had A Flu Shot This Season? Yes [email or web address] Information not available 08/01/2023 Have You Had Direct Contact, Or Contact During Intimacy, With Monkeypox Rash, Scabs, Or Body Fluids From A Person With Monkeypox? No [email or web address] Information not available 08/01/2023 What Was The Date Of Your Most Recent Tobacco Screening? 08/01/2023 [email or web address] Information not available 08/01/2023 Have You Recently Traveled Abroad? No Information not available 08/01/2023 Sex: Unknown Functional Status Question Answer Note LastModified by Organizat ion Details LastModified Time Do you use any illicit or recreational drugs? No [email or web address] Information not available 08/01/2023 Do you or have you ever used any other forms of tobacco or nicotine? No [email or web address] Information not available 08/01/2023 What is your level of alcohol consumption? None [email or web address] Information not available 08/01/2023 Mental Status None recorded. Family History Nothing Reported. Medical History No medical history recorded. Past Encounters Encounter ID Performer Location Encounter Start Date Encounter Closed Date Diagnosis/Indication Diagnosis SNOMED-CT Code Diagnosis ICD10 Code Diagnosis Note [id number] [address] [place] [address] 01/07/2018 10:55:38 01/07/2018 11:36:11 [id number] [address] [place] [address] 08/10/2019 16:47:36 08/10/2019 17:47:05 [id number] [place] [address] 02/18/2019 17:09:35 02/18/2019 19:11:01 [id number] [address] [facility] [address] [address] [place] [address] 11/28/2018 14:20:44 11/28/2018 15:39:06 [id number] [facility] [address] [facility] [address] [place] [address] 08/01/2023 10:21:19 08/01/2023 11:00:52 COVID-19 [id number] U07.1 You have been Diagnosed with COVID [...] AND HUMAN SERVICES Thank you for visiting [facility] today, please feel free to call our office you have any questions or concerns. [id number] [facility] GUTIERREZ [address] [facility] [address] [place] [address] 08/12/2023 14:20:09 08/12/2023 15:09:56 Cough [id number] R05.9 You are being treated for a [...] Guarantor Name 08/12/2023 1 [place]IC[place] B[place]: [employer] Zac Ahmadi [id number] Zac Ahmadi 10/31/2023 2 [place] [facility] Zac Ahmadi [id number] Zac Ahmadi Notes Date Note Type Note Provider Name and Address Organization Details Recorded Time 08/01/2023 text/html 53 y/o male with 3 days of fever, cough, sore throat SUMAN[facility] Brewer [address] [place], [address], [place] - [facility] 08/01/2023 11:14:08 08/12/2023 text/html 53 y/o male diagnosed with COVID 11 days ago here for retest. Still coughing a lot, finished full course of Paxlovid. SUMANTH Brewer [address] [place], [address], [place] - [facility] 08/12/2023 15:09:27
--- OUTSIDE RECORDS SUMMARY | 2024-06-26 15:43 | XMS_ITS | Encounter Summary ---
Author Organization [facility] Address [address] [place] [address] Care Team Providers Care Animation Producer Name Role Phone Damian Lai MD Primary Care Provider [phone] Encounter Details Date Type Department Care Team Description 03/12/2021 Pt. Non Urgent Medical Question [facility] [address] [phone] Martell Mckee DPM [address] [place] [address] Social History Tobacco Use Types Packs/Day Years [...] encounter Miscellaneous Notes * Telephone Encounter - Charles Iniguez - 03/12/2021 11:30 AM ESTFrom: Zac Ahmadi To: Martell Mckee DPM Sent: 03/12/2021 10:52 AM EST Subject: My big toe on my right foot. My big toe on my right foot is black and blue. documented in this encounter Plan of Treatment Not on file documented as of this encounter Visit Diagnoses Not on filedocumented in this encounter Care Teams Animation Producer Relationship Specialty Start Date End Date Damian Lai MD [address] [place] [address] PCP - General Internal Medicine 04/01/14 documented as of this encounter
--- OUTSIDE RECORDS SUMMARY | 2024-06-26 15:43 | XMS_ITS | Encounter Summary ---
Author Organization [facility] Address [address] [place] [address] Care Team Providers Care Taker Off Braker Machine Name Role Phone Damian Lai MD Primary Care Provider [phone] Encounter Details Date Type Department Care Team Description 02/16/2017 Recreational Programs Director Report Medical Records [address] [place] [address] Ruddy Mcconnell MD Social History Tobacco Use [...] on filedocumented in this encounter Care Teams Taker Off Braker Machine Relationship Specialty Start Date End Date Damian Lai MD [address] [place], [place] [phone] PCP - General Internal Medicine 04/01/14 documented as of this encounter
--- OUTSIDE RECORDS SUMMARY | 2024-06-26 15:43 | XMS_ITS | Encounter Summary ---
Author Organization [facility] Address [address] [place] [address] Care Team Providers Care Assistant Branch Manager Name Role Phone Damian Lai MD Primary Care Provider [phone] Encounter Details Date Type Department Care Team Description 04/19/2017 Refill Podiatry - [address] [address] Chad Siegel, DPJose Social History Tobacco Use [...] filedocumented in this encounter Care Teams Assistant Branch Manager Relationship Specialty Start Date End Date Damian Lai MD [address] [place] [address] PCP - General Internal Medicine 04/01/14 documented as of this encounter
--- OUTSIDE RECORDS SUMMARY | 2024-06-26 15:43 | XMS_ITS | Encounter Summary ---
Author Organization [facility] Address [address] [place] [address] Care Team Providers Care Manager Of Pmo Name Role Phone Damian Lai MD Primary Care Provider [phone] Encounter Details Date Type Department Care Team Description 06/07/2021 Reservoir Engineer Report Medical Records [address] [place] [address] Dannie Herrera MD Social History Tobacco Use [...] in this encounter Care Teams Manager Of Pmo Relationship Specialty Start Date End Date Damian Lai MD [address] [place] [address] PCP - General Internal Medicine 04/01/14 documented as of this encounter
--- OUTSIDE RECORDS SUMMARY | 2024-06-26 15:43 | XMS_ITS | Encounter Summary ---
Author Organization [facility] Address [address] [place] [address] Care Team Providers Care Chaperone Name Role Phone Damian Lai MD Primary Care Provider [phone] Encounter Details Date Type Department Care Team Description 05/29/2017 Bushel Girl Report Medical Records [address] [place] [address] Rodriguez Davalos [address] [place] [address] Social History Tobacco Use Types Packs/Day Years [...] on filedocumented in this encounter Care Teams Chaperone Relationship Specialty Start Date End Date Damian Lai MD [address] [place], [place] [phone] PCP - General Internal Medicine 04/01/14 documented as of this encounter
--- OUTSIDE RECORDS SUMMARY | 2024-06-26 15:43 | XMS_ITS | Encounter Summary ---
Author Organization [facility] Address [address] [place] [address] Care Team Providers Care Wet Suit Gluer Name Role Phone Damian Lai MD Primary Care Provider [phone] Encounter Details Date Type Department Care Team Description 11/15/2019 Business Doc Medical Records [address] [place] [address] Abstract, Provider Social History Tobacco Use Types [...] on filedocumented in this encounter Care Teams Wet Suit Gluer Relationship Specialty Start Date End Date Damian Lai MD [address] [place] [address] PCP - General Internal Medicine 04/01/14 documented as of this encounter
--- OUTSIDE RECORDS SUMMARY | 2024-06-26 15:43 | XMS_ITS | Encounter Summary ---
Author Organization [facility] Address [address] [place] [address] Care Team Providers Care Insurance Verify Rep Name Role Phone Damian Lai MD Primary Care Provider [phone] Encounter Details Date Type Department Care Team Description 07/13/2017 Multi Punch Operator Report Medical Records [address] [place] [address] Abstract, Provider Social History Tobacco Use Types [...] on filedocumented in this encounter Care Teams Insurance Verify Rep Relationship Specialty Start Date End Date Damian Lai MD [address] [place], [place] [phone] PCP - General Internal Medicine 04/01/14 documented as of this encounter
--- OUTSIDE RECORDS SUMMARY | 2024-06-26 15:43 | XMS_ITS | Encounter Summary ---
Author Organization [facility] Address [address] [place] [address] Care Team Providers Care Airport Driver Name Role Phone Damian Lai MD Primary Care Provider [phone] Encounter Details Date Type Department Care Team Description 02/29/2016 Mitochondrial Disorders Counselor Report Medical Records [address] [place] [address] Rehab., Fidel Social History Tobacco Use Types [...] filedocumented in this encounter Care Teams Airport Driver Relationship Specialty Start Date End Date Damian Lai MD [address] [place], [place] [phone] PCP - General Internal Medicine 04/01/14 documented as of this encounter
--- OUTSIDE RECORDS SUMMARY | 2024-06-26 15:43 | XMS_ITS | Encounter Summary ---
Author Organization [facility] Address [address] [place] [address] Care Team Providers Care Ward Clerk Name Role Phone Damian Lai MD Primary Care Provider [phone] Encounter Details Date Type Department Care Team Description 05/05/2021 Orders Only Adult Medicine [address] [id number] Damian Lai MD [address] [place] [phone] Social History Tobacco Use Types Packs/Day [...] on filedocumented in this encounter Care Teams Ward Clerk Relationship Specialty Start Date End Date Damian Lai MD [address] [place] [phone] PCP - General Internal Medicine 04/01/14 documented as of this encounter
--- OUTSIDE RECORDS SUMMARY | 2024-06-26 15:43 | XMS_ITS | Encounter Summary ---
Author Organization [facility] Address [address] [place] [address] Care Team Providers Care Bench Repair Technician Name Role Phone Damian Lai MD Primary Care Provider [phone] Encounter Details Date Type Department Care Team Description 11/25/2015 Sewer Pipe Layer Helper Report Medical Records [address] [place] [address] Angela Dumont Social History Tobacco Use Types [...] on filedocumented in this encounter Care Teams Bench Repair Technician Relationship Specialty Start Date End Date Damian Lai MD [address] [place], [place] [phone] PCP - General Internal Medicine 04/01/14 documented as of this encounter
--- OUTSIDE RECORDS SUMMARY | 2024-06-26 15:43 | XMS_ITS | Encounter Summary ---
Author Organization [facility] Address [address] [place] [address] Care Team Providers Care Lunchroom Operator Name Role Phone Damian Lai MD Primary Care Provider [phone] Reason for Visit * Reason Comments E-prescribe Rx Request Encounter Details Date Type Department Care Team Description 08/20/2021 Refill Adult Medicine [facility] [address] [place], [place] [phone] Damian Lai MD [address] [place] [phone] E-prescribe Rx Request Social History Tobacco Use [...] / Plan: [place] / Product Type: MEDICARE [id number] ?? documented in this encounter Plan of Treatment Not on file documented as of this encounter Visit Diagnoses Not on filedocumented in this encounter Care Teams Lunchroom Operator Relationship Specialty Start Date End Date Damian Lai MD [address] [place] [phone] PCP - General Internal Medicine 04/01/14 documented as of this encounter
--- OUTSIDE RECORDS SUMMARY | 2024-06-26 15:43 | XMS_ITS | Encounter Summary ---
Author Organization [facility] Address [address] [place] [address] Care Team Providers Care General Teller Name Role Phone Damian Lai MD Primary Care Provider [phone] Encounter Details Date Type Department Care Team Description 05/29/2017 Structural Draftsman Report Medical Records [address] Social History Tobacco Use Types Packs/Day [...] filedocumented in this encounter Care Teams General Teller Relationship Specialty Start Date End Date Damian Lai MD [address] [place], [place] [phone] PCP - General Internal Medicine 04/01/14 documented as of this encounter
--- OUTSIDE RECORDS SUMMARY | 2024-06-26 15:43 | XMS_ITS | Encounter Summary ---
Author Organization [facility] Address [address] [place] [address] Care Team Providers Care Business Systems Consultant Name Role Phone Damian Lai MD Primary Care Provider [phone] Encounter Details Date Type Department Care Team Description 10/02/2015 Automobile Travel Club Counselor Report Medical Records [address] [place] [address] Ruddy Mcconnell MD Social History Tobacco Use [...] filedocumented in this encounter Care Teams Business Systems Consultant Relationship Specialty Start Date End Date Damian Lai MD [address] [place], [place] [phone] PCP - General Internal Medicine 04/01/14 documented as of this encounter
--- OUTSIDE RECORDS SUMMARY | 2024-06-26 15:43 | XMS_ITS | Encounter Summary ---
Author Organization [facility] Address [address] [place] [address] Care Team Providers Care Associate Genetics Professor Name Role Phone Damian Lai MD Primary Care Provider [phone] Encounter Details Date Type Department Care Team Description 01/19/2023 CGM Report Medical Records [address] [place] [address] Abstract, Provider Social History Tobacco Use Types [...] on filedocumented in this encounter Care Teams Associate Genetics Professor Relationship Specialty Start Date End Date Damian Lai MD [address] [place], [place] [phone] PCP - General Internal Medicine 04/01/14 documented as of this encounter
--- OUTSIDE RECORDS SUMMARY | 2024-06-26 15:43 | XMS_ITS | Encounter Summary ---
Author Organization [facility] Address [address] [place] [address] Care Team Providers Care Order Department Supervisor Name Role Phone Damian Lai MD Primary Care Provider [phone] Reason for Visit * Reason Onset Date Comments Faxed Order 11/03/2017 Encounter Details Date Type Department Care Team Description 11/03/2017 Telephone Adult Medicine [facility] [address] [place] [address] Damian Lai MD [address] [place] [phone] Faxed Order Social History Tobacco Use Types [...] encounter Miscellaneous Notes * Telephone Encounter - Alexa Daniel - 11/03/2017 1:09 PM EDT Faxed orders from [facility], please sign and fax back documented in this encounter Plan of Treatment Not on file documented as of this encounter Visit Diagnoses Not on filedocumented in this encounter Care Teams Order Department Supervisor Relationship Specialty Start Date End Date Damian Lai MD [address] [place] [id number] PCP - General Internal Medicine 04/01/14 documented as of this encounter
--- NOTE | 2024-06-26 15:52 | HO.NEPHOV ---
Vital Signs 06/26/24 15:53 Height 5 ft 8 in Weight 308 lb 6 oz BMI 46.9 BP 94/50 L Blood Pressure Location Rt brachial Position Sitting Pulse 70 Pulse Source Pulse Oximeter Pulse Oximetry (%) 96 Oxygen Delivery Method Room Air Intake Visit Reasons: CKD-LVM Medical Office Asst Required: No Accompanied by: Self / Same As Patient Allergies No Known Allergies Allergy (Verified 06/26/24 15:53) HPI Comments Details: Zac was seen in follow-up of his chronic kidney disease on a backdrop of obesity, hypertension and uncontrolled diabetes. He has no pedal edema. His blood sugar control is better . He denies chest pain, shortness of breath, nausea, vomiting, diarrhea, urinary symptoms, orthostasis. He avoids nonsteroidal inflammatory medications. He claims to be compliant with his medications but is not as active as he should be. He is on angiotensin receptor nickolas. [facility] Medical History (Updated 03/08/23 @ 15:48 by Ruddy Mcconnell MD) Chronic kidney disease (CKD) Hypertension Diabetes Family History Mother Diabetes Father Diabetes Hypertension Social History Alcohol intake: never Patient Tobacco Use Status: Never used Tobacco Review of Systems Const All systems reviewed & are unremarkable except as noted in HPI and below Physical Exam Vital Signs: Last Vital Signs Pulse 70 06/26/24 15:53 BP 94/50 L 06/26/24 15:53 Pulse Ox 96 06/26/24 15:53 Oxygen Delivery Method Room Air 06/26/24 15:53 BMI result Body Mass Index 46.9 Const General: comfortable and no acute distress Orientation/consciousness: patient oriented x3 HEENT Head: Yes normocephalic Mouth: Normal oral and palatal mucosa present Eyes EOM: EOMs intact bilaterally Neck Neck: Yes supple Resp Auscultation: clear to auscultation bilaterally Cardio Jugular venous distension: no JVD Rate: regular rate GI Palpation (GI): Soft to palpation Auscultation: normal bowel sounds General: Yes no CVA tenderness Back/Spine/Pelvis Back: no CVA tenderness Skin General skin exam: no rashes or lesions noted Neuro General: patient oriented x3 and moves all extremities Extrem General: Yes no pedal edema Results Reviewed Nephrology Results: Sodium 142 mmol/L (135-145) 06/22/24 Potassium 3.7 mmol/L (3.3-5.1) 06/22/24 Chloride 102 mmol/L (96-108) 06/22/24 Carbon Dioxide 27 mmol/L (22-29) 06/22/24 BUN 29 mg/dL (9-16) H 06/22/24 Creatinine 1.50 mg/dL (0.5-1.4) H 06/22/24 Calcium 9.4 mg/dL (8.4-10.2) 06/03/23 Urine Creatinine 74.66 mg/dL 06/22/24 Protein/Creatinin Ratio TNP 06/22/24 Assessment & Plan Assessment & Plan (1) Diabetic nephropathy: Code(s): E11.21 - Type 2 diabetes mellitus with diabetic nephropathy Category: Medical Qualifiers: Diabetes mellitus type: type 2 Qualified Code(s): E11.21 - Type 2 diabetes mellitus with diabetic nephropathy (2) Hypertension: Code(s): I10 - Essential (primary) hypertension Category: Medical Qualifiers: Hypertension type: primary hypertension Qualified Code(s): I10 - Essential (primary) hypertension (3) CKD stage 3 due to type 2 diabetes mellitus: Code(s): E11.22 - Type 2 diabetes mellitus with diabetic chronic kidney disease; N18.30 - Chronic kidney disease, stage 3 unspecified Category: Medical Plan Zac has 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 He is on angiotensin receptor nickolas along with multiple antihypertensives to keep his blood pressure at goal. He should be on a low-sodium diet. He should maintain good hydration. He can continue Bumex 2mg daily alternating with 1 mg every other day. He should take Jardiance 10 mg daily which I plan to increase to 25 mg daily with time. He should not take any nonsteroidal anti-inflammatory medications. I did not make any other medication changes today. He needs to lose weight. If he is unsuccessful in losing weight he should be seen in weight management . All his questions were answered Orders: Orders Protein Creatinine Ratio, Ur 3 Months E11.21 - Type 2 diabetes mellitus with diabetic nephropathy, E11.22 - Type 2 diabetes mellitus with diabetic chronic kidney disease, I10 - Essential (primary) hypertension, N18.30 - Chronic kidney disease, stage 3 unspecified Creatinine 3 Months E11.21 - Type 2 diabetes mellitus with diabetic nephropathy, E11.22 - Type 2 diabetes mellitus with diabetic chronic kidney disease, I10 - Essential (primary) hypertension, N18.30 - Chronic kidney disease, stage 3 unspecified Blood Urea Nitrogen 3 Months E11.21 - Type 2 diabetes mellitus with diabetic nephropathy, E11. - Type 2 diabetes mellitus with diabetic chronic kidney disease, I10 - Essential (primary) hypertension, N18.30 - Chronic kidney disease, stage 3 unspecified Electrolytes 3 Months E11.21 - Type 2 diabetes mellitus with diabetic nephropathy, E11.22 - Type 2 diabetes mellitus with diabetic chronic kidney disease, I10 - Essential (primary) hypertension, N18.30 - Chronic kidney disease, stage 3 unspecified Medications: New empagliflozin (Jardiance) 10 mg PO DAILY 30 tabs 5RF Coding Level of Care Code Est Pt Level 4 (50393) Diagnoses Diabetic nephropathy associated with type 2 diabetes mellitus E11. Diabetes mellitus type: type 2 Primary hypertension I10 Hypertension type: primary hypertension CKD stage 3 due to type 2 diabetes mellitus E11.; N18.30
[2024-06-26 15:53] VITALS: BP 94/50; PULSE 70; O2SAT 96; BMI 46.9
== END 2024-06-26 16:20 | disposition home or self-care (01) ==
LOC: HO.HKA 15:39
PROVIDERS: PCP Internal Medicine; Visit Provider Internal Medicine Nephrology
DX: E11.21 Type 2 diabetes mellitus with diabetic nephropathy (principal); I10 Essential (primary) hypertension; E11.22 Type 2 diabetes mellitus with diabetic chronic kidney disease; N18.30 Chronic kidney disease, stage 3 unspecified
CPT/HCPCS: 99214

== ENCOUNTER → 2024-06-26 15:38 | Outpatient (BNVA) | payer MEDICARE, MEDICAID, SELFPAY | PROVIDERS: PCP Internal Medicine; Visit Provider Internal Medicine Nephrology | DX: E11.22 Type 2 diabetes mellitus with diabetic chronic kidney disease (principal); E11.21 Type 2 diabetes mellitus with diabetic nephropathy; I12.9 Hypertensive chronic kidney disease with stage 1 through stage 4 chronic kidney disease, or unspecified chronic kidney disease; N18.30 Chronic kidney disease, stage 3 unspecified; E66.9 Obesity, unspecified; Z68.42 Body mass index [BMI] 45.0-49.9, adult | CPT/HCPCS: 99212 ==

== ENCOUNTER 2024-09-21 08:51 | Outpatient (REF) | payer MEDICARE, MEDICAID, SELFPAY ==
--- OUTSIDE RECORDS SUMMARY | 2024-09-21 08:53 | XMS_ITS | Clinical Summary ---
Author Organization [facility] Address [address] [place] [address] Care Team Providers Care Molecular Pathologist Name Role Phone Damian Lai MD Primary Care Provider [phone] Allergies No known active allergies Medications losartan (COZAAR) 100 mg tablet Take 1 tablet (100 mg total) by mouth at bedtime. at bedtime. Active ASPIRIN ORAL Take 81 mg by mouth 1 (one) time each day. Active blood-glucose meter,continuous (Dexcom G6 Strategic Development Manager) [facility] [place] For continuous glucose monitoring 023 Active blood-glucose sensor (DEXCOM G7 SENSOR [facility] [place]) 1 Each by Does not apply route See Admin Instructions. USE 1 SENSOR EVERY 10 DAYS. 023 Active blood-glucose transmitter (DEXCOM G6 TRANSMITTER [facility] [place]) To use with Dexcom sensor, 1 transmitter every 90 days 023 Active syr,ndl,ins,safe 0.5mL,disp un (INSULIN SYRINGE-NEEDLE,DI SPOS. MIS) To use with insulin pen 4 times a day 023 Active melatonin 5 mg tablet Take 1 tablet (5 mg total) by mouth at bedtime. 022 Active albuterol HFA (Ventolin HFA) 90 mcg/actuation inhaler Inhale 2 puffs by mouth every 4 (four) hours if needed (Cough or Wheezing). 024 Active ammonium lactate (LAC-HYDRIN) 12 % lotion Apply to soles of feet daily. At night wear socks to bed 023 Active ARIPiprazole (ABILIFY) 20 mg tablet Take 1 tablet (20 mg total) by mouth 1 (one) time each day. 022 Active bumetanide (BUMEX) 1 mg tablet Take 1 tablet (1 mg total) by mouth 1 (one) time each day. 019 Active DULoxetine (CYMBALTA) [address] capsule Take 1 capsule (60 mg total) by mouth 1 (one) time each day. Active hydrOXYzine HCL (ATARAX) 50 mg tablet Take 1 tablet (50 mg total) by mouth 2 (two) times a day. 024 Active traZODone (DESYREL) 150 mg tablet Take 1 tablet (150 mg total) by mouth at bedtime. 022 Active allopurinoL (ZYLOPRIM) 100 mg tablet TAKE 1 TABLET BY MOUTH DAILY 90 tablet 1 024 Active cholecalciferol (VITAMIN D-3) 50 mcg (2,000 unit) capsule TAKE 1 CAPSULE BY MOUTH EVERY DAY 90 capsule 1 024 Active insulin lispro (HumaLOG KwikPen Insulin) 100 unit/mL injection pen Use before each meal, up to 3 times a day, sliding scale 100-149: 6 units 150-199: 8 units 200-249: 12 units 250-299: 16 units 300-349: 20 units 350-400:24 units Greater than 400, call me. 45 mL 2 024 Active insulin glargine (Lantus Solostar U-100 Insulin) 100 unit/mL (3 mL) injection pen Inject 56-60 Units under the skin at bedtime. 60 mL 2 024 Active metFORMIN XR (GLUCOPHAGE-XR) 500 mg 24 hr tablet Take 1 tablet (500 mg total) by mouth 2 (two) times a day. 180 tablet 2 024 Active busPIRone (BUSPAR) 5 mg tablet Take 1 tablet (5 mg total) by mouth 2 (two) times a day if needed. 025 Active empagliflozin (Jardiance) 10 mg tablet Take 1 tablet (10 mg total) by mouth 1 (one) time each day. 90 tablet 1 025 Active diclofenac (VOLTAREN) 1 % topical gel Apply 4 g topically 2 (two) times a day. 200 g 2 025 Active blood sugar diagnostic (Contour Next Test Strips) test stripIndications: Diabetes mellitus type 2 with neurological manifestations (CMS/HCC V24, CMS/HCC V28) Use to check sugars 4 times a day 300 each 3 025 Active atorvastatin (LIPITOR) 40 mg tablet Take 1 tablet (40 mg total) by mouth 1 (one) time each day. 90 each 1 025 Active amLODIPine (NORVASC) 5 mg tablet Take 1 tablet (5 mg total) by mouth 1 (one) time each day. 90 tablet 2 025 Active losartan (COZAAR) 100 mg tablet Take 1 tablet (100 mg total) by mouth at bedtime. 90 tablet 1 025 Active dulaglutide (Trulicity) 3 mg/0.5 mL pen injector injectionIndicati ons:Diabetes mellitus type 2 with neurological manifestations (CMS/HCC V24, CMS/HCC V28) Use 3mg once weekly 2 mL 5 025 Active omeprazole (PriLOSEC) [address] capsule TAKE 1 CAPSULE BY MOUTH DAILY 90 capsule 1 025 Active carvediloL (COREG) 25 mg tablet TAKE 1 TABLET(25 MG) BY MOUTH TWICE DAILY WITH MEALS 180 tablet 1 025 Active carvediloL (COREG) 25 mg tablet Take 1 tablet (25 mg total) by mouth 2 (two) times a day with meals. 180 tablet 1 025 Active carvediloL (COREG) 25 mg tablet Take 1 tablet (25 mg total) by mouth 2 (two) times a day with meals. 180 tablet 1 025 2024 Discontinued Active Problems Problem Noted Date Diagnosed Date Condition not found 12/14/2023 Overview (12/14/2023): DM (diabetes mellitus), type 2, uncontrolled, with renal complications (HCC) Depression 12/14/2023 Gout 12/14/2023 Hypertension 12/14/2023 Neuropathy 12/14/2023 Overview (12/14/2023): Follows neurology. Shoulder arthritis 12/14/2023 Morbid obesity with BMI of 4 5.0-49.9, adult ([facility] V24, [facility] V28) 12/14/2023 COVID-19 12/03/2021 Adhesive capsulitis of ankle, right 10/17/2019 Adhesive capsulitis of right shoulder 10/17/2019 Osteoarthritis of right AC (acromioclavicular) j oint 10/17/2019 Tendinitis of right rotator cuff 10/17/2019 Allergic conjunctivitis of both eyes 07/31/2019 MDD (major depressive disord er), recurrent severe, without psychosis ([facility] V24, [facility] V28) 07/16/2019 Chronic rhinitis 07/27/2017 Recurrent sinus infections 07/27/2017 GERD (gastroesophageal reflux disease) 6 CKD (chronic kidney disease) stage 3, GFR 30-59 ml/min ([facility] V24, [facility] V28) 07/24/2014 Diabetes mellitus type 2 wit h neurological manifestations ([facility] V24, [facility] V28) 07/24/2014 Hyperlipidemia 07/24/2014 ARUNA (obstructive sleep apnea) 07/24/2014 Overview (12/14/2023): [facility] [facility] Night Diagnostic and Treatment Polysomnogram: Date 03/19/2013; BMI 53; AHI 31, REM AHI 64, Central apneas 2; Obstructive apneas 35; hypopneas 18; average oxygen saturation 93% (lowest 44%); PLMs 0. CPAP trialed and lowest AHI on therapy of 6 was 9.3. Encounters Date Type Department Care Team Description 08/01/2024 Nurse Triage Adult Medicine [address] [phone] Damian Lai MD Trouble Swallowing from Last 3 Months Immunizations Name Administration [...] Surgery Date Site/Laterality Comments ESOPHAGOGASTRODUODENOSCOPY 07/24/15 PROCEDURE: [place] EGD TRANSORAL BIOPSY SINGLE/MULTIPLE; COMMENT: normal; normal gastric biopsies without H. pylori Medical History Medical History Date Comments Type II or unspecified type diabetes mellitus without mention of complication, uncontrolled DX:Type II or unspecified t ype diabetes mellitus without mention of complication, uncontrolled Shoulder arthritis DX:Shoulder a rthritis Gout DX:Gout Depression DX:Depression Hypertension DX:Hypertension Neuropathy DX:Neuropathy Morbid obesity ([facility] V24, [facility] V28) 07/24/2014 DX:Morbid obesity ([facility]) ARUNA (obstructive sleep apnea) 07/24/2014 DX :RAUNA (obstructive sleep apnea); COMMENT: severe CKD (chronic kidney disease) stage 3, GFR 30-59 ml/min ([facility] V24, [facility] V28) 07/24/2014 DX:CKD (chronic kidney disea se) stage 3, GFR 30-59 ml/min ([facility]) Hyperlipidemia 07/24/2014 DX:Hyperlipidemi a Family [...] 67 06/04/2024 1:13 PM EDT Temperature 35.9 C (96.6 F) 06/04/2024 1:13 PM EDT Respiratory Rate 15 06/04/2024 1:13 PM EDT [...] Description 11/28/2024 9:40 AM EDT Office Visit Endocrinology [address] [phone] Lindy Gutierrez PA [address] [place] [address] 12/17/2024 1:00 PM EST Office Visit [place] [facility] [place] [address] [phone] Damian Lai MD [address] [place] [address] [phone] Health Maintenance Due Date Last Done Comments COVID-19 Vaccine (#1) 1974 Diabetes: Annual Foot Exam 07/20/1979 Diabetes: Annual Retina Eye Exam 07/20/1979 Hepatitis A Vaccines (1 of 2 - Risk 2-dose series) 1988 Hepatitis B Vaccines (1 of 3 - 19+ 3-dose series) 1988 Zoster Vaccines (1 of 2) 1988 Pneumococcal Vaccine: 50+ Years (2 of 2 - PPSV23) 11/11/2016 09/16/2016 HIV Screening 08/19/2019 Medicare Annual Wellness Visit 08/19/2019 Social Influencers of Health Screening 08/19/2019 Depression Screening 02/07/2024 Influenza Vaccine (#1) 2024 , 12/17/2018, 10/21/2016 Diabetes: Blood Sugar Control Test (HGBA1C) 01/24/2025 07/25/2024, 04/23/2024, 01/11/2024, Additional history exists Diabetes: Annual Urine Albumin-Creatinine Ratio (uACR) 07/25/2025 07/25/2024, 01/11/2024, 05/04/2023 Diabetes: Annual GFR (Glomerular Filtration Rate) 07/25/2025 07/25/2024, 01/11/2024, 10/11/2023, Additional history exists Hypertension/CHF/CAD Annual BMP Blood Test 07/25/2025 07/25/2024, 01/11/2024, 10/11/2023, Additional history exists DTaP,Tdap,and Td Vaccines (2 - Td or Tdap) 09/16/2026 09/16/2016 Cholesterol Screening (Lipid Panel) 07/25/2029 07/25/2024, 01/11/2024, 05/04/2023, Additional history exists Colorectal Cancer Screening: Colonoscopy [...] Date/Time Associated Diagnosis Comments HEMOGLOBIN A1C Routine 07/25/2024 8:34 AM EDT Diabetes mellitus type 2 with neurological manifestations ([facility] V24, [facility] V28) LIPID PANEL WITH REFLEX TO DIRECT LDL Routine 07/25/2024 8:34 AM EDT Pure hypercholesterolemia COMPREHENSIVE METABOLIC PANEL Routine 07/25/2024 8:34 AM EDT Diabetes mellitus due to underlying condition with stage 2 chronic kidney disease, with long-term current use of insulin ([facility] V24, [facility] V28) Encounter for long-term (current) use of medications MICROALBUMIN CREATININE URINE RATIO Routine 07/25/2024 8:34 AM EDT Diabetes mellitus due to underlying condition with stage 2 chronic kidney disease, with long-term current use of insulin (CMS/HCC V24, CMS/HCC V28) HEPATITIS C SCREENING Routine 07/29/2022 COLONOSCOPY Routine 01/22/2020 from Last 3 Months or Most Recently Relevant to Health Maintenance Results * (ABNORMAL) Lipid panel with reflex to direct LDL (07/25/2024 8:34 AM EDT) Cholesterol 171 0 - 200 mg/dL LAB CHEMISTRY METHOD 07/25/2024 1:08 PM EDT [facility] Triglycerides 355(H) 0 - 150 mg/dL LAB CHEMISTRY METHOD 07/25/2024 1:08 PM EDT [facility] HDL 34(L) >=40 mg/dL LAB CHEMISTRY METHOD 07/25/2024 1:08 PM EDT [facility] LDL Calculated 66 0 - 100 mg/dL LAB CHEMISTRY METHOD 07/25/2024 1:08 PM EDT [facility] VLDL Cholesterol Marc 71 mg/dL LAB CHEMISTRY METHOD 07/25/2024 1:08 PM EDT [facility] Non HDL Chol. (LDL+VLDL) 137 <145 mg/dL LAB CHEMISTRY METHOD 07/25/2024 1:08 PM EDT [facility] Chol/HDL Ratio 5.0(H) 0.0 - 4.4 LAB CHEMISTRY METHOD 07/25/2024 1:08 PM EDT [facility] Blood Venous blood specimen / Unknown Venipuncture / Unknown 07/25/2024 8:34 AM EDT 07/25/2024 8:34 AM EDT us Damian Lai MD LAB BLOOD ORDERABLES Final Resu lt [facility] [address] [place] [address], [place] [phone] * (ABNORMAL) Microalbumin creatinine urine ratio (07/25/2024 8:34 AM EDT) Creatinine, Urine 22.0 mg/dL LAB CHEMISTRY METHOD 07/25/2024 2:20 PM EDT [facility] Microalb, Ur 7.8 0.0 - 29.0 mg/L LAB CHEMISTRY METHOD 07/25/2024 2:20 PM EDT [facility] Microalb/Creat Ratio 35(H) <30 mg/g creat LAB CHEMISTRY METHOD 07/25/2024 2:20 PM EDT [facility] Urine Urine specimen obtained by clean catch procedure / Unknown Non-blood Collection / Unknown 07/25/2024 8:34 AM EDT 07/25/2024 8:34 AM EDT Damian Lai MD LAB URINE ORDERABLES Final Resu lt [facility] [address] [place] [address], * (ABNORMAL) Hemoglobin A1c (07/25/2024 8:34 AM EDT) Hemoglobin A1C 9.1(H) <6.5 % LAB CHEMISTRY METHOD 07/25/2024 12:37 PM EDT [facility] Mean Bld Glu Estim. 214 mg/dL LAB CHEMISTRY METHOD 07/25/2024 12:37 PM EDT [facility] Blood Venous blood specimen / Unknown Venipuncture / Unknown 07/25/2024 8:34 AM EDT 07/25/2024 8:34 AM EDT Lindy JULIO LAB BLOOD ORDERABLES Final Resul t [facility] [address] [place] [address], * (ABNORMAL) Comprehensive metabolic panel (07/25/2024 8:34 AM EDT) Sodium 139 133 - 145 mmol/L LAB CHEMISTRY METHOD 07/25/2024 1:08 PM [facility] Potassium 4.8 3.5 - 5.5 mmol/L LAB CHEMISTRY METHOD 07/25/2024 1:08 PM [facility] Chloride 101 96 - 110 mmol/L LAB CHEMISTRY METHOD 07/25/2024 1:08 PM [facility] CO2 28 21 - 32 mmol/L LAB CHEMISTRY METHOD 07/25/2024 1:08 PM [facility] Anion Gap 10 3 - 11 LAB CHEMISTRY METHOD 07/25/2024 1:08 PM [facility] Glucose 223(H) 70 - 100 mg/dL LAB CHEMISTRY METHOD 07/25/2024 1:08 PM [facility] BUN 36(H) 5 - 25 mg/dL LAB CHEMISTRY METHOD 07/25/2024 1:08 PM [facility] Creatinine 1.85(H) 0.70 - 1.30 mg/dL LAB CHEMISTRY METHOD 07/25/2024 1:08 PM [facility] eGFR 42(L) >=60 mL/min/1. 73m2 LAB CHEMISTRY METHOD 07/25/2024 1:08 PM [facility] Comment:Calculation based on the Chronic Kidney Disease Epidemiology Collaboration (CKD-EPI) equation refit without adjustment for race. BUN/Creatinine Ratio 19.5 LAB CHEMISTRY METHOD 07/25/2024 1:08 PM [facility] Calcium 9.4 8.5 - 10.5 mg/dL LAB CHEMISTRY METHOD 07/25/2024 1:08 PM [facility] AST (SGOT) 21 10 - 42 unit/L LAB CHEMISTRY METHOD 07/25/2024 1:08 PM EDT [facility] ALT (SGPT) 53 10 - 60 unit/L LAB CHEMISTRY METHOD 07/25/2024 1:08 PM EDT [facility] Alkaline Phosphatase 140(H) 42 - 121 unit/L LAB CHEMISTRY METHOD 07/25/2024 1:08 PM EDT [facility] Total Protein 7.4 6.0 - 8.0 g/dL LAB CHEMISTRY METHOD 07/25/2024 1:08 PM EDT [facility] Albumin 3.7 3.2 - 5.0 g/dL LAB CHEMISTRY METHOD 07/25/2024 1:08 PM EDT [facility] Total Bilirubin 0.9 0.0 - 1.4 mg/dL LAB CHEMISTRY METHOD 07/25/2024 1:08 PM EDT [facility] Blood Venous blood specimen / Unknown Venipuncture / Unknown 07/25/2024 8:34 AM EDT 07/25/2024 8:34 AM EDT Damian Lai MD LAB BLOOD ORDERABLES Final Resu lt [facility] [address] [place] [address], * Hepatitis C Screening (07/29/2022) Pathologist [facility] Hepatitis C Screening Abstracted Historical Provider HEALTH MAINTENANCE Final Result * Colonoscopy (01/22/2020) Pathologist [facility] Colonoscopy No interpretatio n, abstraced Anatomical Region Laterality Modality Other Historical Richelle RODRIGUEZ HEALTH MAINTENANCE Final Result from Last 3 Months or Most Recently Relevant to Health Maintenance Insurance MEDICARE [place] Advance Directives Documents on File Type Date Recorded Patient Manager Of Pharmacy Expl anation Health Care Decision (hx) 07/30/2018 [...] (hx) 07/30/2018 AD SAMUELS DIRECTIVE Care Teams Molecular Pathologist Relationship Specialty Start Date End Date Damian Lai MD [address] [place] [id number] PCP - General Internal Medicine 01/16/24
--- OUTSIDE RECORDS SUMMARY | 2024-09-21 08:53 | XMS_ITS | Clinical Summary ---
Author Organization [facility] Address [address] [facility] [address] [place] [address] Phone Care Team Providers Care Special Assets Officer Name Role Phone Damian Lai MD Primary Care Provider [phone] Allergies No known active allergies Medications Multiple [...] sleep apnea syndrome 07/24/2014 06/22/2020 Overview (06/22/2020): [facility] [place] Split Night Diagnostic and Treatment Polysomnogram: Date 03/19/2013; BMI 53; AHI 31, REM AHI 64, Central apneas 2; Obstructive apneas 35; hypopneas 18; average oxygen saturation 93% (lowest 44%); PLMs 0. CPAP trialed and lowest AHI on therapy of 6 was 9.3. [facility] Split Night Diagnostic and Treatment Polysomnogram: Date [...] 04/09/2020 020, 07/30/2019, 07/18/2019 Influenza Vaccine (#1) 2024 0, 01/10/2020, 12/17/2018, Additional history exists Pneumococcal Vaccine: [...] % PVNMA 07/30/2019 us [facility] [id number] LICITED RESULTS Final Result PVNMA from Last 3 Months or Most Recently Relevant to Health Maintenance Insurance Medicare Medicaid [place] Care Teams Special Assets Officer Relationship Specialty Start Date End Date Damian Lai MD PCP - General 02/17/20
[2024-09-21 11:52] LABS: Anion Gap 14 (12-20); Blood Urea Nitrogen 48 mg/dL (9-16); Carbon Dioxide 26 mmol/L (22-29); Chloride 104 mmol/L (96-108); Estimated Glomerular Filt Rate 38; Potassium 4.0 mmol/L (3.3-5.1); Sodium 140 mmol/L (135-145)
== END 2024-09-21 08:52 | disposition home or self-care (01) ==
LOC: HO.HMGCLDS 08:51
PROVIDERS: PCP Internal Medicine; Visit Provider Internal Medicine Nephrology
DX: I12.9 Hypertensive chronic kidney disease with stage 1 through stage 4 chronic kidney disease, or unspecified chronic kidney disease (principal); E11.21 Type 2 diabetes mellitus with diabetic nephropathy; E11.22 Type 2 diabetes mellitus with diabetic chronic kidney disease; N18.30 Chronic kidney disease, stage 3 unspecified
CPT/HCPCS: 36415; 80051; 82565; 84520

== ENCOUNTER 2024-09-25 15:31 | Outpatient (AMB) | payer MEDICARE, MEDICAID, SELFPAY ==
--- NOTE | 2024-09-25 15:36 | HO.NEPHOV ---
Vital Signs 09/25/24 15:39 Height 5 ft 8 in Weight 307 lb 4 oz BMI 46.7 BP 104/60 Blood Pressure Location Rt brachial Position Sitting Pulse 67 Pulse Source Pulse Oximeter Pulse Oximetry (%) 97 Oxygen Delivery Method Room Air Intake Visit Reasons: 3 MO FU-[facility] Roller Print Tender Required: No Accompanied by: Self / Same As Patient Allergies No Known Allergies Allergy (Verified 09/25/24 15:38) HPI Comments Details: Zac was seen in follow-up of his chronic kidney disease on a backdrop of obesity, hypertension and uncontrolled diabetes. He has no pedal edema. His blood sugar control is better . He denies chest pain, shortness of breath, nausea, vomiting, diarrhea, urinary symptoms, orthostasis. He avoids nonsteroidal inflammatory medications. He claims to be compliant with his medications but is not as active as he should be. He is on angiotensin receptor nickolas. [facility] Medical History (Updated 03/08/23 @ 15:48 by Ruddy Mcconnell MD) Chronic kidney disease (CKD) Hypertension Diabetes Family History Mother Diabetes Father Diabetes Hypertension Social History Alcohol intake: never Patient Tobacco Use Status: Never used Tobacco Review of Systems Const All systems reviewed & are unremarkable except as noted in HPI and below Physical Exam Const General: comfortable and no acute distress Orientation/consciousness: patient oriented x3 HEENT Head: Yes normocephalic Mouth: Normal oral and palatal mucosa present Eyes EOM: EOMs intact bilaterally Neck Neck: Yes supple Resp Auscultation: clear to auscultation bilaterally Cardio Jugular venous distension: no JVD Rate: regular rate GI Palpation (GI): Soft to palpation Auscultation: normal bowel sounds General: Yes no CVA tenderness Back/Spine/Pelvis Back: no CVA tenderness Skin General skin exam: no rashes or lesions noted Neuro General: patient oriented x3 and moves all extremities Extrem General: Yes no pedal edema Results Reviewed Nephrology Results: Sodium, (135-145) 140 mmol/L 09/21/24 Potassium, (3.3-5.1) 4.0 mmol/L 09/21/24 Chloride, (96-108) 104 mmol/L 09/21/24 Carbon Dioxide, (22-29) 26 mmol/L 09/21/24 BUN, (9-16) 48 mg/dL H 09/21/24 Creatinine, (0.5-1.4) 1.85 mg/dL H 09/21/24 Urine Creatinine 74.66 mg/dL 06/22/24 Protein/Creatinin Ratio TNP 06/22/24 Assessment & Plan Assessment & Plan (1) CKD stage 3 due to type 2 diabetes mellitus: Code(s): E11.22 - Type 2 diabetes mellitus with diabetic chronic kidney disease; N18.30 - Chronic kidney disease, stage 3 unspecified Category: Medical (2) Diabetic nephropathy: Code(s): E11.21 - Type 2 diabetes mellitus with diabetic nephropathy Category: Medical Qualifiers: Diabetes mellitus type: type 2 Qualified Code(s): E11.21 - Type 2 diabetes mellitus with diabetic nephropathy (3) Hypertension: Code(s): I10 - Essential (primary) hypertension Category: Medical Qualifiers: Hypertension type: primary hypertension Qualified Code(s): I10 - Essential (primary) hypertension Plan Zac has 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 He is on angiotensin receptor nickolas along with multiple antihypertensives to keep his blood pressure at goal. He should be on a low-sodium diet. He should maintain good hydration. He can continue Bumex 1 mg every other day. He should take Jardiance 10 mg daily which I plan to increase to 25 mg daily with time. He should not take any nonsteroidal anti-inflammatory medications. I did not make any other medication changes today. He needs to lose weight. If he is unsuccessful in losing weight he should be seen in weight management . All his questions were answered Orders: Orders Protein Creatinine Ratio, Ur 3 Months E11.21 - Type 2 diabetes mellitus with diabetic nephropathy, E11.22 - Type 2 diabetes mellitus with diabetic chronic kidney disease, I10 - Essential (primary) hypertension, N18.30 - Chronic kidney disease, stage 3 unspecified Creatinine 3 Months E11.21 - Type 2 diabetes mellitus with diabetic nephropathy, E11.22 - Type 2 diabetes mellitus with diabetic chronic kidney disease, I10 - Essential (primary) hypertension, N18.30 - Chronic kidney disease, stage 3 unspecified Blood Urea Nitrogen 3 Months E11.21 - Type 2 diabetes mellitus with diabetic nephropathy, E11.22 - Type 2 diabetes mellitus with diabetic chronic kidney disease, I10 - Essential (primary) hypertension, N18.30 - Chronic kidney disease, stage 3 unspecified Electrolytes 3 Months E11.21 - Type 2 diabetes mellitus with diabetic nephropathy, E11.22 - Type 2 diabetes mellitus with diabetic chronic kidney disease, I10 - Essential (primary) hypertension, N18.30 - Chronic kidney disease, stage 3 unspecified Coding Level of Care Code Est Pt Level 4 (04634) Diagnoses CKD stage 3 due to type 2 diabetes mellitus E11.22; N18.30 Diabetic nephropathy associated with type 2 diabetes mellitus E11.21 Diabetes mellitus type: type 2 Primary hypertension I10 Hypertension type: primary hypertension
[2024-09-25 15:39] VITALS: BP 104/60; PULSE 67; O2SAT 97; BMI 46.7
--- OUTSIDE RECORDS SUMMARY | 2024-09-25 16:20 | XMS_ITS | Clinical Summary ---
Author Organization [facility] Address [address] [facility] [address] [place] [address] Phone Care Team Providers Care Mix Mill Tender Name Role Phone Damian Lai MD Primary Care Provider [phone] Allergies No known active allergies Medications Multiple [...] sleep apnea syndrome 07/24/2014 06/22/2020 Overview (06/22/2020): [facility] [place] Split Night Diagnostic and Treatment Polysomnogram: Date 03/19/2013; BMI 53; AHI 31, REM AHI 64, Central apneas 2; Obstructive apneas 35; hypopneas 18; average oxygen saturation 93% (lowest 44%); PLMs 0. CPAP trialed and lowest AHI on therapy of 6 was 9.3. [facility] [place] [facility] Split Night Diagnostic and [...] % PVNMA 07/30/2019 us [facility] LAB [id number] LICITED RESULTS Final Result PVNMA from Last 3 Months or Most Recently Relevant to Health Maintenance Insurance Medicare Medicaid [place] Medicare [place] Care Teams Mix Mill Tender Relationship Specialty Start Date End Date Damian Lai MD PCP - General 02/17/20
--- OUTSIDE RECORDS SUMMARY | 2024-09-25 16:20 | XMS_ITS | Clinical Summary ---
Author Organization [facility] Address [address] [place] [address] Care Team Providers Care Adjunct Philosophy Faculty Name Role Phone Damian Lai MD Primary Care Provider [phone] Allergies No known active allergies Medications losartan (COZAAR) 100 mg tablet Take 1 tablet (100 mg total) by mouth at bedtime. at bedtime. Active ASPIRIN ORAL Take 81 mg by mouth 1 (one) time each day. Active blood-glucose meter,continuous (Dexcom G6 Entry Tech[place] [facility] [place] 023 Active blood-glucose sensor (DEXCOM G7 SENSOR [facility] [place] 1 Each by Does not apply route See Admin Instructions. USE 1 SENSOR EVERY 10 DAYS. 023 Active blood-glucose transmitter (DEXCOM G6 TRANSMITTER [facility] [place] To use with Dexcom [...] with BMI of 4 5.0-49.9, adult [place] [place] [facility] [place] 12/14/2023 COVID-19 12/03/2021 Adhesive capsulitis of ankle, right 10/17/2019 Adhesive capsulitis of right shoulder 10/17/2019 Osteoarthritis of right AC (acromioclavicular) j oint 10/17/2019 Tendinitis of right rotator cuff 10/17/2019 Allergic conjunctivitis of both eyes 07/31/2019 MDD (major depressive disord er), recurrent severe, without psychosis ([facility] [place] [facility] [place] 07/16/2019 Chronic rhinitis 07/27/2017 Recurrent sinus infections 07/27/2017 GERD (gastroesophageal reflux disease) 6 CKD (chronic kidney disease) stage 3, GFR 30-59 ml/min ([facility] [place] [facility] 07/24/2014 Diabetes mellitus type 2 wit h neurological manifestations ([facility] [place] [facility] [place] 07/24/2014 Hyperlipidemia 07/24/2014 ARUNA (obstructive sleep apnea) 07/24/2014 [place] (12/14/2023[place] [facility] [place] [facility] Polysomnogram: Date 03/19/2013; BMI 53; AHI 31, REM AHI 64, Central apneas 2; Obstructive apneas 35; hypopneas 18; average oxygen saturation 93% (lowest 44%); PLMs 0. CPAP trialed and lowest AHI on therapy of 6 was 9.3. Encounters Date Type Department Care Team Description 08/01/2024 Nurse Triage Adult Medicine [address] [phone] Damian Lai MD Trouble Swallowing from Last [...] Surgery Date Site/Laterality Comments ESOPHAGOGASTRODUODENOSCOPY 07/24/15 PROCEDURE: ME EGD TRANSORAL BIOPSY SINGLE/MULTIPLE; COMMENT: normal; normal gastric biopsies without H. pylori Medical History Medical History Date Comments Type II or unspecified type diabetes mellitus without mention of complication, uncontrolled DX:Type II or unspecified t ype diabetes mellitus without mention of complication, uncontrolled Shoulder arthritis DX:Shoulder a rthritis Gout DX:Gout Depression DX:Depression Hypertension DX:Hypertension Neuropathy DX:Neuropathy Morbid obesity ([facility] V24, [facility] V28) 07/24/2014 DX:Morbid obesity ([facility]) ARUNA (obstructive sleep apnea) 07/24/2014 DX :ARUNA (obstructive sleep apnea); COMMENT: severe CKD (chronic kidney disease) stage 3, GFR 30-59 ml/min ([facility] V24, [facility] V28) 07/24/2014 DX:CKD (chronic kidney disea se) stage 3, GFR 30-59 ml/min ([facility]) Hyperlipidemia 07/24/2014 DX:Hyperlipidemi a Family [...] 11/28/2024 9:40 AM EDT Office Visit Endocrinology [address] [phone] Lindy Gutierrez PA [address] [place] [address] 12/17/2024 1:00 PM EST Office Visit [place] Medicine [place] [address] [phone] Damian Lai MD [address] [place] [address] [phone] Health Maintenance Due Date Last Done Comments [...] Diabetes mellitus type 2 with neurological manifestations ([facility] V24, [facility] V28) LIPID PANEL WITH REFLEX TO DIRECT LDL Routine 07/25/2024 8:34 AM EDT Pure hypercholesterolemia COMPREHENSIVE METABOLIC PANEL Routine 07/25/2024 8:34 AM EDT Diabetes mellitus due to underlying condition with stage 2 chronic kidney disease, with long-term current use of insulin ([facility] V24, [facility] V28) Encounter for long-term (current) [...] LAB CHEMISTRY METHOD 07/25/2024 1:08 PM EDT [facility] Triglycerides 355(H) 0 - 150 mg/dL LAB CHEMISTRY METHOD 07/25/2024 1:08 PM EDT [facility] HDL 34(L) >=40 mg/dL LAB CHEMISTRY METHOD 07/25/2024 1:08 PM EDT [facility] LDL Calculated 66 0 - 100 mg/dL LAB CHEMISTRY METHOD 07/25/2024 1:08 PM EDT [facility] VLDL Cholesterol Marc 71 mg/dL LAB CHEMISTRY METHOD 07/25/2024 1:08 PM EDT [facility] Non HDL Chol. (LDL+VLDL) 137 <145 mg/dL LAB CHEMISTRY METHOD 07/25/2024 1:08 PM EDT [facility] Chol/HDL Ratio 5.0(H) 0.0 - 4.4 LAB CHEMISTRY METHOD 07/25/2024 1:08 PM EDT [facility] Blood Venous blood specimen / Unknown Venipuncture / Unknown 07/25/2024 8:34 AM EDT 07/25/2024 8:34 AM EDT us Damian Lai MD LAB BLOOD ORDERABLES Final Resu lt [facility] [address] [place] [address], [place] [phone] * (ABNORMAL) Microalbumin creatinine urine ratio (07/25/2024 8:34 AM EDT) Creatinine, Urine 22.0 mg/dL LAB CHEMISTRY METHOD 07/25/2024 2:20 PM EDT [facility] Microalb, Ur 7.8 0.0 - 29.0 mg/L LAB CHEMISTRY METHOD 07/25/2024 2:20 PM EDT [facility] Microalb/Creat Ratio 35(H) <30 mg/g creat LAB CHEMISTRY METHOD 07/25/2024 2:20 PM EDT [facility] Urine Urine specimen obtained by clean catch procedure / Unknown Non-blood Collection / Unknown 07/25/2024 8:34 AM EDT 07/25/2024 8:34 AM EDT Damian Lai MD LAB URINE ORDERABLES Final Resu lt [facility] [address] [place] [address], * (ABNORMAL) Hemoglobin A1c (07/25/2024 8:34 AM EDT) Hemoglobin A1C 9.1(H) <6.5 % LAB CHEMISTRY METHOD 07/25/2024 12:37 PM EDT [facility] Mean Bld Glu Estim. 214 mg/dL LAB CHEMISTRY METHOD 07/25/2024 12:37 PM EDT [facility] Blood Venous blood specimen / Unknown Venipuncture / Unknown 07/25/2024 8:34 AM EDT 07/25/2024 8:34 AM EDT Lindy JULIO LAB BLOOD ORDERABLES Final Resul t [facility] [address] [place] [address], * (ABNORMAL) Comprehensive metabolic panel (07/25/2024 8:34 AM EDT) Sodium 139 133 - 145 mmol/L LAB CHEMISTRY METHOD 07/25/2024 1:08 PM [facility] Potassium 4.8 3.5 - 5.5 mmol/L LAB CHEMISTRY METHOD 07/25/2024 1:08 PM [facility] Chloride 101 96 - 110 mmol/L LAB CHEMISTRY METHOD 07/25/2024 1:08 PM [facility] CO2 28 21 - 32 mmol/L LAB CHEMISTRY METHOD 07/25/2024 1:08 PM [facility] Anion Gap 10 3 - 11 LAB CHEMISTRY METHOD 07/25/2024 1:08 PM [facility] Glucose 223(H) 70 - 100 mg/dL LAB CHEMISTRY METHOD 07/25/2024 1:08 PM [facility] BUN 36(H) 5 - 25 mg/dL LAB CHEMISTRY METHOD 07/25/2024 1:08 PM [facility] Creatinine 1.85(H) 0.70 - 1.30 mg/dL LAB CHEMISTRY METHOD 07/25/2024 1:08 PM [facility] eGFR 42(L) >=60 mL/min/1. 73m2 LAB CHEMISTRY METHOD 07/25/2024 1:08 PM [facility] Comment:Calculation based on the Chronic Kidney Disease Epidemiology Collaboration (CKD-EPI) equation refit without adjustment for race. BUN/Creatinine Ratio 19.5 LAB CHEMISTRY METHOD 07/25/2024 1:08 PM [facility] Calcium 9.4 8.5 - 10.5 mg/dL LAB CHEMISTRY METHOD 07/25/2024 1:08 PM [facility] AST (SGOT) 21 10 - 42 unit/L LAB CHEMISTRY METHOD 07/25/2024 1:08 PM EDT [facility] ALT (SGPT) 53 10 - 60 unit/L LAB CHEMISTRY METHOD 07/25/2024 1:08 PM EDT [facility] Alkaline Phosphatase 140(H) 42 - 121 unit/L LAB CHEMISTRY METHOD 07/25/2024 1:08 PM EDT [facility] Total Protein 7.4 6.0 - 8.0 g/dL LAB CHEMISTRY METHOD 07/25/2024 1:08 PM EDT [facility] Albumin 3.7 3.2 - 5.0 g/dL LAB CHEMISTRY METHOD 07/25/2024 1:08 PM EDT [facility] Total Bilirubin 0.9 0.0 - 1.4 mg/dL LAB CHEMISTRY METHOD 07/25/2024 1:08 PM EDT [facility] Blood Venous blood specimen / Unknown Venipuncture / Unknown 07/25/2024 8:34 AM EDT 07/25/2024 8:34 AM EDT Damian Lai MD LAB BLOOD ORDERABLES Final Resu lt [facility] [address] [place] [address], * Hepatitis C Screening (07/29/2022) Pathologist [facility] Hepatitis C Screening Abstracted Historical Provider HEALTH MAINTENANCE Final Result * Colonoscopy (01/22/2020) Pathologist [facility] Colonoscopy No interpretatio n, abstraced Anatomical Region Laterality Modality Other Historical Richelle RODRIGUEZ HEALTH MAINTENANCE Final Result from Last 3 Months or Most Recently Relevant to Health Maintenance Insurance MEDICARE [place] Advance Directives Documents on File Type Date Recorded 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
== END 2024-09-25 15:54 | disposition home or self-care (01) ==
LOC: HO.HKA 15:31
PROVIDERS: PCP Internal Medicine; Visit Provider Internal Medicine Nephrology
DX: E11.22 Type 2 diabetes mellitus with diabetic chronic kidney disease (principal); N18.30 Chronic kidney disease, stage 3 unspecified; E11.21 Type 2 diabetes mellitus with diabetic nephropathy; I10 Essential (primary) hypertension
CPT/HCPCS: 99214

== ENCOUNTER → 2024-09-25 15:31 | Outpatient (BNVA) | payer MEDICARE, MEDICAID, SELFPAY | PROVIDERS: PCP Internal Medicine; Visit Provider Internal Medicine Nephrology | DX: E11.22 Type 2 diabetes mellitus with diabetic chronic kidney disease (principal); I12.9 Hypertensive chronic kidney disease with stage 1 through stage 4 chronic kidney disease, or unspecified chronic kidney disease; N18.30 Chronic kidney disease, stage 3 unspecified; E11.21 Type 2 diabetes mellitus with diabetic nephropathy | CPT/HCPCS: 99212 ==

== ENCOUNTER 2024-12-28 07:39 | Outpatient (REF) | payer MEDICARE, MEDICAID, SELFPAY ==
--- OUTSIDE RECORDS SUMMARY | 2024-12-24 12:00 | XMS_ITS | Encounter Summary ---
Author Organization [employer] Address [address] [place] [address] Care Team Providers Care Iron Caster Name Role Phone Damian Lai MD Primary Care Provider Reason for Referral * Medications - Authorized Specialty Diagnoses / Procedures Referred By Contac t Referred To Contact Diagnoses Diabetes mellitus type 2 with neurological manifestations ([facility] V24, [facility] V28) Lindy Gutierrez PA [address] [place] [address] Phone: tel: fax: Referral ID Status Reason Start Date Expiration Date V isits Requested Visits Authorized [id number] Authorized 1 1 Reason for Visit * Reason Comments Diabetes Mellitus F/u DM Encounter Details Date Type Department Care Team (Late st Contact Info) Description 12/24/2024 12:00 PM EST Office Visit Endocrinology - [address] [phone] Lindy Gutierrez PA [address] [place] [phone] Diabetes mellitus type 2 with neurological manifestations ([facility]/H[facility] V24, [facility] V28) (Primary Dx); Morbid obesity with BMI of 45.0-49.9, adult ([facility]/HCC V24, [facility] V28); Primary hypertension; Hyperlipidemia, unspecified hyperlipidemia type; Stage 3a chronic kidney disease ([facility]/HCC V24, [facility] V28) Social History Tobacco Use Types Packs/Day Years Used Date Smoking Tobacco: Former Cigarettes 0 Q uit: 05/12/2020 Smokeless Tobacco: Current Alcohol Use Standard Drinks/Week Comments Yes 0 (1 standard drink = 0.6 oz pur e alcohol) Housing Instability Answer Date Recorde d Are you worried that in the next 2 months you may not have stable housing? No 12/16/2024 Food Access & Nutrition Answer Date Rec orded Do you have access to a vari ety of food including fruits and vegetables? Yes 12/16/2024 Health Literacy Answer Date Recorded How often do you need to hav e someone help you when you read instructions, pamphlets, or other written material from your doctor or pharmacy? Never 12/16/2024 Caregiver: How often do you need to have someone help you when you read instructions, pamphlets, or other written material from your doctor or pharmacy? Not on file 12/16/2024 Financial Risk Answer Date Recorded How hard is it for you to pa y for the very basics like food, housing, medical care, and air conditioning / heating? Not very hard 12/16/2024 Transportation Answer Date Recorded Has the lack of transportati on kept you from meetings, work, or from getting things needed for daily living? No Has the lack of transportati on kept you from medical appointments or from getting medications? No 12/16/2024 Social Isolation Answer Date Recorded How often do you feel lonely or isolated from th ose around you? Never 12/16/2024 Food Risk Answer Date Recorded Within the past 12 months we worried whether our food would run out before we got money to buy more. Never true 12/16/2024 Within the past 12 months th e food we bought just didn't last and we didn't have money to get more. Never true 12/16/2024 Dependent Care Answer Date Recorded Do you need help finding or paying for care for your loved ones. For example, early childhood lead teacher or elderly care for an older adult? No 12/16/2024 Education Answer Date Recorded Do you think completing more education or training, like finishing a GED, going to college, or learning a trade, would be helpful for you? Yes 12/16/2024 Employment and Income Answer Date Recor ded During the last four weeks, have you been actively looking for work? No 12/16/2024 Living Situation Answer Date Recorded What is your living situation? Unrecognized valu e 12/16/2024 Sex and Gender Information Value Date Recorded Sex Assigned at Not on file Legal Sex Male 4:43 PM EDT Gender Identity Not on file Sexual Orientation Not on file documented as of this encounter Last Filed Vital Signs Vital Sign Reading Time Taken Comments Blood Pressure 112/59 12/24/2024 11:54 AM EST Pulse 55 12/24/2024 11:54 AM EST Temperature - - Respiratory Rate 14 12/24/2024 11:54 AM EST Oxygen Saturation - - Inhaled Oxygen Concentration - - Weight 142 kg (314 lb) 12/24/2024 11:54 AM EST Height 170.2 cm (5' 7 ) 12/24/2024 11:54 AM EST Body Mass Index 49.18 12/24/2024 11:54 AM EST documented in this encounter Ordered Prescriptions Prescription Sig Dispense Quantity Refills Last Filled Start Date End Date dulaglutide (Trulicity) 4.5 mg/0.5 mL pen injector injectionIndications :Diabetes mellitus type 2 with neurological manifestations (CMS/HCC V24, CMS/HCC V28) Use 4.5mg once weekly 2 mL 3 12/24/2024 losartan (COZAAR) 100 mg tablet Take 1 tablet (100 mg total) by mouth at bedtime. 90 tablet 12/24/2024 insulin glargine (Lantus Solostar U-100 Insulin) 100 unit/mL (3 mL) injection pen Inject 52-54 Units under the skin at bedtime. 60 mL 2 12/24/2024 empagliflozin (Jardiance) 10 mg tablet Take 1 tablet (10 mg total) by mouth 1 (one) time each day. 90 tablet 1 12/24/2024 documented in this encounter Progress Notes * Sil Valerio MA - 12/24/2024 12:00 PM EST Images from the original note were not included. Approved Prior authorization approved Payer: [employer] P[employer] Part D [id number] Note from payer: This medication or product was previously approved on from 20241224 to . Please note: This request was submitted electronically. Formulary lowering, tiering exception, cost reduction and/or pre-benefit determination review (including prospective Medicare hospice reviews) requests cannot be requested using this method of submission. Providers contact us at for further assistance. Electronic appeal: Not supported Prior auth initiated by: Sil Valerio MA * SUMANTH Rivera - 12/24/2024 12:00 PM EST CHIEF COMPLAINT: Diabetes Mellitus (F/u DM) IDENTIFIER: Zac Ahmadi is a 54 y.o. old male HPI: Patient is a 54-year-old male who presents today for diabetes follow up. He comes in with his Partner today. Current diabetic regimen: Metformin 500 mg twice daily Jardiance 10 mg daily--by nephrology Trulicity 3 mg once weekly Lantus 50 units at bedtime. Humalog 3 times a day if Premeal sugars above 100 No hypoglycemia overnight fasting sugars are in the mid 100s, generally in the 150s to 160s. Recent A1c at 8.2%. Using regular glucometer. Not interested in CGM right now. Diet: mostly DM friendly diet although there are room for improvement. Sedentary lifestyle. Has arthritis in knees, bilateral. Does some walking at day program No complaints of polyuria, polydipsia, nausea vomiting abdominal pain. On losartan and amlodipine and carvedilol and bumex. Following nephrology, BP at 112/59. With CKD, creatinine 1.67, GFR 48 seeing nephrology (Dr. Gill) On statin. LDL 71, total cholesterol 167. Lab Results Component Value Date HGBA1C 8.2 (H) 12/17/2024 History: Diagnosed with diabetes more than 20 years ago. Family history includes mom with insulin-dependent diabetes and dad with bwl-gkbezew-ssahkecqz diabetes. Denies any recent hospitalization as a result of diabetes. Previously evaluated by [facility] endocrinology, last visit in June 2021. At that time, patient was using the Medtronic insulin pump but stopped working weeks after his lastvisit with endocrinology. He was then told by insurance that insulin pump supplies would not be covered. Since then, he has been using U-500 insulin just once daily using a U100 syringe. He eyeball the amount of insulin using. Patient shows me the U100 syringe that he has in his glucometer kit and the most he will use his 8 units which is equivalent to 40 units of U-500 insulin. Generally, thisleads to hypoglycemia and therefore he uses 2 to 6 units on the U100 syringe if sugars are above 220. Lab Results Component Value Date HGBA1C 8.8 10/11/2023 HGBA1C 10.9 05/04/2023 HGBA1C 9.0 02/01/2023 HGBA1C 8.1 11/02/2022 HGBA1C 10.2 07/29/2022 Lab Results Component Value Date HGBA1C 8.2 (H) 12/17/2024 ROS: GENERAL: No malaise HEENT: No changes in hearing or vision RESPIRATORY: No cough, wheezing or shortness of breath CARDIOVASCULAR: No chest pain, leg swelling or palpitations GI: No abdominal discomfort ENDO: see HPI NEURO: No persistent headache, syncope PAST MEDICAL HISTORY: Patient Active Problem List Diagnosis Date Noted Condition not found 12/14/2023 Depression 12/14/2023 Gout 12/14/2023 Hypertension 12/14/2023 Neuropathy 12/14/2023 Shoulder arthritis 12/14/2023 Morbid obesity with BMI of 45.0-49.9, adult ([facility]) 12/14/2023 COVID-19 12/03/2021 Adhesive capsulitis of ankle, right 10/17/2019 Adhesive capsulitis of right shoulder 10/17/2019 Osteoarthritis of right AC (acromioclavicular) joint 10/17/2019 Tendinitis of right rotator cuff 10/17/2019 Allergic conjunctivitis of both eyes 07/31/2019 MDD (major depressive disorder), recurrent severe, without psychosis ([facility], [facility] V28) 07/16/2019 Chronic rhinitis 07/27/2017 Recurrent sinus infections 07/27/2017 GERD (gastroesophageal reflux disease) 07/03/2015 CKD (chronic kidney disease) stage 3, GFR 30-59 ml/min ([facility], [facility] V28) 07/24/2014 Diabetes mellitus type 2 with neurological manifestations ([facility], [facility] V28) 07/24/2014 Hyperlipidemia 07/24/2014 ARUNA (obstructive sleep apnea) 07/24/2014 Past Surgical History: Procedure Laterality Date ESOPHAGOGASTRODUODENOSCOPY 07/24/15 PROCEDURE: UT EGD TRANSORAL BIOPSY SINGLE/MULTIPLE; COMMENT: normal; normal gastric biopsies without H. pylori SOCIAL HISTORY: Social History Tobacco Use Smoking status: Former Current packs/day: 0.00 Types: Cigarettes Quit date: 05/12/2020 Years since quittin.6 Smokeless tobacco: Current Substance Use Topics Alcohol use: Yes FAMILY HISTORY: Family History Problem Relation Name Age of Onset Allergies Neg Hx Asthma Neg Hx Family Status Relation Name Status Neg Hx (Not Specified) No partnership data on file MEDICATIONS DISCONTINUED/REORDERED: Medications Discontinued During This Encounter Medication Reason blood-glucose meter,continuous ([email or web address] G6 General Claims Agent) misc cholecalciferol (VITAMIN D-3) 50 mcg (2,000 unit) capsule dulaglutide (Trulicity) 3 mg/0.5 mL pen injector injection losartan (COZAAR) 100 mg tablet insulin glargine (Lantus Solostar U-100 Insulin) 100 unit/mL (3 mL) injection pen Reorder empagliflozin (Jardiance) 10 mg tablet Reorder losartan (COZAAR) 100 mg tablet Reorder ACTIVE MEDICATIONS: Outpatient Medications Marked as Taking for the 12/24/24 encounter (Office Visit) with SUMANTH Rivera Medication Sig Dispense Refill albuterol HFA (Ventolin HFA) 90 mcg/actuation inhaler Inhale 2 puffs by mouth every 4 (four) hours if needed (Cough or Wheezing). allopurinoL (ZYLOPRIM) 100 mg tablet TAKE 1 TABLET BY MOUTH DAILY 90 tablet 1 amLODIPine (NORVASC) 5 mg tablet Take 1 tablet (5 mg total) by mouth 1 (one) time each day. 90 tablet 2 ammonium lactate (LAC-HYDRIN) 12 % lotion Apply to soles of feet daily. At night wear socks to bed ARIPiprazole (ABILIFY) 20 mg tablet Take 1 tablet (20 mg total) by mouth 1 (one) time each day. ASPIRIN ORAL Take 81 mg by mouth 1 (one) time each day. atorvastatin (LIPITOR) 40 mg tablet TAKE 1 TABLET(40 MG) BY MOUTH 1 TIME EACH DAY 90 tablet 0 blood sugar diagnostic (Contour Next Test Strips) test strip Use to check sugars 4 times a day 300 each 3 bumetanide (BUMEX) 1 mg tablet Take 1 tablet (1 mg total) by mouth 1 (one) time each day. busPIRone (BUSPAR) 5 mg tablet Take 1 tablet (5 mg total) by mouth 2 (two) times a day if needed. diclofenac (VOLTAREN) 1 % topical gel Apply 4 g topically 2 (two) times a day. 200 g 2 DULoxetine (CYMBALTA) [address] capsule Take 1 capsule (60 mg total) by mouth 1 (one) time each day. empagliflozin (Jardiance) 10 mg tablet Take 1 tablet (10 mg total) by mouth 1 (one) time each day. 90 tablet 1 hydrOXYzine HCL (ATARAX) 50 mg tablet Take 1 tablet (50 mg total) by mouth 2 (two) times a day. insulin glargine (Lantus Solostar U-100 Insulin) 100 unit/mL (3 mL) injection pen Inject 52-54 Units under the skin at bedtime. 60 mL 2 insulin lispro (HumaLOG KwikPen Insulin) 100 unit/mL injection pen Use before each meal, up to 3 times a day, sliding scale 100-149: 6 units 150-199: 8 units 200-249: 12 units 250-299: 16 units 300-349: 20 units 350-400:24 units Greater than 400, call me. 45 mL 2 losartan (COZAAR) 100 mg tablet Take 1 tablet (100 mg total) by mouth at bedtime. 90 tablet 0 metFORMIN XR (GLUCOPHAGE-XR) 500 mg 24 hr tablet Take 1 tablet (500 mg total) by mouth 2 (two) times a day. 180 tablet 2 omeprazole (PriLOSEC) [address] capsule TAKE 1 CAPSULE BY MOUTH DAILY 90 capsule 1 syr,ndl,ins,safe 0.5mL,disp un (INSULIN SYRINGE-NEEDLE,DISPOS. MISC) To use with insulin pen 4 times a day traZODone (DESYREL) 150 mg tablet Take 1 tablet (150 mg total) by mouth at bedtime. [DISCONTINUED] dulaglutide (Trulicity) 3 mg/0.5 mL pen injector injection Use 3mg once weekly 2 mL 5 [DISCONTINUED] empagliflozin (Jardiance) 10 mg tablet Take 1 tablet (10 mg total) by mouth 1 (one) time each day. 90 tablet 1 [DISCONTINUED] insulin glargine (Lantus Solostar U-100 Insulin) 100 unit/mL (3 mL) injection pen Inject 56-60 Units under the skin at bedtime. 60 mL 2 [DISCONTINUED] losartan (COZAAR) 100 mg tablet TAKE 1 TABLET(100 MG) BY MOUTH AT BEDTIME 90 tablet 0 ALLERGIES: Patient has no known allergies. PHYSICAL EXAM: Blood pressure 112/59, pulse 55, resp. rate 14, height 1.702 m (67 ), weight 142 kg (314 lb). Body mass index is 49.18 kg/m??. BMI is greater than 25.0 (above the normal range) - see Plan APPEARANCE: Alert and in no acute distress HEART: RRR LUNG: clear to auscultation NEURO: Awake, alert LABS: Lab Results Component Value Date HGBA1C 8.2 (H) 12/17/2024 HGBA1C 9.1 (H) 07/25/2024 HGBA1C 8.3 (H) 04/23/2024 Lab Results Component Value Date MICROALBUR 19.9 12/17/2024 LDLCALC 71 12/17/2024 CREATININE 1.67 (H) 12/17/2024 MICROALBCREA 124 (H) 12/17/2024 Lab Results Component Value Date GLUCOSE 164 (H) 12/17/2024 IMAGING: IMPRESSION: 1. Diabetes mellitus type 2 with neurological manifestations ([facility] V24, [facility] V28) 2. Morbid obesity with BMI of 45.0-49.9, adult ([facility] V24, [facility] V28) 3. Primary hypertension 4. Hyperlipidemia, unspecified hyperlipidemia type 5. Stage 3a chronic kidney disease ([facility] V24, [facility] V28) PLAN: Diabetes complicated with neuropathy, CKD: A1c 8.2%, improved from 9.1%. Lantus increased to 52 units at bedtime, increase by additional 2 if needed for target fasting sugar to be between 90 and 130 No change to Jardiance and Humalog. Continue with metformin, will continue to monitor renal function. For additional weight loss benefit/diabetes control, Trulicity increased to 4.5 mg once weekly. Patient is not keen on changing GLP-1's, I suggested Mounjaro. CKD: Following nephrology. Avoid NSAIDs, hydrate well. Blood pressure control is reasonable. On statin. Low-fat diet. Triglycerides needs to be monitored. Approaches towards weight loss are discussed, including burning more calories than one takes in by frequent, small meals, portion control and avoiding eating before bedtime. Return here in 3-4 months for reevaluation complete labs before appointment. Medication and lab orders: Orders Placed This Encounter Procedures Hemoglobin A1c None SUMANTH Swain on 12/24/2024 at 1:31 PM EST documented in this encounter Plan of Treatment Upcoming Encounters Date Type Department Care Team (Late st Contact Info) Description 03/13/2025 9:15 AM EST Office Visit Orthopedic Surgery [place] [id number] [phone] Martell Mckee DPM [address] [phone] 04/03/2025 8:45 AM EST Office Visit [address] [phone] Lindy Gutierrez PA [address] [place] [address] 07/01/2025 2:30 PM EDT Office Visit Adult Medicine [address] [phone] Damian Lai MD [address] [place] [address] Scheduled Orders Name Type Priority Associated Diagnoses Orde r Schedule Hemoglobin A1c Lab Routine Diabetes mellitus type 2 with neurological manifestations ([facility] V24, [facility] V28) Expected: 03/26/2025, Expires: 12/24/2025 documented as of this encounter Visit Diagnoses Diagnosis Diabetes mellitus type 2 with neurological manifestations ([facility] V24, [facility] V28)- Primary Morbid obesity with BMI of 45.0-49.9, adult ([facility] V24, [facility] V28) Primary hypertension Unspecified essential hypertension Hyperlipidemia, unspecified hyperlipidemia type Stage 3a chronic kidney disease ([facility] V24, [facility] V28) documented in this encounter Discontinued Medications Medication Sig Discontinue Reason Start Date End Da te blood-glucose meter,continuous ([employer] G6 General Claims Agent) [facility] For continuous glucose monitoring 05/26/2022 12/24/2024 cholecalciferol (VITAMIN D-3) 50 mcg (2,000 unit) capsule TAKE 1 CAPSULE BY MOUTH EVERY DAY 01/18/2024 12/24/2024 dulaglutide (Trulicity) 3 mg/0.5 mL pen injector injectionIndications:Fernanda betyesenia mellitus type 2 with neurological manifestations ([facility], [facility]) Use 3mg once weekly 08/13/2024 12/24/2024 losartan (COZAAR) 100 mg tablet Take 1 tablet (100 mg total) by mouth at bedtime. at bedtime. 12/24/2024 insulin glargine (Lantus Solostar U-100 Insulin) 100 unit/mL (3 mL) injection pen Inject 56-60 Units under the skin at bedtime. Reorder 01/18/2024 12/24/2024 empagliflozin (Jardiance) 10 mg tablet Take 1 tablet (10 mg total) by mouth 1 (one) time each day. Reorder 11/26/2024 12/24/2024 losartan (COZAAR) 100 mg tablet TAKE 1 TABLET(100 MG) BY MOUTH AT BEDTIME Reorder 12/10/2024 12/24/2024 documented as of this encounter Additional Health Concerns Assessment Noted Time PHQ-9 Depression Total Score: 2 12/17/19 25 2:07 PM EST documented as of this encounter Care Teams Iron Caster Relationship Specialty Start Date End Date Damian Lai MD [address] [place] [phone] PCP - General Internal Medicine 01/16/24 documented as of this encounter
--- OUTSIDE RECORDS SUMMARY | 2024-12-28 07:42 | XMS_ITS | Encounter Summary ---
Author Organization [facility] Address [address] [place] [address] Care Team Providers Care Consulting Marine Engineer Name Role Phone Damian Lai MD Primary Care Provider [phone] Encounter Details Date Type Department Care Team Description 01/24/2020 Orders Only Medical Records [address] [place] [address] Yady Low MD [address] [place] [address] Social History Tobacco Use Types Packs/Day Years [...] these findings with the referring physician at [facility] gastroenterology clinic. I would like to personally thank you for allowing us to take care of you. Please don't hesitate to call us for any questions or concerns. Regards, Ben Low MD Board Certified Gastroenterology and Internal Medicine Transplant Hepatology [facility] documented in this encounter Plan of Treatment Not on file documented as of this encounter Procedures Procedure Name Priority Date/Time Associated Diagnosis Comments OUTSIDE PATHOLOGY Routine 01/22/2020 documented in this encounter Results * OUTSIDE PATHOLOGY (01/22/2020) Yady Low MD OUTSIDE LAB documented in this encounter Visit Diagnoses Not on filedocumented in this encounter Care Teams Consulting Marine Engineer Relationship Specialty Start Date End Date Damian Lai MD [address] [place] [address] PCP - General Internal Medicine 04/01/14 documented as of this encounter
--- OUTSIDE RECORDS SUMMARY | 2024-12-28 07:42 | XMS_ITS | Encounter Summary ---
Author Organization [facility] Address [address] [place] [address] Care Team Providers Care Nurses' Aide Name Role Phone Damian Lai MD Primary Care Provider [phone] Encounter Details Date Type Department Care Team Description 07/28/2018 Hospital Medical Records [address] [place] [address] Vita Matias MD [address] [facility] [address] [place] [address] Social History Tobacco Use Types [...] on filedocumented in this encounter Care Teams Nurses' Aide Relationship Specialty Start Date End Date Damian Lai MD [address] [place] [address] PCP - General Internal Medicine 04/01/14 documented as of this encounter
--- OUTSIDE RECORDS SUMMARY | 2024-12-28 07:42 | XMS_ITS | Encounter Summary ---
Author Organization [facility] Address [address] [place] [address] Care Team Providers Care Centralized Traffic Control Operator Name Role Phone Damian Lai MD Primary Care Provider [phone] Encounter Details Date Type Department Care Team Description 10/16/2023 Refill Endocrinology - [place] [address] [place] [address] Lindy Gutierrez PA-C [address] [place] [address] Social History Tobacco Use Types Packs/Day Years [...] on filedocumented in this encounter Care Teams Centralized Traffic Control Operator Relationship Specialty Start Date End Date Damian Lai MD [address] [place] [address] PCP - General Internal Medicine 04/01/14 documented as of this encounter
--- OUTSIDE RECORDS SUMMARY | 2024-12-28 07:42 | XMS_ITS | Encounter Summary ---
Author Organization [facility] Address [address] [place] [address] Care Team Providers Care Environmental Research Scientist Name Role Phone Damian Lai MD Primary Care Provider [phone] Encounter Details Date Type Department Care Team Description 08/02/2018 Telecom Network Manager Report Medical Records [address] [place] [address] Elsa Jackson II Social History Tobacco Use [...] on filedocumented in this encounter Care Teams Environmental Research Scientist Relationship Specialty Start Date End Date Damian Lai MD [address] [place], [place] [phone] PCP - General Internal Medicine 04/01/14 documented as of this encounter
--- OUTSIDE RECORDS SUMMARY | 2024-12-28 07:42 | XMS_ITS | Encounter Summary ---
Author Organization [facility] Address [address] [place] [address] Care Team Providers Care Emergency Worker Name Role Phone Damian Lai MD Primary Care Provider [phone] Encounter Details Date Type Department Care Team Description 04/27/2020 Business Doc Medical Records [address] [place] [address] Abstract, Provider Social History Tobacco Use Types [...] filedocumented in this encounter Care Teams Emergency Worker Relationship Specialty Start Date End Date Damian Lai MD [address] [place], [place] [phone] PCP - General Internal Medicine 04/01/14 documented as of this encounter
--- OUTSIDE RECORDS SUMMARY | 2024-12-28 07:42 | XMS_ITS | Encounter Summary ---
Author Organization [facility] Address [address] [place] [address] Care Team Providers Care Administration Dean Name Role Phone Damian Lai MD Primary Care Provider [phone] Encounter Details Date Type Department Care Team Description 11/10/2017 Hospital Medical Records [address] [place] [address] Chad Siegel, DPM Social History Tobacco Use [...] on filedocumented in this encounter Care Teams Administration Dean Relationship Specialty Start Date End Date Damian aLi MD [address] [place], [place] [phone] PCP - General Internal Medicine 04/01/14 documented as of this encounter
--- OUTSIDE RECORDS SUMMARY | 2024-12-28 07:42 | XMS_ITS | Encounter Summary ---
Author Organization [facility] Address [address] [place] [address] Care Team Providers Care Diamond Selector Name Role Phone Damian Lai MD Primary Care Provider [phone] Encounter Details Date Type Department Care Team Description 11/21/2023 Pt. Non Urgent Medical Question Endocrinology - [address] [address] Lindy Gutierrez PA-C [address] [place] [address] Type II or unspecified type diabetes mellitus [...] on my Lantus Solostar Pen. At the [facility]. Thank you. documented in this encounter Plan of Treatment Not on file documented as of this encounter Visit Diagnoses Diagnosis Type II or unspecified type diabetes mellitus with renal manifestations, uncontrolled(250.42) (HCC) Type II or unspecified type diabetes mellitus with renal manifestations, uncontrolled documented in this encounter Care Teams Diamond Selector Relationship Specialty Start Date End Date Damian Lai MD [address] [place] [id number] PCP - General Internal Medicine 04/01/14 documented as of this encounter
--- OUTSIDE RECORDS SUMMARY | 2024-12-28 07:42 | XMS_ITS | Encounter Summary ---
Author Organization [facility] Address [address] [place] [address] Care Team Providers Care Aeronautical Test Engineer Name Role Phone Damian Lai MD Primary Care Provider Encounter Details Date Type Department Care Team Description 03/01/2018 Hospital Medical Records [address] [place] [address] [address] [place] [address] Social History Tobacco Use Types Packs/Day Years [...] on filedocumented in this encounter Care Teams Aeronautical Test Engineer Relationship Specialty Start Date End Date Damian Lai MD [address] [place] [address] [phone] PCP - General Internal Medicine 04/01/14 documented as of this encounter
--- OUTSIDE RECORDS SUMMARY | 2024-12-28 07:42 | XMS_ITS | Encounter Summary ---
Author Organization [facility] Address [address] [place] [address] Care Team Providers Care Feed Blender Name Role Phone Damian Lai MD Primary Care Provider [phone] Encounter Details Date Type Department Care Team Description 03/17/2018 Staff Research Scientist Report Medical Records [address] [place] [address] Gerson Betts Social History Tobacco Use Types [...] on filedocumented in this encounter Care Teams Feed Blender Relationship Specialty Start Date End Date Damian Lai MD [address] [place] [address] PCP - General Internal Medicine 04/01/14 documented as of this encounter
--- OUTSIDE RECORDS SUMMARY | 2024-12-28 07:42 | XMS_ITS | Encounter Summary ---
Author Organization [facility] Address [address] [place] [address] Care Team Providers Care Culinary Intern Name Role Phone Damian Lai MD Primary Care Provider [phone] Encounter Details Date Type Department Care Team Description 08/08/2018 Wood Room Supervisor Report Medical Records [address] [place] [address] Daniel Mckeon Social History Tobacco Use Types [...] on filedocumented in this encounter Care Teams Culinary Intern Relationship Specialty Start Date End Date Damian Lai MD [address] [place], [place] [phone] PCP - General Internal Medicine 04/01/14 documented as of this encounter
--- OUTSIDE RECORDS SUMMARY | 2024-12-28 07:42 | XMS_ITS | Encounter Summary ---
Author Organization [facility] Address [address] [place] [address] Care Team Providers Care Senior Financial Consultant Name Role Phone Damian Lai MD Primary Care Provider [phone] Encounter Details Date Type Department Care Team Description 11/04/2020 Veneer Repairer Machine Report Medical Records [address] [place] [address] Emily Arriaga MD Social History Tobacco Use [...] filedocumented in this encounter Care Teams Senior Financial Consultant Relationship Specialty Start Date End Date Damian Lai MD [address] [place] [address] PCP - General Internal Medicine 04/01/14 documented as of this encounter
--- OUTSIDE RECORDS SUMMARY | 2024-12-28 07:42 | XMS_ITS | Encounter Summary ---
Author Organization [facility] Address [address] [place] [address] Care Team Providers Care Drum Sealer Name Role Phone Damian Lai MD Primary Care Provider Encounter Details Date Type Department Care Team Description 07/31/2018 Hospital Medical Records [address] [place] [address] Shruti Abernathy NP Social History Tobacco Use [...] filedocumented in this encounter Care Teams Drum Sealer Relationship Specialty Start Date End Date Damian Lai MD [address] [place] [address] PCP - General Internal Medicine 04/01/14 documented as of this encounter
--- OUTSIDE RECORDS SUMMARY | 2024-12-28 07:42 | XMS_ITS | Encounter Summary ---
Author Organization [facility] Address [address] [place] [address] Care Team Providers Care Skills Auditor Name Role Phone Damian Lai MD Primary Care Provider [phone] Reason for Visit * Reason Onset Date Comments Advice 10/01/2020 Encounter Details Date Type Department Care Team Description 10/01/2020 Telephone General Surgery - [address] [place] [address] Yamile Norton, ,NIKI,LDN Advice Social [...] on filedocumented in this encounter Care Teams Skills Auditor Relationship Specialty Start Date End Date Damian Lai MD [address] [place] [id number] PCP - General Internal Medicine 04/01/14 documented as of this encounter
--- OUTSIDE RECORDS SUMMARY | 2024-12-28 07:42 | XMS_ITS | Encounter Summary ---
Author Organization [facility] Address [address] [place] [address] Care Team Providers Care Bank Vault Custodian Name Role Phone Damian Lai MD Primary Care Provider Encounter Details Date Type Department Care Team Description 04/18/2018 Rigging Up Man Report Medical Records [address] [place] [address] Jason Chang Social History Tobacco Use Types [...] on filedocumented in this encounter Care Teams Bank Vault Custodian Relationship Specialty Start Date End Date Damian Lai MD [address] [place] [address] PCP - General Internal Medicine 04/01/14 documented as of this encounter
--- OUTSIDE RECORDS SUMMARY | 2024-12-28 07:42 | XMS_ITS | Encounter Summary ---
Author Organization [facility] Address [address] [place] [address] Care Team Providers Care Direct Service Professional Name Role Phone Damian Lai MD Primary Care Provider [phone] Reason for Visit * Reason Onset Date Comments medication problems 05/20/2020 Encounter Details Date Type Department Care Team Description 05/20/2020 Telephone Internal Medicine - [address], [address] [place] [address] Giovanni Chatman PA-C medication problems Social History [...] on filedocumented in this encounter Care Teams Direct Service Professional Relationship Specialty Start Date End Date Damian Lai MD [address] [place] [address] PCP - General Internal Medicine 04/01/14 documented as of this encounter
--- OUTSIDE RECORDS SUMMARY | 2024-12-28 07:42 | XMS_ITS | Encounter Summary ---
Author Organization [facility] Address [address] [place] [address] Care Team Providers Care Plant Care Worker Name Role Phone Damian Lai MD Primary Care Provider [phone] Encounter Details Date Type Department Care Team Description 04/05/2018 Hospital Medical Records [address] [place] [address] [address] [place] [address] Social History Tobacco Use Types Packs/Day Years [...] on filedocumented in this encounter Care Teams Plant Care Worker Relationship Specialty Start Date End Date Damian Lai MD [address] [place] [address] [phone] PCP - General Internal Medicine 04/01/14 documented as of this encounter
--- OUTSIDE RECORDS SUMMARY | 2024-12-28 07:42 | XMS_ITS | Encounter Summary ---
Author Organization [facility] Address [address] [place] [address] Care Team Providers Care Sprigger Name Role Phone Damian Lai MD Primary Care Provider [phone] Encounter Details Date Type Department Care Team Description 11/14/2023 Refill Adult Medicine [facility] [address] [place] [address] Minerva Giron, PUBLIC SAFETY OFFICER [address] [place] [address] Social History Tobacco Use Types Packs/Day Years [...] / Plan: [place] / Product Type: MEDICARE [id number] documented in this encounter Plan of Treatment Not on file documented as of this encounter Visit Diagnoses Not on filedocumented in this encounter Care Teams Sprigger Relationship Specialty Start Date End Date Damian Lai MD [address] [place] [address] PCP - General Internal Medicine 04/01/14 documented as of this encounter
--- OUTSIDE RECORDS SUMMARY | 2024-12-28 07:42 | XMS_ITS | Encounter Summary ---
Author Organization [facility] Address [address] [place] [address] Care Team Providers Care Right Of Way Buyer Name Role Phone Damian Lai MD Primary Care Provider [phone] Reason for Visit * Reason Onset Date Comments Transitional Care Management (Tcm) 11/15/2017 TCM post d/c [facility] 11/13/17 Encounter Details Date Type Department Care Team Description 11/15/2017 Telephone Adult Medicine [facility] [address] [place], [place] [phone] Damian Lai MD [address] [place] [address] [phone] Transitional Care Management (Tcm) (TCM post d/c [facility] 11/13/17) Social History Tobacco Use Types Packs/Day [...] hx daibetic foot ulcer was admitted to [facility] on 11/09/17 with right diabetic foot infection and abcess near right first MTP joint and likely involving the MTP joint On 10/18/17 patient underwent debridement and wound swab grew E faecalis and MSSA. Treatment was for2 weeks of Naficillin, Patient reported continuation of pain and erythema. He denied fever, chills or rigors. F/U with PCP and Podiatry and patient referred to [facility] for eval and IV antibiodic therapy. On admission MRI showed abnormal persistentright great toe infectious inflammatory process and soft tissue ulceration without interval developing enhancing bone marrow edema by contrast MRI when compared to 10/18/17 ID consulted and ultimately patient placed on po Augmentin prior to discharge. Patient discharged to home on 11/13/17 with [facility] Vna services ordered Quality Outreach: Hospital Discharge Admission Date: 11/09/17 Discharge Date: 11/13/17 Hospital: [facility] Problem or condition that sent patient [...] home care services have been ordered. Agency: [facility] Changes in condition since discharge: [...] to follow- up appointment. Patient reminded of [facility] office telephone numbers. Instructed to call office or return to ER if symptoms return or worsen. Plan for care management: No care management needed at this time. documented in this encounter Plan of Treatment Not on file documented as of this encounter Visit Diagnoses Not on filedocumented in this encounter Care Teams Right Of Way Buyer Relationship Specialty Start Date End Date Damian Lia MD [address] [place] [address] PCP - General Internal Medicine 04/01/14 documented as of this encounter
--- OUTSIDE RECORDS SUMMARY | 2024-12-28 07:42 | XMS_ITS | Encounter Summary ---
Author Organization [facility] Address [address] [place] [address] Care Team Providers Care Industrial Millwright Name Role Phone Damian Lai MD Primary Care Provider [phone] Encounter Details Date Type Department Care Team Description 08/02/2018 Sales And Catering Coordinator Report Medical Records [address] [place] [address] Ruddy Mcconnell MD Social History Tobacco Use [...] on filedocumented in this encounter Care Teams Industrial Millwright Relationship Specialty Start Date End Date Damian Lai MD [address] [place], [place] [phone] PCP - General Internal Medicine 04/01/14 documented as of this encounter
--- OUTSIDE RECORDS SUMMARY | 2024-12-28 07:42 | XMS_ITS | Encounter Summary ---
Author Organization [facility] Address [address] [place] [address] Care Team Providers Care Heat Treat Technician Name Role Phone Damian Lai MD Primary Care Provider [phone] Encounter Details Date Type Department Care Team Description 06/23/2020 Fagoter Report Medical Records [address] [place] [address] Ruddy Mcconnell MD Social History Tobacco Use [...] on filedocumented in this encounter Care Teams Heat Treat Technician Relationship Specialty Start Date End Date Damian Lai MD [address] [place] [address] PCP - General Internal Medicine 04/01/14 documented as of this encounter
--- OUTSIDE RECORDS SUMMARY | 2024-12-28 07:42 | XMS_ITS | Encounter Summary ---
Author Organization [facility] Address [address] [place] [address] Care Team Providers Care Procurement Professional Name Role Phone Damian Lai MD Primary Care Provider [phone] Encounter Details Date Type Department Care Team Description 11/20/2023 Orders Only Medical Records [address] [place] [address] Ruddy Mcconnell MD Social History Tobacco Use [...] on filedocumented in this encounter Care Teams Procurement Professional Relationship Specialty Start Date End Date Damian Lai MD [address] [place] [address] PCP - General Internal Medicine 04/01/14 documented as of this encounter
--- OUTSIDE RECORDS SUMMARY | 2024-12-28 07:42 | XMS_ITS | Encounter Summary ---
Author Organization [facility] Address [address] [place] [address] Care Team Providers Care Rn Acute Dialysis Name Role Phone Damian Lai MD Primary Care Provider [phone] Encounter Details Date Type Department Care Team Description 08/08/2018 Help Desk Consultant Report Medical Records [address] [place] [address] Daniel Mckeon Social History Tobacco Use Types [...] on filedocumented in this encounter Care Teams Rn Acute Dialysis Relationship Specialty Start Date End Date Damian Lai MD [address] [place], [place] [phone] PCP - General Internal Medicine 04/01/14 documented as of this encounter
--- OUTSIDE RECORDS SUMMARY | 2024-12-28 07:42 | XMS_ITS | Encounter Summary ---
Author Organization [facility] Address [address] [place] [address] Care Team Providers Care Rail Track Maintainer Name Role Phone Damian Lai MD Primary Care Provider [phone] Encounter Details Date Type Department Care Team Description 07/31/2018 District Fire Management Officer Report Medical Records [address] [place] [address] Daniel Mckeon Social History Tobacco Use Types [...] on filedocumented in this encounter Care Teams Rail Track Maintainer Relationship Specialty Start Date End Date Damian Lai MD [address] [place], [place] [phone] PCP - General Internal Medicine 04/01/14 documented as of this encounter
--- OUTSIDE RECORDS SUMMARY | 2024-12-28 07:42 | XMS_ITS | Encounter Summary ---
Author Organization [facility] Address [address] [place] [address] Care Team Providers Care Flavor Extractor Name Role Phone Damian Lai MD Primary Care Provider [phone] Encounter Details Date Type Department Care Team Description 11/10/2017 Hospital Medical Records [address] [place] [address] Giovana Perkins MD Social History Tobacco Use [...] on filedocumented in this encounter Care Teams Flavor Extractor Relationship Specialty Start Date End Date Damian Lai MD [address] [place] [address] PCP - General Internal Medicine 04/01/14 documented as of this encounter
--- OUTSIDE RECORDS SUMMARY | 2024-12-28 07:42 | XMS_ITS | Clinical Summary ---
Author Organization [facility] Address [address] [place] [address] Care Team Providers Care Centrifugal Extractor Operator Name Role Phone Damian Lai MD Primary Care Provider [phone] Allergies No known active allergies Medications Medication Sig Dispensed Refills Start Date End Date Status duloxetine (CYMBALTA) 60 MG capsule Take 60 mg by mouth daily. 0 Active Aspirin (ASPIR-81 OR) Take 81 mg by mouth daily. 0 Active bumetanide (BUMEX) 1 MG tablet Take 1 mg by mouth daily. 60 Tab 11 08/14/2018 Active Melatonin 5 MG Tab TAKE 1 TABLET BY MOUTH AT BEDTIME 0 05/15/2021 Active aripiprazole (ABILIFY) 20 MG tablet Take 20 mg by mouth daily. 0 08/07/2021 Active trazodone (DESYREL) 150 MG tablet TAKE 1 TABLET BY MOUTH AT BEDTIME 0 06/15/2021 Active Continuous Blood Gluc Transmit (Dexcom G6 Transmitter) MiscIndications:Typ e II or unspecified type diabetes mellitus with renal manifestations, uncontrolled(250.42 ) ([facility]) To use with Dexcom sensor, 1 transmitter every 90 days 1 Each 1 05/26/2022 Active Continuous Blood Gluc Accounts Payable Administrator (Dexcom G6 Accounts Payable Administrator) DeviceIndications:T ype II or unspecified type diabetes mellitus with renal manifestations, uncontrolled(250.42 ) (HCC) For continuous glucose monitoring 1 Each 0 05/26/2022 Active Insulin Pen Needle (B-D ULTRAFINE III SHORT PEN) 31G X 8 MM Misc To use with insulin pen 4 times a day 100 Each 2 06/08/2022 Active Continuous Blood Gluc Sensor (Dexcom G7 Sensor) Misc 1 Each by Does not apply route See Admin Instructions. USE 1 SENSOR EVERY 10 DAYS. 3 Each 5 06/08/2022 Active Diclofenac Sodium 1 % Gel Apply 4 g topically 2 times daily. 100 g 2 01/05/2023 Active ammonium lactate (LAC-HYDRIN) 12 % lotion Apply to soles of feet daily. At night wear socks to bed 400 g 2 01/05/2023 Active Insulin Lispro (HumaLOG KwikPen) 100 UNIT/ML Solution Pen-injectorIndicat ions:Type II or unspecified type diabetes mellitus with renal manifestations, uncontrolled(250.42 ) ([facility]) Use before each meal, up to 3 times a day, sliding scale 100-149: 6 units 150-199: 8 units 200-249: 12 units 250-299: 16 units 300-349: 20 units 350-400:24 units Greater than 400, call me. 45 mL 2 05/09/2023 Active hydrOXYzine (ATARAX) 50 MG tablet Take 1 Tablet by mouth 2 times daily. 60 Tablet 0 05/18/2023 Active allopurinol (ZYLOPRIM) 100 MG tablet Take 1 Tablet by mouth daily. 90 Tablet 1 05/22/2023 Active losartan (COZAAR) 100 MG tablet Take 1 Tablet by mouth at bedtime. 90 Tablet 1 06/12/2023 Active metformin (GLUCOPHAGE-XR) 500 MG 24 hr tabletIndications:T ype II or unspecified type diabetes mellitus with renal manifestations, uncontrolled(250.42 ) ([facility]) TAKE 1 TABLET BY MOUTH TWICE DAILY 180 Tablet 1 07/05/2023 Active Cholecalciferol (Vitamin D3) 50 MCG (1999 UT) Cap TAKE 1 CAPSULE BY MOUTH EVERY DAY 90 Capsule 1 07/10/2023 Active amlodipine (NORVASC) 5 MG tablet TAKE 1 TABLET BY MOUTH DAILY 90 Tablet 1 07/11/2023 Active atorvastatin (LIPITOR) 40 MG tablet Take 1 Tablet by mouth daily. 90 Tablet 1 07/17/2023 Active Ventolin HFA 108 (90 Base) MCG/ACT Aero Soln Inhale 2 Puffs into the lungs every 4 hours as needed for Cough or Wheezing. 18 g 0 08/14/2023 Active carvedilol (COREG) 25 MG tablet Take 1 Tablet by mouth 2 times daily (with meals). 180 Tablet 1 08/22/2023 Active Empagliflozin (Jardiance) 10 MG Tab Take 1 Tablet by mouth daily. 30 Tablet 2 10/12/2023 Active Trulicity 3 MG/0.5ML Solution Pen-injector ADMINISTER 3 MG UNDER THE SKIN 1 TIME A WEEK 2 mL 2 10/17/2023 Active Contour Next Test strip To check sugars 4 times a day 400 Strip 2 11/07/2023 Active omeprazole (PRILOSEC) 20 MG capsule Take 1 Capsule by mouth daily. 90 Capsule 1 11/17/2023 Active Insulin Glargine (Lantus SoloStar) 100 UNIT/ML Solution Pen-injectorIndicat ions:Type II or unspecified type diabetes mellitus with renal manifestations, uncontrolled(250.42 ) (HCC) INJECT 56-60 INTO SKIN ONCE AT BEDTIME 45 mL 2 11/21/2023 Active Active Problems Problem Noted Date COVID-19 12/03/2021 Osteoarthritis of right AC (acromioclavi cular) joint 10/17/2019 Adhesive capsulitis of ankle, right 10/07 Adhesive capsulitis of right shoulder Tendinitis of right rotator cuff 020 Allergic conjunctivitis of both eyes MDD (major depressive disorder), recurre nt severe, without psychosis 07/16/2019 Chronic rhinitis 07/27/2017 Recurrent sinus infections 07/27/2017 History of fracture of humerus 8 Overview: Jan 2017 s/p fall GERD (gastroesophageal reflux disease) 0 07/03/2015 Morbid obesity with BMI of 45.0-49.9, ad ult 07/24/2014 ARUNA (obstructive sleep apnea) severe AHI 31; REM AHI 64 07/24/2014 Overview: [facility] Polysomnogram: Date 03/19/2013; BMI 53; AHI 31, REM AHI 64, Central apneas 2; Obstructive apneas 35; hypopneas 18; average oxygen saturation 93% (lowest 44%); PLMs 0. CPAP trialed and lowest AHI on therapy of 6 was 9.3. 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 Resolved Problems Problem Noted Date Resolved Date Ulcer of right foot with fat layer exposed 12/1903/27/2018 Immunizations Name Administration Dates Next Due Influenza Flu (PT Reported) 12/17/2018 Influenza Vaccine-preservati ve Free-quadrivalent 4 Years 01/10/2020 Influenza Vaccine-quadrivalent 4 Years Plus 10/07 Pneumococcal Conjugate PCV-13 09/16/2016 Tdap 09/16/2016 Family History Medical History Relation Name Comments Allergies Negative Hx Asthma Negative Hx Social History Tobacco Use Types Packs/Day Years Used Date Smoking Tobacco: Former Vapor Q uit: 05/12/2020 Passive Smoke Exposure: Never Smokeless Tobacco: Current Tobacco Cessation:Ready to Q uit: Not Asked; Counseling Given: Not Answered Alcohol Use Standard Drinks/Week Comments Yes 0 (1 standard drink = 0.6 oz pur e alcohol) less then 5 per year Sex Assigned at Date Recorded Male 03/01/2021 4:[address] Job Start Date Occupation Industry Not on file Not on file Not on file Last Filed Vital Signs Vital Sign Reading Time Taken Comments Blood Pressure 120/60 10/12/2023 4:34 PM EDT Pulse 68 10/12/2023 4:34 PM EDT Temperature 36.7 C (98.1 F) 11/23/2023 9:13 AM EDT Respiratory Rate 16 10/12/2023 4:34 PM EDT Oxygen Saturation 98% 05/09/2023 10:12 AM EDT Inhaled Oxygen Concentration - - Weight 141.5 kg (312 lb) 11/23/2023 9:13 AM EDT Height 175.3 cm (5' 9 ) 11/23/2023 9:13 AM EDT Body Mass Index 46.07 11/23/2023 9:13 AM EDT Plan of Treatment Health Maintenance Due Date Last Done Comments Covid-19 Vaccine (#1) 01/18/1970 CERVICAL CANCER SCREENING 1990 MAMMOGRAM 2009 DIABETES: ANNUAL EYE EXAM 01/03/20202018, 01/02/2019 (External Completion), 09/06/2017 (External Completion), Additional history exists DIABETES: ANNUAL FOOT EXAM 04/17/202004/17, 01/03/2018, 12/08/2016, Additional history exists SHINGLES VACCINE (2 of 2) 04/20/2020 02/24/2020 (Ref used) BASELINE HEALTH EXAM 40-64 01/09/202201/09, 01/10/2020, 07/11/2016, Additional history exists COLON CANCER SCREENING 01/21/2023 01/22/2020 DEPRESSION SCREEN 07/30/2023 07/29/2022, (Completed), 07/11/2016, Additional history exists DIABETES: BLOOD SUGAR CONTRO L TEST (HGBA1C) 01/10/2024 10/11/2023, 05/04/2023, 02/01/2023, Additional history exists BMI CHECK/ADVISE 02/07/2024 10/12/2023, 03/2023, 02/01/2023, Additional history exists DIABETES/HEART DISEASE: JOVANNA AL CHOLESTEROL (LDL) 05/03/2024 05/04/2023, 03/30/2022, 03/30/2022, Additional history exists DIABETES: ANNUAL URINE PROTE IN TEST (MICROALBUMIN) 05/03/2024 05/04/2023, 03/30/2022, 06/10/2021, Additional history exists INFLUENZA (#1) 2024 01/10/2020, 12/07, 10/21/2016 DTAP/TDAP/TD (2 - Td or Tdap) 09/16/2026 09/16/2016, 09/16/2016 PNEUMOCOCCAL VACCINE FOR HIG H RISK PATIENTS (#2) 2034 09/16/2016, 09/16/2016 HEPATITIS C SCREENING Completed 07/29/2022 Care Teams Centrifugal Extractor Operator Relationship Specialty Start Date End Date Damian Lai MD [address] [place] [id number] PCP - General Internal Medicine 04/01/14
--- OUTSIDE RECORDS SUMMARY | 2024-12-28 07:42 | XMS_ITS | Encounter Summary ---
Author Organization [facility] Address [address] [place] [address] Care Team Providers Care Mechanical Maintenance Foreman Name Role Phone Damian Lai MD Primary Care Provider [phone] Encounter Details Date Type Department Care Team Description 05/20/2020 Orders Only Internal Medicine - [address], [address] [place] [address] Giovanni Chatman PA-C Superficial bruising of toe [...] toe documented in this encounter Care Teams Mechanical Maintenance Foreman Relationship Specialty Start Date End Date Damian Lai MD [address] [place] [address] PCP - General Internal Medicine 04/01/14 documented as of this encounter
--- OUTSIDE RECORDS SUMMARY | 2024-12-28 07:42 | XMS_ITS | Data Portability ---
Author Organization [facility], [facility] Address [address] [place] [address] Care Team Providers Care Scrubber Operator Name Role Phone VENITA DEL VALLE Primary Care Provider [phone] Assessment No assessment recorded. Plan of Treatment Reminders Order Date Submit Date Provider Last Modified By Organization Details Last Modified Time Details Appointments None record ed. Lab None record ed. Referral None record ed. Procedures None record ed. Surgeries None record ed. Imaging XR, knee, 4 or more view - Rm 203, L Knee. 4V 025 08/22/19 [facility], [address] [facility] [address] [address], [address], [place], [address], 15:03:05 Medication Orders None record ed. Patient TargetsNo targets recorded. Patient InstructionsNo instructions recorded. Reason for Referral None Reported. Results Created Date Observation Date Name Description Value Unit Range Abnormal Flag Note LastModifiedBy Organization Detail LastModifiedTime 08/22/19 25 08/21/2024 XR, knee, 4 or more view http:/ [email or web address] ?Encry pted=s hAaTro YD8dLq bEUv6g %2BXZw aYqtaq 0bqfl% 2Fg9IQ a4ajBk vP9nXo QUaueC m3YtLR FvZlgJ JJ8mAn HZtai3 6s4756 AC0Kla XqNVqu uKiQtr MwF INTERFACE [facility] [address], [place], [address], 08/21/2024 15:03:05 08/22/19 25 08/21/2024 XR, knee, 4 or more view http:/ [email or web address] ?Encry pted=s hAaTro YD8dLq bEUv6g %2BXZw aYqtaq 0bqfl% 2Fg9IQ a4ajBk vP9nXo QUaueC m3YtLR FvZlgJ JJ8mAn HZtai3 7j7844 AC0Kla XqNVqu uKiQtr MwF INTERFACE [facility] [address], [place], [address], 08/21/2024 15:03:07 Result Notes Documentation Provider Name and Address Organization Details Recorded Time Xr, Knee, 4 Or More View : [email or web address]? Encrypted=iaYdXceYH1aQbpY Uv6g%4VYMefBepjn6gkuu%2Fg 6YTh4sjMkaM5rBoBNeelVm5Wk ZJVjOoqAAQ5gKxOBdmi32t127 9NI9AxuSrTNlkqOyCyrXmH Not Available [facility] 08/21/2024 15:03: 06 Xr, Knee, 4 Or More View : [email or web address]? Encrypted=eqUhLcrED3uZdbU Uv6g%1WGRhnUwjfw1vcav%2Fg 2WHg8qzWwoP4eJaZLqyaZq8Kc UUXaIudULZ8wQhUUikr75b984 7HN4LjoOgAWzumKlHlaHlS Not Available [facility] 08/21/2024 15:03: 07 Procedures Surgical History Date Name Laterality Status Provider Name and Address Organization Details Recorded Time 08/21/2024 Sports Knee 4&1 completed Nima Menendez PA-C [address], [place], [address], [facility] 08/21/2024 15:54:20 Imaging Results None recorded. Procedure Notes None recorded. Medical Equipment None Reported. Medications Name Sig Start Date Stop Date Status Note LastModified by Organization Details LastModified Time atorvastatin 40 mg tablet TAKE 1 TABLET BY MOUTH DAILY active Not Available Not Available Not Available buspirone 5 mg tablet TAKE 1 TABLET BY MOUTH TWICE DAILY NEEDED active Not Available Not Available No t [...] MOUTH DAILY active Not Available Not Available Not Available trazodone 150 mg tablet TAKE 1 TABLET BY MOUTH AT BEDTIME active Not Available Not Available No t Available omeprazole 20 mg capsule,vanessa yed release TAKE 1 CAPSULE BY MOUTH DAILY active Not Available Not Available Not Available bumetanide 1 mg tablet TAKE 1 TABLET BY MOUTH TWICE DAILY active Not Available Not Available No t Available losartan 100 mg tablet TAKE 1 TABLET BY MOUTH AT BEDTIME active Not Available Not Available No t Available metformin ER 500 mg tablet,exten ded release 24 hr TAKE 1 TABLET BY MOUTH TWICE DAILY active Not Available Not Available No t Available aripiprazole 20 mg tablet TAKE 1 TABLET BY MOUTH DAILY active Not Available Not Available Not Available duloxetine 60 mg capsule,vanessa yed release TAKE 2 CAPSULES BY MOUTH DAILY active Not Available Not Available Not Available Lantus Solostar U-100 Insulin 100 unit/mL (3 mL) subcutaneous pen ADMINISTER 56 TO 60 UNITS UNDER THE SKIN AT BEDTIME active Not Available Not Available No t Available Humalog KwikPen (U-100) Insulin 100 unit/mL subcutaneous USE UP TO 3 TIMES PER DAY [...] Not Available Not Available No t Available cholecalcife rol (vitamin D3) 50 mcg (2,000 unit) capsule TAKE 1 CAPSULE BY MOUTH EVERY DAY active Not Available Not Available No t Available Contour Next Test Strips USE TO CHECK SUGARS FOUR TIMES DAILY active Not Available Not Available Not Available melatonin 10 mg capsule TAKE 1 TABLET BY MOUTH AT BEDTIME active Not Available Not Available No t Available Jardiance 10 mg tablet TAKE 1 TABLET BY MOUTH DAILY active Not Available Not Available Not Available Trulicity 3 mg/0.5 mL subcutaneous pen injector ADMINISTER 3 MG UNDER THE SKIN 1 TIME WEEKLY active Not Available Not Available Not Available Vitals None Recorded Social History None recorded. Functional Status None recorded. Mental Status None recorded. Family History Nothing Reported. Medical History No medical history recorded. Past Encounters Encounter ID Performer Location Encounter Start Date Encounter Closed Date Diagnosis/Indication Diagnosis SNOMED-CT Code Diagnosis ICD10 Code Diagnosis IMO Codes Diagnosis Note [id number] EBEN [address] [place] [address] 08/21/2024 14:40:15 09/03/2024 15:08:09 Pain of left knee region 0333548255 53083 M25.562 59163527 Osteoarthr itis of left knee joint 3449229149 99574 M17.12 0425875 Pes anseri nus bursitis of left knee 6635865942 380135 M70.52 [id number] Health Concerns Section Related Observation LastModified by Organization Detai ls LastModified Time None Recorded Concern Status LastModified by Organization Details LastModified Time None Recorded Advance Directives Directive None Recorded Payers Insurance Date Sequence Insurance Name Policy Number Policy Araiza Covered Member ID Araiza Member ID Guarantor Name 08/21/2024 2 [place] [facility] Zac Ahmadi [id number] Zac Ahmadi 08/21/2024 1 [place] B-[place]: [employer] Zac Britta Ahmadi [id number] Zac Ahmadi Notes Date Note Type Note Provider Name and Address Organization Details Recorded Time 08/21/2024 text/html I am seeing the patient today under the supervision of Dr. Cortez who was available but who did not see the patient.HPI:Patient' s a 54-year-old male comes the office in complaints of discomfort about his left knee. His right knee pain has been ongoing for several years. He denies any specific injury. He has a bump over the medial side of the knee/proximal tibia which causes discomfort. It is not severe pain. He has little pain when he walks. He is here with his significant other. He takes Tylenol. He cannot take NSAIDs because of chronic kidney disease.Past family, medical, social history and review of systems has been reviewed, updated and is located in the patient s chart.Examination:T he patient is well appearing and in no apparent distress. Alert and oriented x3. Gait is symmetric. Minimal swelling of the left knee. There is mild tenderness over the pes bursa region of the right knee. There is a small hardened area over the medial tibial plateau. Range of motion is full extension and flexion near 130 without pain. His minimal discomfort over the medial lateral joint line of the left knee. 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 I believe most of his discomfort is due to tendinitis of the knee in the area where the osteochondroma has been for many years. The patient was asking about surgical excision of this osteochondroma. I told the patient that the risks outweigh the benefits of this operation and is best treated conservatively. We discussed topical treatments. We discussed p.r.n. NSAIDs as well as Tylenol use. We discussed risks associated with these medications U Natali has GI side effects, kidney dysfunction, and liver dysfunction. He cannot take NSAIDs because he has chronic kidney disease. Therefore he will resort to Tylenol and topical treatments for this discomfort. We discussed injecting the pes bursa region of the left knee. I do not believe the arthritic knee is bothering him significantly. I went ahead with an injection in the pes bursa region of the left knee. He understands we can do these injections once or twice a year. Nima Menendez PA-C [address], [place], [address], [facility] 08/21/2024 15:55:03
--- OUTSIDE RECORDS SUMMARY | 2024-12-28 07:43 | XMS_ITS | Encounter Summary ---
Author Organization [facility] Address [address] [place] [address] Care Team Providers Care Operations Superintendent Name Role Phone Damian Lai MD Primary Care Provider [phone] Encounter Details Date Type Department Care Team Description 05/16/2016 Release of Information Medical Records [address] [place] [address] Abstract, Provider Social History Tobacco Use Types [...] on filedocumented in this encounter Care Teams Operations Superintendent Relationship Specialty Start Date End Date Damian Lai MD [address] [place] [address] [id number] PCP - General Internal Medicine 04/01/14 documented as of this encounter
--- OUTSIDE RECORDS SUMMARY | 2024-12-28 07:43 | XMS_ITS | Encounter Summary ---
Author Organization [facility] Address [address] [place] [address] Care Team Providers Care Lead Producer Name Role Phone Damian Lai MD Primary Care Provider [phone] Encounter Details Date Type Department Care Team Description 12/06/2018 Oyster Farmer Report Medical Records [address] [place] [address] Abstract, Provider Social History Tobacco Use Types [...] on filedocumented in this encounter Care Teams Lead Producer Relationship Specialty Start Date End Date Damian Lai MD [address] [place], [place] [phone] PCP - General Internal Medicine 04/01/14 documented as of this encounter
--- OUTSIDE RECORDS SUMMARY | 2024-12-28 07:43 | XMS_ITS | Encounter Summary ---
Author Organization [facility] Address [address] [place] [address] Care Team Providers Care Cut Off Operator Scorer Name Role Phone Damian Lai MD Primary Care Provider [phone] Encounter Details Date Type Department Care Team Description 12/08/2014 Pt. Non Urgent Medical Question Adult Medicine [facility] [address] [place] [phone] Damian Lai MD [address] [place] [address] Social History Tobacco Use Types Packs/Day Years [...] need my Amlodipine 10mg tablet refilled at [facility] [place]. I take one tablet by mouth daily. Thank you. documented in this encounter Plan of Treatment Not on file documented as of this encounter Visit Diagnoses Not on filedocumented in this encounter Care Teams Cut Off Operator Scorer Relationship Specialty Start Date End Date Damian Lai MD [address] [place] [id number] PCP - General Internal Medicine 04/01/14 documented as of this encounter
--- OUTSIDE RECORDS SUMMARY | 2024-12-28 07:43 | XMS_ITS | Data Portability ---
Author Organization [facility], [address] Address [address] [place] [address] Assessment No assessment recorded. Plan of Treatment Reminders Order Date Submit Date Provider Last Modified By Organization Details Last Modified Time Details Appointments None recorded. Lab SARS CoV 2 (COVID-19) Ag, QL, IA, upper respiratory specimen 2023 024 [email or web address] [address] [address], [address] [place], [address], 4 15:09:10 rapid strep group A, throat 2023 024 [email or web address] [address] [address], [address] [place], [address], 4 11:07:23 SARS CoV 2 (COVID-19) Ag, QL, IA, upper respiratory specimen 2023 024 [email or web address] [address] [address], [address] [place], [address], 4 11:07:24 rapid flu (A+B) 2023 024 [email or web address] [address], [address] [place], [address], 4 11:07:25 Referral None recorded. Procedures None recorded. Surgeries None recorded. Imaging None recorded. Medication Orders benzonatate 200 mg capsule 2023 024 [id number], [address] [place], [place], [id number], 4 15:09:17 Paxlovid 300 mg (150 mg x 2)-100 mg tablets in a dose pack 2023 024 [facility] #[id number], [address] [place], [place], [id number], 4 14:44:08 acetaminoph en 325 mg tablet 2023 024 [email or web address] 31 Not available 11:19:32 Patient TargetsNo targets recorded. Patient Instructions Encounter Date Encounter Id Patient Instructions Last Modified By Organization Details Last Modified Time 08/12/2023 [id number] cough: care instructions [email or web address] Not available 08/12/2023 15:09:09 Reason for Referral None Reported. Results Created Date Observation Date Name Description Value Unit Range Abnormal Flag Note LastModifiedBy Organization Detail LastModifiedTime 08/01/19 24 08/01/2023 SARS CoV 2 (COVI D-19) Ag, QL, IA, upper respi rator y speci men Unknown Analyte positi ve Not Available [address] [place], [address], 08/01/2023 10:32:04 08/01/19 24 08/01/2023 SARS CoV 2 (COVI D-19) Ag, QL, IA, upper respi rator y speci men Unknown Analyte yes Not Available [address] [place] [address] [address] [place], [address], 08/01/2023 10:32:04 08/01/19 24 08/01/2023 rapid flu (A+B) Unknown Analyte negati ve Not Available [address] [place], [address], 08/01/2023 10:32:17 08/01/19 24 08/01/2023 rapid flu (A+B) Unknown Analyte negati ve Not Available [address] [place], [address], 08/01/2023 10:32:17 08/01/19 24 08/01/2023 rapid flu (A+B) Unknown Analyte yes Not Available [address] [place] [address] [address] [place], [address], 08/01/2023 10:32:17 08/01/19 24 08/01/2023 rapid strep group A, throa t Unknown Analyte negati ve Not Available [address] [place], [address], 08/01/2023 10:31:57 08/01/19 24 08/01/2023 rapid strep group A, throa t Unknown Analyte yes Not Available [address] [place] [address] [address] [place], [address], 08/01/2023 10:31:57 08/12/19 24 08/12/2023 SARS CoV 2 (COVI D-19) Ag, QL, IA, upper respi rator y speci men Unknown Analyte negati ve Not Available [address] [place], [address], 08/12/2023 14:52:00 08/12/19 24 08/12/2023 SARS CoV 2 (COVI D-19) Ag, QL, IA, upper respi rator y speci men Unknown Analyte yes Not Available [address] [place] [address] [address] [place], [address], 08/12/2023 14:52:00 Result Notes None recorded. Problems Name Problem SNOMED Code Status Onset Date Resolution Date Notes Provider Name and Address Organization Details Recorded Time Diabetes mellitus 33873555 Active SUMANTH Nelson [facility] 4 10:24:58 Hypertensive disorder 90645053 Active Agustina SUMANTH Wood [facility] 4 10:25:06 Hypercholestero lemia 43191310 Active Agustina SUMANTH Wood [facility] 4 [...] mass index (BMI) Body weight Oxygen saturation Heart rate Respiratory rate Body temperature Systolic And Diastolic Provider Name and Address Organization Details Last Updated DateTime 4 170.18 cm 36 kg/m2 413159. 25 g 98 % 68 /min 18 /min 98.9 [degF] 134/69 mm[Hg] Agustina Romano PA - [facility] 4 10:30:41 Date Recorded Body height Body mass index (BMI) Body weight Body temperature Oxygen saturation Heart rate Respiratory rate Systolic And Diastolic Provider Name and Address Organization Details Last Updated DateTime 4 170.18 cm 36 kg/m2 240165. 25 g 98.1 [degF] 98 % 68 /min 16 /min 122/71 mm[Hg] Johana Stephens PA - [facility] 4 14:45:11 Social History Question Answer Notes LastModified by Organizat ion Details LastModified Time Tobacco Smoking Status Never Smoker SUMANTH Nelson - [facility] 08/01/2023 10:28:53 Have You Had A Flu Shot This Season? Yes [email or web address] Information not available 08/01/2023 Have You Had Direct Contact, Or Contact During Intimacy, With Monkeypox Rash, Scabs, Or Body Fluids From A Person With Monkeypox? No Information not available 08/01/2023 What Was The Date Of Your Most Recent Tobacco Screening? 08/01/2023 [email or web address] Information not available 08/01/2023 Have You Recently Traveled Abroad? No [email or web address] Information not available 08/01/2023 Sex: Unknown Functional Status Question Answer Note LastModified by Organizat ion Details LastModified Time Do you use any illicit or recreational drugs? No [email or web address] Information not available 08/01/2023 Do you or have you ever used any other forms of tobacco or nicotine? No [email or web address] Information not available 08/01/2023 What is your level of alcohol consumption? None [email or web address] Information not available 08/01/2023 Mental Status None recorded. Family History Nothing Reported. Medical History No medical history recorded. Past Encounters Encounter ID Performer Location Encounter Start Date Encounter Closed Date Diagnosis/Indication Diagnosis SNOMED-CT Code Diagnosis ICD10 Code Diagnosis IMO Codes Diagnosis Note [id number] [address] [place] [address] 01/07/2018 10:55:38 01/07/2018 11:36:11 [id number] [address] [place] [address] 08/10/2019 16:47:36 08/10/2019 17:47:05 [id number] [address] [place] [address] 02/18/2019 17:09:35 02/18/2019 19:11:01 [id number] [address] [facility] [address] [facility] [place] [address] 11/28/2018 14:20:44 11/28/2018 15:39:06 [id number] SUMANTH GUTIERREZ [address] [facility] [address] [facility] [place], [place] [address] 08/01/2023 10:21:19 08/01/2023 11:00:52 COVID-19 682247451 U07.1 You have been Diagnosed with COVID [...] [facility] HUM[facility] Thank you for visiting [facility] today, please feel free to call our office you have any questions or concerns. [id number] SUMANTH GUTIERREZ [address] [facility] [address] [place] [address] 08/12/2023 14:20:09 08/12/2023 15:09:56 Cough 60823078 R05.9 You are being treated for a [...] or lung pathology. Thank you for using [facility] today - please don't hesitate to contact [...] ID Guarantor Name 08/12/2023 1 [place] [employer] Zac Ahmadi [id number] Zac Ahmadi 10/31/2023 2 [place] [facility] Zac Ahmadi [id number] Zac Ahmadi Notes Date Note Type Note Provider Name and Address Organization Details Recorded Time 08/01/2023 text/html 53 y/o male with 3 days of fever, cough, sore throat SUMANTH Brewer [address] [place], [address], [place] PA - [facility] 08/01/2023 11:14:08 08/12/2023 text/html 53 y/o male diagnosed with COVID 11 days ago here for retest. Still coughing a lot, finished full course of Paxlovid. [place], [address], [place] PA - [facility] 08/12/2023 15:09:27
--- OUTSIDE RECORDS SUMMARY | 2024-12-28 07:43 | XMS_ITS | Encounter Summary ---
Author Organization [facility] Address [address] [place] [address] Care Team Providers Care Animal Feeder Name Role Phone Damian Lai MD Primary Care Provider [phone] Encounter Details Date Type Department Care Team Description 04/12/2016 Tiler'S Assistant Report Medical Records [address] [place] [address] Emily Arriaga MD Social History Tobacco Use [...] on filedocumented in this encounter Care Teams Animal Feeder Relationship Specialty Start Date End Date Damian Lai MD [address] [place], [place] [phone] PCP - General Internal Medicine 04/01/14 documented as of this encounter
--- OUTSIDE RECORDS SUMMARY | 2024-12-28 07:43 | XMS_ITS | Encounter Summary ---
Author Organization [facility] Address [address] [place] [address] Care Team Providers Care Cylinder Head Assembler Name Role Phone Damian Lai MD Primary Care Provider [phone] Encounter Details Date Type Department Care Team Description 07/23/2019 Cupola Operator Insulation Report Medical Records [address] [place] [address] Ruddy Mcconnell MD Social History Tobacco Use [...] on filedocumented in this encounter Care Teams Cylinder Head Assembler Relationship Specialty Start Date End Date Damian Lai MD [address] [place], [place] [phone] PCP - General Internal Medicine 04/01/14 documented as of this encounter
--- OUTSIDE RECORDS SUMMARY | 2024-12-28 07:43 | XMS_ITS | Encounter Summary ---
Author Organization [facility] Address [address] [place] [address] Care Team Providers Care Herd Tester Name Role Phone Damian Lai MD Primary Care Provider [phone] Encounter Details Date Type Department Care Team Description 06/03/2022 Pt. Non Urgent Medical Question Endocrinology - [address] [address] Lindy Gutierrez PA-C [address] [place] [address] Social History Tobacco Use Types Packs/Day Years [...] on filedocumented in this encounter Care Teams Herd Tester Relationship Specialty Start Date End Date Damian Lai MD [address] [place] [address] PCP - General Internal Medicine 04/01/14 documented as of this encounter
--- OUTSIDE RECORDS SUMMARY | 2024-12-28 07:43 | XMS_ITS | Encounter Summary ---
Author Organization [facility] Address [address] [place] [address] Care Team Providers Care Food Beverage Supervisor Name Role Phone Damian Lai MD Primary Care Provider [phone] Encounter Details Date Type Department Care Team Description 09/24/2018 Mechanical Pencils Assembler Report Medical Records [address] [place] [address] Ruddy Mcconnell MD Social History Tobacco Use [...] filedocumented in this encounter Care Teams Food Beverage Supervisor Relationship Specialty Start Date End Date Damian Lai MD [address] [place], [place] [phone] PCP - General Internal Medicine 04/01/14 documented as of this encounter
--- OUTSIDE RECORDS SUMMARY | 2024-12-28 07:43 | XMS_ITS | Encounter Summary ---
Author Organization [facility] Address [address] [place] [address] Care Team Providers Care Cashier Parking Lot Name Role Phone Damian Lai MD Primary Care Provider [phone] Reason for Visit * Reason Onset Date Comments Drug Interaction 08/29/2019 trazodone (DESY REL) 100 MG tablet Encounter Details Date Type Department Care Team Description 08/29/2019 Telephone Adult Medicine [address] [address] Damian Lai MD [address] [place] [address] Drug Interaction (trazodone (DESYREL) 100 MG tablet) [...] on filedocumented in this encounter Care Teams Cashier Parking Lot Relationship Specialty Start Date End Date Damian Lai MD [address] [place] [address] PCP - General Internal Medicine 04/01/14 documented as of this encounter
--- OUTSIDE RECORDS SUMMARY | 2024-12-28 07:43 | XMS_ITS | Encounter Summary ---
Author Organization [facility] Address [address] [place] [address] Care Team Providers Care Packing Room Supervisor Name Role Phone Damian Lai MD Primary Care Provider [phone] Encounter Details Date Type Department Care Team Description 02/29/2016 Supervisor Rubber Covering Report Medical Records [address] [place] [address] Rehab., Fidel Social History Tobacco Use Types [...] on filedocumented in this encounter Care Teams Packing Room Supervisor Relationship Specialty Start Date End Date Damian Lai MD [address] [place], [place] [phone] PCP - General Internal Medicine 04/01/14 documented as of this encounter
--- OUTSIDE RECORDS SUMMARY | 2024-12-28 07:43 | XMS_ITS | Encounter Summary ---
Author Organization [facility] Address [address] [place] [address] Care Team Providers Care Insurance Sales Assistant Name Role Phone Damian Lai MD Primary Care Provider [phone] Encounter Details Date Type Department Care Team Description 02/05/2018 Hospital Medical Records [address] [place] [address] Marvin Delgado MD Social History Tobacco Use Types Packs/Day [...] filedocumented in this encounter Care Teams Insurance Sales Assistant Relationship Specialty Start Date End Date Damian Lai MD [address] [place] [address] PCP - General Internal Medicine 04/01/14 documented as of this encounter
--- OUTSIDE RECORDS SUMMARY | 2024-12-28 07:43 | XMS_ITS | Encounter Summary ---
Author Organization [facility] Address [address] [place] [address] Care Team Providers Care Quartz Miner Blasting Name Role Phone Damian Lai MD Primary Care Provider [phone] Reason for Visit * Reason Onset Date Comments Advice 11/30/2020 Encounter Details Date Type Department Care Team Description 11/30/2020 Telephone General Surgery - [address] [place] [address] Yamile Norton, ,RDN,LDN Advice Social [...] is requesting a call from Yamile at [phone] he is wondering if his psych evaluation was received and what's the next step. documented in this encounter Plan of Treatment Not on file documented as of this encounter Visit Diagnoses Not on filedocumented in this encounter Care Teams Quartz Miner Blasting Relationship Specialty Start Date End Date Damian Lai MD [address] [place] [phone] PCP - General Internal Medicine 04/01/14 documented as of this encounter
--- OUTSIDE RECORDS SUMMARY | 2024-12-28 07:43 | XMS_ITS | Encounter Summary ---
Author Organization [facility] Address [address] [place] [address] Care Team Providers Care Nut Chopper Name Role Phone Damian Lai MD Primary Care Provider [phone] Encounter Details Date Type Department Care Team Description 02/21/2019 Hospital Medical Records [address] [place] [address] Vito Davis MD Social History Tobacco Use [...] on filedocumented in this encounter Care Teams Nut Chopper Relationship Specialty Start Date End Date Damian Lai MD [address] [place] [address] PCP - General Internal Medicine 04/01/14 documented as of this encounter
--- OUTSIDE RECORDS SUMMARY | 2024-12-28 07:43 | XMS_ITS | Encounter Summary ---
Author Organization [facility] Address [address] [place] [address] Care Team Providers Care Nursing Consultant Name Role Phone Damian Lai MD Primary Care Provider [phone] Encounter Details Date Type Department Care Team Description 03/03/2022 Pt. Non Urgent Medical Question Adult Medicine [facility] [address] [place] [phone] Damian Lai MD [address] [place] [phone] Social History Tobacco Use Types Packs/Day Years [...] on filedocumented in this encounter Care Teams Nursing Consultant Relationship Specialty Start Date End Date Damian Lai MD [address] [place] [address] PCP - General Internal Medicine 04/01/14 documented as of this encounter
--- OUTSIDE RECORDS SUMMARY | 2024-12-28 07:43 | XMS_ITS | Clinical Summary ---
Author Organization Patient [facility] [employer] [facility] Address [address] [place] [address] Care Team Providers Care Implant Coordinator Name Role Phone Damian Lai MD Primary Care Provider [phone] Allergies No known active allergies Medications ASPIRIN ORAL Take 81 mg by mouth 1 (one) time each day. Active blood-glucose sensor (DEXCOM G7 SENSOR [facility]) 1 Each by Does not apply route See Admin Instructions. USE 1 SENSOR EVERY 10 DAYS. 023 Active blood-glucose transmitter (DEXCOM G6 TRANSMITTER [facility]) To use with Dexcom sensor, 1 transmitter every 90 days 023 Active syr,ndl,ins,safe 0.5mL,disp un (INSULIN SYRINGE-NEEDLE,DI SPOS. MISC) To use with insulin pen 4 [...] MOUTH DAILY 90 tablet 1 024 Active insulin lispro (HumaLOG KwikPen Insulin) 100 unit/mL injection pen Use before each meal, up to 3 times a day, sliding scale 100-149: 6 units 150-199: 8 units 200-249: 12 units 250-299: 16 units 300-349: 20 units 350-400:24 units Greater than 400, call me. 45 mL 2 024 Active metFORMIN XR (GLUCOPHAGE-XR) 500 mg 24 hr tablet Take 1 tablet (500 mg total) by mouth 2 (two) times a day. 180 tablet 2 024 Active busPIRone (BUSPAR) 5 mg tablet Take 1 tablet (5 mg total) by mouth 2 (two) times a day if needed. 025 Active diclofenac (VOLTAREN) 1 % topical gel Apply 4 g topically 2 (two) times a day. 200 g 2 025 Active blood sugar diagnostic (Contour Next Test Strips) test stripIndications: Diabetes mellitus type 2 with neurological manifestations (CMS/HCC V24, CMS/HCC V28) Use to check sugars 4 times a day 300 each 3 025 Active amLODIPine (NORVASC) 5 mg tablet Take 1 tablet (5 mg total) by mouth 1 (one) time each day. 90 tablet 2 025 Active omeprazole (PriLOSEC) [address] capsule TAKE 1 CAPSULE BY MOUTH DAILY 90 capsule 1 025 Active carvediloL (COREG) 25 mg tablet TAKE 1 TABLET(25 MG) BY MOUTH TWICE DAILY WITH MEALS 180 tablet 1 025 Active carvediloL (COREG) 25 mg tablet Take 1 tablet (25 mg total) by mouth 2 (two) times a day with meals. 180 tablet 1 Active atorvastatin (LIPITOR) 40 mg tablet TAKE 1 TABLET(40 MG) BY MOUTH 1 TIME EACH DAY 90 tablet Active empagliflozin (Jardiance) 10 mg tablet Take 1 tablet (10 mg total) by mouth 1 (one) time each day. 90 tablet 1 025 Active insulin glargine (Lantus Solostar U-100 Insulin) 100 unit/mL (3 mL) injection pen Inject 52-54 Units under the skin at bedtime. 60 mL 2 Active losartan (COZAAR) 100 mg tablet Take 1 tablet (100 mg total) by mouth at bedtime. 90 tablet Active dulaglutide (Trulicity) 4.5 mg/0.5 mL pen injector injectionIndicati ons:Diabetes mellitus type 2 with neurological manifestations (CMS/HCC V24, CMS/HCC V28) Use 4.5mg once weekly 2 mL 3 Active losartan (COZAAR) 100 mg tablet Take 1 tablet (100 mg total) by mouth at bedtime. at bedtime. 2024 Discontinued blood-glucose meter,continuous (Dexcom G6 Athletic Director[place] [facility] [place] 023 2024 Discontinued cholecalciferol (VITAMIN D-3) 50 mcg (2,000 unit) capsule TAKE 1 CAPSULE BY MOUTH EVERY DAY 90 capsule 1 024 2024 Discontinued insulin glargine (Lantus Solostar U-100 Insulin) 100 unit/mL (3 mL) injection pen Inject 56-60 Units under the skin at bedtime. 60 mL 2 024 2024 Discontinued(R eorder) losartan (COZAAR) 100 mg tablet Take 1 tablet (100 mg total) by mouth at bedtime. 90 tablet 1 025 2024 Discontinued dulaglutide (Trulicity) 3 mg/0.5 mL pen injector injectionIndicati ons:Diabetes mellitus type 2 with neurological manifestations (CMS/HCC V24, CMS/HCC V28) Use 3mg once weekly 2 mL 5 025 2024 Discontinued empagliflozin (Jardiance) 10 mg tablet Take 1 tablet (10 mg total) by mouth 1 (one) time each day. 90 tablet 1 025 2024 Discontinued(R eorder) losartan (COZAAR) 100 mg tablet TAKE 1 TABLET(100 MG) BY MOUTH AT BEDTIME 90 tablet 025 2024 Discontinued(R eorder) Active Problems Problem Noted Date Diagnosed Date Condition not found 12/14/2023 Overview (12/14/2023): DM (diabetes mellitus), type 2, uncontrolled, with renal complications ([facility]) Depression 12/14/2023 Gout 12/14/2023 Hypertension 12/14/2023 Neuropathy 12/14/2023 Overview (12/14/2023): Follows neurology. Shoulder arthritis 12/14/2023 Morbid obesity with BMI of 4 5.0-49.9, adult ([facility] V24, [facility] V28) 12/14/2023 COVID-19 12/03/2021 Adhesive capsulitis of ankle, right 10/17/2019 Adhesive capsulitis of right shoulder 10/17/2019 Osteoarthritis of right AC (acromioclavicular) j oint 10/17/2019 Tendinitis of right rotator cuff 10/17/2019 Allergic conjunctivitis of both eyes 07/31/2019 MDD (major depressive disord er), recurrent severe, without psychosis ([facility] V24, [facility] V28) 07/16/2019 Chronic rhinitis 07/27/2017 Recurrent sinus infections 07/27/2017 GERD (gastroesophageal reflux disease) 6 CKD (chronic kidney disease) stage 3, GFR 30-59 ml/min ([facility] V24, [facility] V28) 07/24/2014 Diabetes mellitus type 2 wit h neurological manifestations ([facility] V24, [facility] V28) 07/24/2014 Hyperlipidemia 07/24/2014 ARUNA (obstructive sleep apnea) 07/24/2014 Overview (12/14/2023): [facility] Diagnostic [facility] Treatment Polysomnogram: Date 03/19/2013; BMI 53; AHI 31, REM AHI 64, Central apneas 2; Obstructive apneas 35; hypopneas 18; average oxygen saturation 93% (lowest 44%); PLMs 0. CPAP trialed and lowest AHI on therapy of 6 was 9.3. Encounters Date Type Department Care Team Description 12/24/2024 12:00 PM EST Office Visit Endocrinology [place] [phone] Lindy Gutierrez PA Diabetes mellitus type 2 with neurological manifestations ([facility] V24, [facility] V28) (Primary Dx); Morbid obesity with BMI of 45.0-49.9, adult ([facility] V24, [facility] V28); Primary hypertension; Hyperlipidemia, unspecified hyperlipidemia type; Stage 3a chronic kidney disease ([facility] V24, [facility] V28) 12/17/2024 1:30 PM EST Lab Draw Station [address] Type 2 diabetes mellitus with stage 3a chronic kidney disease, with long-term current use of insulin ([facility] V24, [facility] V28); Primary hypertension; Encounter for long-term (current) use of medications; Pure hypercholesterolemia 12/17/2024 1:00 PM EST Office Visit Adult Medicine [address] [phone] Damian Lai MD Type 2 diabetes mellitus with stage 3a chronic kidney disease, with long-term current use of insulin ([facility] V24, [facility] V28) (Primary Dx); Pure hypercholesterolemia; Primary hypertension; Encounter for long-term (current) use of medications; Need for prophylactic vaccination and inoculation against influenza; History of diabetic ulcer of foot from Last 3 Months Immunizations Immunization Administration Dates Next Due Influenza Quadravalent, MDCK , 0.5ml, preservative free (Flucelvax) 6mo and older 01/10/2020 Influenza Quadravalent, MDCK , 0.5ml, with preservative (Flucelvax) 6mo and older 10/21/2016 Influenza trivalent, MDCK, 0 .5mL, preservative free (Flucelvax) 6mo and older 12/17/2024 Influenza, Unspecified 12/17/2018 Pneumococcal conjugate 13 va lent (Prevnar 13, PCV13) 2mo and older 09/16/2016 Tdap Tetanus diptheria acell ular pertussis (Boostrix; Adacel) 7yo and older 09/16/2016 Surgical History Surgery Date Site/Laterality Comments ESOPHAGOGASTRODUODENOSCOPY 07/24/15 PROCEDURE: MD EGD TRANSORAL BIOPSY SINGLE/MULTIPLE; COMMENT: normal; normal gastric biopsies without H. pylori Medical History Medical History Date Comments Type II or unspecified type diabetes mellitus without mention of complication, uncontrolled DX:Type II or unspecified t ype diabetes mellitus without mention of complication, uncontrolled Shoulder arthritis DX:Shoulder a rthritis Gout DX:Gout Depression DX:Depression Hypertension DX:Hypertension Neuropathy DX:Neuropathy Morbid obesity ([facility] V24, [facility] V28) 07/24/2014 DX:Morbid obesity ([facility]) ARUNA (obstructive sleep apnea) 07/24/2014 DX :ARUNA (obstructive sleep apnea); COMMENT: severe CKD (chronic kidney disease) stage 3, GFR 30-59 ml/min ([facility] V24, [facility] V28) 07/24/2014 DX:CKD (chronic kidney disea se) stage 3, GFR 30-59 ml/min ([facility]) Hyperlipidemia 07/24/2014 DX:Hyperlipidemi a Family History Medical History Relation Name Comments Allergies Neg Hx Asthma Neg Hx Social History Tobacco Use Types Packs/Day Years Used Date Smoking Tobacco: Former Cigarettes 0 Q uit: 05/12/2020 Smokeless Tobacco: Current Tobacco [...] care for your loved ones. For example, child abuse worker or elderly care for an older adult? [...] Pulse 55 12/24/2024 11:54 AM EST Temperature 36.4 C (97.5 F) 12/17/2024 12:54 PM EST Respiratory Rate 14 12/24/2024 11:54 AM EST Oxygen Saturation 98% 12/17/2024 12:54 PM EST Inhaled Oxygen Concentration - - Weight 142 kg (314 lb) 12/24/2024 11:54 AM EST Height 170.2 cm (5' 7 ) 12/24/2024 11:54 AM EST Body Mass Index 49.18 12/24/2024 11:54 AM EST Plan of Treatment Upcoming Encounters Date Type Department Care Team (Late st Contact Info) Description 03/13/2025 9:15 AM EST Office Visit Orthopedic Surgery - [place] [phone] [phone] Martell Mckee, DPM [address] [phone] 04/03/2025 8:45 AM EST Office Visit [address] [phone] Lindy Gutierrez PA [address] [place] [address] 07/01/2025 2:30 PM EDT Office Visit Adult Medicine [address] [phone] Damian Lai MD [address] [place] [address] Health Maintenance Due Date Last Done Comments COVID-19 Vaccine (#1) 1974 Diabetes: Annual Foot Exam 07/20/1979 Diabetes: Annual Retina Eye Exam 07/20/1979 Hepatitis A Vaccines (1 of 2 - Risk 2-dose series) 1988 Hepatitis B Vaccines (1 of 3 - 19+ 3-dose series) 1988 Zoster Vaccines (1 of 2) 1988 Pneumococcal Vaccine: 50+ Years (2 of 2 - PPSV23, PCV20, or PCV21) 11/11/2016 09/16/2016 RSV Immunization Adult Patients (1 - Risk 50-74 years 1-dose series) 07/20/2019 HIV Screening 08/19/2019 Medicare Annual Wellness Visit 08/19/2019 Diabetes: Blood Sugar Control Test (HGBA1C) 06/16/2025 12/17/2024, 07/25/2024, 04/23/2024, Additional history exists Social Influencers of Health Screening 12/16/2025 12/16/2024 Diabetes: Annual Urine Albumin-Creatinine Ratio (uACR) 12/17/2025 12/17/2024, 07/25/2024, 01/11/2024, Additional history exists Diabetes: Annual GFR (Glomerular Filtration Rate) 12/17/2025 12/17/2024, 07/25/2024, 01/11/2024, Additional history exists Hypertension/CHF/CAD Annual BMP Blood Test 12/17/2025 12/17/2024, 07/25/2024, 01/11/2024, Additional history exists DTaP,Tdap,and Td Vaccines (2 - Td or Tdap) 09/16/2026 09/16/2016 Cholesterol Screening (Lipid Panel) 12/17/2029 12/17/2024, 07/25/2024, 01/11/2024, Additional history exists Colorectal Cancer Screening: Colonoscopy 01/21/2030 01/22/2020 Hepatitis C Screening Completed 07/29/2022 Depression Screening Completed 12/16/2024 Influenza Vaccine Completed 12/17/2024, , 12/17/2018, Additional history exists HIB Vaccines Aged Out No longer eligi [...] Date/Time Associated Diagnosis Comments HEMOGLOBIN A1C Routine 12/17/2024 1:36 PM EST Type 2 diabetes mellitus with stage 3a chronic kidney disease, with long-term current use of insulin ([facility] V24, [facility] V28) LIPID PANEL WITH REFLEX TO DIRECT LDL Routine 12/17/2024 1:36 PM EST Pure hypercholesterolemia COMPREHENSIVE METABOLIC PANEL Routine 12/17/2024 1:36 PM EST Type 2 diabetes mellitus with stage 3a chronic kidney disease, with long-term current use of insulin ([facility] V24, [facility] V28) Primary hypertension Encounter for long-term (current) use of medications MICROALBUMIN CREATININE URINE RATIO Routine 12/17/2024 1:36 PM EST Type 2 diabetes mellitus with stage 3a chronic kidney disease, with long-term current use of insulin ([facility] V24, [facility] V28) HEPATITIS C SCREENING Routine 07/29/2022 COLONOSCOPY Routine 01/22/2020 from Last 3 Months or Most Recently Relevant to Health Maintenance Results * (ABNORMAL) Lipid panel with reflex to direct LDL (12/17/2024 1:36 PM EST) Cholesterol 167 0 - 200 mg/dL LAB CHEMISTRY METHOD 12/17/2024 5:23 PM [facility] Triglycerides 312(H) 0 - 150 mg/dL LAB CHEMISTRY METHOD 12/17/2024 5:23 PM [facility] HDL 34(L) >=40 mg/dL LAB CHEMISTRY METHOD 12/17/2024 5:23 PM [facility] LDL Calculated 71 0 - 100 mg/dL LAB CHEMISTRY METHOD 12/17/2024 5:23 PM [facility] Comment:Estimated LDL Calcul ated using equation: Total cholesterol - HDL cholesterol - (Triglycerides/5) VLDL Cholesterol Marc 62.4 mg/dL LAB CHEMISTRY METHOD 12/17/2024 5:23 PM [facility] Non HDL Chol. (LDL+VLDL) 133 <145 mg/dL LAB CHEMISTRY METHOD 12/17/2024 5:23 PM EST [facility] Chol/HDL Ratio 4.9(H) 0.0 - 4.4 LAB CHEMISTRY METHOD 12/17/2024 5:23 PM [facility] Blood Venous blood specimen / Unknown Venipuncture / Unknown 12/17/2024 1:36 PM EST 12/17/2024 1:36 PM EST us Damian Lai MD LAB BLOOD ORDERABLES Final Resu lt [facility] [address] [place] [address], [place] [phone] * (ABNORMAL) Microalbumin creatinine urine ratio (12/17/2024 1:36 PM EST) Creatinine, Urine 16.0 mg/dL LAB CHEMISTRY METHOD 12/17/2024 6:18 PM [facility] Microalb, Ur 19.9 0.0 - 29.0 mg/L LAB CHEMISTRY METHOD 12/17/2024 6:18 PM [facility] Microalb/Creat Ratio 124(H) <30 mg/g creat LAB CHEMISTRY METHOD 12/17/2024 6:18 PM [facility] Urine Urine specimen obtained by clean catch procedure / Unknown Non-blood Collection / Unknown 12/17/2024 1:36 PM EST 12/17/2024 1:36 PM EST us Damian Lai MD LAB URINE ORDERABLES Final Resu lt [facility] [address] [place] [address], [place] [phone] * (ABNORMAL) Hemoglobin A1c (12/17/2024 1:36 PM EST) Hemoglobin A1C 8.2(H) <6.5 % LAB CHEMISTRY METHOD 12/17/2024 10:05 PM EST [facility] Mean Bld Glu Estim. 189 mg/dL LAB CHEMISTRY METHOD 12/17/2024 10:05 PM [facility] Blood Venous blood specimen / Unknown Venipuncture / Unknown 12/17/2024 1:36 PM EST 12/17/2024 1:36 PM EST us Damian Lai MD LAB BLOOD ORDERABLES Final Resu lt [facility] [address] [place] [address], [place] [phone] * (ABNORMAL) Comprehensive metabolic panel (12/17/2024 1:36 PM EST) Sodium 139 133 - 145 mmol/L LAB CHEMISTRY METHOD 12/17/2024 5:23 PM [facility] Potassium 4.4 3.5 - 5.5 mmol/L LAB CHEMISTRY METHOD 12/17/2024 5:23 PM [facility] Chloride 103 96 - 110 mmol/L LAB CHEMISTRY METHOD 12/17/2024 5:23 PM [facility] CO2 30 21 - 32 mmol/L LAB CHEMISTRY METHOD 12/17/2024 5:23 PM [facility] Anion Gap 6 3 - 11 LAB CHEMISTRY METHOD 12/17/2024 5:23 PM [facility] Glucose 164(H) 70 - 100 mg/dL LAB CHEMISTRY METHOD 12/17/2024 5:23 PM [facility] BUN 31(H) 5 - 25 mg/dL LAB CHEMISTRY METHOD 12/17/2024 5:23 PM [facility] Creatinine 1.67(H) 0.70 - 1.30 mg/dL LAB CHEMISTRY METHOD 12/17/2024 5:23 PM [facility] eGFR 48(L) >=60 mL/min/1. 73m2 LAB CHEMISTRY METHOD 12/17/2024 5:23 PM [facility] Comment:Calculation based on the Chronic Kidney Disease Epidemiology Collaboration (CKD-EPI) equation refit without adjustment for race. BUN/Creatinine Ratio 18.6 LAB CHEMISTRY METHOD 12/17/2024 5:23 PM [facility] Calcium 9.7 8.5 - 10.5 mg/dL LAB CHEMISTRY METHOD 12/17/2024 5:23 PM [facility] AST (SGOT) 20 10 - 42 unit/L LAB CHEMISTRY METHOD 12/17/2024 5:23 PM [facility] ALT (SGPT) 49 10 - 60 unit/L LAB CHEMISTRY METHOD 12/17/2024 5:23 PM [facility] Alkaline Phosphatase 161(H) 42 - 121 unit/L LAB CHEMISTRY METHOD 12/17/2024 5:23 PM [facility] Total Protein 7.6 6.0 - 8.0 g/dL LAB CHEMISTRY METHOD 12/17/2024 5:23 PM [facility] Albumin 3.8 3.2 - 5.0 g/dL LAB CHEMISTRY METHOD 12/17/2024 5:23 PM [facility] Total Bilirubin 0.5 0.0 - 1.4 mg/dL LAB CHEMISTRY METHOD 12/17/2024 5:23 PM [facility] Blood Venous blood specimen / Unknown Venipuncture / Unknown 12/17/2024 1:36 PM EST 12/17/2024 1:36 PM EST us Damian Lai MD LAB BLOOD ORDERABLES Final Resu lt [facility] [address] [place] [address], * Hepatitis C Screening (07/29/2022) Hepatitis C Screening Abstracted Historical Provider HEALTH MAINTENANCE Final Result * Colonoscopy (01/22/2020) Colonoscopy No interpretatio n, abstraced Anatomical Region Laterality Modality Other us Historical Provider HEALTH MAINTENANCE Final Result from Last 3 Months or Most Recently Relevant to Health Maintenance Insurance [place]ICARE [place]ICAID [place] Advance Directives Documents on File Type Date Recorded Patient Bridge Crew Member Expl anation Health Care Decision (hx) 07/30/2018 [...] (hx) 07/30/2018 AD SAMUELS DIRECTIVE Care Teams Implant Coordinator Relationship Specialty Start Date End Date Damian Lai MD [address] [place] [phone] PCP - General Internal Medicine 01/16/24
--- OUTSIDE RECORDS SUMMARY | 2024-12-28 07:43 | XMS_ITS | Encounter Summary ---
Author Organization [facility] Address [address] [place] [address] Care Team Providers Care Computer Numerical Control Machinist Name Role Phone Damian Lai MD Primary Care Provider [phone] Encounter Details Date Type Department Care Team Description 11/08/2019 Uke Operator Report Medical Records [address] [place] [id number] Thiago Faria MD Social History Tobacco Use [...] on filedocumented in this encounter Care Teams Computer Numerical Control Machinist Relationship Specialty Start Date End Date Damian Lai MD [address] [place] [phone] PCP - General Internal Medicine 04/01/14 documented as of this encounter
--- OUTSIDE RECORDS SUMMARY | 2024-12-28 07:43 | XMS_ITS | Encounter Summary ---
Author Organization [facility] Address [address] [place] [address] Care Team Providers Care Patternmaker Helper Name Role Phone Damian Lai MD Primary Care Provider [phone] Encounter Details Date Type Department Care Team Description 02/20/2019 Hospital Medical Records [address] [place] [address] Anisa Luong Social History Tobacco Use Types Packs/Day Years [...] on filedocumented in this encounter Care Teams Patternmaker Helper Relationship Specialty Start Date End Date Damian Lai MD [address] [place], [place] [phone] PCP - General Internal Medicine 04/01/14 documented as of this encounter
--- OUTSIDE RECORDS SUMMARY | 2024-12-28 07:43 | XMS_ITS | Encounter Summary ---
Author Organization [facility] Address [address] [place] [address] Care Team Providers Care Continuous Dryout Operator Helper Name Role Phone Damian Lai MD Primary Care Provider [phone] Reason for Visit * Reason Comments E-prescribe Rx Request Encounter Details Date Type Department Care Team Description 08/26/2021 Refill Adult Medicine [address] [address] Priya Walker PA E-prescribe Rx Request Social [...] / Plan[place] / Product Type: MEDICARE [id number] documented in this encounter Plan of Treatment Not on file documented as of this encounter Visit Diagnoses Not on filedocumented in this encounter Care Teams Continuous Dryout Operator Helper Relationship Specialty Start Date End Date Damian Lai MD [address] [place] [address] PCP - General Internal Medicine 04/01/14 documented as of this encounter
--- OUTSIDE RECORDS SUMMARY | 2024-12-28 07:43 | XMS_ITS | Encounter Summary ---
Author Organization [facility] Address [address] [place] [address] Care Team Providers Care Range Master Name Role Phone Damian Lai MD Primary Care Provider [phone] Reason for Visit * Reason Onset Date Comments Transitional Care Management (Tcm) 02/08/2018 TCM , post d/c [facility] 02/07/18 Encounter Details Date Type Department Care Team Description 02/08/2018 Telephone Adult Medicine [facility] [address] [place] [address] [phone] Damian Lai MD [address] [place] [address] [phone] Transitional Care Management (Tcm) (TCM , post [...] patient for f/u to recent admission to [facility] for worsening foot ulcer. Left message to please call MD office @ [phone] to schedule a PCP f/u appt * Telephone Encounter - Jackelyn Perkins R.N. - 02/08/2018 2:49 PM EST Patient with pmhx that includes; KENY, T2DM, ARUNA, HTN, and diabetic foot ulcers, was readmitted to [facility] on 02/05/18 due to worsening wound in right MTP area. Ulcer began in 10/24/17 after stepping on piece of glass. Patient treated at last admission with Levaquin however he was taking med with magnesium which decreases bioavailability On this admission , patient treated with renally dosed Vancomycin . Patient consulted by Vascular and ship cleaner and further treatment consisted of painting would [...] message to please return my call to [phone] at his convenience Plan; Will call patient tomorrow, 02/09/18 if no return call received documented in this encounter Plan of Treatment Not on file documented as of this encounter Visit Diagnoses Not on filedocumented in this encounter Care Teams Range Master Relationship Specialty Start Date End Date Damian Lai MD [address] [place] [address] PCP - General Internal Medicine 04/01/14 documented as of this encounter
--- OUTSIDE RECORDS SUMMARY | 2024-12-28 07:43 | XMS_ITS | Encounter Summary ---
Author Organization [facility] Address [address] [place] [address] Care Team Providers Care Clinical Care Coordinator Name Role Phone Damian Lai MD Primary Care Provider [phone] Encounter Details Date Type Department Care Team Description 10/02/2015 Practice Manager Report Medical Records [address] [place] [address] Ruddy Mcconnell MD Social History Tobacco Use [...] on filedocumented in this encounter Care Teams Clinical Care Coordinator Relationship Specialty Start Date End Date Damian Lai MD [address] [place], [place] [phone] PCP - General Internal Medicine 04/01/14 documented as of this encounter
--- OUTSIDE RECORDS SUMMARY | 2024-12-28 07:43 | XMS_ITS | Encounter Summary ---
Author Organization [facility] Address [address] [place] [address] Care Team Providers Care Lead Systems Developer Name Role Phone Damian Lai MD Primary Care Provider [phone] Encounter Details Date Type Department Care Team Description 11/30/2015 Hospital Medical Records 4 [place] [address] Kirti Fink MD [address] [place] [address] Social History Tobacco Use Types Packs/Day Years [...] filedocumented in this encounter Care Teams Lead Systems Developer Relationship Specialty Start Date End Date Damian Lai MD [address] [place] [address] [phone] PCP - General Internal Medicine 04/01/14 documented as of this encounter
--- OUTSIDE RECORDS SUMMARY | 2024-12-28 07:43 | XMS_ITS | Encounter Summary ---
Author Organization [facility] Address [address] [place] [address] Care Team Providers Care Industrial Relations Commissioner Name Role Phone Damian Lai MD Primary Care Provider [phone] Encounter Details Date Type Department Care Team Description 08/15/2018 Hospital Medical Records 4 [place] [address] Daniel Mckeon Social History Tobacco Use Types [...] filedocumented in this encounter Care Teams Industrial Relations Commissioner Relationship Specialty Start Date End Date Damian Lai MD [address] [place], [place] [phone] PCP - General Internal Medicine 04/01/14 documented as of this encounter
--- OUTSIDE RECORDS SUMMARY | 2024-12-28 07:43 | XMS_ITS | Encounter Summary ---
Author Organization [facility] Address [address] [place] [address] Care Team Providers Care Intern Name Role Phone Damian Lai MD Primary Care Provider [phone] Reason for Visit * Reason Onset Date Comments PT-1 02/22/2018 Encounter Details Date Type Department Care Team Description 02/22/2018 Telephone Adult Medicine [facility] [address] [place] [address] Damian Lai MD [address] [place] [address] PT-1 Social History Tobacco Use Types Packs/Day [...] M.A. - 03/03/2018 12:55 PM EST Tracking #[id number] * Telephone Encounter - Abby Zarate - 02/22/2018 2:45 PM EST 06/13/17 [facility] patients will now be included in this workflow: Verify and document patients [place] Health insurance ID # (NOT [facility] ID): [id number] Payor[place] / Plan[place] / Product Type: MEDICARE [id number] Patient mailing address: [address] [place] [address] Pt. demographics verified? YES If not accurate, update registration. Is this a NEW request or a RENEWAL? NEW Name of treating facility: [facility] Name (first & last) of treating provider? required : Dr. To Evans What is the medical reason why the patient is seeing the above provider? Foot injury, diabetic ulcer Address/Zip code for treating provider: [address] [place] [address] Phone # for treating provider: [phone] Is the provider in the [facility] network (do they accept [place] Health insurance)? YES What specialty is this [...] you have an alternative pick-up address? YES, [address] [place] [address] Do you have a service animal? NO PT DOES NOT NEED RELEASE OF INFORMATION SIGNED documented in this encounter Plan of Treatment Not on file documented as of this encounter Visit Diagnoses Not on filedocumented in this encounter Care Teams Intern Relationship Specialty Start Date End Date Damian Lai MD [address] [place] [address] PCP - General Internal Medicine 04/01/14 documented as of this encounter
--- OUTSIDE RECORDS SUMMARY | 2024-12-28 07:43 | XMS_ITS | Encounter Summary ---
Author Organization [facility] Address [address] [place] [address] Care Team Providers Care Sybase Developer Name Role Phone Damian Lai MD Primary Care Provider [phone] Encounter Details Date Type Department Care Team Description 03/30/2015 Court Recording Monitor Report Medical Records 4 [place] [address] Emily Arriaga MD Social History Tobacco Use [...] on filedocumented in this encounter Care Teams Sybase Developer Relationship Specialty Start Date End Date Damian Lai MD [address] [place] [address] PCP - General Internal Medicine 04/01/14 documented as of this encounter
--- OUTSIDE RECORDS SUMMARY | 2024-12-28 07:43 | XMS_ITS | Encounter Summary ---
Author Organization [facility] Address [address] [place] [address] Care Team Providers Care Electrical Prospecting Operator Name Role Phone Damian Lai MD Primary Care Provider [phone] Encounter Details Date Type Department Care Team Description 07/06/2016 Grapple Skidder Operator Report Medical Records [address] [place] [address] Emily Arriaga MD Social History Tobacco Use [...] on filedocumented in this encounter Care Teams Electrical Prospecting Operator Relationship Specialty Start Date End Date Damian Lai MD [address] [place], [place] [phone] PCP - General Internal Medicine 04/01/14 documented as of this encounter
--- OUTSIDE RECORDS SUMMARY | 2024-12-28 07:43 | XMS_ITS | Encounter Summary ---
Author Organization [facility] Address [address] [place] [address] Care Team Providers Care Software Engineer Web Applications Name Role Phone Damian Lai MD Primary Care Provider [phone] Encounter Details Date Type Department Care Team Description 11/30/2015 Hospital Medical Records 4 [place] [address] Kirti Fink MD [address] [place] [address] Social History Tobacco Use Types Packs/Day Years [...] on filedocumented in this encounter Care Teams Software Engineer Web Applications Relationship Specialty Start Date End Date Damian Lai MD [address] [place] [address] [phone] PCP - General Internal Medicine 04/01/14 documented as of this encounter
--- OUTSIDE RECORDS SUMMARY | 2024-12-28 07:43 | XMS_ITS | Encounter Summary ---
Author Organization [facility] Address [address] [place] [address] Care Team Providers Care Chisel Mortiser Operator Name Role Phone Damian Lai MD Primary Care Provider [phone] Encounter Details Date Type Department Care Team Description 10/14/2014 Mule Tender Report Medical Records [address] [place] [address] Ruddy Mcconnell MD Social History Tobacco Use [...] on filedocumented in this encounter Care Teams Chisel Mortiser Operator Relationship Specialty Start Date End Date Damian Lai MD [address] [place], [place] [phone] PCP - General Internal Medicine 04/01/14 documented as of this encounter
--- OUTSIDE RECORDS SUMMARY | 2024-12-28 07:43 | XMS_ITS | Encounter Summary ---
Author Organization [facility] Address [address] [place] [address] Care Team Providers Care Workplace Trainer And Assessor Name Role Phone Damian Lai MD Primary Care Provider [phone] Encounter Details Date Type Department Care Team Description 06/28/2016 Night Triage Doc Medical Records 4 [place] [address] Abstract, Provider Social History Tobacco Use Types [...] on filedocumented in this encounter Care Teams Workplace Trainer And Assessor Relationship Specialty Start Date End Date Damian Lai MD [address] [place], [place] [phone] PCP - General Internal Medicine 04/01/14 documented as of this encounter
--- OUTSIDE RECORDS SUMMARY | 2024-12-28 07:43 | XMS_ITS | Encounter Summary ---
Author Organization [facility] Address [address] [place] [address] Care Team Providers Care Quality Improvement Coordinator Name Role Phone Damian Lai MD Primary Care Provider [phone] Encounter Details Date Type Department Care Team Description 06/07/2021 Optical Design Engineer Report Medical Records [address] [place] [address] Dannie Herrera MD Social History Tobacco Use [...] on filedocumented in this encounter Care Teams Quality Improvement Coordinator Relationship Specialty Start Date End Date Damian Lai MD [address] [place] [address] PCP - General Internal Medicine 04/01/14 documented as of this encounter
--- OUTSIDE RECORDS SUMMARY | 2024-12-28 07:43 | XMS_ITS | Encounter Summary ---
Author Organization [facility] Address [address] [place] [address] Care Team Providers Care Pharmacy Scheduler Name Role Phone Damian Lai MD Primary Care Provider [phone] Encounter Details Date Type Department Care Team Description 06/23/2015 Entry Driver Operator Report Medical Records 4 [place] [address] Emily Arriaga MD Social History Tobacco Use [...] on filedocumented in this encounter Care Teams Pharmacy Scheduler Relationship Specialty Start Date End Date Damian Lai MD [address] [place] [address] PCP - General Internal Medicine 04/01/14 documented as of this encounter
--- OUTSIDE RECORDS SUMMARY | 2024-12-28 07:43 | XMS_ITS | Encounter Summary ---
Author Organization [facility] Address [address] [place] [address] Care Team Providers Care Ad Terminal Makeup Operator Name Role Phone Damian Lai MD Primary Care Provider [phone] Encounter Details Date Type Department Care Team Description 10/07/2016 Supervisor Gas Meter Repair Report Medical Records 4 [place] [address] Dixon Boone MD Social History Tobacco Use [...] on filedocumented in this encounter Care Teams Ad Terminal Makeup Operator Relationship Specialty Start Date End Date Damian Lai MD [address] [place] [address] PCP - General Internal Medicine 04/01/14 documented as of this encounter
--- OUTSIDE RECORDS SUMMARY | 2024-12-28 07:43 | XMS_ITS | Encounter Summary ---
Author Organization [facility] Address [address] [place] [address] Care Team Providers Care Industrial Engineering Technician Name Role Phone Damian Lai MD Primary Care Provider [phone] Encounter Details Date Type Department Care Team Description 11/29/2018 Night Triage Doc Medical Records [address] [place] [address] Abstract, Provider Social History Tobacco Use Types [...] filedocumented in this encounter Care Teams Industrial Engineering Technician Relationship Specialty Start Date End Date Damian Lai MD [address] [place], [place] [phone] PCP - General Internal Medicine 04/01/14 documented as of this encounter
--- OUTSIDE RECORDS SUMMARY | 2024-12-28 07:43 | XMS_ITS | Encounter Summary ---
Author Organization [facility] Address [address] [place] [address] Care Team Providers Care Slide Attendant Name Role Phone Damian Lai MD Primary Care Provider [phone] Encounter Details Date Type Department Care Team Description 08/29/2018 Casting Plug Assembler Report Medical Records [address] [place] [address] Daniel Mckeon Social History Tobacco Use Types [...] on filedocumented in this encounter Care Teams Slide Attendant Relationship Specialty Start Date End Date Damian Lai MD [address] [place], [place] [phone] PCP - General Internal Medicine 04/01/14 documented as of this encounter
--- OUTSIDE RECORDS SUMMARY | 2024-12-28 07:43 | XMS_ITS | Encounter Summary ---
Author Organization [facility] Address [address] [place] [address] Care Team Providers Care Animal Shelter Manager Name Role Phone Damian Lai MD Primary Care Provider [phone] Encounter Details Date Type Department Care Team Description 05/24/2016 Business Doc Medical Records 4 [place] [address] Abstract, Provider Social History Tobacco Use Types [...] filedocumented in this encounter Care Teams Animal Shelter Manager Relationship Specialty Start Date End Date Damian Lai MD [address] [place], [place] [phone] PCP - General Internal Medicine 04/01/14 documented as of this encounter
--- OUTSIDE RECORDS SUMMARY | 2024-12-28 07:43 | XMS_ITS | Encounter Summary ---
Author Organization [facility] Address [address] [place] [address] Care Team Providers Care Rehabilitation Medicine Physician Name Role Phone Damian Lai MD Primary Care Provider Encounter Details Date Type Department Care Team Description 11/21/2014 Orders Only Adult Medicine [address] [phone] Meir Phillips PA-C Right shoulder pain (Primary Dx) Social History Tobacco Use Types [...] documented as of this encounter Results * MRI OF ARM/HAND JOINT NO CONTRAST (11/21/2014) Meir Phillips PA-C MRI documented in this encounter Visit Diagnoses Diagnosis Right shoulder pain- Primary Pain in joint, shoulder region documented in this encounter Care Teams Rehabilitation Medicine Physician Relationship Specialty Start Date End Date Damian Lai MD [address] [place] [address] PCP - General Internal Medicine 04/01/14 documented as of this encounter
--- OUTSIDE RECORDS SUMMARY | 2024-12-28 07:43 | XMS_ITS | Encounter Summary ---
Author Organization [facility] Address [address] [place] [address] Care Team Providers Care Belt Notcher Name Role Phone Damian Lai MD Primary Care Provider [phone] Encounter Details Date Type Department Care Team Description 07/11/2014 Release of Information Medical Records [address] [place] [address] Abstract, Provider Social History Tobacco Use Types [...] on filedocumented in this encounter Care Teams Belt Notcher Relationship Specialty Start Date End Date Damian Lai MD [address] [place] [address] [phone] PCP - General Internal Medicine 04/01/14 documented as of this encounter
--- OUTSIDE RECORDS SUMMARY | 2024-12-28 07:43 | XMS_ITS | Encounter Summary ---
Author Organization [facility] Address [address] [place] [address] Care Team Providers Care Production Control Analyst Name Role Phone Damian Lai MD Primary Care Provider [phone] Encounter Details Date Type Department Care Team Description 12/13/2018 Hospital Medical Records [address] [place] [address] Social History Tobacco Use Types Packs/Day Years [...] on filedocumented in this encounter Care Teams Production Control Analyst Relationship Specialty Start Date End Date Damian Lai MD [address] [place], [place] [phone] PCP - General Internal Medicine 04/01/14 documented as of this encounter
--- OUTSIDE RECORDS SUMMARY | 2024-12-28 07:43 | XMS_ITS | Clinical Summary ---
Author Organization [facility] Address [address] [facility] [address] [place] [address] Phone Care Team Providers Care Wood Fuel Pelletizer Name Role Phone Damian Lai MD Primary Care Provider [phone] Allergies No known active allergies Medications Multiple [...] sleep apnea syndrome 07/24/2014 06/22/2020 [place] (06/22/2020[place] [facility] [place] [facility] [place] Polysomnogram: Date 03/19/2013; BMI 53; AHI 31, REM AHI 64, Central apneas 2; Obstructive apneas 35; hypopneas 18; average oxygen saturation 93% (lowest 44%); PLMs 0. CPAP trialed and lowest AHI on therapy of 6 was 9.3. [facility] [place] [facility] [...] % PVNMA 07/30/2019 us [facility] [id number] LICITED RESULTS Final Result PVNMA from Last 3 Months or Most Recently Relevant to Health Maintenance Insurance Medicare Medicaid [place] Medicare Medicaid [place] Care Teams Wood Fuel Pelletizer Relationship Specialty Start Date End Date Damian Lai MD PCP - General 02/17/20
--- OUTSIDE RECORDS SUMMARY | 2024-12-28 07:43 | XMS_ITS | Encounter Summary ---
Author Organization [facility] Address [address] [place] [address] Care Team Providers Care Newspaper Reporter Name Role Phone Damian Lai MD Primary Care Provider [phone] Encounter Details Date Type Department Care Team Description 08/20/2021 Orders Only Adult Medicine [address] [id number] Aliya Robertson PA-C [address] [place] [address] [id number] Social History Tobacco Use Types Packs/Day Years [...] on filedocumented in this encounter Care Teams Newspaper Reporter Relationship Specialty Start Date End Date Damian Lai MD [address] [place] [address] [phone] PCP - General Internal Medicine 04/01/14 documented as of this encounter
--- OUTSIDE RECORDS SUMMARY | 2024-12-28 07:43 | XMS_ITS | Encounter Summary ---
Author Organization [facility] Address [address] [place] [address] Care Team Providers Care Mud Analysis Operator Name Role Phone Damian Lai MD Primary Care Provider [phone] Encounter Details Date Type Department Care Team Description 01/23/2015 Business Doc Medical Records 4 [place] [address] Abstract, Provider Social History Tobacco Use Types [...] on filedocumented in this encounter Care Teams Mud Analysis Operator Relationship Specialty Start Date End Date Damian Lai MD [address] [place], [place] [phone] PCP - General Internal Medicine 04/01/14 documented as of this encounter
--- OUTSIDE RECORDS SUMMARY | 2024-12-28 07:43 | XMS_ITS | Encounter Summary ---
Author Organization [facility] Address [address] [place] [address] Care Team Providers Care Fundraising Director Name Role Phone Damian Lai MD Primary Care Provider Encounter Details Date Type Department Care Team Description 03/12/2019 Attache Report Medical Records [address] [place] [address] Thiago Faria MD Social History Tobacco Use [...] on filedocumented in this encounter Care Teams Fundraising Director Relationship Specialty Start Date End Date Damian Lai MD [address] [place] [address] PCP - General Internal Medicine 04/01/14 documented as of this encounter
--- OUTSIDE RECORDS SUMMARY | 2024-12-28 07:43 | XMS_ITS | Encounter Summary ---
Author Organization [facility] Address [address] [place] [address] Care Team Providers Care Assistant Principal Name Role Phone Damian Lai MD Primary Care Provider Encounter Details Date Type Department Care Team Description 03/11/2021 Can Crimper Report Medical Records [address] [place] [address] Thiago Faria MD Social History Tobacco Use [...] filedocumented in this encounter Care Teams Assistant Principal Relationship Specialty Start Date End Date Damian Lai MD [address] [place], [place] [phone] PCP - General Internal Medicine 04/01/14 documented as of this encounter
--- OUTSIDE RECORDS SUMMARY | 2024-12-28 07:43 | XMS_ITS | Encounter Summary ---
Author Organization [facility] Address [address] [place] [address] Care Team Providers Care Billiard Parlor Manager Name Role Phone Damian Lai MD Primary Care Provider Reason for Visit * Reason Onset Date Comments Faxed Order 06/23/2015 Encounter Details Date Type Department Care Team Description 06/23/2015 Telephone Adult Medicine [facility] [address] [place] [address] Damian Lai MD [address] [place] [address] Faxed Order Social History Tobacco Use Types [...] order for cpap supplies. Please fax to [facility] at [phone] documented in this encounter Plan of Treatment Not on file documented as of this encounter Visit Diagnoses Not on filedocumented in this encounter Care Teams Billiard Parlor Manager Relationship Specialty Start Date End Date Damian Lai MD [address] [place] [address] PCP - General Internal Medicine 04/01/14 documented as of this encounter
--- OUTSIDE RECORDS SUMMARY | 2024-12-28 07:43 | XMS_ITS | Encounter Summary ---
Author Organization [facility] Address [address] [place] [address] Care Team Providers Care Peanut Separator Name Role Phone Damian Lai MD Primary Care Provider [phone] Encounter Details Date Type Department Care Team Description 06/30/2016 Business Doc Medical Records [address] [place] [address] Abstract, Provider Social History Tobacco Use Types [...] on filedocumented in this encounter Care Teams Peanut Separator Relationship Specialty Start Date End Date Damian Lai MD [address] [place] [address] PCP - General Internal Medicine 04/01/14 documented as of this encounter
--- OUTSIDE RECORDS SUMMARY | 2024-12-28 07:43 | XMS_ITS | Encounter Summary ---
Author Organization [facility] Address [address] [place] [address] Care Team Providers Care Roaster Helper Name Role Phone Damian Lai MD Primary Care Provider [phone] Encounter Details Date Type Department Care Team Description 04/16/2019 Utility Sales Representative Report Medical Records [address] [place] [address] Ruddy Mcconnell MD Social History Tobacco Use [...] on filedocumented in this encounter Care Teams Roaster Helper Relationship Specialty Start Date End Date Damian Lai MD [address] [place], [place] [phone] PCP - General Internal Medicine 04/01/14 documented as of this encounter
--- OUTSIDE RECORDS SUMMARY | 2024-12-28 07:43 | XMS_ITS | Encounter Summary ---
Author Organization [facility] Address [address] [place] [address] Care Team Providers Care Computer Science Professor Name Role Phone Damian Lai MD Primary Care Provider [phone] Reason for Visit * Reason Comments E-prescribe Rx Request Encounter Details Date Type Department Care Team Description 11/04/2022 Refill Endocrinology - [address] [address] Lindy Gutierrez PA-C [address] [place] [address] E-prescribe Rx Request Social History Tobacco Use [...] filedocumented in this encounter Care Teams Computer Science Professor Relationship Specialty Start Date End Date Damian Lai MD [address] [place] [address] PCP - General Internal Medicine 04/01/14 documented as of this encounter
--- OUTSIDE RECORDS SUMMARY | 2024-12-28 07:44 | XMS_ITS | Encounter Summary ---
Author Organization [facility] Address [address] [place] [address] Care Team Providers Care Wool Dyer Name Role Phone Damian Lai MD Primary Care Provider [phone] Encounter Details Date Type Department Care Team Description 01/19/2023 CGM Report Medical Records [address] [place] [address] Abstract, Provider Social History Tobacco Use Types [...] on filedocumented in this encounter Care Teams Wool Dyer Relationship Specialty Start Date End Date Damian Lai MD [address] [place], [place] [phone] PCP - General Internal Medicine 04/01/14 documented as of this encounter
--- OUTSIDE RECORDS SUMMARY | 2024-12-28 07:44 | XMS_ITS | Encounter Summary ---
Author Organization [facility] Address [address] [place] [address] Care Team Providers Care Patient Resource Specialist Name Role Phone Damian Lai MD Primary Care Provider [phone] Reason for Visit * Reason Onset Date Comments Faxed Order 11/03/2017 Encounter Details Date Type Department Care Team Description 11/03/2017 Telephone Adult Medicine [facility] [address] [place] [address] Damian Lai MD [address] [place] [address] Faxed Order Social History Tobacco Use Types [...] 11/03/2017 1:09 PM EDT Faxed orders from [facility] [place], please sign and fax back documented in this encounter Plan of Treatment Not on file documented as of this encounter Visit Diagnoses Not on filedocumented in this encounter Care Teams Patient Resource Specialist Relationship Specialty Start Date End Date Damian Lai MD [address] [place] [address] PCP - General Internal Medicine 04/01/14 documented as of this encounter
--- OUTSIDE RECORDS SUMMARY | 2024-12-28 07:44 | XMS_ITS | Encounter Summary ---
Author Organization [facility] Address [address] [place] [address] Care Team Providers Care Tactical/Mobile Watch Officer Name Role Phone Damian Lai MD Primary Care Provider [phone] Encounter Details Date Type Department Care Team Description 10/23/2017 Hospital Medical Records [address] [place] [address] Abstract, Provider Social History Tobacco Use Types [...] on filedocumented in this encounter Care Teams Tactical/Mobile Watch Officer Relationship Specialty Start Date End Date Damian Lai MD [address] [place], [place] [phone] PCP - General Internal Medicine 04/01/14 documented as of this encounter
--- OUTSIDE RECORDS SUMMARY | 2024-12-28 07:44 | XMS_ITS | Encounter Summary ---
Author Organization [facility] Address [address] [place] [address] Care Team Providers Care Mold Washer Name Role Phone Damian Lai MD Primary Care Provider [phone] Reason for Visit * Reason Comments E-prescribe Rx Request Encounter Details Date Type Department Care Team Description 12/16/2022 Refill Endocrinology - [address] [address] Lindy Gutierrez PA-C [address] [place] [address] [phone] E-prescribe Rx Request Social History Tobacco Use [...] uncontrolled documented in this encounter Care Teams Mold Washer Relationship Specialty Start Date End Date Damian Lai MD [address] [place] [address] [phone] PCP - General Internal Medicine 04/01/14 documented as of this encounter
--- OUTSIDE RECORDS SUMMARY | 2024-12-28 07:44 | XMS_ITS | Encounter Summary ---
Author Organization [facility] Address [address] [place] [address] Care Team Providers Care Electrical Appliance Mechanic Name Role Phone Damian Lai MD Primary Care Provider [phone] Encounter Details Date Type Department Care Team Description 01/19/2023 Pt. Non Urgent Medical Question Endocrinology - [address] [address] Lindy Gutierrez PA-C [address] [place] [address] Social History Tobacco Use Types Packs/Day Years [...] encounter Miscellaneous Notes * Telephone Encounter - Maricruz Sommers M.A. - 01/19/2023 12:48 PM ESTFrom: Zac Ahmadi To: Gume Gutierrez Sent: 01/19/2023 12:05 PM EST Subject: Need I need a refill on my Contour [employer] Test Stripes. From [facility] in [place]. This is Zac Ahmadi. My phone number is . documented in this encounter Plan of Treatment Not on file documented as of this encounter Visit Diagnoses Not on filedocumented in this encounter Care Teams Electrical Appliance Mechanic Relationship Specialty Start Date End Date Damian Lai MD [address] [place] [address] PCP - General Internal Medicine 04/01/14 documented as of this encounter
--- OUTSIDE RECORDS SUMMARY | 2024-12-28 07:44 | XMS_ITS | Encounter Summary ---
Author Organization [facility] Address [address] [place] [address] Care Team Providers Care Adjuster And Inspector Name Role Phone Damian Lai MD Primary Care Provider [phone] Encounter Details Date Type Department Care Team Description 01/26/2017 Orders Only Adult Medicine [facility] [address] [place] [address] Aliya Robertson PA-C [address] [place], [place] [phone] Social History Tobacco Use Types Packs/Day Years [...] on filedocumented in this encounter Care Teams Adjuster And Inspector Relationship Specialty Start Date End Date Damian Lai MD [address] [place] [address] [phone] PCP - General Internal Medicine 04/01/14 documented as of this encounter
--- OUTSIDE RECORDS SUMMARY | 2024-12-28 07:44 | XMS_ITS | Encounter Summary ---
Author Organization [facility] Address [address] [place] [address] Care Team Providers Care Terminal Gauger Supervisor Name Role Phone Damian Lai MD Primary Care Provider [phone] Encounter Details Date Type Department Care Team Description 10/09/2017 Night Triage Doc Medical Records [address] [place] [address] Abstract, Provider Social History Tobacco Use Types [...] on filedocumented in this encounter Care Teams Terminal Gauger Supervisor Relationship Specialty Start Date End Date Damian Lai MD [address] [place], [place] [phone] PCP - General Internal Medicine 04/01/14 documented as of this encounter
--- OUTSIDE RECORDS SUMMARY | 2024-12-28 07:44 | XMS_ITS | Encounter Summary ---
Author Organization [facility] Address [address] [place] [address] Care Team Providers Care Hand Worker Name Role Phone Damian Lai MD Primary Care Provider [phone] Encounter Details Date Type Department Care Team Description 10/17/2017 Hospital Medical Records [address] [place] [address] Chavo Mantilla Social History Tobacco Use Types [...] filedocumented in this encounter Care Teams Hand Worker Relationship Specialty Start Date End Date Damian Lai MD [address] [place], [place] [phone] PCP - General Internal Medicine 04/01/14 documented as of this encounter
--- OUTSIDE RECORDS SUMMARY | 2024-12-28 07:44 | XMS_ITS | Encounter Summary ---
Author Organization [facility] Address [address] [place] [address] Care Team Providers Care Metal Fabricating Supervisor Name Role Phone Damian Lai MD Primary Care Provider [phone] Encounter Details Date Type Department Care Team Description 07/05/2017 Cream Dumper Report Medical Records [address] [place] [address] Emily Arriaga MD Social History Tobacco Use [...] on filedocumented in this encounter Care Teams Metal Fabricating Supervisor Relationship Specialty Start Date End Date Damian Lai MD [address] [place], [place] [phone] PCP - General Internal Medicine 04/01/14 documented as of this encounter
--- OUTSIDE RECORDS SUMMARY | 2024-12-28 07:44 | XMS_ITS | Encounter Summary ---
Author Organization [facility] Address [address] [place] [address] Care Team Providers Care Customs Director Name Role Phone Damian Lai MD Primary Care Provider [phone] Encounter Details Date Type Department Care Team Description 11/12/2019 Pt. Non Urgent Medic al Question Orthopedics-[address] [address] Arvin Eagle PA-C Social History Tobacco Use Types Packs/Day [...] PM EDT documented as of this encounter Progress Notes * Pili Caraballo M.A. - 11/12/2019 9:32 AM EDTFrom: Zac Ahmadi To: Arvin Eagle PA-C Sent: 11/12/2019 9:18 AM EDT Subject: Left Shoulder Dear Dr. Eagle Could you send order for Therapy for my left shoulder also so they can work on both shoulders at the same time. Thank you documented in this encounter Plan of Treatment Not on file documented as of this encounter Visit Diagnoses Not on filedocumented in this encounter Care Teams Customs Director Relationship Specialty Start Date End Date Damian Lai MD [address] [place] [address] PCP - General Internal Medicine 04/01/14 documented as of this encounter
--- OUTSIDE RECORDS SUMMARY | 2024-12-28 07:44 | XMS_ITS | Encounter Summary ---
Author Organization [facility] Address [address] [place] [address] Care Team Providers Care Underground Supervisor Name Role Phone Damian Lai MD Primary Care Provider [phone] Encounter Details Date Type Department Care Team Description 05/29/2017 Computer Specialist Report Medical Records [address] Social History Tobacco Use Types Packs/Day [...] on filedocumented in this encounter Care Teams Underground Supervisor Relationship Specialty Start Date End Date Damian Lai MD [address] [place], [place] [phone] PCP - General Internal Medicine 04/01/14 documented as of this encounter
--- OUTSIDE RECORDS SUMMARY | 2024-12-28 07:44 | XMS_ITS | Encounter Summary ---
Author Organization [facility] Address [address] [place] [address] Care Team Providers Care Ultrasound Tech Name Role Phone Damian Lai MD Primary Care Provider [phone] Reason for Visit * Reason Onset Date Comments Prior Authorization 05/18/2023 Encounter Details Date Type Department Care Team Description 05/18/2023 Telephone Endocrinology - [address] [address] Lindy Gutierrez PA-C [address] [place] [address] Prior Authorization Social History Tobacco Use Types [...] 02/06/24 Kianna Salazar Prior Auth Dep Ext 7897 * Telephone Encounter - Kianna Salazar M.A. - 05/19/2023 10:51 AM EDT Auth sent with [facility] [id number] Kianna Salazar Prior Auth Dep Ext [id number] * Telephone Encounter - Cherie Starkey - 05/18/2023 10:02 AM EDT Prior Authorization for Medication-do not complete and send this encounter unless you have the fax from the pharmacy. Is this a Cover My Meds request: [place] of Medication Jardiance Dose of Medication 10 MG What is the RX # from the faxed refill? [id number] How does patient take this med? Take 1 tablet by mouth daily What Pharmacy did the fax come from: [facility] Pharmacy fax #: [phone] documented in this encounter Plan of Treatment Not on file documented as of this encounter Visit Diagnoses Not on filedocumented in this encounter Care Teams Ultrasound Tech Relationship Specialty Start Date End Date Damian Lai MD [address] [place] [phone] PCP - General Internal Medicine 04/01/14 documented as of this encounter
--- OUTSIDE RECORDS SUMMARY | 2024-12-28 07:44 | XMS_ITS | Encounter Summary ---
Author Organization [facility] Address [address] [place] [address] Care Team Providers Care Station Worker Name Role Phone Damian Lai MD Primary Care Provider [phone] Encounter Details Date Type Department Care Team Description 10/20/2017 Hospital Medical Records [address] [place] [address] Giovana Perkins MD Social History Tobacco Use [...] on filedocumented in this encounter Care Teams Station Worker Relationship Specialty Start Date End Date Damian Lai MD [address] [place] [address] PCP - General Internal Medicine 04/01/14 documented as of this encounter
--- OUTSIDE RECORDS SUMMARY | 2024-12-28 07:44 | XMS_ITS | Encounter Summary ---
Author Organization [facility] Address [address] [place] [address] Care Team Providers Care Orange Peel Operator Name Role Phone Damian Lai MD Primary Care Provider [phone] Reason for Visit * Reason Onset Date Comments hospital follow up 05/11/2017 Encounter Details Date Type Department Care Team Description 05/11/2017 Telephone Adult Medicine [facility] [address] [place], [place] [phone] Damian Lai MD [address] [place] [address] hospital follow up Social History Tobacco Use [...] [facility] patient was [facility] at: [facility] Date of visit: 05.10.17 Was [...] on filedocumented in this encounter Care Teams Orange Peel Operator Relationship Specialty Start Date End Date Damian Lia MD [address] [place] [address] PCP - General Internal Medicine 04/01/14 documented as of this encounter
--- OUTSIDE RECORDS SUMMARY | 2024-12-28 07:44 | XMS_ITS | Encounter Summary ---
Author Organization [facility] Address [address] [place] [address] Care Team Providers Care Chemical Cell Changer Name Role Phone Damian Lai MD Primary Care Provider [phone] Encounter Details Date Type Department Care Team Description 04/13/2017 Head Of Advertising Report Medical Records [address] [place] [address] Dixon Boone MD Social History Tobacco Use [...] on filedocumented in this encounter Care Teams Chemical Cell Changer Relationship Specialty Start Date End Date Damian Lai MD [address] [place], [place] [phone] PCP - General Internal Medicine 04/01/14 documented as of this encounter
--- OUTSIDE RECORDS SUMMARY | 2024-12-28 07:44 | XMS_ITS | Encounter Summary ---
Author Organization [facility] Address [address] [place] [address] Care Team Providers Care Chief Radiologic Technologist Name Role Phone Damian Lai MD Primary Care Provider [phone] Encounter Details Date Type Department Care Team Description 07/13/2017 Nougat Cutter Machine Report Medical Records [address] [place] [address] Abstract, Provider Social History Tobacco Use Types [...] on filedocumented in this encounter Care Teams Chief Radiologic Technologist Relationship Specialty Start Date End Date Damian Lai MD [address] [place], [place] [phone] PCP - General Internal Medicine 04/01/14 documented as of this encounter
--- OUTSIDE RECORDS SUMMARY | 2024-12-28 07:44 | XMS_ITS | Encounter Summary ---
Author Organization [facility] Address [address] [place] [address] Care Team Providers Care Completion Engineer Name Role Phone Damian Lai MD Primary Care Provider [phone] Encounter Details Date Type Department Care Team Description 08/21/2017 Journeyman Apprentice Electricians Report Medical Records [address] [place] [address] Damaso Gee Social History Tobacco Use Types Packs/Day Years [...] on filedocumented in this encounter Care Teams Completion Engineer Relationship Specialty Start Date End Date Damian Lai MD [address] [place], [place] [phone] PCP - General Internal Medicine 04/01/14 documented as of this encounter
--- OUTSIDE RECORDS SUMMARY | 2024-12-28 07:44 | XMS_ITS | Encounter Summary ---
Author Organization [facility] Address [address] [place] [address] Care Team Providers Care Head Of English Name Role Phone Damian Lai MD Primary Care Provider [phone] Encounter Details Date Type Department Care Team Description 10/13/2017 Erp Project Manager Report Medical Records [address] [place] [address] Abstract, Provider Social History Tobacco Use Types [...] filedocumented in this encounter Care Teams Head Of English Relationship Specialty Start Date End Date Damian Lai MD [address] [place], [place] [phone] PCP - General Internal Medicine 04/01/14 documented as of this encounter
--- OUTSIDE RECORDS SUMMARY | 2024-12-28 07:44 | XMS_ITS | Encounter Summary ---
Author Organization [facility] Address [address] [place] [address] Care Team Providers Care Director Of Alumni Relations Name Role Phone Damian Lai MD Primary Care Provider [phone] Encounter Details Date Type Department Care Team Description 10/18/2017 Hospital Medical Records [address] [place] [address] Chad Siegel, DPM Social History Tobacco Use [...] in this encounter Care Teams Director Of Alumni Relations Relationship Specialty Start Date End Date Damian Lai MD [address] [place] [address] PCP - General Internal Medicine 04/01/14 documented as of this encounter
--- OUTSIDE RECORDS SUMMARY | 2024-12-28 07:44 | XMS_ITS | Encounter Summary ---
Author Organization [facility] Address [address] [place] [address] Care Team Providers Care Service Establishment Attendant Name Role Phone Damian Lai MD Primary Care Provider [phone] Encounter Details Date Type Department Care Team Description 04/19/2017 Refill Podiatry - [address] [address] Chad Siegel, DPJose Social History Tobacco Use [...] on filedocumented in this encounter Care Teams Service Establishment Attendant Relationship Specialty Start Date End Date Damian Lai MD [address] [place] [address] PCP - General Internal Medicine 04/01/14 documented as of this encounter
--- OUTSIDE RECORDS SUMMARY | 2024-12-28 07:44 | XMS_ITS | Encounter Summary ---
Author Organization [facility] Address [address] [place] [address] Care Team Providers Care Squeegee Finisher Name Role Phone Damian Lai MD Primary Care Provider [phone] Reason for Visit * Reason Onset Date Comments Transitional Care Management (Tcm) 10/26/2017 TCM post d/c [facility] 10/24/17 Encounter Details Date Type Department Care Team Description 10/26/2017 Telephone Adult Medicine [facility] [address] [place], [place] [phone] Damian Lai MD [address] [place] [address] [phone] Transitional Care Management (Tcm) (TCM post d/c [facility] 10/24/17) Social History Tobacco Use Types Packs/Day Years [...] Telephone Encounter - Jackelyn Perkins R.N. - 10/26/2017 11:09 AM EDT Patient with pmhx that includes; T2DM, diabetic neuropathy, HTN, HLD, ARUNA on CPAP, was admitted to [facility] on 10/17/17 due tononhealing wound and associated erythema of right plantar foot , near 1st toe. Wound first noted approx 2 weeks prior after patient reported stepping on glass at home. He was evaluated by Podiatry the next day and prescribed Doxycycline . The wound did not heal and upon f/u evaluation patient was referred to the ER for further treatment.WOund culture positive for Staph infections including MRSA. Initially goven Vanco and Zosyn and patient taken ot OR on 10/18/17 for complex debridement Report of deep abcess with likely involvement of right 1st MTP joint Antibx cahged after consult with ID to Naficillin. Patient discharged to home on 10/24/17 with [facility] services in place for IV infusion of antibx x 7 days. Quality Outreach: Hospital Discharge Admission Date: 10/17/17 Discharge Date: 10/24/17 Hospital: [facility] Problem or condition that sent patient to the hospital: See above Discharge Diagnosis: See above Patient statement of condition at time of outreach (how are they feeling)? I'm feeling good No concerns voiced at this time. Medications: Were prescriptions issued at time of discharge? Yes, new prescriptions were issued. naficillin 2 gmevery 4 hrs x 7 days, Oxycodone 5 mg prn pain Were prescriptions filled at pharmacy? Yes, prescriptions were filled at the pharmacy. Medication reconciliation: Medication reconcilliation completed. Assessment of patients understanding of new medication: The patient understands how to take new medications. Is the patient on Warfarin? NO If yes, Anticoagulation Clinic notified of hospitalization. Follow-up test or procedures: Other diagnostic/tests or procedures ordered post discharge: yes - IV antibiodics currently being gioven by [facility]. Patient will be instructed in self administratoin for this weekend. He states he is comfortable with this. Post discharge appointment scheduled: Date of appointment: 11/09/17 @ 1:30 pm . He has f/u appt with Podiatry today 10/26/17 @ 4pm Is the patient able to keep that appointment? Yes Does the patient have transportation to the appointment? Yes Home Care Services: Have home care services been requested? Yes, home care services have been ordered. Agency: [facility] Changes in condition since discharge: Patients statement [...] to follow- up appointment. Patient reminded of [facility] office telephone numbers. Instructed to call office or return to ER if symptoms return or worsen. Plan for care management: No care management needed at this time. documented in this encounter Plan of Treatment Not on file documented as of this encounter Visit Diagnoses Not on filedocumented in this encounter Care Teams Squeegee Finisher Relationship Specialty Start Date End Date Damian Lai MD [address] [place] [address] PCP - General Internal Medicine 04/01/14 documented as of this encounter
--- OUTSIDE RECORDS SUMMARY | 2024-12-28 07:44 | XMS_ITS | Encounter Summary ---
Author Organization [facility] Address [address] [place] [address] Care Team Providers Care Spray Painter Name Role Phone Damian Lai MD Primary Care Provider [phone] Encounter Details Date Type Department Care Team Description 05/29/2017 List Of First Job Ideas Report Medical Records [address] [place] [address] Rodriguez Davalos [address] [place] [address] Social History Tobacco Use Types Packs/Day Years [...] on filedocumented in this encounter Care Teams Spray Painter Relationship Specialty Start Date End Date Damian Lai MD [address] [place], [place] [phone] PCP - General Internal Medicine 04/01/14 documented as of this encounter
--- OUTSIDE RECORDS SUMMARY | 2024-12-28 07:44 | XMS_ITS | Encounter Summary ---
Author Organization [facility] Address [address] [place] [address] Care Team Providers Care Dye House Supervisor Name Role Phone Damian Lai MD Primary Care Provider [phone] Encounter Details Date Type Department Care Team Description 01/18/2023 Revenue Manager Report Medical Records [address] [place] [address] Ruddy Mcconnell MD Social History Tobacco Use [...] on filedocumented in this encounter Care Teams Dye House Supervisor Relationship Specialty Start Date End Date Damian Lai MD [address] [place] [address] PCP - General Internal Medicine 04/01/14 documented as of this encounter
--- OUTSIDE RECORDS SUMMARY | 2024-12-28 07:44 | XMS_ITS | Encounter Summary ---
Author Organization [facility] Address [address] [place] [address] Care Team Providers Care President Finance Company Name Role Phone Damian Lai MD Primary Care Provider [phone] Encounter Details Date Type Department Care Team Description 02/24/2015 Financial Services Professional Report Medical Records [address] [place] [address] Ruddy Mcconnell MD Social History Tobacco Use [...] on filedocumented in this encounter Care Teams President Finance Company Relationship Specialty Start Date End Date Damian Lai MD [address] [place], [place] [phone] PCP - General Internal Medicine 04/01/14 documented as of this encounter
--- OUTSIDE RECORDS SUMMARY | 2024-12-28 07:44 | XMS_ITS | Encounter Summary ---
Author Organization [facility] Address [address] [place] [address] Care Team Providers Care Automotive Light Mechanic Name Role Phone Damian Lai MD Primary Care Provider [phone] Encounter Details Date Type Department Care Team Description 02/16/2017 Loss Prevention Operations Manager Report Medical Records [address] [place] [address] Ruddy Mcconnell MD Social History Tobacco Use [...] filedocumented in this encounter Care Teams Automotive Light Mechanic Relationship Specialty Start Date End Date Damian Lai MD [address] [place], [place] [phone] PCP - General Internal Medicine 04/01/14 documented as of this encounter
--- OUTSIDE RECORDS SUMMARY | 2024-12-28 07:44 | XMS_ITS | Encounter Summary ---
Author Organization [facility] Address [address] [place] [address] Care Team Providers Care Lace Pinner Name Role Phone Damian Lai MD Primary Care Provider [phone] Encounter Details Date Type Department Care Team Description 06/07/2023 Dumpcart Driver Report Medical Records [address] [place] [address] Ruddy Mcconnell MD Social History Tobacco Use [...] on filedocumented in this encounter Care Teams Lace Pinner Relationship Specialty Start Date End Date Damian Lai MD [address] [place] [address] PCP - General Internal Medicine 04/01/14 documented as of this encounter
--- OUTSIDE RECORDS SUMMARY | 2024-12-28 07:44 | XMS_ITS | Encounter Summary ---
Author Organization [facility] Address [address] [place] [address] Care Team Providers Care Group Supervisor Yard Name Role Phone Damian Lai MD Primary Care Provider [phone] Encounter Details Date Type Department Care Team Description 08/17/2017 Millinery Copyist Report Medical Records [address] [place] [address] Ruddy Mcconnell MD Social History Tobacco Use [...] on filedocumented in this encounter Care Teams Group Supervisor Yard Relationship Specialty Start Date End Date Damian Lai MD [address] [place], [place] [phone] PCP - General Internal Medicine 04/01/14 documented as of this encounter
[2024-12-28 11:28] LABS: Anion Gap 12 (12-20); Blood Urea Nitrogen 24 mg/dL (9-16); Carbon Dioxide 30 mmol/L (22-29); Chloride 104 mmol/L (96-108); Estimated Glomerular Filt Rate > 60; Potassium 4.3 mmol/L (3.3-5.1); Sodium 142 mmol/L (135-145)
[2024-12-28 11:39] LABS: Protein/Creatinine Ratio, Ur 0.41 (<0.2); Total Protein Urine Random 24 mg/dL (<12)
== END 2024-12-28 07:40 | disposition home or self-care (01) ==
LOC: HO.HMGCLDS 07:39
PROVIDERS: PCP Internal Medicine; Visit Provider Internal Medicine Nephrology
DX: I12.9 Hypertensive chronic kidney disease with stage 1 through stage 4 chronic kidney disease, or unspecified chronic kidney disease (principal); E11.22 Type 2 diabetes mellitus with diabetic chronic kidney disease; N18.30 Chronic kidney disease, stage 3 unspecified; E11.21 Type 2 diabetes mellitus with diabetic nephropathy
CPT/HCPCS: 36415; 80051; 82565; 82570; 84156; 84520

== ENCOUNTER 2025-01-08 15:48 | Outpatient (AMB) | payer MEDICARE, MEDICAID, SELFPAY ==
--- NOTE | 2025-01-08 16:03 | HO.NEPHOV ---
Vital Signs 01/08/25 16:05 Height 5 ft 8 in Weight 319 lb BMI 48.5 BP 120/70 Blood Pressure Location Rt brachial Position Sitting Pulse 74 Pulse Source Pulse Oximeter Pulse Oximetry (%) 95 Oxygen Delivery Method Room Air Intake Visit Reasons: 3 MO FU-[facility] Milling Operator Required: No Accompanied by: Self / Same As Patient Allergies No Known Allergies Allergy (Verified 01/08/25 16:05) HPI Comments Details: Zac was seen in follow-up of his chronic kidney disease on a backdrop of obesity, hypertension and uncontrolled diabetes. He has no pedal edema. His blood sugar control is better . He denies chest pain, shortness of breath, nausea, vomiting, diarrhea, urinary symptoms, orthostasis. He avoids nonsteroidal inflammatory medications. He claims to be compliant with his medications but is not as active as he should be. He is on angiotensin receptor nickolas. [facility] Medical History (Updated 03/08/23 @ 15:48 by Ruddy Mcconnell MD) Chronic kidney disease (CKD) Hypertension Diabetes Family History Mother Diabetes Father Diabetes Hypertension Social History Alcohol intake: never Patient Tobacco Use Status: Never used Tobacco Review of Systems Const All systems reviewed & are unremarkable except as noted in HPI and below Physical Exam Vital Signs: Last Vital Signs Pulse 74 01/08/25 16:05 BP 120/70 01/08/25 16:05 Pulse Ox 95 01/08/25 16:05 Oxygen Delivery Method Room Air 01/08/25 16:05 BMI result Body Mass Index 48.5 Const General: comfortable and no acute distress Orientation/consciousness: patient oriented x3 HEENT Head: Yes normocephalic Mouth: Normal oral and palatal mucosa present Eyes EOM: EOMs intact bilaterally Neck Neck: Yes supple Resp Auscultation: clear to auscultation bilaterally Cardio Jugular venous distension: no JVD Rate: regular rate GI Palpation (GI): Soft to palpation Auscultation: normal bowel sounds General: Yes no CVA tenderness Back/Spine/Pelvis Back: no CVA tenderness Skin General skin exam: no rashes or lesions noted Neuro General: patient oriented x3 and moves all extremities Extrem General: Yes no pedal edema Results Reviewed Nephrology Results: Sodium, (135-145) 142 mmol/L 12/28/24 Potassium, (3.3-5.1) 4.3 mmol/L 12/28/24 Chloride, (96-108) 104 mmol/L 12/28/24 Carbon Dioxide, (22-29) 30 mmol/L H 12/28/24 BUN, (9-16) 24 mg/dL H 12/28/24 Creatinine, (0.5-1.4) 1.23 mg/dL 12/28/24 Urine Creatinine 58.68 mg/dL 12/28/24 Protein/Creatinin Ratio, (<0.2) 0.41 H 12/28/24 Assessment & Plan Assessment & Plan (1) CKD stage 3 due to type 2 diabetes mellitus: Code(s): E11.22 - Type 2 diabetes mellitus with diabetic chronic kidney disease; N18.30 - Chronic kidney disease, stage 3 unspecified Category: Medical (2) Diabetic nephropathy: Code(s): E11.21 - Type 2 diabetes mellitus with diabetic nephropathy Category: Medical Qualifiers: Diabetes mellitus type: type 2 Qualified Code(s): E11.21 - Type 2 diabetes mellitus with diabetic nephropathy (3) Hypertension: Code(s): I10 - Essential (primary) hypertension Category: Medical Qualifiers: Hypertension type: primary hypertension Qualified Code(s): I10 - Essential (primary) hypertension Plan Zac has 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 He is on angiotensin receptor nickolas along with multiple antihypertensives to keep his blood pressure at goal. He should be on a low-sodium diet. He should maintain good hydration. He can continue Bumex 1 mg every other day. He should take Jardiance 10 mg daily which I plan to increase to 25 mg daily at next visit . He should not take any nonsteroidal anti-inflammatory medications. I did not make any other medication changes today. He needs to lose weight. If he is unsuccessful in losing weight he should be seen in weight management . All his questions were answered Orders: Orders Blood Urea Nitrogen 3 Months E11.21 - Type 2 diabetes mellitus with diabetic nephropathy, E11.22 - Type 2 diabetes mellitus with diabetic chronic kidney disease, I10 - Essential (primary) hypertension, N18.30 - Chronic kidney disease, stage 3 unspecified Creatinine 3 Months E11.21 - Type 2 diabetes mellitus with diabetic nephropathy, E11.22 - Type 2 diabetes mellitus with diabetic chronic kidney disease, I10 - Essential (primary) hypertension, N18.30 - Chronic kidney disease, stage 3 unspecified Electrolytes 3 Months E11.21 - Type 2 diabetes mellitus with diabetic nephropathy, E11.22 - Type 2 diabetes mellitus with diabetic chronic kidney disease, I10 - Essential (primary) hypertension, N18.30 - Chronic kidney disease, stage 3 unspecified Coding Level of Care Code Est Pt Level 4 (39183) Diagnoses CKD stage 3 due to type 2 diabetes mellitus E11.22; N18.30 Diabetic nephropathy associated with type 2 diabetes mellitus E11.21 Diabetes mellitus type: type 2 Primary hypertension I10 Hypertension type: primary hypertension
[2025-01-08 16:05] VITALS: BP 120/70; PULSE 74; O2SAT 95; BMI 48.5
--- OUTSIDE RECORDS SUMMARY | 2025-01-08 18:42 | XMS_ITS | Data Portability ---
Author Organization [facility] Address [address] [place] [address] Care Team Providers Care Plate Put In Worker Name Role Phone VENITA DEL VALLE Primary Care Provider Assessment No assessment recorded. Plan of Treatment Reminders Order Date Submit Date Provider Last Modified By Organization Details Last Modified Time Details Appointments None record ed. Lab None record ed. Referral None record ed. Procedures None record ed. Surgeries None record ed. Imaging XR, knee, 4 or more view - Rm 203, L Knee. 4V 025 08/22/19 [facility], [address], [place], [address], 15:03:05 Medication Orders None record ed. Patient [...] a4ajBk vP9nXo QUaueC m3YtLR FvZlgJ JJ8mAn HZtai3 [id number] AC0Kla XqNVqu uKiQtr MwF INTERFACE [facility] [address], [place], [address], 08/21/2024 15:03:05 08/22/19 25 08/21/2024 XR, knee, 4 or more view http:/ [email or web address] ?Encry pted=s hAaTro YD8dLq bEUv6g %2BXZw aYqtaq 0bqfl% 2Fg9IQ a4ajBk vP9nXo QUaueC m3YtLR FvZlgJ JJ8mAn HZtai3 0n7408 AC0Kla XqNVqu uKiQtr MwF INTERFACE [facility] [address], [place], [address], 08/21/2024 15:03:07 Result Notes Documentation Provider Name and Address Organization Details Recorded Time Xr, Knee, 4 Or More View : [email or web address] Encrypted=hhHtAavDO7eAwpL Uv6g%5LEBmbFykux6awde%2Fg 5ELf9arSxyK5yZgKBqmwTu4Bp YYJnDniPGK2hDxQWbhw44a463 3CS8SfdJlGOgtjShQukCjA Not Available [facility] 08/21/2024 15:03: 06 Xr, Knee, 4 Or More View : [email or web address]? Encrypted=xnNaKqgWT2rVhdP Uv6g%5ZXEbiAlatb9cjht%2Fg 6QAf7upJdbO2fOaDMhtpWq0Oo PAIdKkqAZG7mWyYVmnj33e594 8QG5LhlGpOBuioFfOwmKoH Not Available [facility] 08/21/2024 15:03: 07 Procedures Surgical History Date Name Laterality Status Provider Name and Address Organization Details Recorded Time 08/21/2024 Sports Knee 4&1 completed Nima Menendez PA-C [address], [place], [address], [facility] 08/21/2024 15:54:20 Imaging Results [...] ICD10 Code Diagnosis IMO Codes Diagnosis Note [id number] EBEN Bravo [address] [place] [address] 08/21/2024 14:40:15 09/03/2024 15:08:09 Pain of left knee region 3681149607 25091 M25.562 49661488 Osteoarthr itis of left knee joint 1198927198 21374 M17.12 5488127 Pes anseri nus bursitis of left knee [id number] 581617 M70.52 [id number] Health Concerns Section Related Observation LastModified by Organization Detai ls LastModified Time None Recorded Concern Status LastModified by Organization Details LastModified Time None Recorded Advance Directives Directive None Recorded Payers Insurance Date Sequence Insurance Name Policy Number Policy Araiza Covered Member ID Araiza Member ID Guarantor Name 08/21/2024 2 [place] [facility] Zac Ahmadi [id number] Zac Ahmadi 08/21/2024 1 [place] [employer] Zac Britta Ahmadi [id number] Zac Ahmadi Notes Date Note Type Note [...] normal limits.X-rays ordered, obtained and reviewed at [facility] 4 views left knee reviewed demonstrate moderate [...] Menendez PA-C [address], [place], [address], [facility] 08/21/2024 15:55:03
--- OUTSIDE RECORDS SUMMARY | 2025-01-08 18:42 | XMS_ITS | Data Portability ---
Author Organization [facility], [address] Address [address] [place] [address] Assessment No assessment recorded. Plan of Treatment Reminders Order Date Submit Date Provider Last Modified By Organization Details Last Modified Time Details Appointments None recorded. Lab SARS CoV 2 (COVID-19) Ag, QL, IA, upper respiratory specimen 2023 024 [email or web address] [address] [address], [address] [place], [address], 4 15:09:10 rapid strep group A, throat 2023 024 [email or web address] [address] [address], [address] [place], [address], 4 11:07:23 SARS CoV 2 (COVID-19) Ag, QL, IA, upper respiratory specimen 2023 024 [email or web address] [address] [address], [address] [place], [address], 4 11:07:24 rapid flu (A+B) 2023 024 [email or web address] [address] [address], [address] [place], [address], 4 11:07:25 Referral None recorded. Procedures None recorded. Surgeries None recorded. Imaging None recorded. Medication Orders benzonatate 200 mg capsule [address] [id number], [address], [place], [phone], 4 15:09:17 Paxlovid 300 mg (150 mg x 2)-100 mg tablets in a dose pack [address] [id number], [address], [place], [id number], 4 14:44:08 acetaminoph en 325 mg tablet 2023 024 [email or web address] Not available 11:19:32 Patient TargetsNo targets recorded. Patient Instructions Encounter Date Encounter Id Patient Instructions Last Modified By Organization Details Last Modified Time 08/12/2023 [id number] cough: care instructions [email or web address] Not available 08/12/2023 15:09:09 Reason for Referral None Reported. Results Created Date Observation Date Name Description Value Unit Range Abnormal Flag Note LastModifiedBy Organization Detail LastModifiedTime 08/01/19 24 08/01/2023 SARS CoV 2 (COVI D-19) Ag, QL, IA, upper respi rator y speci men Unknown Analyte positi ve Not Available [address] [facility] [place], [address], 08/01/2023 10:32:04 08/01/19 24 08/01/2023 SARS CoV 2 (COVI D-19) Ag, QL, IA, upper respi rator y speci men Unknown Analyte yes Not Available [id number] [place] [address] [address] [place], [address], 08/01/2023 10:32:04 08/01/19 24 08/01/2023 rapid flu (A+B) Unknown Analyte negati ve Not Available [address] [place], [address], 08/01/2023 10:32:17 08/01/19 24 08/01/2023 rapid flu (A+B) Unknown Analyte negati ve Not Available [facility] [place], [address], 08/01/2023 10:32:17 08/01/19 24 08/01/2023 rapid flu (A+B) Unknown Analyte yes Not Available [id number] [place] [address] [address] [place], [address], 08/01/2023 10:32:17 08/01/19 24 08/01/2023 rapid strep group A, throa t Unknown Analyte negati ve Not Available [facility] [address] [place], [address], 08/01/2023 10:31:57 08/01/19 24 08/01/2023 rapid strep group A, throa t Unknown Analyte yes Not Available [id number] [place] [address] [address] [place], [address], 08/01/2023 10:31:57 08/12/19 24 08/12/2023 SARS CoV 2 (COVI D-19) Ag, QL, IA, upper respi rator y speci men Unknown Analyte negati ve Not Available [address] [place], [address], 08/12/2023 14:52:00 08/12/19 24 08/12/2023 SARS CoV 2 (COVI D-19) Ag, QL, IA, upper respi rator y speci men Unknown Analyte yes Not Available [id number] [place] [address] [address] [place], [address], 08/12/2023 14:52:00 Result Notes None recorded. Problems Name Problem SNOMED Code Status Onset Date Resolution Date Notes Provider Name and Address Organization Details Recorded Time Diabetes mellitus 38448139 Active SUMANTH Nelson [facility] 4 10:24:58 Hypertensive disorder 12448422 Active Agustina SUMANTH Wood [facility] 4 10:25:06 Hypercholestero lemia 25689307 Active Agustina SUMANTH Wood [facility] 4 [...] Updated DateTime 4 170.18 cm 36 kg/m2 576247. 25 g 98 % 68 /min 18 /min 98.9 [degF] 134/69 mm[Hg] Agustina Romano PA - [facility] 4 10:30:41 Date Recorded Body height Body mass index (BMI) Body weight Body temperature Oxygen saturation Heart rate Respiratory rate Systolic And Diastolic Provider Name and Address Organization Details Last Updated DateTime 4 170.18 cm 36 kg/m2 706756. 25 g 98.1 [degF] 98 % 68 /min 16 /min 122/71 mm[Hg] Johana Stephens PA - [facility] 4 14:45:11 Social History Question Answer Notes LastModified by Organizat ion Details LastModified Time Tobacco Smoking Status Never Smoker SUMANTH Nelson - [facility] 08/01/2023 10:28:53 Have You Had A Flu Shot This Season? Yes [email or web address] Information not available 08/01/2023 Have You Had Direct Contact, Or Contact During Intimacy, With Monkeypox Rash, Scabs, Or Body Fluids From A Person With Monkeypox? No [email or web address] Information not available 08/01/2023 What Was The Date Of Your Most Recent Tobacco Screening? 08/01/2023 [email or web address] Information not available 08/01/2023 Have You Recently Traveled Abroad? No [email or web address] Information not available 08/01/2023 Sex: Unknown Functional Status Question Answer Note LastModified by Organizat ion Details LastModified Time Do you use any illicit or recreational drugs? No [email or web address] Information not available 08/01/2023 Do you or have you ever used any other forms of tobacco or nicotine? No [email or web address] Information not available 08/01/2023 What is your level of alcohol consumption? None [email or web address] Information not available 08/01/2023 Mental Status None recorded. Family History Nothing Reported. Medical History No medical history recorded. Past Encounters Encounter ID Performer Location Encounter Start Date Encounter Closed Date Diagnosis/Indication Diagnosis SNOMED-CT Code Diagnosis ICD10 Code Diagnosis IMO Codes Diagnosis Note [id number] [address] [place] [address] 01/07/2018 10:55:38 01/07/2018 11:36:11 [id number] [address] [place] [address] 08/10/2019 16:47:36 08/10/2019 17:47:05 [id number] [address] [place] [address] 02/18/2019 17:09:35 02/18/2019 19:11:01 [id number] [address] [facility] [address] [place] [address] 11/28/2018 14:20:44 11/28/2018 15:39:06 [id number] SUMANTH GUTIERREZ [address] [facility] [address] [facility] [place], [place] [address] 08/01/2023 10:21:19 08/01/2023 11:00:52 COVID-19 121420255 U07.1 You have been Diagnosed with COVID [...] [facility] Thank you for visiting [facility] today, please feel free to call our office you have any questions or concerns. [id number] SUMANTH GUTIERREZ [address] [facility] [address] [place] [address] 08/12/2023 14:20:09 08/12/2023 15:09:56 Cough 99642590 R05.9 You are being treated for a [...] or lung pathology. Thank you for using [facility] today - please don't hesitate to contact [...] ID Guarantor Name 08/12/2023 1 [place] [employer] Zac Ahmadi [id number] Zac Ahmadi 10/31/2023 2 [place] [facility] Zac Ahmadi [id number] Zac Ahmadi Notes Date Note Type Note Provider Name and Address Organization Details Recorded Time 08/01/2023 text/html 53 y/o male with 3 days of fever, cough, sore throat SUMANTH Brewer [address] [place], [address], [place] PA - [facility] 08/01/2023 11:14:08 08/12/2023 text/html 53 y/o male diagnosed with COVID 11 days ago here for retest. Still coughing a lot, finished full course of Paxlovid. [place], [address], [place] PA - [facility] 08/12/2023 15:09:27
--- OUTSIDE RECORDS SUMMARY | 2025-01-08 18:42 | XMS_ITS | Clinical Summary ---
Author Organization Patient Business Ser vice [facility] Address [address] [place] [address] Care Team Providers Care Transmitter Engineer In Charge Name Role Phone Damian Lai MD Primary Care Provider [phone] Allergies No known active allergies Medications ASPIRIN ORAL Take 81 mg by mouth 1 (one) time each day. Active blood-glucose sensor (DEXCOM G7 SENSOR [facility]) 1 Each by Does not apply route See Admin Instructions. USE 1 SENSOR EVERY 10 DAYS. 023 Active blood-glucose transmitter (DEXCOM G6 TRANSMITTER [facility]) To use with Dexcom sensor, 1 transmitter [...] call me. 45 mL 2 024 Active busPIRone (BUSPAR) 5 mg tablet Take 1 tablet (5 mg total) by mouth 2 (two) times a day if needed. 025 Active diclofenac (VOLTAREN) 1 % topical gel Apply 4 g topically 2 (two) times a day. 200 g 2 025 Active amLODIPine (NORVASC) 5 mg tablet [...] with meals. 180 tablet 1 025 Active atorvastatin (LIPITOR) 40 mg tablet TAKE 1 TABLET(40 MG) BY MOUTH 1 TIME EACH DAY 90 tablet 025 Active empagliflozin (Jardiance) 10 mg tablet Take 1 tablet (10 mg total) by mouth 1 (one) time each day. 90 tablet 1 025 Active insulin glargine (Lantus Solostar U-100 Insulin) 100 unit/mL (3 mL) injection pen Inject 52-54 Units under the skin at bedtime. 60 mL 2 025 Active losartan (COZAAR) 100 mg tablet Take 1 tablet (100 mg total) by mouth at bedtime. 90 tablet 025 Active dulaglutide (Trulicity) 4.5 mg/0.5 mL pen injector injectionIndicati ons:Diabetes mellitus type 2 with neurological manifestations (CMS/HCC V24, CMS/[facility] V28) Use 4.5mg once weekly 2 mL 3 025 Active pen needle, diabetic (BD Ultra-Fine Short Pen Needle) 31 gauge x 5/16 needle USE WITH INSULIN PEN 4 TIMES A DAY 100 each 3 025 Active blood sugar diagnostic (Contour Next Test Strips) test stripIndications: Diabetes mellitus type 2 with neurological manifestations (CMS/HCC V24, CMS/[facility] V28) Use to check sugars 4 times a day 300 each 3 025 Active metFORMIN XR (GLUCOPHAGE-XR) 500 mg 24 hr tablet TAKE 1 TABLET(500 MG) BY MOUTH TWICE DAILY 180 tablet 2 025 Active losartan (COZAAR) 100 mg tablet Take 1 tablet (100 mg total) by mouth at bedtime. at bedtime. 2024 Discontinued blood-glucose meter,continuous (Dexcom G6 [employer]) [facility] [place] For continuous glucose monitoring 023 2024 Discontinued cholecalciferol (VITAMIN D-3) 50 mcg (2,000 unit) capsule TAKE 1 CAPSULE BY MOUTH EVERY DAY 90 capsule 1 024 2024 Discontinued insulin glargine (Lantus Solostar U-100 Insulin) 100 unit/mL (3 mL) injection pen Inject 56-60 Units under the skin at bedtime. 60 mL 2 024 2024 Discontinued(R eorder) metFORMIN XR (GLUCOPHAGE-XR) 500 mg 24 hr tablet Take 1 tablet (500 mg total) by mouth 2 (two) times a day. 180 tablet 2 024 12/01/ 2025 Discontinued blood sugar diagnostic (Contour Next Test Strips) test stripIndications: Diabetes mellitus type 2 with neurological manifestations ([facility] V24, [facility] V28) Use to check sugars 4 times a day 300 each 3 025 2024 Discontinued(R eorder) losartan (COZAAR) 100 mg tablet Take 1 tablet (100 mg total) by mouth at bedtime. 90 tablet 1 025 2024 Discontinued dulaglutide (Trulicity) 3 mg/0.5 mL pen injector injectionIndicati ons:Diabetes mellitus type 2 with neurological manifestations ([facility] V24, [facility] V28) Use 3mg once weekly 2 mL [...] obesity with BMI of 4 5.0-49.9, adult ([facility] V24, [facility] V28) 12/14/2023 COVID-19 12/03/2021 Adhesive capsulitis of ankle, right 10/17/2019 Adhesive capsulitis of right shoulder 10/17/2019 Osteoarthritis of right AC (acromioclavicular) j oint 10/17/2019 Tendinitis of right rotator cuff 10/17/2019 Allergic conjunctivitis of both eyes 07/31/2019 MDD (major depressive disord er), recurrent severe, without psychosis ([facility] V24, [facility] V28) 07/16/2019 Chronic rhinitis 07/27/2017 Recurrent sinus infections 07/27/2017 GERD (gastroesophageal reflux disease) 6 CKD (chronic kidney disease) stage 3, GFR 30-59 ml/min ([facility] V24, [facility] V28) 07/24/2014 Diabetes mellitus type 2 wit h neurological manifestations ([facility] V24, [facility] V28) 07/24/2014 Hyperlipidemia 07/24/2014 ARUNA (obstructive sleep apnea) 07/24/2014 Overview (12/14/2023): [facility] [place] [facility] Polysomnogram: Date 03/19/2013; BMI 53; AHI 31, REM AHI 64, Central apneas 2; Obstructive apneas 35; hypopneas 18; average oxygen saturation 93% (lowest 44%); PLMs 0. CPAP trialed and lowest AHI on therapy of 6 was 9.3. Encounters Date Type Department Care Team Description 12/24/2024 12:00 PM EST Office Visit Endocrinology [address] [phone] Lindy Gutierrez PA Diabetes mellitus type 2 with neurological manifestations ([facility] V24, [facility] V28) (Primary Dx); Morbid obesity with BMI of 45.0-49.9, adult ([facility] V24, [facility] V28); Primary hypertension; Hyperlipidemia, unspecified hyperlipidemia type; Stage 3a chronic kidney disease ([facility] V24, [facility] V28) 12/17/2024 1:30 PM EST Lab Draw Station [address] Type 2 diabetes mellitus with stage 3a chronic kidney disease, with long-term current use of insulin ([facility] V24, [facility] V28); Primary hypertension; Encounter for long-term (current) use of medications; Pure hypercholesterolemia 12/17/2024 1:00 PM EST Office Visit Adult Medicine [address] [phone] Damian Lai MD Type 2 diabetes mellitus with stage 3a chronic kidney disease, with long-term current use of insulin ([facility] V24, [facility] V28) (Primary Dx); Pure hypercholesterolemia; Primary hypertension; [...] Surgery Date Site/Laterality Comments ESOPHAGOGASTRODUODENOSCOPY 07/24/15 PROCEDURE: MO EGD TRANSORAL BIOPSY SINGLE/MULTIPLE; COMMENT: normal; normal gastric biopsies without H. pylori Medical History Medical History Date Comments Type II or unspecified type diabetes mellitus without mention of complication, uncontrolled DX:Type II or unspecified t ype diabetes mellitus without mention of complication, uncontrolled Shoulder arthritis DX:Shoulder a rthritis Gout DX:Gout Depression DX:Depression Hypertension DX:Hypertension Neuropathy DX:Neuropathy Morbid obesity ([facility] V24, [facility] V28) 07/24/2014 DX:Morbid obesity ([facility]) ARUNA (obstructive sleep apnea) 07/24/2014 DX :ARUNA (obstructive sleep apnea); COMMENT: severe CKD (chronic kidney disease) stage 3, GFR 30-59 ml/min ([facility] V24, [facility] V28) 07/24/2014 DX:CKD (chronic kidney disea se) [...] care for your loved ones. For example, children's institution attendant or elderly care for an older adult? [...] 9:15 AM EST Office Visit Orthopedic Surgery [place] [address] [phone] Martell Mckee, DPM [address] [phone] 04/03/2025 8:45 AM EST Office Visit [address] [phone] Lindy Gutierrez PA [address] [place] [address] 07/01/2025 2:30 PM EDT Office Visit Adult Medicine [address] [phone] Damian Lai MD [address] [place] [address] Health Maintenance Due Date Last Done Comments [...] disease, with long-term current use of insulin ([facility] V24, [facility] V28) LIPID PANEL WITH REFLEX TO DIRECT LDL Routine 12/17/2024 1:36 PM EST Pure hypercholesterolemia COMPREHENSIVE METABOLIC PANEL Routine 12/17/2024 1:36 PM EST Type 2 diabetes mellitus with stage 3a chronic kidney disease, with long-term current use of insulin ([facility] V24, [facility] V28) Primary hypertension Encounter for long-term (current) use of medications MICROALBUMIN CREATININE URINE RATIO Routine 12/17/2024 1:36 PM EST Type 2 diabetes mellitus with stage 3a chronic kidney disease, with long-term current use of insulin ([facility] V24, [facility] V28) HEPATITIS C SCREENING Routine 07/29/2022 COLONOSCOPY Routine 01/22/2020 from Last 3 Months or Most Recently Relevant to Health Maintenance Results * (ABNORMAL) Lipid panel with reflex to direct LDL (12/17/2024 1:36 PM EST) Cholesterol 167 0 - 200 mg/dL LAB CHEMISTRY METHOD 12/17/2024 5:23 PM EST [facility] Triglycerides 312(H) 0 - 150 mg/dL LAB CHEMISTRY METHOD 12/17/2024 5:23 PM EST [facility] HDL 34(L) >=40 mg/dL LAB CHEMISTRY METHOD 12/17/2024 5:23 PM EST [facility] LDL Calculated 71 0 - 100 mg/dL LAB CHEMISTRY METHOD 12/17/2024 5:23 PM EST [facility] Comment:Estimated LDL Calcul ated using equation: Total cholesterol - HDL cholesterol - (Triglycerides/5) VLDL Cholesterol Marc 62.4 mg/dL LAB CHEMISTRY METHOD 12/17/2024 5:23 PM EST [facility] Non HDL Chol. (LDL+VLDL) 133 <145 mg/dL LAB CHEMISTRY METHOD 12/17/2024 5:23 PM [facility] Chol/HDL Ratio 4.9(H) 0.0 - 4.4 LAB CHEMISTRY METHOD 12/17/2024 5:23 PM [facility] Blood Venous blood specimen / Unknown Venipuncture / Unknown 12/17/2024 1:36 PM EST 12/17/2024 1:36 PM EST us Damian Lai MD LAB BLOOD ORDERABLES Final Resu lt [facility] [address] [place] [address], * (ABNORMAL) Microalbumin creatinine urine ratio (12/17/2024 1:36 PM EST) Creatinine, Urine 16.0 mg/dL LAB CHEMISTRY METHOD 12/17/2024 6:18 PM [facility] Microalb, Ur 19.9 0.0 - 29.0 mg/L LAB CHEMISTRY METHOD 12/17/2024 6:18 PM EST [facility] Microalb/Creat Ratio 124(H) <30 mg/g creat LAB CHEMISTRY METHOD 12/17/2024 6:18 PM EST [facility] Urine Urine specimen obtained by clean catch procedure / Unknown Non-blood Collection / Unknown 12/17/2024 1:36 PM EST 12/17/2024 1:36 PM EST us Damian Lai MD LAB URINE ORDERABLES Final Resu lt Performing Organization Address City/[facility]/ZIP Co de Phone Number [facility] [address] [place] [address], [place] [phone] * (ABNORMAL) Hemoglobin A1c (12/17/2024 1:36 PM EST) Pathologist [facility] Hemoglobin A1C 8.2(H) <6.5 % LAB CHEMISTRY METHOD 12/17/2024 10:05 PM EST [facility] Mean Bld Glu Estim. 189 mg/dL LAB CHEMISTRY METHOD 12/17/2024 10:05 PM [facility] Blood Venous blood specimen / Unknown Venipuncture / Unknown 12/17/2024 1:36 PM EST 12/17/2024 1:36 PM EST us Damian Lai MD LAB BLOOD ORDERABLES Final Resu lt Performing Organization Address [facility]/ZIP Co de Phone Number [facility] [address] [place] [address], [place] [phone] * (ABNORMAL) Comprehensive metabolic panel (12/17/2024 1:36 PM EST) Pathologist [facility] Sodium 139 133 - 145 mmol/L LAB CHEMISTRY METHOD 12/17/2024 5:23 PM [facility] Potassium 4.4 3.5 - 5.5 mmol/L LAB CHEMISTRY METHOD 12/17/2024 5:23 PM [facility] Chloride 103 96 - 110 mmol/L LAB CHEMISTRY METHOD 12/17/2024 5:23 PM [facility] CO2 30 21 - 32 mmol/L LAB CHEMISTRY METHOD 12/17/2024 5:23 PM [facility] Anion Gap 6 3 - 11 LAB CHEMISTRY METHOD 12/17/2024 5:23 PM [facility] Glucose 164(H) 70 - 100 mg/dL LAB CHEMISTRY METHOD 12/17/2024 5:23 PM [facility] BUN 31(H) 5 - 25 mg/dL LAB CHEMISTRY METHOD 12/17/2024 5:23 PM [facility] Creatinine 1.67(H) 0.70 - 1.30 mg/dL LAB CHEMISTRY METHOD 12/17/2024 5:23 PM [facility] eGFR 48(L) >=60 mL/min/1. 73m2 LAB CHEMISTRY METHOD 12/17/2024 5:23 PM [facility] Comment:Calculation based on the Chronic Kidney Disease Epidemiology Collaboration (CKD-EPI) equation refit without adjustment for race. BUN/Creatinine Ratio 18.6 LAB CHEMISTRY METHOD 12/17/2024 5:23 PM [facility] Calcium 9.7 8.5 - 10.5 mg/dL LAB CHEMISTRY METHOD 12/17/2024 5:23 PM [facility] AST (SGOT) 20 10 - 42 unit/L LAB CHEMISTRY METHOD 12/17/2024 5:23 PM [facility] ALT (SGPT) 49 10 - 60 unit/L LAB CHEMISTRY METHOD 12/17/2024 5:23 PM [facility] Alkaline Phosphatase 161(H) 42 - 121 unit/L LAB CHEMISTRY METHOD 12/17/2024 5:23 PM [facility] Total Protein 7.6 6.0 - 8.0 g/dL LAB CHEMISTRY METHOD 12/17/2024 5:23 PM [facility] Albumin 3.8 3.2 - 5.0 g/dL LAB CHEMISTRY METHOD 12/17/2024 5:23 PM [facility] Total Bilirubin 0.5 0.0 - 1.4 mg/dL LAB CHEMISTRY METHOD 12/17/2024 5:23 PM [facility] Blood Venous blood specimen / Unknown Venipuncture / Unknown 12/17/2024 1:36 PM EST 12/17/2024 1:36 PM EST Damian Lai MD LAB BLOOD ORDERABLES Final Resu lt [facility] ([facility]) [facility] [address] [place] [address], [place] [phone] * Hepatitis C Screening (07/29/2022) Hepatitis C Screening Abstracted Historical Provider HEALTH MAINTENANCE Final Result * Colonoscopy (01/22/2020) Colonoscopy No interpretatio n, abstraced Anatomical Region Laterality Modality Other Historical Provider HEALTH MAINTENANCE Final Result from Last 3 Months or Most Recently Relevant to Health Maintenance Insurance MEDICARE [place]ID [place] Advance Directives Documents on File Type Date Recorded 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
== END 2025-01-08 16:19 | disposition home or self-care (01) ==
LOC: HO.HKA 15:49
PROVIDERS: PCP Internal Medicine; Visit Provider Internal Medicine Nephrology
DX: E11.22 Type 2 diabetes mellitus with diabetic chronic kidney disease (principal); N18.30 Chronic kidney disease, stage 3 unspecified; E11.21 Type 2 diabetes mellitus with diabetic nephropathy; I10 Essential (primary) hypertension
CPT/HCPCS: 99214

== ENCOUNTER → 2025-01-08 15:48 | Outpatient (BNVA) | payer MEDICARE, MEDICAID, SELFPAY | PROVIDERS: PCP Internal Medicine; Visit Provider Internal Medicine Nephrology | DX: I12.9 Hypertensive chronic kidney disease with stage 1 through stage 4 chronic kidney disease, or unspecified chronic kidney disease (principal); E11.22 Type 2 diabetes mellitus with diabetic chronic kidney disease; E11.21 Type 2 diabetes mellitus with diabetic nephropathy; N18.30 Chronic kidney disease, stage 3 unspecified | CPT/HCPCS: 99212 ==